=== PATIENT | female | born 1955 | race Caucasian/White ===

== ENCOUNTER 2023-12-24 14:28 | Outpatient (OUT) | payer MEDICARE, SELFPAY ==
--- NOTE | 2023-12-24 14:31 | ECG_ITS ---
[facility] Test Date: 2023-12-24 Pat Name: RADHA ELLIS Department: Room: - Gender: Female [employer]: : 1955 Requested By: SATISH GRAMAJO Order Number: [id number] Reading MD: AARON LINO Measurements Intervals [place] Rate: 76 P: -1 MT: 164 QRS: 15 QRSD: 144 T: 31 QT: 402 QTc: 453 Interpretive Statements SINUS RHYTHM WITH OCCASIONAL VENTRICULAR PREMATURE COMPLEXES RIGHT BUNDLE BRANCH BLOCK w/ secondary ST/T wave changes No previous ECG available for comparison Electronically Signed On 12-24-2023 18:48:39 EDT by AARON LINO
--- NOTE | 2023-12-24 15:05 | P.GSHP_ITS ---
History of Present Illness History of Present Illness Chief complaint: GROSS HEMATURIA, RIGHT URETERAL STONE Narrative: Patient presents for preadmission testing. The patient states she sought care because she had hematuria. The patient reports a history of kidney stones with a percutaneous nephrolithotomy done in approximately October 2020. The patient states she is still experiencing intermittent hematuria but denies any abdominal pain, flank pain, nausea, vomiting, or dysuria. Review of Systems ROS Narrative REVIEW OF SYSTEMS: Negative except as stated in HPI, ten or more systems reviewed. Constitutional: No fever, chills, weakness ENT: No sore throat or epistaxis Cardiovascular: No edema, chest pain, palpitations, or activity intolerance Respiratory: No shortness of breath, cough, or wheezing Musculoskeletal: No joint pain or swelling Gastrointestinal: No abdominal pain, constipation, diarrhea, or vomiting Neurological: No numbness, tingling, weakness, or headache Psychiatric: No mood changes [facility] Medical History (Updated 12/24/23 @ 15:07 by Klaudia Edwards NP) Hyperlipidemia ?E78.5 - Hyperlipidemia, unspecified (ICD-10) Mitral regurgitation ?I34.0 - Nonrheumatic mitral (valve) insufficiency (ICD-10) Postoperative nausea and vomiting ?R11.2 - Nausea with vomiting, unspecified (ICD-10) ?Z98.890 - Other specified postprocedural states (ICD-10) Arthritis ?M19.90 - Unspecified osteoarthritis, unspecified site (ICD-10) Hematuria ?R31.9 - Hematuria, unspecified (ICD-10) Kidney stones ?N20.0 - Calculus of kidney (ICD-10) H/O nephrolithotomy with removal of calculi ?Z98.890 - Other specified postprocedural states (ICD-10) ?Z87.442 - Personal history of urinary calculi (ICD-10) S/P extracorporeal shock wave therapy ?Z98.890 - Other specified postprocedural states (ICD-10) Cataract ?H26.9 - Unspecified cataract (ICD-10) Surgical History (Updated 12/24/23 @ 14:49 by Klaudia Edwards NP) History of colonoscopy ?Z98.890 - Other specified postprocedural states (ICD-10) History of tubal ligation ?Z98.51 - Tubal ligation status (ICD-10) History of repair of rotator cuff ?Z98.890 - Other specified postprocedural states (ICD-10) S/P cystoscopy ?Z98.890 - Other specified postprocedural states (ICD-10) H/O ureteroscopy ?Z98.890 - Other specified postprocedural states (ICD-10) History of kidney surgery ?Z98.890 - Other specified postprocedural states (ICD-10) S/P cataract extraction and insertion of intraocular lens ?Z98.49 - Cataract extraction status, unspecified eye (ICD-10) ?Z96.1 - Presence of intraocular lens (ICD-10) Family History (Updated 12/24/23 @ 14:49 by Klaudia Edwards NP) Other Family history of Alzheimer's disease Family history of Parkinson disease Family history of breast cancer Family history of pancreatic cancer Social History (Updated 12/24/23 @ 14:45 by Klaudia Edwards NP) Within the past year, how often did you have a drink containing alcohol: 2-4 times a month Smoking status: Never smoker Non-prescribed substance use: denies use 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 Highest level of school completed/degree received: high school graduate Meds Home Medications and Allergies Home Medications ?Medication ?Instructions ?Recorded ?Confirmed ?Type aspirin 81 mg tablet,delayed 81 mg PO DAILY 12/24/23 12/24/23 History release (Adult Aspirin Regimen) atorvastatin 20 mg tablet 20 mg PO DAILY 12/24/23 12/24/23 History calcium carbonate 600 mg-vitamin 1 tab PO DAILY 12/24/23 12/24/23 History D3 5 mcg (200 unit) tablet (Calcium 600 + D(3)) hydrochlorothiazide 25 mg tablet 25 mg PO DAILY 12/24/23 12/24/23 History omega 6-wcu-tvq-fish oil 1,000 mg 1 cap PO DAILY 12/24/23 12/24/23 History (120 mg-180 mg) capsule (Fish Oil) Allergies Allergy/AdvReac Type Severity Reaction Status Date / Time sulfamethoxazole Allergy Nausea Verified 12/24/23 14:41 [From Bactrim] trimethoprim [From Bactrim] Allergy Nausea Verified 12/24/23 14:41 Exam Narrative Exam Narrative: Constitutional: Awake, alert, comfortable, well-appearing, nontoxic, interactive, vital signs as charted Head: Normocephalic, atraumatic Neck: Supple, normal appearance, normal range of motion, no meningeal signs, no lymphadenopathy Respiratory: No respiratory distress, breath sounds clear Cardiovascular: Regular rate and rhythm, strong and regular heart tones Abdomen: Nontender, normal bowel sounds, soft, no CVA tenderness Musculoskeletal: Normal gait, no swelling or edema Skin: No rashes or induration, no lesions, only visible skin inspected Neuro: No neurological deficits, normal sensation Psychiatric: Oriented ?3, normal affect Assessment and Plan Assessment and Plan (1) Hematuria: (2) Kidney stones: Plan Cystoscopy, right retrograde, right ureteroscopy, holmium laser, possible right stent placement, possible ureteral biopsy scheduled with Dr. Miguel January 10, 2024.
[2023-12-24 15:13] LABS: Basophils Percent Auto 0.7 % (0.2-2.0); Eosinophils Absolute Auto 0.1 10^3/uL (0.0-0.7); Eosinophils Percent Auto 1.3 % (0.9-7.0); Hematocrit 41.3 % (36.0-48.0); Immature Granulocytes Abs Auto 0.01 10^3/uL (0.00-0.03); Immature Granulocytes Pct Auto 0.2 % (0.0-0.5); Lymphocytes Absolute Auto 1.8 10^3/uL (1.2-3.8); Lymphocytes Percent Auto 32.7 % (20.5-60.0); Mean Corpuscular HGB Conc 33.9 g/dL (29.9-35.2); Mean Corpuscular Hemoglobin 28.9 pg (26.7-34.0); Mean Corpuscular Volume 85.3 fL (81.0-99.0); Mean Platelet Volume 12.5 fL (9.5-13.5); Monocytes Absolute Auto 0.4 10^3/uL (0.3-0.8); Monocytes Percent Auto 7.1 % (1.7-12.0); Neutrophils Absolute Auto 3.2 10^3/uL (1.4-6.5); Platelet Count 170 10^3/uL (150-450); Red Blood Count 4.84 10^6/uL (4.20-5.40); Red Cell Distribution Width 12.8 % (11.0-15.0); White Blood Count 5.5 10^3/uL (4.0-11.0)
[2023-12-24 15:23] LABS: INR 0.98; Partial Thromboplastin Time 27.7 sec (22.3-36.2); Prothrombin Time 10.4 sec (9.0-11.6)
[2023-12-24 15:26] LABS: Anion Gap 11.6; BUN Creatinine Ratio 22.2; Calcium 9.6 mg/dL (8.5-10.1); Carbon Dioxide 30.5 mmol/L (21.0-32.0); Chloride 104 mmol/L (98-107); Estimated GFR (African America >60 (>=60); Estimated GFR (Non-African Ame >60 (>=60); Glucose 124 mg/dL (74-106); Potassium 3.1 mmol/L (3.5-5.1); Sodium 143 mmol/L (136-145)
== END 2023-12-24 14:29 | disposition home or self-care (01) ==
PROVIDERS: Visit Provider Urology
DX: Z01.810 Encounter for preprocedural cardiovascular examination (principal); Z01.812 Encounter for preprocedural laboratory examination; Z01.818 Encounter for other preprocedural examination; R31.0 Gross hematuria; N20.0 Calculus of kidney; E78.5 Hyperlipidemia, unspecified
CPT/HCPCS: 36415; 80048; 85025; 85610; 85730; 93005; G0463

== ENCOUNTER 2024-01-10 06:49 | Day surgery (SDC) | payer MEDICARE, SELFPAY ==
[2023-12-24 15:01] VITALS: BP 138/76; PULSE 85; TEMP 36.4; O2SAT 98; BMI 24.2
[2024-01-10] VITALS (23 sets, daily range): BP systolic 107–149; BP diastolic 68–81; PULSE 55–88; TEMP 36.2–36.3; O2SAT 91–98; BMI 23.3
--- OUTSIDE RECORDS SUMMARY | 2024-01-10 06:53 | XMS_ITS | CCD ---
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 Name Role Phone DONNAMILLER, RADHA Unavailable Unavailable DONNAMILLER, RADHA Unavailable Unavailable JOISANE SHAH Unavailable Unavailable Grace Zayas Primary Care Provider B[facility] Primary Care Provider Isidoro Goldberg Attending Provider [phone] [facility] Primary Care Provider Isidoro Goldberg Jr Attending Provider Bk [place] Primary Care Provider Charlesnamiller POWER SHOVEL ENGINEER - TOP ICER, [facility] Primary Care Pro vider Donnamiller POWER SHOVEL ENGINEER - TOP ICER, [facility] Primary Care Pro vider Radha SANTIAGO A Primary Care Physician Jimmy Lawton Primary Care Physician Shawn POWER SHOVEL ENGINEER - TOP ICER Jimmy Primary Care Provider Jimmy Lawton Primary Care Physician [phone] SHAWN, JIMMY Primary Care Unavailable SHAWN, JIMMY Referring Unavailable CELY MCKENNA Referring Unavailable SHAWN, JIMMY Primary Care Unavailable SHAWN, JIMMY Primary Care Unavailable KINA VALENTIN Referring Unavailable SHAWN, JIMMY Primary Care Unavailable JIMMIETESSIE VELAZQUEZ E Referring Unavailable SHAWN, JIMMY Primary Care Unavailable JIMMIE, TESSIE Referring Unavailable TESSIE PENNINGTON Attending Unavailable Kina Valentin Attending Unavailable Kina Valentin Admitting Unavailable Shawn, Jimmy LMichelle Admitting Unavailable Shawn, Jimmy L. Attending Unavailable TESSIE PENNINGTON Admitting Unavailable TESSIE PENNINGTON Attending Unavailable TESSIE PENNINGTON Admitting Unavailable TESSIE PENNINGTON Attending Unavailable Jose A GRAMAJO Attending Unavailable Jimmy Lawton Attending Unavailable Jimmy Lawton Attending Unavailable Jimmy Lawton Attending Unavailable Jimmy Lawton Attending Unavailable Kina Valentin Attending Unavailable Jose A GRAMAJO Attending Unavailable TESSIE PENNINGTON Attending Unavailable Unavailable Unavailable Unavailable Allergies Allergy Classification Reported Allergen(s) Allergy Type Date of Onset Reaction(s) Facility (2 sources) Acyclovir; Translations: [acyclovir] Drug Allergy Nausea (finding) [facility] Work Phone: (10 sources) Sulfamethoxazole / Trimethoprim; Translations: [sulfamethoxazole-tr imethoprim] Drug Allergy Nausea and vomiting (disorder) [facility] Medications Current Medications Medication Drug Class(es) Dates Sig (Normalized) Sig (Original) aspirin 81 mg delayed release oral tablet (19 sources) Platelet Aggregation Inhibitor, Nonsteroidal Anti-inflammatory Drug Start: 11-14-2021 take 1 tablet by mouth once daily aspirin 81 mg Oral EC Tab 81 mg = 1 tab(s), Oral, Daily, Prophylaxis Start Date: 11/14/21 Status: Ordered Start: 11-14-2021 take 1 tablet by carlos enrique th once daily aspirin 81 mg Oral EC Tab 81 mg = 1 tab(s), Oral, Daily, Prophylaxis Start Date: 11/14/21 Status: Ordered Start: 11-02-2020 Aspirin Active 81 MG PO Daily November 02, 2020 9:37am instructed to stop 7 days prior to surgery atorvastatin 20 mg oral tablet (20 sources) HMG-CoA Reductase Inhibitor Start: 10-30-2023 take 1 tablet by mouth once daily atorvastatin 20 mg Tab 20 mg = 1 tab(s), Oral, Daily, # 90 tab(s), Refills(s) 3, Pharmacy: [facility], 165, cm, 10/23/23 16:02:00 EDT, Height/Length Dosing, 70.3, kg, 10/23/23 16:02:00 EDT, Weight Dosing Start Date: 10/30/23 Status: Ordered Start: 10-25-2022 take 1 tablet by carlos enrique th once daily atorvastatin 20 mg Tab 20 mg = 1 tab(s), Oral, Daily, # 90 tab(s), Refills(s) 3, Pharmacy: [facility], 165, cm, 10/13/22 9:27:00 EDT, Height/Length Dosing, 69, kg, 10/13/22 9:27:00 EDT, Weight Dosing Start Date: 10/25/22 Status: Ordered Start: 02-01-2020 take 1 tablet by carlos enrique th once daily atorvastatin 20 mg Tab 20 mg = 1 tab(s), Oral, Daily, # 90 tab(s), Refills(s) 0, Pharmacy: [facility], 171.4, cm, 06/27/22 9:54:00 EST, Height/Length Dosing, 71.1, kg, 06/27/22 9:54:00 EST, Weight Dosing Start Date: 07/26/22 Status: Ordered Calcium (18 sources) Phosphate Binder, Calcium Start: 11-22-2009 take 1 tablet by mouth twice daily Calcium 600 D Tab 1 tab(s), Oral, BID, Refill(s) 0, Prophylaxis Start Date: 11/22/09 Status: Ordered Start: 11-22-2009 Calcium 600 D Tab Oral, BID, 0 Start Date: 11/22/09 Status: Ordered calcium carbonate 1250 mg / cholecalciferol 0.01 mg oral tablet (2 sources) Vitamin D Start: 11-02-2020 Calcium Carbon ate-Vitamin D3 (Calcium 500 + D) 500 mg(1,250mg) -400 unit Tablet Active 1 TAB PO Twice daily November 02, 2020 9:37am Start: 11-02-2020 Calcium Carbon ate-Vitamin D3 (Calcium 500 + D) 500 mg(1,250mg) -400 unit Tablet Active 1 TAB PO Twice daily November 02, 2020 9:37am cephalexin 500 mg oral capsule (2 sources) Cephalosporin Antibacterial Start: 11-24-2022 End: 12-01-2022 take 1 capsule by mouth every twelve hours cephalexin 500 mg Cap 500 mg = 1 cap(s), Oral, q12hr, X 7 day(s), # 14 cap(s), Refills(s) 0, Pharmacy: [facility], 165, cm, 11/24/22 11:49:00 EDT, Height/Length Dosing, 72.7, kg, 11/24/22 11:49:00 EDT, Weight Dosing Start Date: 11/24/22 Stop Date: 12/01/22 Status: Ordered Start: 11-24-2021 End: 11-27-2021 take 1 capsule by mouth every twelve hours Keflex 500 mg Cap 500 mg = 1 cap(s), Oral, q12hr, X 3 day(s), # 6 cap(s), Refills(s) 0, Pharmacy: [facility], 165, cm, 11/14/21 12:54:00 EDT, Height/Length Dosing, 71.7, kg, 11/14/21 12:54:00 EDT, Weight Dosing Start Date: 11/24/21 Stop Date: 11/27/21 Status: Ordered Fish Oils (18 sources) Start: 03-11-2019 take 1000 mg by mout h once daily Fish Oil 1,000 mg, Oral, Daily, Refill(s) 0, Prophylaxis Start Date: 03/11/19 Status: Ordered Start: 03-11-2019 Fish Oil Refil l(s) 0 Start Date: 03/11/19 Status: Ordered hydroCHLOROthiazide 25 mg oral tablet (18 sources) Thiazide Diuretic Start: 09-18-2023 take 1 tablet by mouth once daily hydrochlorothiazide 25 mg Tab 25 mg = 1 tab(s), Oral, Daily, # 90 tab(s), Refills(s) 5, Pharmacy: [facility], 165, cm, 09/18/23 9:01:00 EST, Height/Length Dosing, 70.2, kg, 09/18/23 9:01:00 EST, Weight Dosing Start Date: 09/18/23 Status: Ordered Start: 11-03-2022 take 1 tablet by carlos enrique th once daily hydrochlorothiazide 25 mg Tab 25 mg = 1 tab(s), Oral, Daily, # 90 tab(s), Refills(s) 3, Pharmacy: [facility], 165, cm, 10/13/22 9:27:00 EDT, Height/Length Dosing, 69, kg, 10/13/22 9:27:00 EDT, Weight Dosing Start Date: 11/03/22 Status: Ordered Start: 10-25-2021 take 1 tablet by [facility] once daily hydrochlorothiazide 25 mg oral tablet 25 mg = 1 tab(s), Oral, Daily, # 90 tab(s), Refills(s) 3, Pharmacy: [facility], 165, cm, 10/25/21 11:57:00 EDT, Height/Length Dosing, 75, kg, 10/25/21 11:56:00 EDT, Weight Dosing Start Date: 10/25/21 Status: Ordered hyoscyamine sulfate 0.125 mg oral tablet (3 sources) Start: 11-24-2021 take 1 tablet under the tongue four times daily as needed for muscle spasms Levsin 0.125 mg SL Tab 0.125 mg = 1 tab(s), SubLingual, QID, PRN spasm, # 20 tab(s), Refills(s) 0, Pharmacy: [facility], 165, cm, 11/14/21 12:54:00 EDT, Height/Length Dosing, 71.7, kg, 11/14/21 12:54:00 EDT, Weight Dosing Start Date: 11/24/21 Status: Ordered Start: 08-16-2021 take 1 tablet under the tongue twice daily Levsin 0.125 mg SL Tab 0.125 mg = 1 tab(s), SubLingual, BID, # 20 tab(s), Refills(s) 0, Pharmacy: [facility], 165, cm, 08/16/21 12:06:00 EST, Height/Length Dosing, 75, kg, 08/16/21 12:06:00 EST, Weight Dosing Start Date: 08/16/21 Status: Ordered ketorolac tromethamine 10 mg oral tablet (11 sources) Nonsteroidal Anti-inflammatory Drug, Cyclooxygenase Inhibitor Start: 08-16-2021 ketorolac 10 mg Tab 10 mg = 1 tab(s), Oral, q6hr, PRN Pain 8-10, # 20 tab(s), Refills(s) 0, Pharmacy: [facility], 165, cm, 11/14/21 12:54:00 EDT, Height/Length Dosing, 71.7, kg, 11/14/21 12:54:00 EDT, Weight Dosing Start Date: 11/24/21 Status: Ordered [place] 2-Dzp-Agt-Fish Oil (Fish Oil) 1,000 mg (120 mg-180 mg) Capsule (2 sources) Start: 11-02-2020 take 1 capsule by mouth twice daily [place] 2-Upy-Nkq-Fish Oil (Fish Oil) 1,000 mg (120 mg-180 mg) Capsule Active 1 CAP PO Twice daily November 02, 2020 9:37am sulfamethoxazole 800 mg / trimethoprim 160 mg oral tablet (2 sources) Dihydrofolate Reductase Inhibitor Antibacterial, Sulfonamide Antimicrobial Start: 10-13-2022 End: 10-20-2022 Bactrim D.S. 800 mg-160 mg Tab 1 tab(s), Oral, BID for 7 day(s), 14 tab(s), Refill(s) 0, [facility], 165, cm, 10/13/22 9:27:00 EDT, Height/Length Dosing, 69, kg, 10/13/22 9:27:00 EDT, Weight Dosing Start Date: 10/13/22 Stop Date: 10/20/22 Status: Ordered tamsulosin hydrochloride 0.4 mg oral capsule (4 sources) alpha-Adrenergic Chuy Start: 11-19-2023 End: 12-19-2023 take 1 capsule by mouth once daily tamsulosin 0.4 mg Cap 0.4 mg = 1 cap(s), Oral, Daily, X 30 day(s), # 30 cap(s), Refills(s) 0, Pharmacy: [facility], 165, cm, 10/23/23 16:02:00 EDT, Height/Length Dosing, 70.3, kg, 10/23/23 16:02:00 EDT, Weight Dosing Start Date: 11/19/23 Stop Date: 12/19/23 Status: Ordered Start: 08-16-2021 take 1 capsule by [facility] once daily tamsulosin 0.4 mg Cap 0.4 mg = 1 cap(s), Oral, Daily, # 20 cap(s), Refills(s) 0, Pharmacy: [facility], 165, cm, 08/16/21 12:06:00 EST, Height/Length Dosing, 75, kg, 08/16/21 12:06:00 EST, Weight Dosing Start Date: 08/16/21 Status: Ordered Completed/Discontinued Medications Medication Drug Class(es) Dates Sig (Normalized) Sig (Original) ciprofloxacin 500 mg oral tablet (2 sources) Quinolone Antimicrobial Start: 10-31-2023 take 1 tablet by mouth once daily Cipro 500 mg Tab 500 mg = 1 tab(s), Oral, Daily, Take 1 tablet the day before the procedure and 1 tablet after the procedure, # 2 tab(s), Refills(s) 0, Pharmacy: [facility], 165, cm, 10/23/23 16:02:00 EDT, Height/Length Dosing, 70.3, kg, 10/23/23 16:02:00 EDT, Weight Dosing Start Date: 10/31/23 Status: Ordered iopamidol (ISOVUE-370) 76 % injection 100 mL (1 source) Start: 10-13-2021 End: 10-13-2021 iopamidol (ISOVUE-370) 76 % injection 100 mL Problems Active Problems Problem Classification Problem Date Documented Da te Episodic/Chronic Abdominal pain (1 source) Flank pain; Translations: [Unspecified abdominal pain] Episodic Calculus of urinary tract (20 sources) Kidney stone; Translations: [Calculus of kidney] Onset: 10-25-2021 Episodic Disorders of lipid metabolism (20 sources) Mixed hyperlipidemia; Translations: [Mixed hyperlipidemia] Onset: 01-18-2022 10-27-2020 Chronic Genitourinary symptoms and ill-defined conditions (20 sources) Female stress incontinence; Translations: [Stress incontinence (female) (male)] Onset: 10-25-2021 Chronic Genitourinary symptoms and ill-defined conditions (20 sources) Asymptomatic microscopic hematuria; Translations: [Asymptomatic microscopic hematuria] Onset: 10-25-2021 Episodic Heart valve disorders (18 sources) Mitral valve regurgitation 10-27-2020 Chronic Menopausal disorders (1 source) Other primary ovarian failure; Translations: [Other primary ovarian failure] Onset: 09-06-2023 Chronic Nausea and vomiting (8 sources) Nausea 08-28-2023 Episodic Other aftercare (1 source) Long-term current use of drug therapy; Translations: [Other intermediate (current) drug therapy] Onset: 06-27-2022 Episodic Other bone disease and musculoskeletal deformities (1 source) Disorder of bone development; Translations: [Other disorders of bone development and growth, multiple sites] Chronic Other bone disease and musculoskeletal deformities (1 source) Disorder of bone; Translations: [Bone disorder] Episodic Other connective tissue disease (7 sources) Cramp in lower limb 06-29-2021 Episodic Other diseases of kidney and ureters (2 sources) 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 Other diseases of kidney and ureters (2 sources) Urinary tract obstruction; Translations: [Hydronephrosis with renal and ureteral calculous obstruction] Onset: 11-24-2021 Episodic Other gastrointestinal disorders (18 sources) Occult blood in stools 10-27-2020 Episodic Other nutritional; endocrine; and metabolic disorders (4 sources) Body mass index 25-29 - overweight 06-29-2021 Episodic Other nutritional; endocrine; and metabolic disorders (12 sources) Overweight; Translations: [Overweight] Onset: 10-12-2022 10-27-2020 Episodic Other nutritional; endocrine; and metabolic disorders (2 sources) Overweight in adulthood with body mass index of 25 or more but less than 30; Translations: [Body mass index (BMI) 25.0-25.9, adult] Onset: 11-24-2022 Episodic Other screening for suspected conditions (not mental disorders or infectious disease) (9 sources) Imaging of abdomen abnormal; Translations: [Platelet count below reference range] Onset: 06-27-2022 10-27-2020 Episodic Other skin disorders (18 sources) Actinic keratosis 05-06-2020 Episodic Residual codes; unclassified (18 sources) Family history of breast cancer 04-28-2020 Episodic Residual codes; unclassified (1 source) History of drug therapy; Translations: [Personal history of other drug therapy] Onset: 06-27-2022 Episodic Residual codes; unclassified (2 sources) Body mass index 20-24 - normal; Translations: [Body mass index (BMI) 24.0-24.9, adult] Onset: 06-27-2022 Episodic Spondylosis; intervertebral disc disorders; other back problems (12 sources) Backache; Translations: [Dorsalgia, unspecified] Onset: 10-12-2022 10-12-2022 Episodic Unclassified (1 source) Unknown / UNK(Unknown) Onset: 02-02-2017 Unclassified (13 sources) Patient encounter status; Translations: [Encounter for screening for osteoporosis] 06-27-2022 Unclassified (1 source) Finding of spinal region; Translations: [Abnormal spinal diagnostic imaging] Unclassified (18 sources) Asymptomatic microscopic hematuria 11-08-2020 Unclassified (10 sources) Colon cancer screening declined 06-29-2021 Unclassified (18 sources) Long-term current use of aspirin 10-27-2020 Unclassified (18 sources) Seborrheic keratosis 04-28-2020 Unclassified (13 sources) Body mass index 20-24 - normal 06-27-2022 Unclassified (14 sources) Drug therapy finding 06-27-2022 Urinary tract infections (11 sources) Hematuria co-occurrent and due to cystitis; Translations: [Cystitis, unspecified with hematuria] Onset: 10-13-2022 Episodic Past or Other Problems Problem Classification Problem Date Documented Da te Episodic/Chronic Unclassified (1 source) Z12.31^Enc Onset: 02-02-2017 Unclassified (14 sources) History of vaccination 06-27-2022 Results Test Name Value Interpretation Reference Range Facil ity ECG 12-Leadon 12-25-2023 ECG 12-Lead [id number] 2#1.00TIFF Normal [facility] ECG 12-Lead [id number] 4E#1.00TIFF Normal [facility] Lab Reportson 12-25-2023 Lab Reports [id number] 93#1.00TIFF Normal [facility] Lab Reports [id number] 50#1.00TIFF [facility] Consent for Procedure/Surger yon 12-05-2023 Consent for Procedure/Surgery [id number] B#1.00TIFF [facility] Consent for Procedure/Surger yon 11-27-2023 Consent for Procedure/Surgery [id number] 26#1.00TIFF [facility] Ambulatory Visit Summaryon 0 11-26-2023 Ambulatory Visit Summary TEMITOPE TREJO :1955 Visit Date:11/26/2023 Ambulatory Visit Instructions Your Diagnosis Ureteral stone with hydronephrosis Kidney stone Gross hematuria Your Care Team Attending Physician - AVILA HOOPER, Jose A Padron Primary Care Physician - Shawn MSN, POWER SHOVEL ENGINEER-TOP ICER, Jimmy Clarke This Is Your Medications List Contact prescribing physician if questions or concerns aspirin (aspirin 81 mg Oral EC Tab) atorvastatin (atorvastatin 20 mg Tab) calcium-vitamin D (Calcium 600 D Tab) ciprofloxacin (Cipro 500 mg Tab) hydrochlorothiazide (hydrochlorothiazid e 25 mg Tab) omega-3 polyunsaturated fatty acids (Fish Oil) tamsulosin (tamsulosin 0.4 mg Cap) Procedures Performed Cataract (07/31/2023), Cystoscopy (11/24/2021), PCNL - Percutaneous nephrolithotomy (11/10/2020), ECSWL x 2, L rotator cuff repair, tubal ligation. Discharge Vitals Temperature (Temporal Artery) 37 ?C Heart Rate (Peripheral) 67 Respiratory Rate 16 Blood Pressure 122/83 Height 165 cm Height 65 in Weight 70 kg Weight 154 lb BMI 25.71 What to do next Scheduled Follow-Up Appointments Sunday 3:30 PM EDT Where: [facility] 2023 8:00 AM EST Where: [facility] Patient Educationon 11-26-19 24 Patient Education Nephrology Laser Therapy for Kidney Stones, Care After This sheet gives you information about how to care for yourself after your procedure. Your health care provider may also give you more specific instructions. If you have problems or questions, contact your health care provider. What can I expect after the procedure? After the procedure, it is common to have: ? Pain. ? A burning sensation while urinating. ? Small amounts of blood in your urine. ? A need to urinate frequently. ? Pieces of kidney stone in your urine. ? Mild discomfort when urinating that may be felt in the back. You may experience this if you have a flexible tube (stent) in your ureter. Follow these instructions at home: Medicines ? Take qpqr-ztr-xwaxjjd and prescription medicines only as told by your health care provider. ? If you were prescribed an antibiotic medicine, take it as told by your health care provider. Do not stop taking the antibiotic even if you start to feel better. ? Ask your health care provider if the medicine prescribed to you: ? Requires you to avoid driving or using heavy machinery. ? Can cause constipation. You may need to take actions to prevent or treat constipation, such as: ? Take ahqz-etm-rjvhvmt or prescription medicines. ? Eat foods that are high in fiber, such as beans, whole grains, and fresh fruits and vegetables. ? Limit foods that are high in fat and processed sugars, such as fried or sweet foods. Activity ? Return to your normal activities as told by your health care provider. Ask your health care provider what activities are safe for you. ? Do not drive for 24 hours if you were given a sedative during your procedure. General instructions ? If your health care provider approves, you may take a warm bath to ease discomfort and burning. ? Drink enough fluid to keep your urine pale yellow. Your health care provider may recommend drinking two 8 oz (237 mL) glasses of water per hour for a few hours after your procedure. ? You may be asked to strain your urine to collect any stone fragments that you pass. These fragments may be tested. ? Keep all follow-up visits as told by your health care provider. This is important. If you have a stent, you will need to return to your health care provider to have the stent removed. Contact a health care provider if you: ? Have pain or a burning feeling that lasts more than 2 days. ? Feel nauseous. ? Vomit more and more often. ? Have difficulty urinating. ? Have pain that gets worse or does not get better with medicine. Get help right away if: ? You are unable to urinate, even if your bladder feels full. ? You have: ? Bright red blood or blood clots in your urine. ? More blood in your urine. ? Severe pain or discomfort. ? A fever or shaking chills. ? Abdominal pain. ? Difficulty breathing. ? Swelling in your legs. This information is not intended to replace advice given to you by your health care provider. Make sure you discuss any questions you have with your health care provider. Document Revised: 11/15/2022 Document Reviewed: 03/13/2022 [employer] Patient Education ? 2022 [place]. Laser Therapy for Kidney Stones Laser therapy for kidney stones is a procedure to break up small, hard mineral deposits that form in the kidney (kidney stones). The procedure is done using a device that produces a focused beam of light (laser). The laser breaks up kidney stones into pieces that are small enough to be passed out of the body through urination or removed from the body during the procedure. You may need laser therapy if you have kidney stones that are painful or block your urinary tract. This procedure is done by inserting a tube (ureteroscope) into your kidney through the urethral opening. The urethra is the part of the body that drains urine from the bladder. In women, the urethra opens above the vaginal opening. In men, the urethra opens at the tip of the penis. The ureteroscope is inserted through the urethra, and surgical instruments are moved through the bladder and the muscular tube that connects the kidney to the bladder (ureter) until they reach the kidney. Tell a health care provider about: ? Any allergies you have. ? All medicines you are taking, including vitamins, herbs, eye drops, creams, and coqx-ije-ozcnoul medicines. ? Any problems you or family members have had with anesthetic medicines. ? Any blood disorders you have. ? Any surgeries you have had. ? Any medical conditions you have. ? Whether you are or may be . What are the risks? Generally, this is a safe procedure. However, problems may occur, including: ? Infection. ? Bleeding. ? Allergic reactions to medicines. ? Damage to the urethra, bladder, or ureter. ? Urinary tract infection (UTI). ? Narrowing of the urethra (urethral stricture). ? Difficulty passing urine. ? Blockage of the kidney caused by a fragment of kidney st (more content not included)... Normal Espino[facility] Urology Office/Clinic Noteon 11-26-2023 Urology Office/Clinic Note Chief Complaint kidney stone HPI Staff Pt is here to discuss stone surgery. Dx: gross hematuria and kidney stone HCTZ 25 mg Tamsulosin 0.4mg Dysuria: no Incomplete bladder emptying: no Hematuria: sometimes with heavy lifting she has noticed some blood Frequency: no Urgency: no Nocturia: no Stream: good strong Leaking: no Post void dripping: no Wearing pads/ Depends: no Urge incontinence: no Stress incontinence: with a hard cough or sneeze Incontinence without Sensory Awareness: no Abdominal pain: no Flank pain: no Sexual complaints: no History of Present Illness Tests reviewed: reviewed UA, CTU I have reviewed the previous health record information and history for this patient from Kina Valentin NP. I have reviewed and verified the staff HPI to be accurate for this encounter. Review of Systems PHQ Score Initial Depression Screen Score: 0 SCORE ROS - Provider Constitutional: denies weight loss, denies hot flashes. Eyes: denies eye problems. Gastrointestinal: denies nausea, denies vomiting. Cardiovascular: denies chest pain or angina. Integumentary: no dryness Musculoskeletal: denies musculoskeletal symptoms. ENMT: denies otolaryngeal symptoms. Respiratory: no shortness of breath. Heme/Lymph: denies easy bleeding tendency, denies easy bruising tendency. Psychiatric: no confusion, no anxiety. Genitourinary: See HPI. Physical Exam Vitals & Measurements T: 37 ?C(Temporal Artery) HR: 67(Peripheral) RR: 16 BP: 122/83 HT: 65 in HT: 165 cm WT: 70 kg WT: 154 lb BMI: 25.71 General Appearance: alert , no acute distress, well nourished, well developed female. Genitourinary: bladder nonpalpable, no flank pain. Assessment/Plan Prior Dr. Goldberg pt 1. Ureteral stone with hydronephrosis (N13.2: Hydronephrosis with renal and ureteral calculous obstruction) CTU 11/15/23 Silvana Wilson - 6 mm obstructing stone at R UPJ with filling defect and mild R hydro. Denies current pain .Denies fever, shaking or chills. Reviewed imaging results. Has an obstructing stone which will require treatment. Advised pt this was likely cause of hematuria episode. Discussed possible stent placement. Also discussed filling defect found on CT which will require evaluation via cysto which can be done at time of stone procedure. -Will schedule a Cystoscopy with Right Retrogrades, Right Ureteroscopy, Right Laser Litho, Right Stone Basket, Right possible stent placement. The procedure risks, benefits, alternatives and complications have been discussed with the patient. These include but are not limited to bleeding, pain, infection, ureteral perforation, extravasation, stricture formation, sepsis, obstruction, inability to reach the stone, inability to fragment the stone, and inability to retrieve all stone fragments. The need for ancillary procedures such as stent placement and removal, retrograde urography, and percutaneous nephrostomy were also discussed. The patient also understood that a ureteral stent may be placed and removal of the stent is critical. Failure to follow up for stent removal can result in recurrent UTIs, encrustation of the stent, loss of kidney function and need for nephrectomy. All of their questions and concerns have been addressed. Full informed consent has been obtained. Will order General anesthesia. Ordered: E&M of Est. Patient High 40-54 Min 95125 Urology Procedure Order 2. Kidney stone (N20.0: Calculus of kidney) S/p R PCNL 2020 and stone extraction November 2021. KUB 07/28/22 - 6mm stone over the inferior pole right kidney which is unchanged from prior imaging. KUB 09/06/23 - stable 6 mm stone over the lower pole right kidney unchanged. No new stones. Taking HCTZ 25 mg. -See #1. Ordered: E&M of Est. Patient High 40-54 Min 80126 Urnls Dip Stick Auto w/o Microscopy POC 82372 3. Gross hematuria (R31.0: Gross hematuria) Micro UA - >30 RBC, UCX w/ mixed skin contaminants Pt called w/ gross hematuria mid September. Micro UA 10/07/24 - > 30 RBC, UCX w/ mixed skin contaminants. No other urinary sxs at that time. No recent stone episode. -See #1. Ordered: E&M of Est. Patient High 40-54 Min 18749 4. Kidney filling defect (R93.429: Abnormal radiologic findings on diagnostic imaging of unspecified kidney) R renal pelvis. will possibly do a biopsy at ureteroscopy Follow-up With When Contact Information AVILA HOOPER, Jose A Padron, URL [facility] [address], [place] [phone]- [phone] Additional Instructions: sched cysto/ R ureteroscopy/laser litho w/ poss stent Patient Education Laser Therapy for Kidney Stones, Care After Laser Therapy for Kidney Stones IVanessa, personally scribed for Dr. Gramajo on 11/26/2023 12:34:13. . Documentation recorded by the scribe, Vanessa Nolen, accurately reflects the services(s) I performed and decisions made by me. Authenticated by Dr. Gramajo on 11/26/2023 12 (more content not included)... [facility] Comment on above: Result Comment: Elec tronically Signed By: Jose A GRAMAJO MD\.br\Date and Time Signed: 11/26/23 12:40 EDT\.br\Electronically Co-Signed By: Vanessa Nolen\.br\Date and Time Co-Signed: 11/26/23 12:34 EDT RAD - CT Reporton 11-20-2023 RAD - CT Report [id number]#[id number] [facility] BUN + Creatinineon Creatinine [Mass/Vol] 0.7 mg/dL Normal 0.5-0.9 [facility] Comment on above: Performed By: #### B UNCRT #### [facility] [address] [place] [address] Senior Interaction Designer: Fede Perdue MD GFR/1.73 sq M.predicted among non-blacks MDRD (S/P/Bld) [Vol rate/Area] mL/min/{1.73_m2} Normal >60 [facility] Comment on above: Result Comment: These results are not intended for use in patients <18 years of age. eGFR results are calculated without a race factor using the 2020 CKD-EPI equation. Careful clinical correlation is recommended, particularly when comparing to results calculated using previous equations. The CKD-EPI equation is less accurate in patients with extremes of muscle mass, extra-renal metabolism of creatine, excessive creatine ingestion, or following therapy that affects renal tubular secretion. Performed By: #### B UNCRT #### [facility] [address] [place] [address] Senior Interaction Designer: Fede Perdue MD Urea nitrogen [Mass/Vol] 24 mg/dL High 8- [facility] Comment on above: Performed By: #### B UNCRT #### [facility] [address] [place] [address] Senior Interaction Designer: Fede Perdue MD CT UROGRAMon 11-15-2023 CT UROGRAM EXAM: CT UROGRAM HISTORY: Gross hematuria COMPARISON: CT abdomen and pelvis 10/13/2021. TECHNIQUE: CT examination of the with and without IV contrast. Coronal and sagittal reformations were performed. Prone bladder images. Split bolus postcontrast technique. Dose reduction techniques were achieved by using automated exposure control and/or adjustment of mA and/or kV according to patient size and/or use of iterative reconstruction technique. FINDINGS: POSITIVES related to history: 6 mm stone right ureteropelvic junction. Filling defect is visible on noncontrast and postcontrast images within the extrarenal pelvis, extending into the very proximal right ureter around the stone, measuring up to 2.7 cm in greatest dimension. No contrast passes the stone. Prominent fat replacement in the right renal pelvis with mild hydronephrosis, similar to 10/13/2021 when it was a stone at the right ureteropelvic junction. NEGATIVES related to history: No other stones. No other mass. COINCIDENTAL, unrelated to history: Multiple parapelvic cysts left kidney. Scattered hepatic cysts, benign and unchanged. Diverticulosis sigmoid colon. ROUTINE: Normal spleen, pancreas, adrenal glands and gallbladder. Normal uterus and adnexa. Normal lung bases. Age expected degenerative changes in the spine. IMPRESSION: Obstructing stone with filling defect at the right ureteropelvic junction with mild right hydronephrosis. Filling defect could represent blood clot or urothelial carcinoma (nonspecific). Interpreted by: Esteban Gomes Jr., MD Signed by: Esteban Gomes Jr., MD 11/15/23 Final result Normal [facility] C Urineon 10-26-2023 Bacteria identified Cx Nom (U) Microbiology PROCEDURE: Urine Culture [R1] SOURCE: U CleanCatch BODY SITE: COLLECTED DATE/TIME: 10/23/2023 16:24 EDT RECEIVED DATE/TIME: 10/24/2023 13:41 EDT START DATE/TIME: 10/24/2023 13:41 EDT FREE TEXT SOURCE: BUD Valentin APRNC, SHAUN Valentin APRN, Kina Castanon X FINAL REPORTS Final Report [] Verified Date/Time: 10/26/2023 11:09 EDT 3,000 cfu/ml Mixed skin contaminants Performing Locations R1: This test was performed at: [facility], [address] [place] [address], [id number]- , [place], [facility] Comment on above: Performed By: #### 2 [id number] ####[facility] [address] [place] [address] Urine Cytology ([facility])on 0 10-26-2023 Microscopic exam Cytology (U) [Interp] Diagnosis Info Invalid Interpretation Code [facility] Comment on above: Result Comment: A:Ur ine,Urine:Voided Interpretation - MicroScopic Description - Adequacy - Gross Description Site ID:A color Yellow fixative Alcohol Specimen designated Urine received in alcohol preservative and labeled with the patient?s name, consists of 80ml clear yellow fluid. Electronically signed by : on: 10/26/2023 13:03:49 Performed By: #### 1 [id number] ####[facility] [address] [place] [address] Ambulatory Visit Summaryon 0 10-23-2023 Ambulatory Visit Summary TEMITOPE TREJO :1955 Visit Date:10/23/2023 Ambulatory Visit Instructions Your Diagnosis Gross hematuria Kidney stone Tests Performed CT Urogram -- Results Pending -- Please visit your patient portal for your results or contact your primary care physician. Your Care Team Attending Physician - Magdaleno ANTHONY, SHAUN, Kina Subramanian Primary Care Physician - Shawn MSN, POWER SHOVEL ENGINEER-TOP ICER, Jimmy Clarke This Is Your Medications List Contact prescribing physician if questions or concerns aspirin (aspirin 81 mg Oral EC Tab) atorvastatin (atorvastatin 20 mg Tab) calcium-vitamin D (Calcium 600 D Tab) hydrochlorothiazide (hydrochlorothiazid e 25 mg Tab) omega-3 polyunsaturated fatty acids (Fish Oil) Procedures Performed Cataract (07/31/2023), Cystoscopy (11/24/2021), PCNL - Percutaneous nephrolithotomy (11/10/2020), ECSWL x 2, L rotator cuff repair, tubal ligation. Discharge Vitals Temperature (Temporal Artery) 36.9 ?C Heart Rate (Peripheral) 72 Respiratory Rate 16 Blood Pressure 126/76 Height 165 cm Height 65 in Weight 70.3 kg Weight 154.66 lb BMI 25.82 What to do next Scheduled Follow-Up Appointments 2023 8:00 AM EST Where: [facility] Patient Educationon 10-23-19 24 Patient Education Nephrology Dietary Guidelines to Help Prevent Kidney Stones Kidney stones are deposits of minerals and salts that form inside your kidneys. Your risk of developing kidney stones may be greater depending on your diet, your lifestyle, the medicines you take, and whether you have certain medical conditions. Most people can lower their risks of developing kidney stones by following these dietary guidelines. Your dietitian may give you more specific instructions depending on your overall health and the type of kidney stones you tend to develop. What are tips for following this plan? Reading food labels ? Choose foods with no salt added or low-salt labels. Limit your salt (sodium) intake to less than 1,500 mg a day. ? Choose foods with calcium for each meal and snack. Try to eat about 300 mg of calcium at each meal. Foods that contain 200?500 mg of calcium a serving include: ? 8 oz (237 mL) of milk, calcium-fortifiedno n-dairy milk, and calcium-fortifiedfr uit juice. Calcium-fortified means that calcium has been added to these drinks. ? 8 oz (237 mL) of kefir, yogurt, and soy yogurt. ? 4 oz (114 g) of tofu. ? 1 oz (28 g) of cheese. ? 1 cup (150 g) of dried figs. ? 1 cup (91 g) of cooked broccoli. ? One 3 oz (85 g) can of sardines or mackerel. Most people need 1,000?1,500 mg of calcium a day. Talk to your dietitian about how much calcium is recommended for you. Shopping ? Buy plenty of fresh fruits and vegetables. Most people do not need to avoid fruits and vegetables, even if these foods contain nutrients that may contribute to kidney stones. ? When shopping for convenience foods, choose: ? Whole pieces of fruit. ? Pre-made salads with dressing on the side. ? Low-fat fruit and yogurt smoothies. ? Avoid buying frozen meals or prepared deli foods. These can be high in sodium. ? Look for foods with live cultures, such as yogurt and kefir. ? Choose high-fiber grains, such as whole-wheat breads, oat bran, and wheat cereals. Cooking ? Do not add salt to food when cooking. Place a salt shaker on the table and allow each person to add their own salt to taste. ? Use vegetable protein, such as beans, textured vegetable protein (TVP), or tofu, instead of meat in pasta, casseroles, and soups. Meal planning ? Eat less salt, if told by your dietitian. To do this: ? Avoid eating processed or pre-made food. ? Avoid eating fast food. ? Eat less animal protein, including cheese, meat, poultry, or fish, if told by your dietitian. To do this: ? Limit the number of times you have meat, poultry, fish, or cheese each week. Eat a diet free of meat at least 2 days a week. ? Eat only one serving each day of meat, poultry, fish, or seafood. ? When you prepare animal proteins, cut pieces into small portion sizes. For most meat and fish, one serving is about the size of the palm of your hand. ? Eat at least five servings of fresh fruits and vegetables each day. To do this: ? Keep fruits and vegetables on hand for snacks. ? Eat one piece of fruit or a handful of berries with breakfast. ? Have a salad and fruit at lunch. ? Have two kinds of vegetables at dinner. ? You may be told to limit foods that are high in a substance called oxalate. These include: ? Spinach (cooked), rhubarb, beets, sweet potatoes, and [place] chard. ? Peanuts. ? Potato chips, taiwanese fries, and baked potatoes with skin on. ? Nuts and nut products. ? Chocolate. ? If you regularly take a diuretic medicine, make sure to eat at least 1 or 2 servings of fruits or vegetables that are high in potassium each day. These include: ? Avocado. ? Banana. ? [place], prune, carrot, or tomato juice. ? Baked potato. ? Cabbage. ? Beans and split peas. Lifestyle ? Drink enough fluid to keep your urine pale yellow. This is the most important thing you can do. Spread your fluid intake throughout the day. ? If you drink alcohol: ? Limit how much you have to: ? 0?1 drink a day for women who are not . ? 0?2 drinks a day for men. ? Know how much alcohol is in your drink. In the [place] one drink equals one 12 oz bottle of beer (355 mL), one 5 oz glass of wine (148 mL), or one 1? oz glass of hard liquor (44 mL). ? Lose weight if told by your health care provider. Work with your dietitian to find an eating plan and weight loss strategies that work best for you. General information ? Talk to your health care provider and dietitian about taking daily supplements. Depending on your health and the cause of your kidney stones, you may be told: ? Do not take high-dose supplements of vitamin C (1,000 mg a day or more). ? To take a calcium supplement. ? To take a daily probiotic supplement. ? To take other supplements such as magnesium, fish oil, or vitamin B6. ? Take gdbb-cfz-odocxzh and prescription medicines only as told by your health care provider. These include supplements. What foods sh (more content not included)... [facility] Urine Cytology ([facility])on 0 10-23-2023 Method of Extraction Voided [facility] Comment on above: Performed By: #### 1 [id number] ####[facility] [address] [place] [id number] Number of Jars 1 Invalid Interpretation Code [facility] Comment on above: Performed By: #### 1 [id number] ####[facility] [address] [place] [address] Specimen Urine [facility] Comment on above: Performed By: #### 1 [id number] ####[facility] [address] [place] [address] Type of Service Technical Only Normal [facility] Comment on above: Performed By: #### 1 [id number] ####[facility] [address] [place] [address] Urology Office/Clinic Noteon 10-23-2023 Urology Office/Clinic Note Chief Complaint Gross hematuria HPI Staff Pt last seen in our office 09/18/23 by JUANCARLOS DX: Kidney Stone & Microscopic Hematuria *HCTZ 25mg qd UACS 09/18/23 >30 RBC's & also showed contamination - pt opted to wait until next appt to retest UA. She then called our office 10/08/23 c/o blood in urine. UACS 10/08/23 >30 RBC's & also showed contamination Pt is here today to discuss possible hematuria work up. Pt does take baby Aspirin QD. Last Cysto by DLS 11/24/21 (w stone extraction) Last Abdominal Image 11/24/21 ([facility]) No FISH/Cytology on record Dysuria: denies Incomplete bladder emptying: denies Hematuria: denies Frequency: denies Urgency: denies Nocturia: denies Stream: strong and steady Leaking: denies Post void dripping: denies Wearing pads/ Depends: wears pantyliner Urge incontinence: denies Stress incontinence: yes Incontinence without Sensory Awareness: denies Abdominal pain: denies Flank pain: denies Sexual complaints: _ History of Present Illness I have reviewed and verified the staff HPI to be accurate for this encounter. Portions of this record may have been created with voice recognition artificial intelligence software, specifically [employer], [employer] and or [employer]. Substitutions may have occurred due to the inherent limitations of voice recognition and artificial intelligence software. Review of Systems PHQ Score Initial Depression Screen Score: 0 SCORE Physical Exam Vitals & Measurements T: 36.9 ?C(Temporal Artery) HR: 72(Peripheral) RR: 16 BP: 126/76 HT: 65 in HT: 165 cm WT: 70.3 kg WT: 154.66 lb BMI: 25.82 General: Well developed, well nourished, in no acute distress. Genitourinary: Flank Pain: none. Bladder: nonpalpable Assessment/Plan 1. Gross hematuria (R31.0: Gross hematuria) Micro UA - >30 RBC, UCX w/ mixed skin contaminants Pt called w/ gross hematuria mid September. Micro UA 10/08/23 - > 30 RBC, UCX w/ mixed skin contaminants. Denies other urinary sxs at that time. Denies recent stone episode. UA today w/ large blood, small leuks. Discussed hematuria workup, what this entails and what we are ruling out, including malignancy. Pt will need urine testing, upper tract imaging, cysto The risks and benefits for cystoscopy have been discussed. The risks include bleeding, infection, and irritation of the bladder and urinary channel, among others. The patient, after being informed of procedural details and after questions have been answered, wishes to proceed. Will order Local anesthesia. - Send urine today for UCX, cytol - Schedule CTU - Schedule cysto Ordered: CT Urogram Urine Culture 2. Kidney stone (N20.0: Calculus of kidney) s/p PCNL in 2020 and stone extraction November 2021. KUB done 07/28/22 showed 6mm stone over the inferior pole right kidney which is unchanged from prior imaging. Current KUB 09/06/23 stable 6 mm stone over the lower pole right kidney unchanged. No new stones. [1] Pt continues HCTZ 25 mg. Tolerating w/o SEs. Continue medication. Discussed generalized stone prevention - pt encouraged to increase fluid intake so that he/she producing 2.5L of urine daily. Add 1/4 cup of lemon juice to water throughout the day or can also drink sugar free lemonade or clear soda. Avoid dark elfego. Restrict sodium intake. Restrict animal protein. - Recall message in place for 18 m f/u - Pt to call for stone episode if needed Follow-up With When Contact Information AVILA HOOPER, Jose A Padron, URL [address] [place] [address]- Additional Instructions: pending cysto Patient Education Dietary Guidelines to Help Prevent Kidney Stones Kidney Stones, Qzkm-ev-Oyns Hematuria, Adult Problem List/Past Medical History Ongoing Actinic keratosis Aspirin long-term use Asymptomatic microscopic hematuria BMI 23.0-23.9, adult Cystitis with hematuria Encounter for well adult exam with abnormal findings Family history of breast cancer Flank pain Hematest positive stools Hematuria Kidney stone Mitral regurgitation Mixed hyperlipidemia Nausea On statin therapy Raised seborrheic keratosis Renal calculus, right Right-sided back pain Stress incontinence, female Historical COVID-19 vaccine series completed Procedure/Surgical History Cataract (07/31/2023), Cystoscopy (11/24/2021), PCNL - Percutaneous nephrolithotomy (11/10/2020), ECSWL x 2, L rotator cuff repair, tubal ligation. Medications aspirin 81 mg Oral EC Tab, 81 mg= 1 tab(s), Oral, Daily atorvastatin 20 mg Tab, 20 mg= 1 tab(s), Oral, Daily, 3 refills Calcium 600 D Tab, 1 tab(s), Oral, BID Fish Oil, 1000 mg, Oral, Daily hydrochlorothiazide 25 mg Tab, 25 mg= 1 tab(s), Oral, Daily, 5 refills Allergies Bactrim DS (Nausea and vomiting) Social History Alcohol - Low Risk, 06/27/2022 Previous treatment: None. Alcohol use interferes with work or home: No. Drinks more than intended: No. Others hurt by d (more content not included)... [facility] Comment on above: Result Comment: Elec tronically Signed By: SHAUN Valentin APRN, Kina Subramanian\.br\Date and Time Signed: 10/23/23 16:25 EDT C Urineon 10-10-2023 Bacteria identified Cx Nom (U) Microbiology PROCEDURE: Urine Culture [R1] SOURCE: U CleanCatch BODY SITE: COLLECTED DATE/TIME: 10/08/2023 10:52 EDT RECEIVED DATE/TIME: 10/08/2023 17:55 EDT START DATE/TIME: 10/08/2023 17:55 EDT FREE TEXT SOURCE: TESSIE PENNINGTON PA-C, PA-C, TESSIE White FINAL REPORTS Final Report [] Verified Date/Time: 10/10/2023 07:21 EDT 200 cfu/ml Mixed skin contaminants Performing Locations R1: This test was performed at: [employer] [facility], [address] [place] [address], [id number]- , [place], [facility] Comment on above: Performed By: #### 2 [id number] ####[place] [address] Ambulatory Visit Summaryon 0 10-08-2023 Ambulatory Visit Summary TEMITOPE TREJO :1955 Visit Date:10/08/2023 Ambulatory Visit Instructions Your Diagnosis Hematuria Your Care Team Attending Physician - TESSIE PENNINGTON PA-C Primary Care Physician - Shawn MSN, POWER SHOVEL ENGINEER-TOP ICER, Jimmy Clarke This Is Your Medications List aspirin (aspirin 81 mg Oral EC Tab) atorvastatin (atorvastatin 20 mg Tab) calcium-vitamin D (Calcium 600 D Tab) hydrochlorothiazide (hydrochlorothiazid e 25 mg Tab) omega-3 polyunsaturated fatty acids (Fish Oil) Procedures Performed Cataract (07/31/2023), Cystoscopy (11/24/2021), PCNL - Percutaneous nephrolithotomy (11/10/2020), ECSWL x 2, L rotator cuff repair, tubal ligation. What to do next Scheduled Follow-Up Appointments 2023 8:00 AM EST Where: [facility] [place] [facility] Lab Reportson 10-08-2023 Lab Reports [id number] B0#[id number] [facility] URINALYSISOrdered By: Debbie Doherty on 10-08-2023 Bacteria LM Ql (Urine sed) 1+ /HPF Invalid Interpretation Code Trace/HPF [facility] UA Auto SS Bilirubin Ql (U) Negative (10/08/23 10:52 AM) Normal Negative [facility] UA Auto SS Clarity (U) SL CLOUDY Invalid Interpretation Code [facility] UA Auto SS Color (U) Yellow (10/08/23 10:52 AM) Normal Yellow [facility] UA Auto SS Epithelial cells.squamous LM.HPF (Urine sed) [#/Area] 0-2 /HPF Normal 0-2/HPF [facility] UA Auto SS Glucose Test strip (U) [Mass/Vol] Negative (10/08/23 10:52 AM) Normal Negative [facility] UA Auto SS Hemoglobin Ql (U) 3+ *ABN* (10/08/23 10:52 AM) Invalid Interpretation Code Negative [facility] UA Auto SS Ketones (U) [Mass/Vol] Negative (10/08/23 10:52 AM) Normal Negative [facility] UA Auto SS [place].plasma/Lit hium.RBC (Bld) [Mass ratio] >30 /HPF Invalid Interpretation Code 0-3/HPF [facility] UA Auto SS Nitrite Ql (U) Negative (10/08/23 10:52 AM) Normal Negative [facility] UA Auto SS pH (U) 5.5 *NA* (10/08/23 10:52 AM) Invalid Interpretation Code 5.0 - 9.0 [facility] UA Auto SS Protein (U) [Mass/Vol] Trace *ABN* (10/08/23 10:52 AM) Invalid Interpretation Code Negative [facility] UA Auto SS Specific gravity (U) [Rel density] 1.020 *NA* (10/08/23 10:52 AM) Invalid Interpretation Code 1.005 - 1.030 [facility] UA Auto SS Urobilinogen Qn (U) 0.4281707 {Orin'U}/dL Normal 0.0 - 1.0 EU/dL [facility] UA Auto SS WBC Auto Ql (U) 2+ *ABN* (10/08/23 10:52 AM) Invalid Interpretation Code Negative [facility] UA Auto SS WBC LM.HPF (Urine sed) [#/Area] 16-25 /HPF Invalid Interpretation Code 0-5/HPF [facility] UA Auto SS URINALYSISOrdered By: Brittny Babb on 10-08-2023 UA Spec Desc Clean Catch (10/08/23 10:52 AM) Normal [facility] UA Auto SS Urinalysison 10-08-2023 Bacteria LM Ql (Urine sed) 1+ /HPF Abnormal Trace [facility] Comment on above: Performed By: #### 1 [id number] ####[facility] [address] [place] [address] Bilirubin Ql (U) Negative Normal Negative [facility] Comment on above: Performed By: #### 1 [id number] ####[facility] [address] [place] [address] Clarity (U) SL CLOUDY Invalid Interpretation Code [facility] Comment on above: Performed By: #### 1 [id number] ####[facility] [address] [place] [address] Color (U) YELLOW Normal Yellow [facility] Comment on above: Performed By: #### 1 [id number] ####[facility] [address] [place] [address] Epithelial cells.squamous LM.HPF (Urine sed) [#/Area] 0-2 Normal 0-2 [facility] Comment on above: Performed By: #### 1 [id number] ####[facility] [address] [place] [address] Glucose Test strip (U) [Mass/Vol] Negative Normal Negative [facility] Comment on above: Performed By: #### 1 [id number] ####[address] [address] Hemoglobin Ql (U) 3+ Abnormal Negative [facility] Comment on above: Performed By: #### 1 [id number] ####[address] [address] Ketones (U) [Mass/Vol] Negative Normal Negative [facility] Comment on above: Performed By: #### 1 [id number] ####[address] [address] [place].plasma/Lit hium.RBC (Bld) [Mass ratio] >30 Abnormal 0-3 [facility] Comment on above: Performed By: #### 1 [id number] ####[address] [address] Nitrite Ql (U) Negative Normal Negative [facility] Comment on above: Performed By: #### 1 [id number] ####[address] [address] pH (U) 5.5 [pH] Invalid Interpretation Code 5.0-9.0 [facility] Comment on above: Performed By: #### 1 [id number] ####[address] [address] Protein (U) [Mass/Vol] TRACE Abnormal Negative [facility] Comment on above: Performed By: #### 1 [id number] ####[address] [address] Specific gravity (U) [Rel density] 1.020 Invalid Interpretation Code 1.005-1.030 [facility] Comment on above: Performed By: #### 1 [id number] ####[place] [address] Urobilinogen Qn (U) 0.2 {Orin'U}/dL Normal 0.0-1.0 [facility] Comment on above: Performed By: #### 1 [id number] ####[place] [address] WBC Auto Ql (U) 2+ Abnormal Negative [facility] Comment on above: Performed By: #### 1 [id number] ####[place] [address] WBC LM.HPF (Urine sed) [#/Area] 16-25 Abnormal 0-5 [facility] Comment on above: Performed By: #### 1 [id number] ####[place] [address] Type of Urine collection method Clean Catch Normal [facility] Comment on above: Performed By: #### 1 [id number] ####[place] [id number] Dexa Scanson 10-03-2023 Dexa Scans [id number] Normal [facility] C Urineon 09-20-2023 Bacteria identified Cx Nom (U) Microbiology PROCEDURE: Urine Culture [R1] SOURCE: U CleanCatch BODY SITE: COLLECTED DATE/TIME: 09/18/2023 09:27 EST RECEIVED DATE/TIME: 09/18/2023 19:19 EST START DATE/TIME: 09/18/2023 19:19 EST FREE TEXT SOURCE: TESSIE PENNINGTON PA-C, PA-C, JENNIFER E FINAL REPORTS Final Report [] Verified Date/Time: 09/20/2023 07:04 EST 5,000 cfu/ml Mixed skin contaminants Performing Locations R1: This test was performed at: [facility], [address] [place] [address], [address] , [place], Normal [facility] Comment on above: Performed By: #### 2 [id number] ####[facility] [address] [place] [address] Screenson 09-20-2023 Screens [id number]#[id number] Normal [facility] Patient Educationon 09-18-19 24 Patient Education Nephrology Dietary Guidelines to Help Prevent Kidney Stones Kidney stones are deposits of minerals and salts that form inside your kidneys. Your risk of developing kidney stones may be greater depending on your diet, your lifestyle, the medicines you take, and whether you have certain medical conditions. Most people can lower their risks of developing kidney stones by following these dietary guidelines. Your dietitian may give you more specific instructions depending on your overall health and the type of kidney stones you tend to develop. What are tips for following this plan? Reading food labels ? Choose foods with no salt added or low-salt labels. Limit your salt (sodium) intake to less than 1,500 mg a day. ? Choose foods with calcium for each meal and snack. Try to eat about 300 mg of calcium at each meal. Foods that contain 200?500 mg of calcium a serving include: ? 8 oz (237 mL) of milk, calcium-fortifiedno n-dairy milk, and calcium-fortifiedfr uit juice. Calcium-fortified means that calcium has been added to these drinks. ? 8 oz (237 mL) of kefir, yogurt, and soy yogurt. ? 4 oz (114 g) of tofu. ? 1 oz (28 g) of cheese. ? 1 cup (150 g) of dried figs. ? 1 cup (91 g) of cooked broccoli. ? One 3 oz (85 g) can of sardines or mackerel. Most people need 1,000?1,500 mg of calcium a day. Talk to your dietitian about how much calcium is recommended for you. Shopping ? Buy plenty of fresh fruits and vegetables. Most people do not need to avoid fruits and vegetables, even if these foods contain nutrients that may contribute to kidney stones. ? When shopping for convenience foods, choose: ? Whole pieces of fruit. ? Pre-made salads with dressing on the side. ? Low-fat fruit and yogurt smoothies. ? Avoid buying frozen meals or prepared deli foods. These can be high in sodium. ? Look for foods with live cultures, such as yogurt and kefir. ? Choose high-fiber grains, such as whole-wheat breads, oat bran, and wheat cereals. Cooking ? Do not add salt to food when cooking. Place a salt shaker on the table and allow each person to add their own salt to taste. ? Use vegetable protein, such as beans, textured vegetable protein (TVP), or tofu, instead of meat in pasta, casseroles, and soups. Meal planning ? Eat less salt, if told by your dietitian. To do this: ? Avoid eating processed or pre-made food. ? Avoid eating fast food. ? Eat less animal protein, including cheese, meat, poultry, or fish, if told by your dietitian. To do this: ? Limit the number of times you have meat, poultry, fish, or cheese each week. Eat a diet free of meat at least 2 days a week. ? Eat only one serving each day of meat, poultry, fish, or seafood. ? When you prepare animal proteins, cut pieces into small portion sizes. For most meat and fish, one serving is about the size of the palm of your hand. ? Eat at least five servings of fresh fruits and vegetables each day. To do this: ? Keep fruits and vegetables on hand for snacks. ? Eat one piece of fruit or a handful of berries with breakfast. ? Have a salad and fruit at lunch. ? Have two kinds of vegetables at dinner. ? You may be told to limit foods that are high in a substance called oxalate. These include: ? Spinach (cooked), rhubarb, beets, sweet potatoes, and [place] chard. ? Peanuts. ? Potato chips, taiwanese fries, and baked potatoes with skin on. ? Nuts and nut products. ? Chocolate. ? If you regularly take a diuretic medicine, make sure to eat at least 1 or 2 servings of fruits or vegetables that are high in potassium each day. These include: ? Avocado. ? Banana. ? [place], prune, carrot, or tomato juice. ? Baked potato. ? Cabbage. ? Beans and split peas. Lifestyle ? Drink enough fluid to keep your urine pale yellow. This is the most important thing you can do. Spread your fluid intake throughout the day. ? If you drink alcohol: ? Limit how much you have to: ? 0?1 drink a day for women who are not . ? 0?2 drinks a day for men. ? Know how much alcohol is in your drink. In the [place] one drink equals one 12 oz bottle of beer (355 mL), one 5 oz glass of wine (148 mL), or one 1? oz glass of hard liquor (44 mL). ? Lose weight if told by your health care provider. Work with your dietitian to find an eating plan and weight loss strategies that work best for you. General information ? Talk to your health care provider and dietitian about taking daily supplements. Depending on your health and the cause of your kidney stones, you may be told: ? Do not take high-dose supplements of vitamin C (1,000 mg a day or more). ? To take a calcium supplement. ? To take a daily probiotic supplement. ? To take other supplements such as magnesium, fish oil, or vitamin B6. ? Take pzuu-tby-jbtzfjm and prescription medicines only as told by your health care provider. These include supplements. What foods sh (more content not included)... Normal [facility] URINALYSISOrdered By: Theodora Gardner on 09-18-2023 Bacteria LM Ql (Urine sed) Trace /HPF Normal Trace/HPF [facility] UA Auto SS Bilirubin Ql (U) Negative (09/18/23 9:27 AM) Normal Negative [facility] UA Auto SS Clarity (U) SL CLOUDY Invalid Interpretation Code [facility] UA Auto SS Color (U) Yellow (09/18/23 9:27 AM) Normal Yellow [facility] UA Auto SS Epithelial cells.squamous LM.HPF (Urine sed) [#/Area] 0-2 /HPF Normal 0-2/HPF [facility] UA Auto SS Glucose Test strip (U) [Mass/Vol] Negative (09/18/23 9:27 AM) Normal Negative [facility] UA Auto SS Hemoglobin Ql (U) 3+ *ABN* (09/18/23 9:27 AM) Invalid Interpretation Code Negative [facility] UA Auto SS Ketones (U) [Mass/Vol] Negative (09/18/23 9:27 AM) Normal Negative [facility] UA Auto SS [place].plasma/Lit hium.RBC (Bld) [Mass ratio] >30 /HPF Invalid Interpretation Code 0-3/HPF [facility] UA Auto SS Mucus Ql (Urine sed) 1+ (09/18/23 9:27 AM) Normal [facility] UA Auto SS Nitrite Ql (U) Negative (09/18/23 9:27 AM) Normal Negative [facility] UA Auto SS pH (U) 6.0 *NA* (09/18/23 9:27 AM) Invalid Interpretation Code 5.0 - 9.0 [facility] UA Auto SS Protein (U) [Mass/Vol] 1+ *ABN* (09/18/23 9:27 AM) Invalid Interpretation Code Negative [facility] UA Auto SS Specific gravity (U) [Rel density] 1.025 *NA* (09/18/23 9:27 AM) Invalid Interpretation Code 1.005 - 1.030 [facility] UA Auto SS UA Spec Desc Clean Catch (09/18/23 9:27 AM) Normal [facility] UA Auto SS Urobilinogen Qn (U) 0.2556171 {Orin'U}/dL Normal 0.0 - 1.0 EU/dL [facility] UA Auto SS WBC Auto Ql (U) 1+ *ABN* (09/18/23 9:27 AM) Invalid Interpretation Code Negative [facility] UA Auto SS WBC LM.HPF (Urine sed) [#/Area] /[HPF] Invalid Interpretation Code 0-5/HPF [facility] UA Auto SS Urinalysison 09-18-2023 Bacteria LM Ql (Urine sed) TRACE Normal Trace [facility] Comment on above: Performed By: #### 1 [id number] ####[facility] [address] [place] [address] Bilirubin Ql (U) Negative Normal Negative [facility] Comment on above: Performed By: #### 1 [id number] ####[facility] [address] [place] [address] Clarity (U) SL CLOUDY Invalid Interpretation Code [facility] Comment on above: Performed By: #### 1 [id number] ####[facility] [address] [place] [address] Color (U) YELLOW Normal Yellow [facility] Comment on above: Performed By: #### 1 [id number] ####[address] [address] Epithelial cells.squamous LM.HPF (Urine sed) [#/Area] 0-2 Normal 0-2 [facility] Comment on above: Performed By: #### 1 [id number] ####[address] [address] Glucose Test strip (U) [Mass/Vol] Negative Normal Negative [facility] Comment on above: Performed By: #### 1 [id number] ####[address] [address] Hemoglobin Ql (U) 3+ Abnormal Negative [facility] Comment on above: Performed By: #### 1 [id number] ####[address] [address] Ketones (U) [Mass/Vol] Negative Normal Negative [facility] Comment on above: Performed By: #### 1 [id number] ####[address] [address] [place].plasma/Lit hium.RBC (Bld) [Mass ratio] >30 Abnormal 0-3 [facility] Comment on above: Performed By: #### 1 [id number] ####[facility] [address] [place] [address] Mucus Ql (Urine sed) 1+ Normal [facility] Comment on above: Performed By: #### 1 [id number] ####[address] [address] Nitrite Ql (U) Negative Normal Negative [facility] Comment on above: Performed By: #### 1 [id number] ####[address] [address] pH (U) 6.0 [pH] Invalid Interpretation Code 5.0-9.0 [facility] Comment on above: Performed By: #### 1 [id number] ####[facility] [address] [place] [address] Protein (U) [Mass/Vol] 1+ Abnormal Negative [facility] Comment on above: Performed By: #### 1 [id number] ####[facility] [address] [place] [address] Specific gravity (U) [Rel density] 1.025 Invalid Interpretation Code 1.005-1.030 [facility] Comment on above: Performed By: #### 1 [id number] ####[facility] [address] [place] [address] Type of Urine collection method Clean Catch Normal [facility] Comment on above: Performed By: #### 1 [id number] ####[facility] [address] [place] [address] Urobilinogen Qn (U) 0.2 {Orin'U}/dL Normal 0.0-1.0 [facility] Comment on above: Performed By: #### 1 [id number] ####[facility] [address] [place] [address] WBC Auto Ql (U) 1+ Abnormal Negative [facility] Comment on above: Performed By: #### 1 [id number] ####[facility] [address] [place] [address] WBC LM.HPF (Urine sed) [#/Area] /[HPF] Abnormal 0-5 [facility] Comment on above: Performed By: #### 1 [id number] ####[facility] [address] [place] [address] Urology Office/Clinic Noteon 09-18-2023 Urology Office/Clinic Note Chief Complaint 1yr KUB HPI Staff Previous DLS pt 1yr DX: Kidney Stone & Asymptomatic Hematuria *HCTZ 25mg qd therapy NEG C&S at time of last encounter NEG C&S 10/13/22 *Tx'd w/Bactrim from PCP-later switched to Macrobid due to N&V SE *SX at that time: Rt flank pain NEG C&S 11/24/22 *TX'd w/Keflex from PCP *SX at that time back pain & gross hematuria KUB 09/06/23 Denies pain/burning and visible blood in urine since November. Denies flank and back pain. Denies all urinary concerns at this time. 3 History of Present Illness staff HPI reviewed and agree. Review of Systems PHQ Score Initial Depression Screen Score: 0 SCORE no fever, chills, malaise, myalgia. no rash/lesions. no chest pain, palpitations, or SOB. no abdominal pain, nausea, vomiting. no unilateral calf swelling, redness, pain Physical Exam Vitals & Measurements HR: 77(Peripheral) RR: 16 BP: 134/88 HT: 65 in HT: 165 cm WT: 70.2 kg WT: 154.44 lb BMI: 25.79 General: nontoxic, NAD Mouth: moist mucosa Lungs: normal respiratory effort Cardio: regular rate, good distal perfusion Abdomen: nondistended, no suprapubic distention or tenderness, no CVA tenderness Neurologic: Grossly normal Skin: No rashes or suspicious lesions Assessment/Plan Prior DLS pt BBS 7 1. Kidney stone (N20.0: Calculus of kidney) s/p PCNL in 2020 and stone extraction November 2021. KUB done 07/28/22 showed 6mm stone over the inferior pole right kidney which is unchanged from prior imaging. Current KUB 09/06/23 stable 6 mm stone over the lower pole right kidney unchanged. No new stones. Taking HCTZ 25mg qd. no bothersome side effects. tolerating well. Neg culture 10/13/22 Tx'd w /Bactrim from PCP which was later switched to Macrobid due to N&V SE Sx: Rt flank pain Neg culture 11/24/22 Tx'd w/ Keflex from PCP Sx: back pain & gross hematuria Discussed with pt that the sx she had last year could of been due to stone passage. Advised pt to call our office if she has another episode. Given stone stability, pt to follow up in 18 months with KUB. Pt to continue medication therapy (refills provided) and adequate water intake. 2. Asymptomatic microscopic hematuria (R31.21: Asymptomatic microscopic hematuria) Micro UA 07/2022 0-3 RBCs. Neg culture. UA today shows large blood and large leuks. Asx. Will send for micro UA and culture. Pt aware no news is good news. if cx+ we can hold off on tx since asx, but if develops sx then we can treat based off these results. if +significant hematuria with neg cx, will need to call to discuss hematuria eval as we did not go into great detail today. Follow-up With When Contact Information JIMMIE FALLON, TESSIE White, URL [address] [place] [address] Additional Instructions: 18 months with KUB Patient Education Dietary Guidelines to Help Prevent Kidney Stones Documentation recorded by the pete Richardson accurately reflects the services(s) I performed and decisions made by me. Authenticated by Tessie Pennington PA-C on 09/18/2023 10:05:00. IHortensia, personally scribed for Tessie Pennington PA-C on 09/18/2023 09:29:11. . Problem List/Past Medical History Ongoing Actinic keratosis Aspirin long-term use Asymptomatic microscopic hematuria BMI 23.0-23.9, adult Cystitis with hematuria Encounter for well adult exam with abnormal findings Family history of breast cancer Flank pain Hematest positive stools Hematuria Kidney stone Mitral regurgitation Mixed hyperlipidemia Nausea On statin therapy Raised seborrheic keratosis Renal calculus, right Right-sided back pain Stress incontinence, female Historical COVID-19 vaccine series completed Procedure/Surgical History Cataract (07/31/2023), Cystoscopy (11/24/2021), PCNL - Percutaneous nephrolithotomy (11/10/2020), ECSWL x 2, L rotator cuff repair, tubal ligation. Medications aspirin 81 mg Oral EC Tab, 81 mg= 1 tab(s), Oral, Daily atorvastatin 20 mg Tab, 20 mg= 1 tab(s), Oral, Daily, 3 refills Calcium 600 D Tab, 1 tab(s), Oral, BID Fish Oil, 1000 mg, Oral, Daily hydrochlorothiazide 25 mg Tab, 25 mg= 1 tab(s), Oral, Daily, 3 refills Allergies Bactrim DS (Nausea and vomiting) Social History Alcohol - Low Risk, 06/27/2022 Previous treatment: None. Alcohol use interferes with work or home: No. Drinks more than intended: No. Others hurt by drinking: No. Ready to change: No. Household alcohol concerns: No., 06/26/2023 Substance Abuse - Denies Substance Abuse, 11/14/2021 Tobacco - Denies Tobacco Use, 09/27/2021 Never (less than 100 in lifetime) Tobacco Use:. Never Smokeless Tobacco Use:. Household tobacco concerns: No. Yes, 09/18/2023 Family History Alzheimer disease: Mother. Cancer - unknown origin: Father. Parkinson disease: Brother. Primary malignant neoplasm of female breast: Mother. Immunizations Vaccine Date Status Comments influe (more content not included)... [facility] Comment on above: Result Comment: Elec tronically Signed By: TESSIE PENNINGTON PA-C\.br\Date and Time Signed: 09/18/23 10:05 EST\.br\Electronically Co-Signed By: Hortensia Richardson\.br\Date and Time Co-Signed: 09/18/23 09:29 EST Patient Correspondenceon Patient Correspondence [id number] 76#1.00TIFF [facility] DEXA BONE DENSITY 2 SITESon 09-07-2023 DEXA BONE DENSITY 2 SITES BONE DENSITOMETRY, 09/06/2023: CLINICAL HISTORY: 67-year-old postmenopausal female. TECHNIQUE: Using DEXA technique, bone mineral density analysis in the lumbar spine and both hips was performed COMPARISON: 05/26/2020. FINDINGS: In the L1-L4 region, the total bone mineral density measures 1.032 g/sq cm which corresponds to T score of -1.2. This is a 7.2% decrease from the prior study, which is considered significant. In the left hip, the total bone mineral density measures 0.941 g/sq cm which corresponds to a T score of -0.5. This is considered a significant decrease from the prior study. In the left femoral neck, the bone mineral density measures 1.001 g/sq cm which corresponds to a T score of -0.3, not considered a significant change from the prior study, allowing for measurement error. In the right hip, the total bone mineral density measures 1.005 g/sq cm which corresponds a T score of 0.0. This is not a significant change from the prior study, allowing for measurement error. In the right femoral neck, the bone mineral density measures 1.015 g/sq cm which corresponds to a T score of -0.2, not a significant change from the prior study, allowing for measurement error. A fracture risk assessment was performed. The patient's estimated 10 year risk of a major osteoporotic fracture is 7.4%. Her estimated 10 year risk of a hip fracture is 0.4%. IMPRESSION: 1. Osteopenia. 2. Significant decrease in bone density in the lumbar spine and overall in the left hip, compared to 05/26/2020. Interpreted by: Checo Montano MD Signed by: Checo Montano MD 09/07/23 Final result Normal [facility] Dexa Scanson 09-07-2023 Dexa Scans [id number] E2#1.00TIFF Normal [facility] RAD - MISCon 09-07-2023 RAD - MISC [id number]#1.00TIFF Normal [facility] XR ABDOMEN (KUB) (SINGLE AP VIEW)on 09-07-2023 XR ABDOMEN (KUB) (SINGLE AP VIEW) EXAM: XR ABDOMEN (KUB) (SINGLE AP VIEW) HISTORY: Kidney stone COMPARISON: Multiple frontal and abdominal pelvic KV films 07/28/2022. TECHNIQUE: 2 frontal KUB films obtained. FINDINGS: Redemonstration of 6 mm calcification projecting along the inferior margin right renal shadow. Uncertain if this is intrarenal or extrarenal, stable from previous. There are a few small stable calcified pelvic phleboliths. Tortuous and calcified splenic artery. No other opaque calculi. Lung bases are clear. Normal bowel gas pattern. Air and stool in nondistended large bowel. No distended small or large bowel loops. No organomegaly. IMPRESSION: 1. Stable 6 mm stone over the lower pole right kidney unchanged. 2. No new stones are acute findings. Interpreted by: Cristóbal Sepulveda DO Signed by: Cristóbal Sepulveda DO 09/07/23 Final result Normal [facility] Ambulatory Visit Summaryon 0 08-28-2023 Ambulatory Visit Summary TEMITOPE TREJO :1955 Visit Date:08/28/2023 Ambulatory Visit Instructions Your Diagnosis Mixed hyperlipidemia Hematuria Nausea Encounter for well adult exam with abnormal findings BMI 23.0-23.9, adult Lipid screening Diabetes mellitus screening Colon cancer screening Ovarian failure due to menopause Tests Performed BD Bone Density DEXA -- Results Pending -- Please visit your patient portal for your results or contact your primary care physician. Your Care Team Attending Physician - Shawn MSN, POWER SHOVEL ENGINEER-TOP ICER, Jimmy Clarke Primary Care Physician - Shawn MSN, POWER SHOVEL ENGINEER-TOP ICERJimmy This Is Your Medications List ondansetron (Zofran 4 mg Tab) Contact prescribing physician if questions or concerns aspirin (aspirin 81 mg Oral EC Tab) atorvastatin (atorvastatin 20 mg Tab) calcium-vitamin D (Calcium 600 D Tab) hydrochlorothiazide (hydrochlorothiazid e 25 mg Tab) omega-3 polyunsaturated fatty acids (Fish Oil) Procedures Performed Cataract (07/31/2023), Cystoscopy (11/24/2021), PCNL - Percutaneous nephrolithotomy (11/10/2020), ECSWL x 2, L rotator cuff repair, tubal ligation. Discharge Vitals Temperature (Temporal Artery) 36.6 ?C Heart Rate (Peripheral) 78 Respiratory Rate 16 Blood Pressure 120/70 Height 172 cm Height 68 in Weight 70.0 kg Weight 154 lb BMI 23.66 What to do next Scheduled Follow-Up Appointments Sunday 9:00 AM EST With: TESSIE PENNINGTON PA-C Where: [facility] Normal [address] [place], [place] [address]- \.br\ Medications\.br\ What How Much When Instructions\.br\ New ondansetron (Zofran 4 mg Tab) 1 Tablets By Mouth Every 8 hours as needed for Nausea/Vomiting Pickup at [facility]\.br\ Unchanged aspirin (aspirin 81 mg Oral EC Tab) 1 Tablets By Mouth Every day Contact prescribing physician if questions or concerns \.br\ Unchanged atorvastatin (atorvastatin 20 mg Tab) 1 Tablets By Mouth Every day Contact prescribing physician if questions or concerns \.br\ Unchanged calcium-vitamin D (Calcium 600 D Tab) 1 Tablets By Mouth 2 times a day Contact prescribing physician if questions or concerns \.br\ Unchanged hydrochlorothiazide (hydrochlorothiazide 25 mg Tab) 1 Tablets By Mouth Every day Contact prescribing physician if questions or concerns \.br\ Unchanged omega-3 polyunsaturated fatty acids (Fish Oil) 1,000 Milligram By Mouth Every day Contact prescribing physician if questions or concerns \.br\ Pharmacy Information\.br\ [facility]: [address], [place] [id number] [phone]\.br\ Allergies\.br\ Bactrim DS (Nausea and vomiting)\.br\ Problems\.br\ Ongoing - Any problem that you are currently receiving treatment for.\.br\ Actinic keratosis\.br\ Aspirin long-term use\.br\ Asymptomatic microscopic hematuria\.br\ BMI 23.0-23.9, adult\.br\ Cystitis with hematuria\.br\ Encounter for well adult exam with abnormal findings\.br\ Family history of breast cancer\.br\ Flank pain\.br\ Hematest positive stools\.br\ Hematuria\.br\ Mitral regurgitation\.br\ Mixed hyperlipidemia\.br\ Nausea\.br\ On statin therapy\.br\ Raised seborrheic keratosis\.br\ Renal calculus, right\.br\ Right-sided back pain\.br\ Stress incontinence, female\.br\ Historical - Any problem that you are no longer receiving treatment for.\.br\ COVID-19 vaccine series completed\.br\ Patient Survey\.br\ You may receive a survey via text or e-mail asking about your office visit. Please share your experience with us by completing your survey. We appreciate your feedback and thank you for choosing us for your care.\.br\ \.br\ [facility] Ambulatory Visit Summary TEMITOPE TREJO :1955 Visit Date:08/28/2023 Ambulatory Visit Instructions Your Diagnosis Mixed hyperlipidemia Hematuria Nausea Encounter for well adult exam with abnormal findings BMI 23.0-23.9, adult Lipid screening Diabetes mellitus screening Colon cancer screening Ovarian failure due to menopause Tests Performed BD Bone Density DEXA -- Results Pending -- Please visit your patient portal for your results or contact your primary care physician. Your Care Team Attending Physician - Shawn FERNNADEZ, Jimmy JOAQUIN Primary Care Physician - Shawn FERNANDEZ, Jimmy JOAQUIN This Is Your Medications List ondansetron (Zofran 4 mg Tab) Contact prescribing physician if questions or concerns aspirin (aspirin 81 mg Oral EC Tab) atorvastatin (atorvastatin 20 mg Tab) calcium-vitamin D (Calcium 600 D Tab) hydrochlorothiazide (hydrochlorothiazid e 25 mg Tab) omega-3 polyunsaturated fatty acids (Fish Oil) Procedures Performed Cataract (07/31/2023), Cystoscopy (11/24/2021), PCNL - Percutaneous nephrolithotomy (11/10/2020), ECSWL x 2, L rotator cuff repair, tubal ligation. Discharge Vitals Temperature (Temporal Artery) 36.6 ?C Heart Rate (Peripheral) 78 Respiratory Rate 16 Blood Pressure 120/70 Height 172 cm Height 68 in Weight 70.0 kg Weight 154 lb BMI 23.66 What to do next Scheduled Follow-Up Appointments Sunday 9:00 AM EST With: JIMMIE FALLON, TESSIE White Where: [facility] [id number] \.br\ Medications\.br\ What How Much When Instructions\.br\ New ondansetron (Zofran 4 mg Tab) 1 Tablets By Mouth Every 8 hours as needed for Nausea/Vomiting Pickup at [facility] [employer] [facility]\.br\ Unchanged aspirin (aspirin 81 mg Oral EC Tab) 1 Tablets By Mouth Every day Contact prescribing physician if questions or concerns \.br\ Unchanged atorvastatin (atorvastatin 20 mg Tab) 1 Tablets By Mouth Every day Contact prescribing physician if questions or concerns \.br\ Unchanged calcium-vitamin D (Calcium 600 D Tab) 1 Tablets By Mouth 2 times a day Contact prescribing physician if questions or concerns \.br\ Unchanged hydrochlorothiazide (hydrochlorothiazide 25 mg Tab) 1 Tablets By Mouth Every day Contact prescribing physician if questions or concerns \.br\ Unchanged omega-3 polyunsaturated fatty acids (Fish Oil) 1,000 Milligram By Mouth Every day Contact prescribing physician if questions or concerns \.br\ Pharmacy Information\.br\ [facility]: [address], [place] [id number] [phone]\.br\ Allergies\.br\ Bactrim DS (Nausea and vomiting)\.br\ Problems\.br\ Ongoing - Any problem that you are currently receiving treatment for.\.br\ Actinic keratosis\.br\ Aspirin long-term use\.br\ Asymptomatic microscopic hematuria\.br\ BMI 23.0-23.9, adult\.br\ Cystitis with hematuria\.br\ Encounter for well adult exam with abnormal findings\.br\ Family history of breast cancer\.br\ Flank pain\.br\ Hematest positive stools\.br\ Hematuria\.br\ Mitral regurgitation\.br\ Mixed hyperlipidemia\.br\ Nausea\.br\ On statin therapy\.br\ Raised seborrheic keratosis\.br\ Renal calculus, right\.br\ Right-sided back pain\.br\ Stress incontinence, female\.br\ Historical - Any problem that you are no longer receiving treatment for.\.br\ COVID-19 vaccine series completed\.br\ Patient Survey\.br\ You may receive a survey via text or e-mail asking about your office visit. Please share your experience with us by completing your survey. We appreciate your feedback and thank you for choosing us for your care.\.br\ \.br\ [facility] CBC w/ Auto Diffon 4 Basophil Absolute 0.0 E9/L Normal 0.0-0.2 [facility] Comment on above: Performed By: #### 1 [id number], 4321032, 0116388, 7017495 ####[facility] [address] [place] [address] Basophils/100 WBC (Bld) 0.4 % Normal 0.0-2.0 [facility] Comment on above: Performed By: #### 1 4244426, 2290921, 6103467, 8134231 ####[facility] [address] [place] [address] Eos Absolute 0.1 E9/L Normal 0.0-0.5 [facility] Comment on above: Performed By: #### 1 4918168, 9674145, 0111143, 4557180 ####[address] [address] Eosinophils/100 WBC (Bld) 1.0 % Normal 0.0-8.0 [facility] Comment on above: Performed By: #### 1 8675625, 6027719, 6508393, 4329379 ####[address] [address] Erythrocyte distribution width (RBC) [Ratio] 14.1 % Normal 10.9-14.2 [facility] Comment on above: Performed By: #### 1 8621603, 8963196, 7488648, 6195594 ####[address] [address] Hematocrit (Bld) [Volume fraction] 47.0 % High 34.0-46.0 [facility] Comment on above: Performed By: #### 1 6772198, 2324444, 0166975, 6524182 ####[address] [address] Hemoglobin (Bld) [Mass/Vol] 15.8 g/dL Normal 12.0-16.0 [facility] Comment on above: Performed By: #### 1 7100922, 6105917, 2142762, 3158910 ####[address] [address] Lymph Absolute 1.7 E9/L Normal 1.0-4.0 [facility] Comment on above: Performed By: #### 1 0892750, 1560335, 0511696, 4439608 ####[address] [address] Lymphocytes/100 WBC (Bld) 27.1 % Normal 14.0-50.0 [facility] Comment on above: Performed By: #### 1 5704011, 1685593, 3869281, 5769818 ####[address] [place] [address] MCH (RBC) [Entitic mass] 28.3 pg Normal 27.0-34.0 [facility] Comment on above: Performed By: #### 1 5478902, 9331515, 2187871, 8386212 ####[address] [address] MCHC (RBC) [Mass/Vol] 33.5 g/dL Normal 31.4-36.0 [facility] Comment on above: Performed By: #### 1 8486005, 2293353, 9271672, 9914138 ####[place] [address] MCV (RBC) [Entitic vol] 84.6 fL Normal 80.0-100.0 [facility] Comment on above: Performed By: #### 1 2685746, 9962425, 7470033, 0358180 ####[place] [address] [place] Absolute 0.4 E9/L Normal 0.2-1.0 [facility] Comment on above: Performed By: #### 1 3277446, 5869161, 5409464, 0340185 ####[address] [address] Monocytes/100 WBC (Bld) 6.7 % Normal 4.0-14.0 [facility] Comment on above: Performed By: #### 1 1579948, 5860872, 3696799, 9498499 ####[address] [address] Neutro Absolute 4.1 E9/L Normal 2.0-7.5 [facility] Comment on above: Performed By: #### 1 2821936, 3545651, 7829066, 5173682 ####[address] [address] Neutro Auto 64.8 % Normal 36.0-75.0 [facility] Comment on above: Performed By: #### 1 6899148, 6290535, 1733025, 8937809 ####[facility] [address] [place] [address] Platelet 186.0 E9/L Normal 150.0-500.0 [facility] Comment on above: Performed By: #### 1 8268512, 5262546, 9570134, 7006280 ####[facility] [address] [place] [address] Platelet mean volume (Bld) [Entitic vol] 11.4 fL High 6.4-10.8 [facility] Comment on above: Performed By: #### 1 8583757, 9776108, 2168092, 1622154 ####[address] [place] [address] RBC 5.6 E12/L Normal 4.3-5.9 [facility] Comment on above: Performed By: #### 1 7591033, 8789055, 3456238, 4869292 ####[address] [address] WBC 6.4 E9/L Normal 4.0-11.0 [facility] Comment on above: Performed By: #### 1 5573171, 8742215, 6005072, 6886325 ####[address] [address] CMPon 08-28-2023 Albumin [Mass/Vol] 4.5 g/dL Normal 3.3-5.0 [facility] Comment on above: Performed By: #### 1 1767388, 9245138, 9221145, 1344870 ####[address] [place] [address] Albumin/Globulin [Mass ratio] 1.5 {ratio} Normal 1.1-2.2 [facility] Comment on above: Performed By: #### 1 5201428, 7622688, 7468809, 6148406 ####[address] [address] Alk Phos 79 Int._Unit/L Normal 21-98 [facility] Comment on above: Performed By: #### 1 5639767, 3302763, 8723091, 3310498 ####[facility] [address] [place] [address] ALT 37 Int._Unit/L Normal 6-46 [facility] Comment on above: Performed By: #### 1 3825636, 3271927, 9996835, 3986347 ####[facility] [address] [place] [address] Anion gap [Moles/Vol] 11 mmol/L Normal 6-16 [facility] Comment on above: Performed By: #### 1 2718106, 5852808, 8679269, 3897128 ####[address] [place] [address] AST 27 Int._Unit/L Normal 5-43 [facility] Comment on above: Performed By: #### 1 9597927, 0071167, 1781659, 2384056 ####[address] [address] Bili Total 1.0 mg/dL Normal 0.0-1.1 [facility] Comment on above: Performed By: #### 1 0326012, 0454441, 8060628, 2698790 ####[facility] [address] [place] [address] BUN/Creat Ratio 27 No Units High 10-20 [facility] Comment on above: Performed By: #### 1 3165978, 2583169, 3312351, 9033519 ####[facility] [address] [place] [address] Calcium [Mass/Vol] 10.8 mg/dL Normal 8.9-11.1 [facility] Comment on above: Performed By: #### 1 8893412, 0420007, 7446413, 3938778 ####[facility] [address] [place] [address] Chloride [Moles/Vol] 102 mmol/L Normal 101-111 [facility] Comment on above: Performed By: #### 1 6572162, 3326637, 4227317, 8856823 ####[facility] [address] [place] [address] CO2 [Moles/Vol] 31 mmol/L Normal 21-31 [facility] Comment on above: Performed By: #### 1 6162247, 3153116, 1188322, 2143012 ####[facility] [address] [place] [address] Creatinine [Mass/Vol] 0.9 mg/dL Normal 0.5-1.3 [facility] Comment on above: Performed By: #### 1 1830748, 6488549, 5777710, 1949630 ####[facility] [address] [place] [address] Globulin (S) [Mass/Vol] 3.1 g/dL Normal 1.4-4.0 [facility] Comment on above: Performed By: #### 1 9869475, 5428446, 6136482, 7874298 ####[facility] [address] [place] [address] Glucose [Mass/Vol] 95 mg/dL Normal 55-199 [facility] Comment on above: Performed By: #### 1 9141744, 1134352, 9852204, 0921466 ####[facility] [address] [place] [address] Potassium [Moles/Vol] 3.5 mmol/L Normal 3.5-5.3 [facility] Comment on above: Performed By: #### 1 0712249, 5222640, 2604855, 4716676 ####[facility] [address] [place] [address] Protein [Mass/Vol] 7.6 g/dL Normal 6.0-7.8 [facility] Comment on above: Performed By: #### 1 5526147, 8442426, 1775537, 9674061 ####[facility] [address] [place] [address] Sodium [Moles/Vol] 140 mmol/L Normal 135-145 [facility] Comment on above: Performed By: #### 1 2625671, 2143403, 2247040, 4613444 ####[facility] [address] [place] [address] Urea nitrogen [Mass/Vol] 24 mg/dL High 5-21 [facility] Comment on above: Performed By: #### 1 0313252, 0461722, 9502367, 9659436 ####[facility] [address] [place] [address] [facility] Medicine Office/Clini c Noteon 08-28-2023 Family Medicine Office/Clinic Note Chief Complaint Here for yearly check up, had cataract surgery and had eye gtts and is feeling so nauseated. History of Present Illness a 67-year-old female who presents here today for a yearly check-up as well as annual labs. The patient had cataract surgery on her one eye recently and was given eye drops as part of her treatment. After finishing the course of eye drops, she started feeling nauseous, her had the same nausea feeling with his eyedrops after his cataract surgery. On 08/27/2023, while she was cleaning, she fell extremely sick. Despite the nausea, she has been able to consume and retain food and liquids. As of today, 08/28/2023, she is still experiencing nausea, but she has not reported any fever accompanying it. She has a past medical history of urinary tract infections. Initially, she was given antibiotics that caused her to feel unwell. However, after contacting her healthcare provider, she was prescribed a different antibiotic, which she has been tolerating well. She denies any recent issues with urination or hematuria. She has an appointment with her urologist at the end of 08/2023 for her kidney stones. She monitors her blood pressure at home, though it is typically within normal limits. This morning, 08/28/2023, she took a COVID-19 test, which was negative. She was thinking maybe the nausea was COVID. She is taking all of her medications as prescribed. She denies any chest pain, palpitations, or lower extremity edema. She denies any changes in her bowels, hematochezia, or cramping. Review of Systems PHQ Score Initial Depression Screen Score: 0 SCORE Negative as stated in the HPI. Physical Exam Vitals & Measurements T: 36.6 ?C(Temporal Artery) HR: 78(Peripheral) RR: 16 BP: 120/70 SpO2: 98% HT: 68 in HT: 172 cm WT: 70.0 kg WT: 154 lb BMI: 23.66 General: Well developed, well nourished, in no acute distress Head: Normocephalic/atrau matic Eyes: Pupils equal, round, and reactive to light. Conjunctivae and sclerae normal, and extraocular movements intact Ears: No deformity or lesion of external ear. Canals and TM appear normal bilaterally. TM?s intact, not inflamed, with normal light reflex. Hearing grossly normal to conversational speech Nose: No deformity, discharge, inflammation, or lesions Mouth: Mucous membranes moist. Normal oropharynx, and posterior pharynx without lesions or exudates. Tongue normal Neck: Neck supple. No masses or palpable cervical nodes. Trachea midline. Thyroid without nodules, masses, tenderness, or enlargement Lungs: Normal respiratory effort and clear to auscultation Cardio: Regular rate and rhythm, normal S1 and S2, no murmur, no rub, no peripheral edema, no bruits, peripheral pulses +2 Abdomen: Soft, non-distended, non-tender bowel sounds active Musculoskeletal: No deformity or scoliosis noted. Normal range of motion. Joints normal. No erythema, edema, effusion, or ecchymosis Neurologic: Grossly normal Skin: No rashes, ulcerations, or suspicious lesions Mental Status: Alert and oriented x3. Normal mood and affect Assessment/Plan 1. Encounter for well adult exam with abnormal findings (Z00.01: Encounter for general adult medical examination with abnormal findings) Well exam has been completed. Annual lab work will be drawn today. Has agreed to a DEXA scan as well as Cologuard. Age appropriate health maintenance and safety has been reviewed. 2. Mixed hyperlipidemia (E78.2: Mixed hyperlipidemia) She is on atorvastatin and she does take omega-3 as well. She is due for a lipid panel. We will go ahead and get that drawn and we will make adjustments accordingly. Reminded patient to minimize foods high in fat, avoid fast foods, and exercise 2.5 hours each week. Ordered: CBC w/ Auto Diff Comprehensive Metabolic Panel Lab Specimen Collect [id number] Lipid Panel 3. Hematuria (R31.9: Hematuria, unspecified) She has a known history of kidney stones, which she follows up yearly with a urologist. She has an appointment coming up. She has seen me twice last year for cystitis and with hematuria. No symptoms since the last encounter. Encouraged her to continue good hydration and continue to follow up with urology. Ordered: CBC w/ Auto Diff Comprehensive Metabolic Panel Lab Specimen Collect [id number] Lipid Panel 4. Nausea (R11.0: Nausea) She recently had cataract surgery. The eyedrops have been causing her some nausea without any vomiting and she has since finished up her eyedrops but still continues to have nausea. We will give her a little bit of Zofran. Hopefully in the next day or two, she will start feeling better. We will notify the office if anything should change. Ordered: Lab Specimen Collect [id number] 5. BMI 23.0-23.9, adult (Z68.23: Body mass index [BMI] 23.0-23.9, adult) Maintain a healthy weight through proper nutrition and exercise. Ordered: Lab Specimen Collect [id number] 6. Lipid screening (Z13.220: Encounter for screening for lipoid disorders) Ordere (more content not included)... Normal [facility] Comment on above: Result Comment: Elec tronically Signed By: Shawn FERNANDEZ, POWER SHOVEL ENGINEER- TOP ICER, Jimmy Clarke\.br\Date and Time Signed: 08/28/23 17:48 EST\.br\Electronically Co-Signed By: Rosalinda Perkins\.br\Date and Time Co-Signed: 08/28/23 13:11 EST [employer] 08-28-2023 Forms [id number]#[id number] Normal [facility] Lipid Panelon 08-28-2023 Cholesterol [Mass/Vol] 183 mg/dL Normal 120-200 [facility] Comment on above: Performed By: #### 1 7086791, 0818663, 8288093, 1707493 ####[facility] [address] [place] [address] Cholesterol in HDL [Mass/Vol] 51 mg/dL Invalid Interpretation Code [facility] Comment on above: Result Comment: '>= 60 LOW RISK' '<= 40 HIGH RISK' Performed By: #### 1 9206818, 8093508, 6156177, 3959756 ####[facility] [address] [place] [address] Cholesterol in LDL [Mass/Vol] 114 mg/dL Normal <=129 [facility] Comment on above: Performed By: #### 1 1834212, 9894932, 8999799, 3444376 ####[facility] [address] [place] [address] Cholesterol in VLDL [Mass/Vol] 28 mg/dL Normal 7-40 [facility] Comment on above: Performed By: #### 1 2292719, 5076499, 7096858, 0194670 ####[facility] [address] [place] [address] Triglyceride [Mass/Vol] 140 mg/dL Normal <=149 [facility] Comment on above: Performed By: #### 1 2847147, 8109673, 5936458, 4023749 ####[facility] [address] [place] [address] Patient Educationon 08-28-19 24 Patient Education Nutrition High Cholesterol High cholesterol is a condition in which the blood has high levels of a white, waxy substance similar to fat (cholesterol). The liver makes all the cholesterol that the body needs. The human body needs small amounts of cholesterol to help build cells. A person gets extra or excess cholesterol from the food that he or she eats. The blood carries cholesterol from the liver to the rest of the body. If you have high cholesterol, deposits (plaques) may build up on the villarreal of your arteries. Arteries are the blood vessels that carry blood away from your heart. These plaques make the arteries narrow and stiff. Cholesterol plaques increase your risk for heart attack and stroke. Work with your health care provider to keep your cholesterol levels in a healthy range. What increases the risk? The following factors may make you more likely to develop this condition: ? Eating foods that are high in animal fat (saturated fat) or cholesterol. ? Being overweight. ? Not getting enough exercise. ? A family history of high cholesterol (familial hypercholesterolemi a). ? Use of tobacco products. ? Having diabetes. What are the signs or symptoms? In most cases, high cholesterol does not usually cause any symptoms. In severe cases, very high cholesterol levels can cause: ? Fatty bumps under the skin (xanthomas). ? A white or reese ring around the black center (pupil) of the eye. How is this diagnosed? This condition may be diagnosed based on the results of a blood test. ? If you are older than 20 years of age, your health care provider may check your cholesterol levels every 4?6 years. ? You may be checked more often if you have high cholesterol or other risk factors for heart disease. The blood test for cholesterol measures: ? Bad cholesterol, or LDL cholesterol. This is the main type of cholesterol that causes heart disease. The desired level is less than 100 mg/dL (2.59 mmol/L). ? Good cholesterol, or HDL cholesterol. HDL helps protect against heart disease by cleaning the arteries and carrying the LDL to the liver for processing. The desired level for HDL is 60 mg/dL (1.55 mmol/L) or higher. ? Triglycerides. These are fats that your body can store or burn for energy. The desired level is less than 150 mg/dL (1.69 mmol/L). ? Total cholesterol. This measures the total amount of cholesterol in your blood and includes LDL, HDL, and triglycerides. The desired level is less than 200 mg/dL (5.17 mmol/L). How is this treated? Treatment for high cholesterol starts with lifestyle changes, such as diet and exercise. ? Diet changes. You may be asked to eat foods that have more fiber and less saturated fats or added sugar. ? Lifestyle changes. These may include regular exercise, maintaining a healthy weight, and quitting use of tobacco products. ? Medicines. These are given when diet and lifestyle changes have not worked. You may be prescribed a statin medicine to help lower your cholesterol levels. Follow these instructions at home: Eating and drinking ? Eat a healthy, balanced diet. This diet includes: ? Daily servings of a variety of fresh, frozen, or canned fruits and vegetables. ? Daily servings of whole grain foods that are rich in fiber. ? Foods that are low in saturated fats and trans fats. These include poultry and fish without skin, lean cuts of meat, and low-fat dairy products. ? A variety of fish, especially oily fish that contain omega-3 fatty acids. Aim to eat fish at least 2 times a week. ? Avoid foods and drinks that have added sugar. ? Use healthy cooking methods, such as roasting, grilling, broiling, baking, poaching, steaming, and stir-frying. Do not hutton your food except for stir-frying. ? If you drink alcohol: ? Limit how much you have to: ? 0?1 drink a day for women who are not . ? 0?2 drinks a day for men. ? Know how much alcohol is in a drink. In the [place] one drink equals one 12 oz bottle of beer (355 mL), one 5 oz glass of wine (148 mL), or one 1? oz glass of hard liquor (44 mL). Lifestyle ? Get regular exercise. Aim to exercise for a total of 150 minutes a week. Increase your activity level by doing activities such as gardening, walking, and taking the stairs. ? Do not use any products that contain nicotine or tobacco. These products include cigarettes, chewing tobacco, and vaping devices, such as e-cigarettes. If you need help quitting, ask your health care provider. General instructions ? Take gmsj-hmm-hjkhlsw and prescription medicines only as told by your health care provider. ? Keep all follow-up visits. This is important. Where to find more information ? [place] [employer]: www.heart.org ? National Heart, Lung, and [employer] [place]: www.nhlbi.nih.gov Contact a health care provider if: ? You have trouble achieving or maintaining a healthy (more content not included)... Normal [facility] eGFRon 08-28-2023 eGFR 69 mL/min/1.73 m2 Normal >=59 [facility] Comment on above: Order Comment: Order added by Discern Expert. Performed By: #### 1 [id number], 1851791, 9703227, 1315923 ####[facility] [address] [place] [address] Outside Mammographyon 2023 Outside Mammography [id number] E2#1.00TIFF Normal [facility] BARRETT DAVID DIGITAL SCREEN BILLili Goodrich 07-17-2023 BARRETT DAVID DIGITAL SCREEN BILATERAL HISTORY: Screening. Family history breast carcinoma. TECHNIQUE: Bilateral digital screening mammogram with CAD. Digital breast tomosynthesis imaging. FINDINGS: Two views of each breast show scattered areas of fibroglandular density. BREAST DENSITY CODE: S Scattered No change from prior studies, most recent of 07/07/2022. Suspicious calcifications: None. Suspicious mass: None. (If skin markers were applied, circles represent skin lesions and linear markers represent scars.) IMPRESSION: OVERALL ASSESSMENT: BIRADS: 1 Negative, no evidence of malignancy. A letter of notification will be mailed to the patient. Interpreted by: Esteban Gomes Jr., MD Signed by: Esteban Gomes Jr., MD 07/17/23 Final result Normal [facility] Family Medicine Office/Clini c Noteon 07-08-2023 Family Medicine Office/Clinic Note Chief Complaint Medicare Wellness Visit Review of Systems PHQ Score Initial Depression Screen Score: 0 SCORE Physical Exam Vitals & Measurements HR: 65(Peripheral) BP: 124/72 SpO2: 100% HT: 172.72 cm HT: 68 in WT: 69.7 kg WT: 153.34 lb BMI: 23.36 Assessment/Plan Attestation: I was in the office and available for consultation and to provide direct supervision at the time of this visit. I have provided supervision of the care team and have reviewed this chart and office note and agree with the plan of care. 1. Annual visit for general adult medical examination without abnormal findings (Z00.00: Encounter for general adult medical examination without abnormal findings) The patient was given a customized and personalized print out of all the current AHRQ USPSTF?s recommendations for preventative services and all current CDC recommended immunizations, relevant risk recommendations and the following patient brochures were given. Reviewed Medicare Prevention Services checklist. CDC-Falls Prevention and home safety screening reviewed. Patient denies any falls in last 12 months, voices no worry about falling. Exhibits no problems with sitting, standing or ambulation. Patient aware with keeping walk way area free of clutter to prevent tripping and/or falling. [place] Advance Directives reviewed. Documents remain at home, encouraged to bring in for scanning into chart. Patient denies any problems with ADL?s and Instrumental ADL?s. Cognitive screening completed with memory and clock face drawing. No deficits noted. Immunization record reviewed, discussed Shingrix vaccine refusal. COVID vaccines have been administered, with 4 Boosters received. Allergies and medications reviewed and up to date. No concerns with taking medication as prescribed. Reviewed OTC medications, medication list up to date. Blood tests were reviewed: Discussed what tests need to be updated. Labs were up to date, will have completed prior to next PCP visit. Labs to be completed with [facility]. No concerns with bowel/ bladder. Cologuard last completed 05/10/22 repeat in 3 years, referral placed by PCP. Reviewed pain symptoms : denies pain, no pain medications taken. Reviewed all outside providers that patient follows. Last visit summary notes available in chart and/or have been requested. Patient declines any signs or symptoms of depression at this time. 8 minutes spent with screening and documentation. PHQ2 screening score 0. Patient drinks alcohol monthly or less, 1-2 drinks, denies concerns. 8 minutes spent with screening and documentation. Audit score 1. Follow up scheduled with PCP, 07/24/23 AWV has been scheduled, 06/26/24 @8am Medicare provides yearly screening for alcohol and depression concerns. This is completed during our Medicare wellness visit for those who do not have a current diagnosis of depression or concerns with alcohol use. I spent a total of 17 minutes on this date of service which included preparing to see the patient, face to face patient care, completing clinical documentation, obtaining and/or reviewing separately obtained history, counseling and educating the patient with handouts. Explanations were provided with reviewing questionnaires. AUDIT risk assessment screening completed, risk score (1) with patient denying concerns with use. Completed PHQ-2 risk assessment for depression with risk score (0), negative findings. Patient has been reminded to notify the provider if there would be a change or concerns with symptoms with fear, unable to sleep, worrying too much or feeling down and/or sad with lost of interest with daily activities. Will continue to monitor with screening yearly during Medicare wellness visits. 2. Mixed hyperlipidemia (E78.2: Mixed hyperlipidemia) Patient encouraged to eat a diet that is low in saturated fats. Stressed importance of maintaining a healthy BMI. as being overweight does produce more lipids. Monitor alcohol intake and avoid smoking. Risks may also increase with a family history of hyperlipidemia. Patient voices understanding with healthy dietary choices to reduce risk factors associated with CVA. Taking statin medication daily. Will continue to follow up with labs as directed. 3. On statin therapy (Z79.899: Other emt intermediate (current) drug therapy) Patient currently taking statin medications daily with blood work ordered with medication management to reduce risks. 4. Influenza vaccination given (Z23: Encounter for immunization) Influenza vaccine administered to left deltoid at today?s visit. Patient tolerated well. No concerns. Signed consent form on file in patient?s chart. 5. Screening mammogram for breast cancer (Z12.31: Encounter for screening mammogram for malignant neoplasm of breast) Patient to have yearly mammogram screening. Patient encouraged to continue with home self breast exams, easy to read demonstration on how to perform reviewed and provided to patient. Mammogram has been ordered. Advised no deodorant, sprays or l (more content not included)... [facility] Comment on above: Result Comment: Elec tronically Signed By: Cely Mckenna PA-C\.br\Date and Time Signed: 07/08/23 23:26 EST\.br\Electronically Co-Signed By: Chey Díaz\.br\Date and Time Co-Signed: 06/26/23 10:25 EST Ambulatory Visit Summaryon 1 08-27-2022 Ambulatory Visit Summary TEMITOPE TREJO :1955 Visit Date:06/26/2023 Ambulatory Visit Instructions Your Diagnosis Annual visit for general adult medical examination without abnormal findings Mixed hyperlipidemia On statin therapy Influenza vaccination given Screening mammogram for breast cancer BMI 23.0-23.9, adult Tests Performed MA Mamm Screen w/CAD if perf and 3D Joni -- Results Pending -- Please visit your patient portal for your results or contact your primary care physician. Your Care Team Attending Physician - Shawn MSN, POWER SHOVEL ENGINEER-TOP ICERJimmy. Primary Care Physician - Shawn MSN, POWER SHOVEL ENGINEER-TOP ICERJimmy. This Is Your Medications List aspirin (aspirin 81 mg Oral EC Tab) atorvastatin (atorvastatin 20 mg Tab) calcium-vitamin D (Calcium 600 D Tab) hydrochlorothiazide (hydrochlorothiazid e 25 mg Tab) omega-3 polyunsaturated fatty acids (Fish Oil) Procedures Performed Cystoscopy (11/24/2021), PCNL - Percutaneous nephrolithotomy (11/10/2020), ECSWL x 2, L rotator cuff repair, tubal ligation. Discharge Vitals Heart Rate (Peripheral) 65 Blood Pressure 124/72 Height 172.72 cm Height 68 in Weight 69.7 kg Weight 153.34 lb BMI 23.36 What to do next Scheduled Follow-Up Appointments Sunday 9:00 AM EST With: Shawn FERNANDEZ, Jimmy JOAQUIN Where: [facility] Invalid Interpretation Code [address] [place] [address]- \.br\ 2023 8:00 AM EST \.br\ With:\.br\ Where: [facility] Ambulatory Visit Summary TEMITOPE TREJO :1955 Visit Date:06/26/2023 Ambulatory Visit Instructions Your Diagnosis Annual visit for general adult medical examination without abnormal findings Colon cancer screening declined Mixed hyperlipidemia On statin therapy Influenza vaccination given Screening mammogram for breast cancer BMI 23.0-23.9, adult Tests Performed MA Mamm Screen w/CAD if perf and 3D Joni -- Results Pending -- Please visit your patient portal for your results or contact your primary care physician. Your Care Team Attending Physician - Shawn FERNANDEZ, Jimmy JOAQUIN. Primary Care Physician - JEMAL Smiley Tammy L. This Is Your Medications List aspirin (aspirin 81 mg Oral EC Tab) atorvastatin (atorvastatin 20 mg Tab) calcium-vitamin D (Calcium 600 D Tab) hydrochlorothiazide (hydrochlorothiazid e 25 mg Tab) omega-3 polyunsaturated fatty acids (Fish Oil) Procedures Performed Cystoscopy (11/24/2021), PCNL - Percutaneous nephrolithotomy (11/10/2020), ECSWL x 2, L rotator cuff repair, tubal ligation. Discharge Vitals Heart Rate (Peripheral) 65 Blood Pressure 124/72 Height 172.72 cm Height 68 in Weight 69.7 kg Weight 153.34 lb BMI 23.36 What to do next Scheduled Follow-Up Appointments Sunday 9:00 AM EST With: JEMAL Smiley [facility]my L. [facility] Invalid Interpretation Code [address] [place] [address] [place] [address]- \.br\ 2023 8:00 AM EST \.br\ With:\.br\ Where: [facility] Consent for Flu Vaccineon Consent for Flu Vaccine [id number] DF#[id number] [facility] Patient Educationon 06-26-20 Patient Education Nutrition BMI for Adults What is BMI? Body mass index (BMI) is a number that is calculated from a person's weight and height. BMI can help estimate how much of a person's weight is composed of fat. BMI does not measure body fat directly. Rather, it is an alternative to procedures that directly measure body fat, which can be difficult and expensive. BMI can help identify people who may be at higher risk for certain medical problems. What are BMI measurements used for? BMI is used as a screening tool to identify possible weight problems. It helps determine whether a person is obese, overweight, a healthy weight, or underweight. BMI is useful for: ? Identifying a weight problem that may be related to a medical condition or may increase the risk for medical problems. ? Promoting changes, such as changes in diet and exercise, to help reach a healthy weight. BMI screening can be repeated to see if these changes are working. How is BMI calculated? BMI involves measuring your weight in relation to your height. Both height and weight are measured, and the BMI is calculated from those numbers. This can be done either in [place] or metric measurements. Note that charts and online BMI calculators are available to help you find your BMI quickly and easily without having to do these calculations yourself. To calculate your BMI in [place] measurements: 1. Measure your weight in pounds (lb). 2. Multiply the number of pounds by 703. ? For example, for a person who weighs 180 lb, multiply that number by 703, which equals 126,540. 3. Measure your height in inches. Then multiply that number by itself to get a measurement called inches squared. ? For example, for a person who is 70 inches tall, the inches squared measurement is 70 inches x 70 inches, which equals 4,900 inches squared. 4. Divide the total from step 2 (number of lb x 703) by the total from step 3 (inches squared): 126,540 ? 4,900 = 25.8. This is your BMI. To calculate your BMI in metric measurements: 1. Measure your weight in kilograms (kg). 2. Measure your height in meters (m). Then multiply that number by itself to get a measurement called meters squared. ? For example, for a person who is 1.75 m tall, the meters squared measurement is 1.75 m x 1.75 m, which is equal to 3.1 meters squared. 3. Divide the number of kilograms (your weight) by the meters squared number. In this example: 70 ? 3.1 = 22.6. This is your BMI. What do the results mean? BMI charts are used to identify whether you are underweight, normal weight, overweight, or obese. The following guidelines will be used: ? Underweight: BMI less than 18.5. ? Normal weight: BMI between 18.5 and 24.9. ? Overweight: BMI between 25 and 29.9. ? Obese: BMI of 30 or above. Keep these notes in mind: ? Weight includes both fat and muscle, so someone with a muscular build, such as an athlete, may have a BMI that is higher than 24.9. In cases like these, BMI is not an accurate measure of body fat. ? To determine if excess body fat is the cause of a BMI of 25 or higher, further assessments may need to be done by a health care provider. ? BMI is usually interpreted in the same way for men and women. Where to find more information For more information about BMI, including tools to quickly calculate your BMI, go to these websites: ? Centers for Disease Control and Prevention: www.cdc.gov ? [place] Heart [employer]: www.heart.org ? National Heart, Lung, and Blood [place]: www.nhlbi.nih.gov Summary ? Body mass index (BMI) is a number that is calculated from a person's weight and height. ? BMI may help estimate how much of a person's weight is composed of fat. BMI can help identify those who may be at higher risk for certain medical problems. ? BMI can be measured using Nepalese measurements or metric measurements. ? BMI charts are used to identify whether you are underweight, normal weight, overweight, or obese. This information is not intended to replace advice given to you by your health care provider. Make sure you discuss any questions you have with your health care provider. Document Revised: 03/31/2020 Document Reviewed: 02/06/2020 [employer] Patient Education ? 2022 [employer] Dyslipidemia Dyslipidemia is an imbalance of waxy, fat-like substances (lipids) in the blood. The body needs lipids in small amounts. Dyslipidemia often involves a high level of cholesterol or triglycerides, which are types of lipids. Common forms of dyslipidemia include: ? High levels of LDL cholesterol. LDL is the type of cholesterol that causes fatty deposits (plaques) to build up in the blood vessels that carry blood away from the heart (arteries). ? Low levels of HDL cholesterol. HDL cholesterol is the type of cholesterol that protects against heart disease. High levels of HDL remove the LDL buildup from arteries. ? High levels of triglycerides. Triglycerides are a fatty subs (more content not included)... [facility] Screenson 06-26-2023 Screens [id number] 46#[id number] [facility] Lab Reportson 03-12-2023 Lab Reports [id number] BE#[id number]:127 [facility] URINALYSISOrdered By: Darian call on 08-01-2022 Bacteria LM Ql (Urine sed) 1+ /HPF Invalid Interpretation Code Trace/HPF [facility] UA Auto SS Bilirubin Ql (U) Negative (08/01/22 2:50 PM) Normal Negative FT UA Auto SS Clarity (U) Clear (08/01/22 2:50 PM) Normal Clear FT UA Auto SS Color (U) Yellow (08/01/22 2:50 PM) Normal Yellow [facility] UA Auto SS Crystals LM Ql (Urine sed) Present (08/01/22 2:50 PM) Normal FT UA Auto SS Epithelial cells.squamous LM.HPF (Urine sed) [#/Area] 3-4 /HPF Normal 0-2/HPF FT UA Auto SS Glucose Test strip (U) [Mass/Vol] Negative (08/01/22 2:50 PM) Normal Negative [facility] UA Auto SS Hemoglobin Ql (U) Trace *ABN* (08/01/22 2:50 PM) Invalid Interpretation Code Negative [facility] UA Auto SS Ketones (U) [Mass/Vol] Trace *NA* (08/01/22 2:50 PM) Invalid Interpretation Code Negative [facility] UA Auto SS [place].plasma/Lit hium.RBC (Bld) [Mass ratio] 0-3 /HPF Normal 0-3/HPF [facility] UA Auto SS Mucus Ql (Urine sed) Trace (08/01/22 2:50 PM) Normal [facility] UA Auto SS Nitrite Ql (U) Negative (08/01/22 2:50 PM) Normal Negative [facility] UA Auto SS pH (U) 5.0 *NA* (08/01/22 2:50 PM) Invalid Interpretation Code 5.0 - 9.0 [facility] UA Auto SS Protein (U) [Mass/Vol] Negative (08/01/22 2:50 PM) Normal Negative [facility] UA Auto SS Specific gravity (U) [Rel density] >=1.030 *NA* (08/01/22 2:50 PM) Invalid Interpretation Code 1.005 - 1.030 [facility] UA Auto SS UA Spec Desc Clean Catch (08/01/22 2:50 PM) Normal [facility] UA Auto SS Urobilinogen Qn (U) [id number] {Orin'U}/dL Normal 0.0 - 1.0 EU/dL [facility] UA Auto SS WBC Auto Ql (U) Trace *ABN* (08/01/22 2:50 PM) Invalid Interpretation Code Negative [facility] UA Auto SS WBC LM.HPF (Urine sed) [#/Area] 16-25 /HPF Invalid Interpretation Code 0-5/HPF [facility] UA Auto SS XR ABDOMEN (KUB) (SINGLE AP VIEW)on 07-28-2022 FINDINGS/IMPRESSION : 1. 6 mm stone over the inferior pole right kidney unchanged. 2. No new stones. [facility] EXAM: XR ABDOMEN (KUB) (SINGLE AP VIEW) HISTORY: Kidney stone COMPARISON: KUB 12/16/2021 [facility] Esteban Gomes Jr., MD - 07/28/2022 EXAM: XR ABDOMEN (KUB) (SINGLE AP VIEW) HISTORY: Kidney stone COMPARISON: KUB 12/16/2021 IMPRESSION: FINDINGS/IMPRESSION : 1. 6 mm stone over the inferior pole right kidney unchanged. 2. No new stones. [employer] Phone: Radiology Study observation (narrative) [employer] Phone: XR ABDOMEN (KUB) (SINGLE AP VIEW)Ordered By: Esteban Gomes on 07-28-2022 [employer] Phone: CHEMISTRYOrdered By: SYSTEM SYSTEM on 06-27-2022 Cholesterol [Mass/Vol] 207 mg/dL High 120 - 200 mg/dL [facility] Remisol Cholesterol in HDL [Mass/Vol] 50 mg/dL Invalid Interpretation Code [facility] Remisol Cholesterol in LDL [Mass/Vol] 126 mg/dL Normal <=129mg/dL [facility] Remisol Cholesterol in VLDL [Mass/Vol] 28 mg/dL Normal 7 - 40 mg/dL [facility] Remisol Triglyceride [Mass/Vol] 138 mg/dL Normal <=149mg/dL [facility] Remisol XR ABDOMEN (KUB) (SINGLE AP VIEW)on 12-16-2021 6 mm stone in the region of right renal pelvis/UPJ, unchanged. [facility] EXAM: XR ABDOMEN (KUB) (SINGLE AP VIEW) HISTORY: N20.0. 66-year-old female. Follow up kidney stones. COMPARISON: CT abdomen and pelvis 10/13/2021, KUB 09/23/2021. TECHNIQUE: KUB, 2 views. FINDINGS: Prior distal right ureteral stones are no longer seen. A 6 mm stone in the region of the right renal pelvis/right UPJ, unchanged. [facility] Esteban Gomes Jr., MD - 12/16/2021 EXAM: XR ABDOMEN (KUB) (SINGLE AP VIEW) HISTORY: N20.0. 66-year-old female. Follow up kidney stones. COMPARISON: CT abdomen and pelvis 10/13/2021, KUB 09/23/2021. TECHNIQUE: KUB, 2 views. FINDINGS: Prior distal right ureteral stones are no longer seen. A 6 mm stone in the region of the right renal pelvis/right UPJ, unchanged. IMPRESSION: 6 mm stone in the region of right renal pelvis/UPJ, unchanged. [employer] Phone: Radiology Study observation (narrative) [employer] Phone: XR ABDOMEN (KUB) (SINGLE AP VIEW)Ordered By: Esteban Gomes on 12-16-2021 [employer] Phone: CT ABDOMEN PELVIS W WO CONTR AST Additional Contrast? Noneon 10-13-2021 2 nonobstructing obstructing distal right ureteral calculi. 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 [facility] EXAMINATION: CT ABDOMEN PELVIS W WO CONTRAST HISTORY: Microscopic hematuria with known kidney stones. Stress incontinence. 65-year-old female COMPARISON: CT abdomen pelvis 06/23/2020, KUB 09/23/2021. TECHNIQUE: CT abdomen pelvis with and without contrast. Pre and post IV contrast images. Split bolus postcontrast technique. Dose reduction techniques were achieved by using automated exposure control and/or adjustment of mA and/or kV according to patient size and/or use of iterative reconstruction technique. FINDINGS: PERTINENT POSITIVES: 2 adjacent distal right ureteral calculi without obstruction of the right ureter lie just proximal to the ureterovesical junction, unchanged from 09/23/2021. There may also be several strictures in the proximal to mid right ureter at the L3-L4 level on the right. The right ureter is mildly dilated compared to the left. PERTINENT NEGATIVES: No delay in function of the kidneys. COINCIDENTAL FINDINGS: 6 mm nonobstructing calcification right kidney. Multiple parapelvic cysts left kidney. Multiple benign hepatic cysts and small hiatal hernia. Age expected degenerative changes spine. Mild diverticulosis in the colon without acute diverticulitis. ROUTINE EXAMINATION: Normal lung bases, spleen, pancreas, adrenal glands and retroperitoneum. Plaque aorta without aneurysm. Bladder contour normal. Normal-sized uterus. [facility] Esteban Gomes Jr., MD - 10/13/2021 EXAMINATION: CT ABDOMEN PELVIS W WO CONTRAST HISTORY: Microscopic hematuria with known kidney stones. Stress incontinence. 65-year-old female COMPARISON: CT abdomen pelvis 06/23/2020, KUB 09/23/2021. TECHNIQUE: CT abdomen pelvis with and without contrast. Pre and post IV contrast images. Split bolus postcontrast technique. Dose reduction techniques were achieved by using automated exposure control and/or adjustment of mA and/or kV according to patient size and/or use of iterative reconstruction technique. FINDINGS: PERTINENT POSITIVES: 2 adjacent distal right ureteral calculi without obstruction of the right ureter lie just proximal to the ureterovesical junction, unchanged from 09/23/2021. There may also be several strictures in the proximal to mid right ureter at the L3-L4 level on the right. The right ureter is mildly dilated compared to the left. PERTINENT NEGATIVES: No delay in function of the kidneys. COINCIDENTAL FINDINGS: 6 mm nonobstructing calcification right kidney. Multiple parapelvic cysts left kidney. Multiple benign hepatic cysts and small hiatal hernia. Age expected degenerative changes spine. Mild diverticulosis in the colon without acute diverticulitis. ROUTINE EXAMINATION: Normal lung bases, spleen, pancreas, adrenal glands and retroperitoneum. Plaque aorta without aneurysm. Bladder contour normal. Normal-sized uterus. IMPRESSION: 2 nonobstructing obstructing distal right ureteral calculi. 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 [employer] Phone: Radiology Study observation (narrative) [employer] Phone: CT ABDOMEN PELVIS W WO CONTR AST Additional Contrast? NoneOrdered By: Esteban Gomes on 10-13-2021 [employer] Phone: XR ABDOMEN (KUB) (SINGLE AP VIEW)on 09-23-2021 The two right-sided suspected distal ureteral stones are unchanged and a stone previously in the right kidney may be at the right ureteropelvic junction. [facility] EXAM: XR ABDOMEN (KUB) (SINGLE AP VIEW) HISTORY: R31.21. 65-year-old female, follow-up stones. COMPARISON: KUB 08/11/2021. TECHNIQUE: KUB, two images. FINDINGS: 6 mm stone that was previously in the superior pole right kidney could now be at the right ureteropelvic junction. The previously suspected two 5 mm stones in the distal right ureter are unchanged. [facility] Esteban Aranda Jr., MD - 09/23/2021 EXAM: XR ABDOMEN (KUB) (SINGLE AP VIEW) HISTORY: R31.21. 65-year-old female, follow-up stones. COMPARISON: KUB 08/11/2021. TECHNIQUE: KUB, two images. FINDINGS: 6 mm stone that was previously in the superior pole right kidney could now be at the right ureteropelvic junction. The previously suspected two 5 mm stones in the distal right ureter are unchanged. IMPRESSION: The two right-sided suspected distal ureteral stones are unchanged and a stone previously in the right kidney may be at the right ureteropelvic junction. [employer] Phone: Radiology Study observation (narrative) [employer] Phone: XR ABDOMEN (KUB) (SINGLE AP VIEW)Ordered By: Esteban Gomes on 09-23-2021 [employer] Phone: XR ABDOMEN (KUB) (SINGLE AP VIEW)on 08-11-2021 There are likely two 5 mm stones in the distal right ureter now. [facility] EXAM: XR ABDOMEN (KUB) (SINGLE AP VIEW) HISTORY: R31.21 65-year-old female asymptomatic microscopic hematuria, flank pain. COMPARISON: KUB 04/22/2021. TECHNIQUE: KUB, 2 images. FINDINGS: One of 2 previous right renal calculi is now likely within the distal right ureter adjacent to a prior 5 mm stone in the same region that was seen on 04/22/2021. Remaining 5 mm stone superior pole right kidney. No definite left-sided stones. [facility] Esteban Aranda Jr., MD - 08/11/2021 EXAM: XR ABDOMEN (KUB) (SINGLE AP VIEW) HISTORY: R31.21 65-year-old female asymptomatic microscopic hematuria, flank pain. COMPARISON: KUB 04/22/2021. TECHNIQUE: KUB, 2 images. FINDINGS: One of 2 previous right renal calculi is now likely within the distal right ureter adjacent to a prior 5 mm stone in the same region that was seen on 04/22/2021. Remaining 5 mm stone superior pole right kidney. No definite left-sided stones. IMPRESSION: There are likely two 5 mm stones in the distal right ureter now. [employer] Phone: Radiology Study observation (narrative) [employer] Phone: XR ABDOMEN (KUB) (SINGLE AP VIEW)Ordered By: Esteban Gomes on 08-11-2021 [employer] Phone: XR ABDOMEN (KUB) (SINGLE AP VIEW)Ordered By: Isidoro Goldberg on 04-22-2021 Two 5 mm right renal calculi. Persistent likely 5 mm stone distal right ureter. [employer] Phone: EXAM: XR ABDOMEN (KUB) (SINGLE AP VIEW) HISTORY: N20.0 65-year-old female. Follow up right-sided kidney stone. Patient states left-sided pain. COMPARISON: KUB 11/26/2020. TECHNIQUE: KUB, 2 images. FINDINGS: Two 5 mm calcifications over the right kidney are again seen. One of these is now over the inferior pole, compared to previous. No left-sided stones. 5 mm stone likely distal right ureter unchanged in size or position at the level of the ischial spine. [employer] Phone: Junior, pn Incoming Radiant Results From [employer] - 04/22/2021 4:08 PM EDT EXAM: XR ABDOMEN (KUB) (SINGLE AP VIEW) HISTORY: N20.0 65-year-old female. Follow up right-sided kidney stone. Patient states left-sided pain. COMPARISON: KUB 11/26/2020. TECHNIQUE: KUB, 2 images. FINDINGS: Two 5 mm calcifications over the right kidney are again seen. One of these is now over the inferior pole, compared to previous. No left-sided stones. 5 mm stone likely distal right ureter unchanged in size or position at the level of the ischial spine. IMPRESSION: Two 5 mm right renal calculi. Persistent likely 5 mm stone distal right ureter. [employer] Phone: [employer] Phone: XR ABDOMEN (KUB) (SINGLE AP VIEW)Ordered By: Isidoro Goldberg on 11-26-2020 2 possible residual stone fragments, 5 mm each over the superior one third right kidney and a possible 5 mm stone fragment at the level the right ischial spine. [employer] Phone: EXAM: XR ABDOMEN (KUB) (SINGLE AP VIEW) HISTORY: N20.0 65-year-old female, kidney stone. COMPARISON: KUB 09/01/2020, CT abdomen and pelvis 06/23/2020. TECHNIQUE: KUB 2 films. FINDINGS: Possible 5 mm stone fragment at the right ischial spine new from the prior KUB. Several likely calcifications measuring 5 mm diameter project over the superior one third right kidney and may represent fragments of the prior large stone, which is no longer present. No left-sided stones. Bowel gas normal. [employer] Phone: Junior, M[facility] Incoming Radiant Results From [employer] - 11/26/2020 6:42 PM EDT EXAM: XR ABDOMEN (KUB) (SINGLE AP VIEW) HISTORY: N20.0 65-year-old female, kidney stone. COMPARISON: KUB 09/01/2020, CT abdomen and pelvis 06/23/2020. TECHNIQUE: KUB 2 films. FINDINGS: Possible 5 mm stone fragment at the right ischial spine new from the prior KUB. Several likely calcifications measuring 5 mm diameter project over the superior one third right kidney and may represent fragments of the prior large stone, which is no longer present. No left-sided stones. Bowel gas normal. IMPRESSION: 2 possible residual stone fragments, 5 mm each over the superior one third right kidney and a possible 5 mm stone fragment at the level the right ischial spine. [employer] Phone: Basic Metabolic Panelon 10-22 Calcium [Mass/Vol] 8.5 mg/dL Normal 8.2-10.2 [facility] Comment on above: Performed By: #### P TT, PT, CBC, BMP #### [address] Chloride [Moles/Vol] 107 mmol/L Normal 95-114 [facility] Comment on above: Performed By: #### P TT, PT, CBC, BMP #### [address] CO2 [Moles/Vol] 22.7 mmol/L Normal 22.0-30.0 [facility] Comment on above: Performed By: #### P TT, PT, CBC, BMP #### [address] Creatinine [Mass/Vol] 1.01 mg/dL Normal 0.44-1.03 [facility] Comment on above: Performed By: #### P TT, PT, CBC, BMP #### [address] Creatinine Clr Calc Pharmacy 58.35 [facility] Comment on above: Result Comment: PERF ORMED BY: [place] [address] PATHOLOGIST IMPREGNATOR AND DRIER HELPER MAKENNA HIGH M.D. Performed By: #### P TT, PT, CBC, BMP #### [address] Estimated GFR ( Ketty > 60 [facility] Comment on above: Result Comment: GFR estimated reference range: According to KDOQI guidelines, <60 ml/min/1.73m2 is sufficient to diagnose a patient with chronic kidney disease. Performed By: #### P TT, PT, CBC, BMP #### [address] Estimated GFR (Non- Am 55 [facility] Comment on above: Performed By: #### P TT, PT, CBC, BMP #### [address] Glucose [Mass/Vol] 113 mg/dL High 70-100 [facility] Comment on above: Result Comment: [place] om Glucose Reference Range is dependent on time and content of last meal. Glucose of more than 200 mg/dL in a nonstressed, ambulatory subject supports the diagnosis of Diabetes Mellitus. ADA recommended reference range Performed By: #### P TT, PT, CBC, BMP #### [facility] [address] Potassium [Moles/Vol] 4.0 mmol/L Normal 3.5-5.1 [facility] Comment on above: Performed By: #### P TT, PT, CBC, BMP #### [address] Sodium [Moles/Vol] 139 mmol/L Normal 136-146 [facility] Comment on above: Performed By: #### P TT, PT, CBC, BMP #### [address] Urea nitrogen [Mass/Vol] 14 mg/dL Normal 9-23 [facility] Comment on above: Performed By: #### P TT, PT, CBC, BMP #### [address] Hemoglobin and Hematocriton 11-11-2020 Hematocrit (Bld) [Volume fraction] 35.4 % Normal 34.0-46.4 [facility] Comment on above: Result Comment: PERF ORMED BY: [place] [address] PATHOLOGIST IMPREGNATOR AND DRIER HELPER MAKENNA HIGH M.D. Performed By: #### P TT, PT, CBC, BMP #### [address] Hemoglobin (Bld) [Mass/Vol] 12.2 g/dL Normal 11.8-15.4 [facility] Comment on above: Performed By: #### P TT, PT, CBC, BMP #### [facility] [address] [place] [address] [place] XR KUBon 11-11-2020 XR KUB [facility] [address] XRay Report Signed Patient: Temitope Trejo MR#: [id number] : 1955 Acct:[id number] Age/Sex: 64 / F ADM Date: 11/10/20 Loc: 4N Room: [id number] Type: REG [facility] [place] Attending Dr: Isidoro Goldberg Jr, MD Ordering Provider: Isidoro Goldberg Jr, MD, FACS Date of Service: 11/11/20 XR/XR KUB: Renal calculus, right nephrostomy tube Copies to: Isidoro Goldberg Jr, MD, FACS XR KUB 11/10/2020 1:00 PM SIGNS AND SYMPTOMS: Renal calculus, right nephrostomy tube PROTOCOL: Frontal radiograph of the chest COMPARISON: 11/02/2020 FINDINGS: There are stone fragments within the right renal collecting system. There has been interval resolution of the large right renal pelvis stone. There is a percutaneous nephrostomy which is new on the right. Contrast is noted within the bladder lumen. Vascular calcifications are redemonstrated in the pelvis. XR/XR KUB IMPRESSION: There are stone fragments within the right renal collecting system. There has been interval resolution of the large right renal pelvis stone. There is a percutaneous nephrostomy which is new on the right. Impression dictated by: Jarad Roberts M.D.11/11/2020 8:14 AM Dictation Location: [place] [address] Transcribed By: [facility] 11/11/20 0814 Dictated By: Jarad Roberts II, MD 11/11/20 0813 Signed By: 11/11/20 0814 [facility] Blood Cultureon 11-10-2020 Bacteria identified Cx Nom (Bld) NO GROWTH 5 DAYS PERFORMED BY: [place] [address] PATHOLOGIST IMPREGNATOR AND DRIER HELPER MAKENNA HIGH M.D. [facility] Comment on above: Performed By: #### P TT, PT, CBC, BMP #### [facility] [address] [place] [address] Bacteria identified Cx Nom (Bld) Blood Culture Results No Growth 5 Days PERFORMED BY: [place] [address] PATHOLOGIST IMPREGNATOR AND DRIER HELPER MAKENNA HIGH M.D. [facility] Comment on above: Performed By: #### P TT, PT, CBC, BMP #### [address] Calculi, Urinaryon 1 Ca Oxalate Dihydrate 20 % Normal . [facility] Comment on above: Performed By: #### P TT, PT, CBC, BMP #### [address] Ca Oxalate Monohydrate 75 % Normal . [facility] Comment on above: Performed By: #### P TT, PT, CBC, BMP #### [address] Color (U) Brown Normal . [facility] Comment on above: Performed By: #### P TT, PT, CBC, BMP #### [address] Comment: Normal . [facility] Comment on above: Result Comment: Toñito andrade questions regarding Calculi Analysis contact [facility] at: [phone]. Performed By: #### P TT, PT, CBC, BMP #### [address] Composition Normal . [facility] Comment on above: Result Comment: Perc entage (Represents the % composition) Performed By: #### P TT, PT, CBC, BMP #### [address] Disclaimer: Normal . [facility] Comment on above: Result Comment: This test was developed and its performance characteristics determined by [employer]. It has not been cleared or approved by the Food and Drug Administration. Performed at: [facility] Stone Analysis [address] [place] [address] Dr [address], [place], [place] [id number] Senior Interaction Designer: Chente Morse MD, Phone: [phone] Performed By: #### P TT, PT, CBC, BMP #### [address] Hydroxyapatite 5 % Normal . [facility] Comment on above: Performed By: #### P TT, PT, CBC, BMP #### [address] Note Normal . [facility] Comment on above: Result Comment: Calc zhane report will follow via computer, mail or biblical languages professor delivery. PERFORMED BY: [place] [address] PATHOLOGIST IMPREGNATOR AND DRIER HELPER MAKENNA HIGH M.D. Performed By: #### P TT, PT, CBC, BMP #### [facility] [address] Photo Normal . [facility] Comment on above: Result Comment: Phot larisa will follow under a separate cover Performed By: #### P TT, PT, CBC, BMP #### [facility] [address] Size 5x2 Normal . [facility] Comment on above: Result Comment: Mult iple pieces received. Dimensions of the largest piece reported. Performed By: #### P TT, PT, CBC, BMP #### [address] Source Normal . [facility] Comment on above: Result Comment: Righ t Kidney Performed By: #### P TT, PT, CBC, BMP #### [facility] [address] [place] [address] [place] Weight 7173 Normal . [facility] Comment on above: Performed By: #### P TT, PT, CBC, BMP #### [facility] [address] [place] [address] ECG 12 lead ECGon 11-10-2020 ECG 12 lead ECG [facility] [place] [address] [place] [address] Electrocardiograph Report Signed Patient: Temitope Trejo MR#: [id number] : 1955 Acct:[id number] Age/Sex: 64 / F ADM Date: 11/10/20 Loc: Room: 8L3613-3 Type: ADM [facility] Attending Dr: Isidoro Goldberg Jr, MD Ordering Provider: Samir Carranza MD Date of Service: 11/10/20 ECG/ECG 12 lead ECG: bradycardia Copies to: Test Reason : Blood Pressure : / mmHG Vent. Rate : 053 BPM Atrial Rate : 053 BPM P-R Int : 148 ms QRS Dur : 118 ms QT Int : 510 ms P-R-T Axes : 065 032 056 degrees QTc Int : 478 ms Sinus bradycardia with premature supraventricular complexes and with occasional premature ventricular complexes Incomplete right bundle branch block T wave abnormality, consider anterior ischemia Prolonged QT Abnormal ECG When compared with ECG of 02-NOV-2020 09:40, premature ventricular complexes are now present premature supraventricular complexes are now present Criteria for Inferior infarct are no longer present Confirmed by JAI GUZMÁN DO ([id number]) on 11/10/2020 5:07:59 PM Referred By: Electronically Signed By:JAI GUZMÁN DO Transcribed By: MUS Dictated By: Jai Guzmán DO 11/10/20 1410 Signed By: 11/10/20 1708 Normal [facility] Free T4 (Free Thyroxine)on 0 11-10-2020 Free T4 [Mass/Vol] 1.16 ng/dL High 0.61-1.12 [facility] Comment on above: Performed By: #### T SH3, T4F #### [address] Hemoglobin and Hematocriton 11-10-2020 Hematocrit (Bld) [Volume fraction] 37.3 % Normal 34.0-46.4 [facility] Comment on above: Result Comment: PERF ORMED BY: [place] [address] PATHOLOGIST IMPREGNATOR AND DRIER HELPER MAKENNA HIGH M.D. Performed By: #### H H #### [address] Hemoglobin (Bld) [Mass/Vol] 13.0 g/dL Normal 11.8-15.4 [facility] Comment on above: Performed By: #### H H #### [address] IR nephrostomy tube insertio non 11-10-2020 IR nephrostomy tube insertion [facility] [place] [address] [place] [address] Interventional Radiology Rpt Signed Patient: Temitope Trejo MR#: [id number] : 1955 Acct:[id number] Age/Sex: 64 / F ADM Date: 11/10/20 Loc: 4N Room: 3W5539-9 Type: [facility] Attending Dr: Juno Belcher MD Ordering Provider: Juno Belcher Jr, MD Date of Service: 11/10/20 IR/IR nephrostomy tube insertion: PCNL Copies to: Juno Belcher Jr, MD Ultrasound and fluoroscopic-guided right percutaneous nephroureteral guidewire insertion for nephrolithotomy 11/10/2020. CLINICAL DATA: Right nephrolithiasis. TECHNIQUE: Consent for the procedure was obtained by the Urology service. General anesthesia and patient monitoring were provided by the Department of Anesthesiology. With the patient in the prone position and following surface preparation, a 21-gauge needle was inserted percutaneously into a dilated calyx in the lower pole of the right kidney using a posterior approach with ultrasound guidance. Dilute contrast was administered to confirm satisfactory needle position. A microwire was then inserted through the needle and the needle was removed. A 6 Sammarinese sheath with a 4 Sammarinese inner dilator and stiffener were then advanced over the wire and into the right renal collecting system using fluoroscopic guidance. The wire, stiffener, and dilator were removed. A stiff guidewire was then inserted through the sheath which was subsequently removed. A guiding catheter was then used to advance the guidewire down the right ureter and into the urinary bladder using fluoroscopic guidance. The catheter was removed. Following 8 Sammarinese, 10 Sammarinese, and 12 Sammarinese dilatation, a 10 Sammarinese dual-lumen catheter was then inserted over the guidewire and into the urinary bladder using fluoroscopic guidance. A superstiff guidewire was then inserted through the available lumen of the catheter and advanced into the urinary bladder using fluoroscopic guidance. The catheter was removed. No immediate complication was evident. Using this access, percutaneous nephrolithotomy was then performed by the Urology service. Combined procedure fluoroscopy time was 16.4 minutes. 6 fluoroscopic spot images were obtained. IR/IR nephrostomy tube insertion IMPRESSION: Ultrasound and fluoroscopic-guided right percutaneous nephroureteral guidewire insertion for nephrolithotomy. Impression dictated by: Juno Belcher Jr., M.D.11/10/2020 3:05 PM Dictation Location: RADIO-PC-05 Transcribed By: ALONSO 11/10/20 1505 Dictated By: Juno Belcher Jr, MD 11/10/20 1459 Signed By: 11/10/20 150 [facility] Ramakrishna 11-10-2020 L Specimen: Received: 11/10/20 Status: ANSON Higuera Num: [id number] Spec Type: Surgical Subm Dr: Isidoro Goldberg Jr, MD, FACS Tissues: A Urinary Calculus (RT KIDNEY STONE) Procedures: Level 1 Gross Patient Age/Sex Location Account Attending Physician Temitope Trejo 64/F 4N [id number] Isidoro Goldberg Jr, MD, FACS SPEC NUM: RECD: 11/10/20 STATUS: ANSON EDNA NUM: [id number] VICENTE: 11/10/20- DR: Isidoro Goldberg Jr, MD, FACS ENTERED: 11/10/[address] [facility] [address]: SPEC TYPE: Surgical DEPT: S ORDERED: Level 1 Gross ORDERED: Level 1 Gross Pathological Diagnosis Right kidney stone, extraction: - Consistent with calculi (see Gross Description) Clinical Information Right kidney stone Gross Description Received fresh labeled with the patient's name and right kidney stone is a 4 x 3.5 x 1.5 cm aggregate of brown stone fragments. No sections are submitted for microscopic evaluation. Gross exam only. The specimen is sent for stone analysis. (HAYES/SOILA) Microscopic Description Gross examination only. [id number] Specimen: Received: 11/10/20 Status: ANSON Seovita Num: [id number] Spec Type: Surgical Subm Dr: Isidoro Goldberg Jr, MD, FACS Tissues: A Urinary Calculus (RT KIDNEY STONE) Procedures: Level 1 Gross Patient: Temitope Trejo [id number] (Continued) Signed (signatur e on file) Makenna High MD 11/10/20 1734 Normal [facility] Thyroid Stimulating Hormoneo n 11-10-2020 TSH Qn 0.50 m[IU]/L Normal 0.45-5.33 [facility] Comment on above: Result Comment: PERF ORMED BY: [place] [address] PATHOLOGIST IMPREGNATOR AND DRIER HELPER MAKENNA HIGH M.D. Performed By: #### P TT, PT, CBC, BMP #### [address] COVID-19 FRon 11-08-2020 SARS-CoV-2 (COVID-19) RNA BRENDON+probe Ql (Unsp spec) Negative Normal Negative [facility] Comment on above: Order Comment: Healt hcare Worker?: N Result Comment: Refe rence: Negative Testing for SARS-CoV-2 by RT-PCR This test was developed and its performance characteristics determined by [employer] and validated at the [facility]. This test has not been FDA cleared or approved. This test has been authorized by FDA under an Emergency Use Authorization (EUA). This test has been validated in accordance with the FDA's Guidance Document (Policy for Diagnostics Testing in Laboratories Certified to Perform High Complexity Testing under CLIA prior to Emergency Use Authorization for Coronavirus Disease-2019 during the Public Health Emergency) issued on October 23, 2019. This test is only authorized for the duration of time the declaration that circumstances exist justifying the authorization of the emergency use of in vitro diagnostic tests for detection of SARS-CoV-2 virus and/or diagnosis of COVID-19 infection under section 564(b)(1) of the Act, 21 U.S.C. 360bbb-3(b)(1), unless the authorization is terminated or revoked sooner. PERFORMED BY: [place] [address] PATHOLOGIST IMPREGNATOR AND DRIER HELPER MAKENNA HIGH M.D. Performed By: #### C OVID-19 [facility] #### [address] COVID-19 Positive/Negativeon 11-08-2020 SARS-CoV-2 (COVID-19) N gene BRENDON+probe Ql (Resp) Negative Negative [facility] Comment on above: Reference: NegativeT esting for SARS-CoV-2 by RT-PCRThis test was developed and its performance characteristics determined by [employer] and validated at the [facility]. This test has not been FDA cleared or approved. This test has been authorized by FDA under an Emergency Use Authorization (EUA). This test has been validated in accordance with the FDA's Guidance Document (Policy for Diagnostics Testing in Laboratories Certified to Perform High Complexity Testing under CLIA prior to Emergency Use Authorization for Coronavirus Disease-2019 during the Public Health Emergency) issued on October 23, 2019. This test is only authorized for the duration of time the declaration that circumstances exist justifying the authorization of the emergency use of in vitro diagnostic tests for detection of SARS-CoV-2 virus and/or diagnosis of COVID-19 infection under section 564(b)(1) of the Act, 21 U.S.C. 360bbb-3(b)(1), unless the authorization is terminated or revoked sooner. Laboratory - Microbiology an d Antimicrobial susceptibilityon 11-08-2020 SARS-CoV-2 (COVID-19) RNA BRENDON+probe Ql (Unsp spec) N/A [facility] Activated partial thrombopla stin time (aPTT) in platelet poor plasma by coagulation aon 11-02-2020 aPTT Coag (PPP) [Time] 36.3 s 25.1-36.5 [facility] Basic Metabolic Panelon 10-21 Calcium [Mass/Vol] 9.3 mg/dL Normal 8.2-10.2 [facility] Comment on above: Result Comment: PERF ORMED BY: [place] [address] PATHOLOGIST IMPREGNATOR AND DRIER HELPER MAKENNA HIGH M.D. Performed By: #### P TT, PT, CBC, BMP #### [address] Chloride [Moles/Vol] 104 mmol/L Normal 95-114 [facility] Comment on above: Performed By: #### P TT, PT, CBC, BMP #### [address] CO2 [Moles/Vol] 26.7 mmol/L Normal 22.0-30.0 [facility] Comment on above: Performed By: #### P TT, PT, CBC, BMP #### [address] Creatinine [Mass/Vol] 0.86 mg/dL Normal 0.44-1.03 [facility] Comment on above: Performed By: #### P TT, PT, CBC, BMP #### [address] Estimated GFR ( Ketty > 60 Normal [facility] Comment on above: Result Comment: GFR estimated reference range: According to KDOQI guidelines, <60 ml/min/1.73m2 is sufficient to diagnose a patient with chronic kidney disease. Performed By: #### P TT, PT, CBC, BMP #### [address] Estimated GFR (Non- Am > 60 Normal [facility] Comment on above: Performed By: #### P TT, PT, CBC, BMP #### [place] [address] [place] Glucose [Mass/Vol] 76 mg/dL Normal 70-100 [facility] Comment on above: Result Comment: [place] Glucose Reference Range is dependent on time and content of last meal. Glucose of more than 200 mg/dL in a nonstressed, ambulatory subject supports the diagnosis of Diabetes Mellitus. ADA recommended reference range Performed By: #### P TT, PT, CBC, BMP #### [facility] [address] Potassium [Moles/Vol] 4.2 mmol/L Normal 3.5-5.1 [facility] Comment on above: Performed By: #### P TT, PT, CBC, BMP #### [facility] [address] Sodium [Moles/Vol] 140 mmol/L Normal 136-146 [facility] Comment on above: Performed By: #### P TT, PT, CBC, BMP #### [facility] [address] Urea nitrogen [Mass/Vol] 18 mg/dL Normal 9-23 [facility] Comment on above: Performed By: #### P TT, PT, CBC, BMP #### [facility] [address] Basophils Auto (Bld) [#/Vol] on 11-02-2020 Basophils (Bld) [#/Vol] 0.0 10*3/uL 0.0-0.2 [facility] Basophils/100 WBC Auto (Bld) on 11-02-2020 Basophils/100 WBC (Bld) 0.5 % [facility] Blood hemoglobin measurement (mass/volume)on 11-02-2020 Hemoglobin (Bld) [Mass/Vol] 15.0 g/dL 11.8-15.4 [facility] Blood leukocytes automated c ount (number/volume)on 11-02-2020 WBC (Bld) [#/Vol] 3.8 10*3/uL 4.5-11.0 [facility] Complete Blood Count Auto Di ffon 11-02-2020 Basophils (Bld) [#/Vol] 0.0 10*3/uL Normal 0.0-0.2 [facility] Comment on above: Result Comment: PERF ORMED BY: [place] [address] PATHOLOGIST IMPREGNATOR AND DRIER HELPER MAKENNA HIGH M.D. Performed By: #### P TT, PT, CBC, BMP #### [address] Basophils/100 WBC (Bld) 0.5 % Normal . [facility] Comment on above: Performed By: #### P TT, PT, CBC, BMP #### [address] Eosinophils (Bld) [#/Vol] 0.1 10*3/uL Normal 0.0-0.45 [facility] Comment on above: Performed By: #### P TT, PT, CBC, BMP #### [address] Eosinophils/100 WBC (Bld) 2.0 % Normal . [facility] Comment on above: Performed By: #### P TT, PT, CBC, BMP #### [address] Erythrocyte distribution width (RBC) [Ratio] 13.5 % Normal 11.9-15.3 [facility] Comment on above: Performed By: #### P TT, PT, CBC, BMP #### [address] Hematocrit (Bld) [Volume fraction] 44.2 % Normal 34.0-46.4 [facility] Comment on above: Performed By: #### P TT, PT, CBC, BMP #### [place] [address] [place] Hemoglobin (Bld) [Mass/Vol] 15.0 g/dL Normal 11.8-15.4 [facility] Comment on above: Performed By: #### P TT, PT, CBC, BMP #### [place] [address] [place] Lymphocytes (Bld) [#/Vol] 1.5 10*3/uL Normal 1.00-4.8 [facility] Comment on above: Performed By: #### P TT, PT, CBC, BMP #### [address] Lymphocytes/100 WBC (Bld) 38.1 % Normal . [facility] Comment on above: Performed By: #### P TT, PT, CBC, BMP #### [address] MCH (RBC) [Entitic mass] 28.9 pg Normal 24.7-34.3 [facility] Comment on above: Performed By: #### P TT, PT, CBC, BMP #### [address] MCV (RBC) [Entitic vol] 85.4 fL Normal 80-100 [facility] Comment on above: Performed By: #### P TT, PT, CBC, BMP #### [address] Mean Corpuscular HGB Conc 33.9 g/dL Normal 32.0-35.0 [facility] Comment on above: Performed By: #### P TT, PT, CBC, BMP #### [address] Monocytes (Bld) [#/Vol] 0.3 10*3/uL Normal 0.0-0.8 [facility] Comment on above: Performed By: #### P TT, PT, CBC, BMP #### [address] Monocytes/100 WBC (Bld) 8.6 % Normal . [facility] Comment on above: Performed By: #### P TT, PT, CBC, BMP #### [address] Neutrophils (Bld) [#/Vol] 2.0 10*3/uL Normal 1.8-7.7 [facility] Comment on above: Performed By: #### P TT, PT, CBC, BMP #### [address] [address] [place] Neutrophils/100 WBC (Bld) 50.8 % Normal . [facility] Comment on above: Performed By: #### P TT, PT, CBC, BMP #### [address] Nucleated RBC/100 WBC (Bld) [Ratio] 0.3 % Normal 0-0.5 [facility] Comment on above: Performed By: #### P TT, PT, CBC, BMP #### [address] Platelet mean volume (Bld) [Entitic vol] 10.6 fL Normal 6.3-10.7 [facility] Comment on above: Performed By: #### P TT, PT, CBC, BMP #### [address] Platelets (Bld) [#/Vol] 150 10*3/uL Normal 150-450 [facility] Comment on above: Performed By: #### P TT, PT, CBC, BMP #### [address] RBC (Bld) [#/Vol] 5.17 10*6/uL High 3.60-5.00 [facility] Comment on above: Performed By: #### P TT, PT, CBC, BMP #### [address] WBC (Bld) [#/Vol] 3.8 10*3/uL Low 4.5-11.0 [facility] Comment on above: Performed By: #### P TT, PT, CBC, BMP #### [place] [address] [place] Creatinine and Glomerular fi ltration rate.predicted panel (S/P/Bld)on 11-02-2020 Creatinine [Mass/Vol] 0.86 mg/dL 0.44-1.03 [facility] ECG 12 lead ECGon 11-02-2020 ECG 12 lead ECG [facility] [place] [address] [place] [address] Electrocardiograph Report Signed Patient: Temitope Trejo MR#: [id number] : 1955 Acct:[id number] Age/Sex: 64 / F ADM Date: 11/02/20 Loc: PS Room: Type: [facility] Attending Dr: Isidoro Goldberg Jr, MD Ordering Provider: Isidoro Goldberg Jr, MD, FACS Date of Service: 11/02/20 ECG/ECG 12 lead ECG: pst Copies to: Test Reason : Blood Pressure : / mmHG Vent. Rate : 066 BPM Atrial Rate : 066 BPM P-R Int : 136 ms QRS Dur : 120 ms QT Int : 410 ms P-R-T Axes : 040 -36 060 degrees QTc Int : 429 ms Normal sinus rhythm Left axis deviation Right bundle branch block Inferior infarct , age undetermined Abnormal ECG No previous ECGs available Confirmed by CHET RICE DO ([id number]) on 11/02/2020 12:48:37 PM Referred By: YUSUF Electronically Signed By:CHET RICE DO Transcribed By: HAZEL Dictated By: Chet Rice DO 11/02/20 0940 Signed By: 11/02/20 1248 Normal [facility] Eosinophils Auto (Bld) [#/Vo l]on 11-02-2020 Eosinophils (Bld) [#/Vol] 0.1 10*3/uL 0.0-0.45 [facility] Eosinophils/100 WBC Auto (Bl d)on 11-02-2020 Eosinophils/100 WBC (Bld) 2.0 % [facility] Erythrocyte distribution wid th Auto (RBC) [Ratio]on 11-02-2020 Erythrocyte distribution width (RBC) [Ratio] 13.5 % 11.9-15.3 [facility] GFR/1.73 sq M.predicted laxmi g non-blacks MDRD (S/P/Bld) [Vol rate/Area]on 11-02-2020 GFR/1.73 sq M predicted among non-blacks MDRD (S/P/Bld) [Vol rate/Area] > 60 mL/Min [facility] Hematocrit Auto (Bld) [Volum e fraction]on 11-02-2020 Hematocrit (Bld) [Volume fraction] 44.2 % 34.0-46.4 [facility] Hematologyon 11-02-2020 PT Coag (PPP) [Time] 11.2 s 9.0-12.9 [facility] Lymphocytes Auto (Bld) [#/Vo l]on 11-02-2020 Lymphocytes (Bld) [#/Vol] 1.5 10*3/uL 1.00-4.8 [facility] Lymphocytes/100 WBC Auto (Bl d)on 11-02-2020 Lymphocytes/100 WBC (Bld) 38.1 % [facility] MCH Auto (RBC) [Entitic mass ]on 11-02-2020 MCH (RBC) [Entitic mass] 28.9 pg 24.7-34.3 [facility] MCHC Auto (RBC) [Mass/Vol]on 11-02-2020 MCHC (RBC) [Mass/Vol] 33.9 g/dL 32.0-35.0 [facility] MCV Auto (RBC) [Entitic vol] on 11-02-2020 MCV (RBC) [Entitic vol] 85.4 fL 80-100 [facility] Monocytes Auto (Bld) [#/Vol] on 11-02-2020 Monocytes (Bld) [#/Vol] 0.3 10*3/uL 0.0-0.8 [facility] Monocytes/100 WBC Auto (Bld) on 11-02-2020 Monocytes/100 WBC (Bld) 8.6 % [facility] Neutrophils Auto (Bld) [#/Vo l]on 11-02-2020 Neutrophils (Bld) [#/Vol] 2.0 10*3/uL 1.8-7.7 [facility] Neutrophils/100 WBC Auto (Bl d)on 11-02-2020 Neutrophils/100 WBC (Bld) 50.8 % [facility] No Panel Informationon 11-02 Estimated GFR () > 60 mL/Min [facility] Comment on above: GFR estimated refere nce range: According to KDOQI guidelines, <60 ml/min/1.73m2 is sufficient to diagnose a patient with chronic kidney disease. Otheron 11-02-2020 GFR/1.73 sq M.predicted MDRD (S/P/Bld) [Vol rate/Area] > 60 mL/Min [facility] Comment on above: GFR estimated refere nce range: According to KDOQI guidelines, <60 ml/min/1.73m2 is sufficient to diagnose a patient with chronic kidney disease. Nucleated RBC/100 WBC (Bld) [Ratio] 0.3 % 0-0.5 [facility] Creatinine Clearance (Chem N/A [facility] Partial Thromboplastin Timeo n 11-02-2020 aPTT Coag (Bld) [Time] 36.3 s Normal 25.1-36.5 [facility] Comment on above: Result Comment: PERF ORMED BY: [place] [address] PATHOLOGIST IMPREGNATOR AND [employer]RIER HELPER MAKENNA HIGH M.D. Performed By: #### P TT, PT, CBC, BMP #### [address] Platelet mean volume Auto (B ld) [Entitic vol]on 11-02-2020 Platelet mean volume (Bld) [Entitic vol] 10.6 fL 6.3-10.7 [facility] Platelet poor plasma interna tional normalized ratio (INR) by coagulation assay (relaton 11-02-2020 INR Coag (PPP) [Relative time] 1.0 {INR} [facility] Comment on above: INR Therapeutic Rang e A) Pre- and Peroperative OAT started two weeks before surgery. NOT HIP SURGERY: 1.5 - 2.5 HIP SURGERY: 2 - 3B) Primary and secondary prevention of venous THROMBOSIS: 2 - 3C) Active venous thrombosis, pulmonary embolismand prevention of recurrent venous thrombosis: 2 - 3D) Prevention of arterial thromboembolismincluding patients with mechanical heart valves: 3 - 4.5 Platelets Auto (Bld) [#/Vol] on 11-02-2020 Platelets (Bld) [#/Vol] 150 10*3/uL 150-450 [facility] Prothrombin Time INRon 11-02 INR Coag (PPP) [Relative time] 1.0 {INR} Normal [facility] Comment on above: Result Comment: INR Therapeutic Range A) Pre- and Peroperative OAT started two weeks before surgery. NOT HIP SURGERY: 1.5 - 2.5 HIP SURGERY: 2 - 3 B) Primary and secondary prevention of venous THROMBOSIS: 2 - 3 C) Active venous thrombosis, pulmonary embolism and prevention of recurrent venous thrombosis: 2 - 3 D) Prevention of arterial thromboembolism including patients with mechanical heart valves: 3 - 4.5 Performed By: #### P TT, PT, CBC, BMP #### [facility] [address] PT Coag (PPP) [Time] 11.2 s Normal 9.0-12.9 [facility] Comment on above: Performed By: #### P TT, PT, CBC, BMP #### [facility] [address] RBC Auto (Bld) [#/Vol]on RBC (Bld) [#/Vol] 5.17 10*6/uL 3.60-5.00 [facility] Serum or plasma calcium lisandro urement (mass/volume)on 11-02-2020 Calcium [Mass/Vol] 9.3 mg/dL 8.2-10.2 [facility] Serum or plasma chloride dany surement (moles/volume)on 11-02-2020 Chloride [Moles/Vol] 104 mmol/L 95-114 [facility] Serum or plasma glucose lisandro urement (mass/volume)on 11-02-2020 Glucose [Mass/Vol] 76 mg/dL 70-100 [facility] Comment on above: ADA recommended refe rence rangeRandom Glucose Reference Range is dependent on time and content of last meal. Glucose of more than 200 mg/dL in a nonstressed, ambulatory subject supports the diagnosis of Diabetes Mellitus. Serum or plasma potassium me asurement (moles/volume)on 11-02-2020 Potassium [Moles/Vol] 4.2 mmol/L 3.5-5.1 [facility] Serum or plasma sodium measu rement (moles/volume)on 11-02-2020 Sodium [Moles/Vol] 140 mmol/L 136-146 [facility] Serum or plasma total carbon dioxide measurement (moles/volume)on 11-02-2020 CO2 [Moles/Vol] 26.7 mmol/L 22.0-30.0 [facility] Serum or plasma urea nitroge n measurement (mass/volume)on 11-02-2020 Urea nitrogen [Mass/Vol] 18 mg/dL 04-14 [facility] XR KUBon 11-02-2020 XR KUB [facility] [place] [address] XRay Report Signed Patient: Temitope Trejo MR#: [id number] : 1955 Acct:[id number] Age/Sex: 64 / F ADM Date: 11/02/20 Loc: PS Room: Type: [facility] Attending Dr: Isidoro Goldberg Jr, MD Ordering Provider: Isidoro Goldberg Jr, MD, FACS Date of Service: 11/02/20 XR/XR KUB: kidney stone Copies to: Isidoro Goldberg Jr, MD, FACS Single view of abdomen COMPARISON: CT abdomen pelvis 06/23/20 HISTORY: Presurgical testing for kidney stone on the RIGHT. RIGHT flank pain. Nondistended air-filled small bowel loops identified. 3.4 x 2.5 cm RIGHT renal pelvis calcification is present. This is unchanged from CT examination 06/23/20 pelvic vascular calcifications identified. No soft tissue mass seen. Bony structures are intact. XR/XR KUB IMPRESSION: No significant findings. Impression dictated by: Chet Morales M.D.11/02/2020 11:54 AM Dictation Location: [place] [address] Transcribed By: [facility] 11/02/20 1154 Dictated By: Chet Morales DO 11/02/20 1152 Signed By: 11/02/20 1154 Normal [facility] XR ABDOMEN (KUB) (SINGLE AP VIEW)on 09-01-2020 1. Grossly stable right nephrolithiasis consisting of a large 3.5 cm stone within the renal pelvis. [employer] Phone: EXAMINATION: XR ABDOMEN (KUB) (SINGLE AP VIEW) HISTORY: N20.0 ; follow-up stone COMPARISON: XR abdomen 05/31/2020, CT abdomen and pelvis 06/23/2020 FINDINGS: KIDNEY/URETER - RIGHT: Stable appearance of the 3.5 cm stone projecting over the right renal pelvis. KIDNEY/URETER - LEFT: No visible renal or ureteral calcifications. PELVIS: Stable calcifications within the lower pelvis favoring phleboliths. BOWEL: No abnormal dilation or deviation. BONES: No acute abnormality. OTHER: Negative. No abnormal gaseous collections. [employer] Phone: Junior, Mhpn Incoming Radiant Results From [employer] - 09/01/2020 1:37 PM EST EXAMINATION: XR ABDOMEN (KUB) (SINGLE AP VIEW) HISTORY: N20.0 ; follow-up stone COMPARISON: XR abdomen 05/31/2020, CT abdomen and pelvis 06/23/2020 FINDINGS: KIDNEY/URETER - RIGHT: Stable appearance of the 3.5 cm stone projecting over the right renal pelvis. KIDNEY/URETER - LEFT: No visible renal or ureteral calcifications. PELVIS: Stable calcifications within the lower pelvis favoring phleboliths. BOWEL: No abnormal dilation or deviation. BONES: No acute abnormality. OTHER: Negative. No abnormal gaseous collections. IMPRESSION: 1. Grossly stable right nephrolithiasis consisting of a large 3.5 cm stone within the renal pelvis. [employer] Phone: CT ABDOMEN PELVIS WO CONTRAS T Additional Contrast? Noneon 06-24-2020 1. The large calcification represents a large laminated stone in the inferior portion of the right renal pelvis measuring 3.1 cm in greatest diameter with mild right hydronephrosis, but likely only a partial obstruction. The Hounsfield attenuation of this large stone is 1366 Hounsfield units. 2. Multiple parapelvic cysts left kidney. 3. Diverticulosis sigmoid colon, without diverticulitis. Benign hepatic cysts which require no follow-up. 4. Very small hiatal hernia. [employer]- [place] EXAMINATION: CT ABDOMEN AND PELVIS WO CONTRAST HISTORY: Abnormal findings on diagnostic imaging abdomen, DXA scan 05/26/2020, KUB 05/31/2020. COMPARISON: KUB 05/31/2020, DXA scan 05/26/2020. TECHNIQUE: CT examination of the abdomen and pelvis without IV contrast. Coronal and sagittal reformations were performed. Dose reduction techniques were achieved by using automated exposure control and/or adjustment of mA and/or kV according to patient size and/or use of iterative reconstruction technique. FINDINGS: The calcified structure on the DXA scan and KUB is shown to be a large stone in the right renal pelvis measuring 3.1 cm transverse by 2.0 cm longitudinal. There is a prominent amount of fat in the right renal hilum along with prominence of the superior pole calyces somewhat more so than the inferior pole calyces with mild right hydronephrosis. The left kidney shows scattered parapelvic cysts. No bladder calculi. Normal-sized uterus. Degenerative changes thoracic and lumbar spine not unusual for age. No adnexal mass. Normal appendix. Moderate plaque aorta without aneurysm. Normal adrenal glands, spleen, pancreas, and gallbladder. There are numerous hepatic cysts incidentally noted of water density without septation or calcification. The largest of these is at the junction of the right and left lobes just inferior to the diaphragm measuring 3.3 cm in diameter. Small hiatal hernia 2.7 cm. The lung bases are clear. Multiple diverticula sigmoid colon without acute diverticulitis. Normal mesentery and bowel otherwise. Abdominal wall intact. Soft tissues normal. [facility]- [place], [place] Junior, Mhpn Incoming Radiant Results From [employer] - 06/24/2020 9:00 AM EST EXAMINATION: CT ABDOMEN AND PELVIS WO CONTRAST HISTORY: Abnormal findings on diagnostic imaging abdomen, DXA scan 05/26/2020, KUB 05/31/2020. COMPARISON: KUB 05/31/2020, DXA scan 05/26/2020. TECHNIQUE: CT examination of the abdomen and pelvis without IV contrast. Coronal and sagittal reformations were performed. Dose reduction techniques were achieved by using automated exposure control and/or adjustment of mA and/or kV according to patient size and/or use of iterative reconstruction technique. FINDINGS: The calcified structure on the DXA scan and KUB is shown to be a large stone in the right renal pelvis measuring 3.1 cm transverse by 2.0 cm longitudinal. There is a prominent amount of fat in the right renal hilum along with prominence of the superior pole calyces somewhat more so than the inferior pole calyces with mild right hydronephrosis. The left kidney shows scattered parapelvic cysts. No bladder calculi. Normal-sized uterus. Degenerative changes thoracic and lumbar spine not unusual for age. No adnexal mass. Normal appendix. Moderate plaque aorta without aneurysm. Normal adrenal glands, spleen, pancreas, and gallbladder. There are numerous hepatic cysts incidentally noted of water density without septation or calcification. The largest of these is at the junction of the right and left lobes just inferior to the diaphragm measuring 3.3 cm in diameter. Small hiatal hernia 2.7 cm. The lung bases are clear. Multiple diverticula sigmoid colon without acute diverticulitis. Normal mesentery and bowel otherwise. Abdominal wall intact. Soft tissues normal. IMPRESSION: 1. The large calcification represents a large laminated stone in the inferior portion of the right renal pelvis measuring 3.1 cm in greatest diameter with mild right hydronephrosis, but likely only a partial obstruction. The Hounsfield attenuation of this large stone is 1366 Hounsfield units. 2. Multiple parapelvic cysts left kidney. 3. Diverticulosis sigmoid colon, without diverticulitis. Benign hepatic cysts which require no follow-up. 4. Very small hiatal hernia. [place], [place] XR ABDOMEN (KUB) (SINGLE AP VIEW)on 05-31-2020 Large calcification over the right upper quadrant abdomen has a rectangular shape, not typical for either a renal stone or gallstone, but it is in the location that would suggest one or the other. It would take a CT scan to further localize its position, if clinically desired. [place], [place] EXAM: XR ABDOMEN (KUB) (SINGLE AP VIEW) HISTORY: R93.7 64-year-old female had abnormal DXA scan with density projecting over the right upper quadrant abdomen. COMPARISON: DXA scan 07/10/2014, 05/26/2020 TECHNIQUE: KUB, 2 images. FINDINGS: A densely calcified structure projects over the right upper quadrant abdomen 3.2 cm x 2.4 cm. This could be in the location of gallbladder or kidney. It is larger than it was in 2013. The bowel gas pattern is nonobstructive. [place], [place] Junior, Mhpn Incoming Radiant Results From [employer] - 05/31/2020 5:53 PM EST EXAM: XR ABDOMEN (KUB) (SINGLE AP VIEW) HISTORY: R93.7 64-year-old female had abnormal DXA scan with density projecting over the right upper quadrant abdomen. COMPARISON: DXA scan 07/10/2014, 05/26/2020 TECHNIQUE: KUB, 2 images. FINDINGS: A densely calcified structure projects over the right upper quadrant abdomen 3.2 cm x 2.4 cm. This could be in the location of gallbladder or kidney. It is larger than it was in 2014. The bowel gas pattern is nonobstructive. IMPRESSION: Large calcification over the right upper quadrant abdomen has a rectangular shape, not typical for either a renal stone or gallstone, but it is in the location that would suggest one or the other. It would take a CT scan to further localize its position, if clinically desired. [place], [place] [employer] DIGITAL SCREEN BILA IBISALon 05-27-2020 BI-RADS 1 - Negative, no evidence of malignancy. Normal interval followup in 12 months. OVERALL ASSESSMENT- NEGATIVE A letter of notification will be sent to the patient regarding the results. [place], [place] HISTORY: Screening. Family history breast carcinoma. TECHNIQUE: Bilateral digital screening mammogram with CAD, 2-D and 3-D tomography. FINDINGS: Two views of each breast show heterogeneously dense fibroglandular tissue, which may obscure small masses, bilaterally symmetric. No change from 04/16/2019, 03/18/2018. Suspicious calcifications: None. Suspicious mass: None. Benign calcifications: None. (If skin markers were applied, circles represent skin lesions and linear markers represent scars.) [place], [place] Junior, Mhpn Incoming Radiant Results From [employer] - 05/27/2020 10:31 AM EST HISTORY: Screening. Family history breast carcinoma. TECHNIQUE: Bilateral digital screening mammogram with CAD, 2-D and 3-D tomography. FINDINGS: Two views of each breast show heterogeneously dense fibroglandular tissue, which may obscure small masses, bilaterally symmetric. No change from 04/16/2019, 03/18/2018. Suspicious calcifications: None. Suspicious mass: None. Benign calcifications: None. (If skin markers were applied, circles represent skin lesions and linear markers represent scars.) IMPRESSION: BI-RADS 1 - Negative, no evidence of malignancy. Normal interval followup in 12 months. OVERALL ASSESSMENT- NEGATIVE A letter of notification will be sent to the patient regarding the results. [place], [place] DEXA BONE DENSITY 2 SITESon 05-26-2020 There has been up to a 5% decrease in bone mineral density in the lumbar spine since 2013 but still within normal limits. The 10-year probability of major osteoporotic fracture is 6.9% and hip fracture risk is 0.3%. A density about the size of a vertebral body projects over the right upper quadrant abdomen in the region of the gallbladder or right kidney, increased in retrospect in size from 2013 [facility] [place] DXA scans. Consider KUB for further evaluation, if there are no outside films available for comparison. [employer] [place], [place] EXAM: DEXA BONE DENSITY 2 SITES HISTORY: M89.29 64-year-old female, screen for osteoporosis. COMPARISON: [place] [employer] Andres, DXA scans 01/18/2012, [facility] DXA scan 07/10/2014. TECHNIQUE: DXA scan lumbar spine and bilateral hips, [employer] RDF scanner [id number]. This was the same scanner utilized in 2013. FINDINGS: There is a prominent round density which has increased in size over the region of the right kidney/right upper quadrant since 2013 [email or web address] [facility], DXA scans in retrospect of unknown origin. Consider a KUB for further evaluation. This would be an expected region for gallstones or kidney stones. There are no prior films of this area for comparison. The bone mineral density L1 through L4 measures 1.112 g/sq cm with a T-score -0.6 which is normal. This does show a 5% decrease from 2014 but remains within normal limits. The bone mineral density of the hips is normal at 0.989 g/sq cm with a T-score of -0.1 and this shows an insignificant 1.1% decrease. [facility] [place], [place] Junior, pn Incoming Radiant Results From [employer] - 05/26/2020 6:23 PM EST EXAM: DEXA BONE DENSITY 2 SITES HISTORY: M89.29 64-year-old female, screen for osteoporosis. COMPARISON: [employer] [facility], DXA scans 01/18/2012, [facility] DXA scan 07/10/2014. TECHNIQUE: DXA scan lumbar spine and bilateral hips, [employer] RDF scanner [id number]. This was the same scanner utilized in 2013. FINDINGS: There is a prominent round density which has increased in size over the region of the right kidney/right upper quadrant since 2013 [facility] [employer] [place], DXA scans in retrospect of unknown origin. Consider a KUB for further evaluation. This would be an expected region for gallstones or kidney stones. There are no prior films of this area for comparison. The bone mineral density L1 through L4 measures 1.112 g/sq cm with a T-score -0.6 which is normal. This does show a 5% decrease from 2014 but remains within normal limits. The bone mineral density of the hips is normal at 0.989 g/sq cm with a T-score of -0.1 and this shows an insignificant 1.1% decrease. IMPRESSION: There has been up to a 5% decrease in bone mineral density in the lumbar spine since 2013 but still within normal limits. The 10-year probability of major osteoporotic fracture is 6.9% and hip fracture risk is 0.3%. A density about the size of a vertebral body projects over the right upper quadrant abdomen in the region of the gallbladder or right kidney, increased in retrospect in size from 2014 [facility] [place] DXA scans. Consider KUB for further evaluation, if there are no outside films available for comparison. [place], [place] DX Screening Mammogramon DX Screening Mammogram Patient Name: Mohinder TREJO : [id number]: [id number] Date: [id number] nt #: [id number] Class: OPhysician: CALL, DOCTOR ONFamily Physician: CALL, DOCTOR ONStudy Desc.: SCREENING MAMMOGRAMBILATERAL DIGITAL SCREENING MAMMOGRAM, CAD:REASON FOR EXAM: SCREENING.COMPARISO N: 10/06/2015 and 07/10/2014.TECHNIQU E: Bilateral craniocaudal and mediolateral oblique projections were obtained with additional CAD evaluation.FINDINGS : BREAST COMPOSITION: Scattered fibroglandular tissue density pattern noted.No new mass, malignant-type calcifications, architectural distortion, or other interval change is seen, to suggest malignancy. Scattered bilateral benign-appearing and vascular calcifications are present. Left skin lesion with ring marker is noted. Focal areas of mild glandular asymmetry are present. Benign-appearing bilateral axillary elton densities are present.IMPRESSION: Stable pattern with benign findings.BI-RADS 2 - Benign, no evidence of malignancy. Normal interval followup is recommended in 12 months.OVERALL ASSESSMENT- BENIGNA letter of notification will be sent to the patient regarding the results.RECOMMENDAT IONS: Continued clinical correlation and yearly screening follow-up. Dictated: Juno Martinez 02/02/2017 10:41Transcribed: Freddie Haque 02/02/2017 11:25Electronically Signed: Juno Martinez 02/02/2017 12:31[facility] [place] [address] [email or web address], [place] [address] [email or web address] Vital Signs Date Time Vital Sign Value Performing Clinician Mino marvin 11-26-2023 11:33-0400 Blood Pressure Location Jose A GRAMAJO [facility] 11-26-2023 11:33-0400 Body temperature 98.6 [degF] Jose A GRAMAJO [facility] 11-26-2023 11:33-0400 Diastolic blood pressure 83 mm[Hg] Jose A GRAMAJO [facility] 11-26-2023 11:33-0400 Heart rate 67 /min Jose Aross GRAMAJO [facility] 11-26-2023 11:33-0400 Respiratory rate 16 /min Jose A GRAMAJO [facility] 11-26-2023 11:33-0400 Systolic blood pressure 122 mm[Hg] Jose A GRAMAJO [facility] 10-23-2023 15:58-0400 Blood Pressure Location Kina Orzech [facility] 10-23-2023 15:58-0400 Body temperature 98.42 [degF] Kina Orzech [facility] 10-23-2023 15:58-0400 Diastolic blood pressure 76 mm[Hg] Kina Orzech [facility] 10-23-2023 15:58-0400 Heart rate 72 /min Kina Orzech [facility] 10-23-2023 15:58-0400 Respiratory rate 16 /min Kina Orzech [facility] 10-23-2023 15:58-0400 Systolic blood pressure 126 mm[Hg] Kina Orzech [facility] 09-18-2023 08:59-0500 Blood Pressure Location TESSIE JIMMIE [facility] 09-18-2023 08:59-0500 Diastolic blood pressure 88 mm[Hg] TESSIE JIMMIE [facility] 09-18-2023 08:59-0500 Heart rate 77 /min TESSIE JIMMIE [facility] 09-18-2023 08:59-0500 Respiratory rate 16 /min TESSIE JIMMIE [facility] 09-18-2023 08:59-0500 Systolic blood pressure 134 mm[Hg] TESSIE JIMMIE [facility] 11-24-2022 11:46-0400 Blood Pressure Location Jimmy Shawn [facility] 11-24-2022 11:46-0400 Diastolic blood pressure 80 mm[Hg] Jimmy Shawn [facility] 11-24-2022 11:46-0400 Heart rate 76 /min Jimmy Shawn [facility] 11-24-2022 11:46-0400 Respiratory rate 18 /min Jimmy Shawn [facility] 11-24-2022 11:46-0400 SaO2% (BldA) [Mass fraction] 97 % Jimmy Shawn [facility] 11-24-2022 11:46-0400 Systolic blood pressure 138 mm[Hg] Jimmy Shawn [facility] 10-13-2022 09:33-0400 Blood Pressure Location Jimmy Shawn [facility] 10-13-2022 09:33-0400 Body temperature 97.34 [degF] Jimmy Shawn [facility] 10-13-2022 09:33-0400 Diastolic blood pressure 82 mm[Hg] Jimmy Shawn [facility] 10-13-2022 09:33-0400 Heart rate 74 /min Jimmy Shawn [facility] 10-13-2022 09:33-0400 Respiratory rate 18 /min Jimmy Shawn [facility] 10-13-2022 09:33-0400 SaO2% (BldA) [Mass fraction] 97 % Jimmy Shawn [facility] 10-13-2022 09:33-0400 Systolic blood pressure 128 mm[Hg] Jimmy Shawn [facility] 06-27-2022 09:40-0500 Body temperature 98.42 [degF] Radha DONNAMILLER [facility] 06-27-2022 09:40-0500 Diastolic blood pressure 63 mm[Hg] Radha DONNAMILLER [facility] 06-27-2022 09:40-0500 Heart rate 75 /min Radha DONNAMILLER [facility] 06-27-2022 09:40-0500 SaO2% (BldA) [Mass fraction] 97 % Radha DONNAMILLER [facility] 06-27-2022 09:40-0500 Systolic blood pressure 128 mm[Hg] Radha DONNAMILLER [facility] 01-18-2022 10:02-0400 Blood Pressure Location Tdtiara MEEHAN [facility] 01-18-2022 10:02-0400 Body temperature 97.7 [degF] Td MEEHAN [facility] 01-18-2022 10:02-0400 Diastolic blood pressure 78 mm[Hg] Td MEEHAN [facility] [place] 01-18-2022 10:02-0400 Heart rate 69 /min Td MEEHAN [facility] 01-18-2022 10:02-0400 SaO2% (BldA) [Mass fraction] 98 % Td MEEAHN [facility] 01-18-2022 10:02-0400 Systolic blood pressure 140 mm[Hg] Td MEEHAN [facility] [place] 12-20-2021 09:37-0400 Blood Pressure Location Isidoro Goldberg Jr. [facility] 12-20-2021 09:37-0400 Diastolic blood pressure 82 mm[Hg] Isidoro Goldberg Jr. [facility] 12-20-2021 09:37-0400 Heart rate 68 /min Isidoro Goldberg Jr. [facility] 12-20-2021 09:37-0400 Systolic blood pressure 142 mm[Hg] Isidoro Goldberg Jr. [facility] 11-24-2021 12:59-0400 Blood Pressure Location [facility] 11-24-2021 12:59-0400 BP/Pulse Patient Position [facility] 11-24-2021 12:59-0400 Diastolic blood pressure 67 mm[Hg] [facility] 11-24-2021 12:59-0400 Heart rate 73 /min [facility] 11-24-2021 12:59-0400 Mean blood pressure 81 mm[Hg] [facility] 11-24-2021 12:59-0400 Respiratory rate 18 /min [facility] 11-24-2021 12:59-0400 SaO2% (BldA) [Mass fraction] 97 % [facility] 11-24-2021 12:59-0400 Systolic blood pressure 108 mm[Hg] [facility] 11-24-2021 12:01-0400 Blood Pressure Location [facility] 11-24-2021 12:01-0400 BP/Pulse Patient Position [facility] 11-24-2021 12:01-0400 Diastolic blood pressure 75 mm[Hg] [facility] 11-24-2021 12:01-0400 Heart rate 74 /min [facility] 11-24-2021 12:01-0400 Mean blood pressure 91 mm[Hg] [facility] 11-24-2021 12:01-0400 Respiratory rate 16 /min [facility] 11-24-2021 12:01-0400 SaO2% (BldA) [Mass fraction] 98 % [facility] 11-24-2021 12:01-0400 Systolic blood pressure 124 mm[Hg] [facility] 11-24-2021 11:55-0400 Blood Pressure Location [facility] 11-24-2021 11:55-0400 Body temperature 96.98 [degF] [facility] 11-24-2021 11:55-0400 Diastolic blood pressure 68 mm[Hg] [facility] 11-24-2021 11:55-0400 Heart rate 71 /min [facility] 11-24-2021 11:55-0400 Respiratory rate 16 /min [facility] 11-24-2021 11:55-0400 SaO2% (BldA) [Mass fraction] 98 % [facility] 11-24-2021 11:55-0400 Systolic blood pressure 115 mm[Hg] [facility] 11-24-2021 11:45-0400 Respiratory rate 15 /min [facility] 11-24-2021 11:40-0400 Respiratory rate 14 /min [facility] 11-24-2021 11:30-0400 Body temperature 97.16 [degF] [facility] 11-24-2021 11:25-0400 Respiratory rate 16 /min [facility] 11-24-2021 10:23-0400 Mean blood pressure 110 mm[Hg] [facility] 11-24-2021 10:22-0400 Body temperature 97.52 [degF] [facility] 11-24-2021 10:22-0400 Heart rate 72 /min [facility] 10-25-2021 11:43-0400 Blood Pressure Location Isidoro Goldberg Jr[facility] 10-25-2021 11:43-0400 Diastolic blood pressure 93 mm[Hg] Isidoro Goldberg Jr. [facility] 10-25-2021 11:43-0400 Heart rate 71 /min Isidoro Goldberg Jr[facility] 10-25-2021 11:43-0400 Respiratory rate 16 /min Isidoro Goldberg Jr[facility] 10-25-2021 11:43-0400 Systolic blood pressure 131 mm[Hg] Isidoro Goldberg Jr[facility] Encounters Encounter Date Encounter Type Care Provider Facility Start: 06-26-2024 ambulatory Jimmy Martinze y:JACKSON Wilson Start: 01-10-2024 ambulatory Jose A GRAMAJO [facility] ty:CD:[id number] Start: 11-26-2023 End: 11-26-2023 ambulatory Jose A GRAMAJO Facility:[facility] Start: 11-26-2023 End: 11-26-2023 Patient encounter procedure Jose A GRAMAJO [facility] Start: 11-15-2023 ambulatory JIMMY Pina [facility] Start: 10-31-2023 End: 11-28-2023 Pre-admission assessment Jose A GRAMAJO [facility] Start: 10-23-2023 End: 10-23-2023 ambulatory Kina X Orzech Facility:[facility] Start: 10-23-2023 End: 10-23-2023 Lab Drop off Kina X Orzech [facility] Start: 10-23-2023 End: 10-23-2023 ambulatory Kina X Orzech Facility:[facility] Start: 10-23-2023 End: 10-23-2023 Patient encounter procedure Kina X Orzech [facility] Start: 10-08-2023 End: 10-08-2023 Lab Drop off TESSIE E JIMMIE [facility] Start: 10-08-2023 End: 10-08-2023 ambulatory TESSIE E JIMMIE Facility:[facility] Start: 10-08-2023 End: 10-08-2023 Patient encounter procedure TESSIE E JIMMIE [facility] Start: 09-18-2023 End: 09-18-2023 Lab Drop off TESSIE E JIMMIE [facility] Start: 09-18-2023 End: 09-18-2023 ambulatory TESSIE E JIMMIE Facility:[facility] Start: 09-18-2023 End: 09-18-2023 Patient encounter procedure TESSIE E JIMMIE [facility] Start: 09-06-2023 End: 09-09-2023 ambulatory JIMMY Wilson [facility] Start: 08-28-2023 End: 08-28-2023 ambulatory Jimmy Lawton Facility:[facility] Start: 07-12-2023 End: 07-15-2023 ambulatory CELY Pina [facility] Start: 06-26-2023 End: 06-26-2023 ambulatory Jimmy Lawton Facility: [facility] Start: 01-16-2023 ambulatory Jimmy Lawton Facilit y: [place] Start: 11-24-2022 End: 11-24-2022 Patient encounter procedure Jimmy Lawton [facility] Start: 10-13-2022 End: 10-13-2022 Lab Drop off Jimmy Lawton [facility] Start: 10-13-2022 End: 10-13-2022 Patient encounter procedure Jimmy Lawton [facility] Start: 08-01-2022 End: 08-01-2022 Lab Drop off TESSIE PENNINGTON [facility] Start: 07-28-2022 End: 07-30-2022 Subsequent hospital visit by physician [facility] Additional Xray At [facility] Radiology Comment on above: Kidney stone Start: 07-07-2022 End: 07-09-2022 Subsequent hospital visit by physician [facility] Mammography Room [facility] Mammography Comment on above: Encounter for screen ing mammogram for malignant neoplasm of breast Start: 06-27-2022 End: 06-27-2022 Lab Drop off Td MEEHAN [facility] Start: 06-27-2022 End: 06-27-2022 Patient encounter procedure Radha SANTIAGO [facility] Start: 06-27-2022 End: 06-27-2022 Well adult monitoring check done Radha SANTIAGO [facility] Start: 01-18-2022 End: 01-18-2022 Patient encounter procedure Td MEEHAN [facility] Start: 12-20-2021 End: 12-20-2021 Patient encounter procedure Isidoro Goldberg Jr. [facility] Start: 12-16-2021 End: 12-18-2021 Subsequent hospital visit by physician [facility] Additional Xray At [facility] Radiology Comment on above: Kidney stones Start: 11-24-2021 End: 11-24-2021 Admission to same day surgery center [facility] Start: 11-19-2021 Message Jurgen dunlap MD Work Phone: [facility] 250 DO Work Phone: Start: 10-25-2021 End: 10-25-2021 Patient encounter procedure Isidoro Goldberg Jr. [facility] Start: 10-13-2021 End: 10-15-2021 Subsequent hospital visit by physician Patricia Cat Scan Room [facility] CT Scan Comment on above: Kidney stone; Asymptomatic microscopic hematuria; Stress incontinence, female Start: 09-23-2021 End: 09-25-2021 Subsequent hospital visit by physician Patricia Additional Xray At [facility] Radiology Comment on above: Asymptomatic microsc opic hematuria; Female stress incontinence; Kidney stone Start: 08-11-2021 End: 08-13-2021 Subsequent hospital visit by physician [facility] Additional Xray At [facility] Radiology Comment on above: Asymptomatic microsc opic hematuria; Flank pain Start: 04-22-2021 End: 04-24-2021 Subsequent hospital visit by physician [facility] Additional Xray At [facility] Radiology Comment on above: Calculus of kidney Start: 11-26-2020 End: 11-28-2020 Subsequent hospital visit by physician [facility] Additional Xray At [facility] Radiology Comment on above: Kidney stone Start: 11-08-2020 End: 11-08-2020 Patient encounter procedure Isidoro Goldberg Jr Work Phone: -Pre-Surgical Testing Start: 11-02-2020 End: 11-02-2020 Patient encounter procedure Isidoro Goldberg -Pre-Surgical Testing Start: 09-01-2020 End: 09-03-2020 Subsequent hospital visit by physician [facility] Dig Rad 1 [facility] Radiology Comment on above: Kidney stone Start: 06-23-2020 End: 06-25-2020 Subsequent hospital visit by physician Patricia Cat Scan Room [facility] [place] CT Scan Comment on above: Abnormal findings on diagnostic imaging of abdomen Start: 05-31-2020 End: 06-02-2020 Subsequent hospital visit by physician [facility] Dig Rad 1 [facility] Radiology Comment on above: Abnormal spinal diag nostic imaging Start: 05-26-2020 End: 05-28-2020 Subsequent hospital visit by physician [facility] Dexa Room [facility] Dexa Scan Comment on above: 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 Start: 10-13-2021 Ct abdomen & pelvis w/o contrst 1/> body re Isidoro Goldberg Start: 09-23-2021 Radiologic exam abdo men 1 view Isidoro Goldberg Start: 08-11-2021 Radiologic exam abdo men 1 view Isidoro Goldberg Start: 04-22-2021 Radiologic exam abdo men 1 view Isidoro Goldberg Start: 11-26-2020 Radiologic exam abdo men 1 view Isidoro Goldberg Start: 11-10-2020 Removal of calculus of renal pelvis through percutaneous nephrostomy Isidoro Goldberg Jr. Start: 11-02-2020 Diagnostic radiograp hy of abdomen Isidoro Yusuf Start: 09-01-2020 Radiologic exam abdo men 1 view Isidoro Goldberg Work Phone: Start: 06-23-2020 Ct abdomen & pelvis w/o contrast material Radha Santiago Work Phone: Start: 05-31-2020 Radiologic exam abdo men 1 view Radha Santiago Work Phone: Start: 05-26-2020 Screening mammograph y bi 2-view breast inc cad Radha Santiago Work Phone: Start: 05-26-2020 Dxa bone density juli dy 1/> sites axial skel Radha Santiago Work Phone: [facility] x 2 Isidoro Martinez L rotator cuff repair Isidoro Goldberg Jr. Other bilateral liga tion and division of fallopian tubes sIidoro Goldberg Jr. Plan of Treatment Date Care Activity Detail Author Start: 07-07-2024 Screening for malign ant neoplasm of breast Breast cancer screen [facility] [employer] Start: 07-06-2023 Screening for malign ant neoplasm of breast Breast cancer screen [employer] Start: 05-26-2022 Screening for malign ant neoplasm of breast Breast cancer screen [facility] [place] [place], [place] Start: 03-23-2022 Influenza vaccination Flu vacc ine (Season Ended) [facility] [employer] Start: 03-23-2021 Influenza vaccination [facility] [employer] Start: 05-02-2020 Annual Wellness Visi t (AWV) Annual Wellness Visit (AWV) [facility] Start: 03-23-2020 Influenza vaccination Flu vaccine (# 1) [place], [place] Start: 11-19-2019 Pneumococcal 65+ yea rs Vaccine (1 - PCV) Pneumococcal 65+ years Vaccine (1 - PCV) [facility] Start: 11-19-2019 Pneumococcal 65+ yea rs Vaccine (1 of 1 - PPSV23) Pneumococcal 65+ years Vaccine (1 of 1 - PPSV23) [facility] Start: 2004 Screening for malign ant neoplasm of colon Colon cancer screen colonoscopy [place], [place] Start: 2004 Shingles Vaccine (1 of 2) Shingles Vaccine (1 of 2) [facility] Start: 11-19-1999 Screening for malign ant neoplasm of colon [facility] Start: 11-19-1975 Screening for malign ant neoplasm of cervix Cervical cancer screen [place], [place] Start: 1973 DTaP/Tdap/Td vaccine (1 - Tdap) DTaP/Tdap/Td vaccine (1 - Tdap) [facility] Start: 1972 Hepatitis C screening Hepatitis C sc reen [facility] Start: 1970 COVID-19 Vaccine (1 of 2) COVID-19 Vaccine (1 of 2) [facility] [employer] Phone: Start: 1970 COVID-19 Vaccine (1) COVID-19 Vaccin e (1) [facility] [employer] Phone: Start: 1969 HIV screening HIV screen [place], [place] Start: 1966 Depression Screen Depression Screen [facility] Start: 1964 Lipid panel [facility] Start: 1954 Annual Wellness Visi t (AWV) Annual Wellness Visit (AWV) [facility] Start: 1954 Hepatitis C screening [facility] End: 07-07-2022 BARRETT DAVID DIGITAL SCREEN BILATERAL [facility] Work Phone: Comment on above: 1 Occurrences starti ng 07/07/2022 until 07/07/2022 Immunizations Immunization Date Immunization Notes Care Provider Hetal martinez 06-26-2023 influenza, high dose seasonal, preservative-[facility] 05-23-2022 influenza virus vaccine, unspecified formulation TESSIE PENNINGTON [facility] 05-23-2022 SARS-CoV-2 (COVID-19 ) [id number] TESSIE PENNINGOTN [facility] 11-11-2021 SARS-CoV-2 mRNA (uwmowokhobf-wfgp-stnm ose) vaccine TESSIE PENNINGTON [facility] 04-22-2021 SARS-CoV-2 (COVID-19 ) Ad26 vaccine, recombinant Isidoro Goldberg Jr. [facility] 10-15-2020 SARS-CoV-2 (COVID-19 ) mRNA BNT-162b2 vax Isidoro Goldberg Jr. [facility] 10-05-2020 SARS-CoV-2 (COVID-19 ) mRNA BNT-162b2 vax TESSIE PENNINGTON [facility] 09-24-2020 SARS-CoV-2 (COVID-19 ) mRNA BNT-162b2 vax Isidoro Goldberg Jr. [facility] NEGATED: Highlighted row has not occurred!06-27-2022 pneumococcal polysaccharide vaccine, 23 valent [facility] NE[facility]ATED: Highlighted row has not occurred!06-27-2022 pneumococcal conjugate vaccine, 13 valent Radha RABAGOCAPO [facility] [place] NEGATED: Highlighted row has not occurred!08-31-2020 influenza virus vaccine, unspecified formulation Isidoro Yusuf Handy [facility] Payers Date Payer Category Payer Medicare [id number] 1954 Unknown [id number] 2.16.8 [id number] 1954 Unknown [id number] 2.16.8 [id number] 1954 Unknown [id number] 2.16.8 [id number] 1954 Unknown [id number] 2.16.8 [id number] 1954 Unknown [id number] 2.16.8 [id number] 1954 Unknown [id number] 2.16.8 [id number] 1954 Unknown [id number] 2.16.8 [id number] 1954 Unknown [id number] 2.16.8 [id number] 1954 Unknown [id number] 2.16.8 [id number] 1954 Unknown [id number] 2.16.8 [id number] 1954 Unknown [id number] 2.16.8 [id number] 1954 Unknown [id number] 2.16.8 [id number] 1954 Unknown [id number] 2.16.8 [id number] 1954 Unknown [id number] 2.16.8 [id number] 1954 Unknown [id number] 2.16.8 [id number] 1954 Unknown [id number] 2.16.8 [id number] 1954 Unknown [id number] 2.16.8 [id number] Self-pay Social History Date Type Detail Facility Start: 02-02-2020 End: 11-26-2023 Tobacco smoking status NHIS Never smoker [place], [place] Comment on above: Denies use. Start: 02-02-2020 Tobacco use and exposure Former user [place], [place] Start: 1955 Sex Assigned At Not on file [place], [place] Start: 1955 Sex Assigned At Female F [facility] Tobacco smoking status Never [facility] Comment on above: Denies use. Sex Assigned At Female [facility] Goals Date Patient Goal Desired Activity /State Functional Status Date Assessment Result Facility 11-26-2023 Functional Status N/A [facility] 10-23-2023 Functional Status N/A [facility] 09-18-2023 Functional Status N/A [facility] 11-24-2022 Functional Status N/A [facility] 10-13-2022 Functional Status N/A [facility] 06-27-2022 Functional Status N/A [facility] [place] 01-18-2022 Functional Status N/A [facility] [place] Clinical Notes 10-17-2021 to 11-26-2023 LaboratoryLaboratory Note Date & Type Note Facility 11-26-2023 Hospital Discharg e instructions Patient Education 11/26/2023 12:32:57 Laser Therapy for Kidney Stones, Care After Laser Therapy for Kidney Stones, Care After This sheet gives you information about how to care for yourself after your procedure. Your health care provider may also give you more specific instructions. If you have problems or questions, contact your health care provider. What can I expect after the procedure? After the procedure, it is common to have: Pain. A burning sensation while urinating. Small amounts of blood in your urine. A need to urinate frequently. Pieces of kidney stone in your urine. Mild discomfort when urinating that may be felt in the back. You may experience this if you have a flexible tube (stent) in your ureter. Follow these instructions at home: Medicines Take tidd-iuw-izsjbll and prescription medicines only as told by your health care provider. If you were prescribed an antibiotic medicine, take it as told by your health care provider. Do not stop taking the antibiotic even if you start to feel better. Ask your health care provider if the medicine prescribed to you: ?Requires you to avoid driving or using heavy machinery. ?Can cause constipation. You may need to take actions to prevent or treat constipation, such as: ?Take avvd-mwz-pzddutj or prescription medicines. ?Eat foods that are high in fiber, such as beans, whole grains, and fresh fruits and vegetables. ?Limit foods that are high in fat and processed sugars, such as fried or sweet foods. Activity Return to your normal activities as told by your health care provider. Ask your health care provider what activities are safe for you. Do not drive for 24 hours if you were given a sedative during your procedure. General instructions If your health care provider approves, you may take a warm bath to ease discomfort and burning. Drink enough fluid to keep your urine pale yellow. Your health care provider may recommend drinking two 8 oz (237 mL) glasses of water per hour for a few hours after your procedure. You may be asked to strain your urine to collect any stone fragments that you pass. These fragments may be tested. Keep all follow-up visits as told by your health care provider. This is important. If you have a stent, you will need to return to your health care provider to have the stent removed. Contact a health care provider if you: Have pain or a burning feeling that lasts more than 2 days. Feel nauseous. Vomit more and more often. Have difficulty urinating. Have pain that gets worse or does not get better with medicine. Get help right away if: You are unable to urinate, even if your bladder feels full. You have: ?Bright red blood or blood clots in your urine. ?More blood in your urine. ?Severe pain or discomfort. ?A fever or shaking chills. ?Abdominal pain. ?Difficulty breathing. ?Swelling in your legs. This information is not intended to replace advice given to you by your health care provider. Make sure you discuss any questions you have with your health care provider. Document Revised: 11/15/2022 Document Reviewed: 03/13/2022 [employer] Patient Education 2022 [place]. 11/26/2023 12:32:55 Laser Therapy for Kidney Stones Laser Therapy for Kidney Stones Laser therapy for kidney stones is a procedure to break up small, hard mineral deposits that form in the kidney (kidney stones). The procedure is done using a device that produces a focused beam of light (laser). The laser breaks up kidney stones into pieces that are small enough to be passed out of the body through urination or removed from the body during the procedure. You may need laser therapy if you have kidney stones that are painful or block your urinary tract. This procedure is done by inserting a tube (ureteroscope) into your kidney through the urethral opening. The urethra is the part of the body that drains urine from the bladder. In women, the urethra opens above the vaginal opening. In men, the urethra opens at the tip of the penis. The ureteroscope is inserted through the urethra, and surgical instruments are moved through the bladder and the muscular tube that connects the kidney to the bladder (ureter) until they reach the kidney. Tell a health care provider about: Any allergies you have. All medicines you are taking, including vitamins, herbs, eye drops, creams, and omsr-stv-cwknjuz medicines. Any problems you or family members have had with anesthetic medicines. Any blood disorders you have. Any surgeries you have had. Any medical conditions you have. Whether you are or may be . What are the risks? Generally, this is a safe procedure. However, problems may occur, including: Infection. Bleeding. Allergic reactions to medicines. Damage to the urethra, bladder, or ureter. Urinary tract infection (UTI). Narrowing of the urethra (urethral stricture). Difficulty passing urine. Blockage of the kidney caused by a fragment of kidney stone. What happens before the procedure? Medicines Ask your health care provider about: ?Changing or stopping your regular medicines. This is especially important if you are taking diabetes medicines or blood thinners. ?Taking medicines such as aspirin and ibuprofen. These medicines can thin your blood. Do not take these medicines unless your health care provider tells you to take them. ?Taking vufg-dzw-lmdaohx medicines, vitamins, herbs, and supplements. Eating and drinking Follow instructions from your health care provider about eating and drinking, which may include: 8 hours before the procedure stop eating heavy meals or foods, such as meat, fried foods, or fatty foods. 6 hours before the procedure stop eating light meals or foods, such as toast or cereal. 6 hours before the procedure stop drinking milk or drinks that contain milk. 2 hours before the procedure stop drinking clear liquids. Staying hydrated Follow instructions from your health care provider about hydration, which may include: Up to 2 hours before the procedure you may continue to drink clear liquids, such as water, clear fruit juice, black coffee, and plain tea. General instructions You may have a physical exam before the procedure. You may also have tests, such as imaging tests and blood or urine tests. If your ureter is too narrow, your health care provider may place a soft, flexible tube (stent) inside of it. The stent may be placed days or weeks before your laser therapy procedure. Plan to have someone take you home from the hospital or clinic. If you will be going home right after the procedure, plan to have someone stay with you for 24 hours. Do not use any products that contain nicotine or tobacco for at least 4 weeks before the procedure. These products include cigarettes, e-cigarettes, and chewing tobacco. If you need help quitting, ask your health care provider. Ask your health care provider: ?How your surgical site will be marked or identified. ?What steps will be taken to help prevent infection. These may include: ?Removing hair at the surgery site. ?Washing skin with a germ-killing soap. ?Taking antibiotic medicine. What happens during the procedure? An IV will be inserted into one of your veins. You will be given one or more of the following: ?A medicine to help you relax (sedative). ?A medicine to numb the area (local anesthetic). ?A medicine to make you fall asleep (general anesthetic). A ureteroscope will be inserted into your urethra. The ureteroscope will send images to a video screen in the operating room to guide your surgeon to the area of your kidney that will be treated. A small, flexible tube will be threaded through the ureteroscope and into your bladder and ureter, up to your kidney. The laser device will be inserted into your kidney through the tube. Your surgeon will pulse the laser on and off to break up kidney stones. A surgical instrument that has a tiny wire basket may be inserted through the tube into your kidney to remove the pieces of broken kidney stone. The procedure may vary among health care providers and hospitals. What happens after the procedure? Your blood pressure, heart rate, breathing rate, and blood oxygen level will be monitored until you leave the hospital or clinic. You will be given pain medicine as needed. You may continue to receive antibiotics. You may have a stent temporarily placed in your ureter. Do not drive for 24 hours if you were given a sedative during your procedure. You may be given a strainer to collect any stone fragments that you pass in your urine. Your health care provider may have these tested. This information is not intended to replace advice given to you by your health care provider. Make sure you discuss any questions you have with your health care provider. Document Revised: 11/15/2022 Document Reviewed: 03/13/2022 [employer] Patient Education 2022 [place]. Follow Up Care 11/26/2023 08:21:13 With:AVILA HOOPER, Jose A Padron, URL Address: [facility] [address] , [place] [id number]- [phone] When: Unknown [facility] 10-23-2023 Hospital Discharg e instructions Patient Education 10/23/2023 16:25:08 Dietary Guidelines to Help Prevent Kidney Stones Dietary Guidelines to Help Prevent Kidney Stones Kidney stones are deposits of minerals and salts that form inside your kidneys. Your risk of developing kidney stones may be greater depending on your diet, your lifestyle, the medicines you take, and whether you have certain medical conditions. Most people can lower their risks of developing kidney stones by following these dietary guidelines. Your dietitian may give you more specific instructions depending on your overall health and the type of kidney stones you tend to develop. What are tips for following this plan? Reading food labels Choose foods with no salt added or low-salt labels. Limit your salt (sodium) intake to less than 1,500 mg a day. Choose foods with calcium for each meal and snack. Try to eat about 300 mg of calcium at each meal. Foods that contain 200 500 mg of calcium a serving include: ?8 oz (237 mL) of milk, axyrmbx-kgvjdebtvgts-spjsy milk, and calcium-fortifiedfruit juice. Calcium-fortified means that calcium has been added to these drinks. ?8 oz (237 mL) of kefir, yogurt, and soy yogurt. ?4 oz (114 g) of tofu. ?1 oz (28 g) of cheese. ?1 cup (150 g) of dried figs. ?1 cup (91 g) of cooked broccoli. ?One 3 oz (85 g) can of sardines or mackerel. Most people need 1,000 1,500 mg of calcium a day. Talk to your dietitian about how much calcium is recommended for you. Shopping Buy plenty of fresh fruits and vegetables. Most people do not need to avoid fruits and vegetables, even if these foods contain nutrients that may contribute to kidney stones. When shopping for convenience foods, choose: ?Whole pieces of fruit. ?Pre-made salads with dressing on the side. ?Low-fat fruit and yogurt smoothies. Avoid buying frozen meals or prepared deli foods. These can be high in sodium. Look for foods with live cultures, such as yogurt and kefir. Choose high-fiber grains, such as whole-wheat breads, oat bran, and wheat cereals. Cooking Do not add salt to food when cooking. Place a salt shaker on the table and allow each person to add their own salt to taste. Use vegetable protein, such as beans, textured vegetable protein (TVP), or tofu, instead of meat in pasta, casseroles, and soups. Meal planning Eat less salt, if told by your dietitian. To do this: ?Avoid eating processed or pre-made food. ?Avoid eating fast food. Eat less animal protein, including cheese, meat, poultry, or fish, if told by your dietitian. To do this: ?Limit the number of times you have meat, poultry, fish, or cheese each week. Eat a diet free of meat at least 2 days a week. ?Eat only one serving each day of meat, poultry, fish, or seafood. ?When you prepare animal proteins, cut pieces into small portion sizes. For most meat and fish, one serving is about the size of the palm of your hand. Eat at least five servings of fresh fruits and vegetables each day. To do this: ?Keep fruits and vegetables on hand for snacks. ?Eat one piece of fruit or a handful of berries with breakfast. ?Have a salad and fruit at lunch. ?Have two kinds of vegetables at dinner. You may be told to limit foods that are high in a substance called oxalate. These include: ?Spinach (cooked), rhubarb, beets, sweet potatoes, and [place] chard. ?Peanuts. ?Potato chips, taiwanese fries, and baked potatoes with skin on. ?Nuts and nut products. ?Chocolate. If you regularly take a diuretic medicine, make sure to eat at least 1 or 2 servings of fruits or vegetables that are high in potassium each day. These include: ?Avocado. ?Banana. ?[place], prune, carrot, or tomato juice. ?Baked potato. ?Cabbage. ?Beans and split peas. Lifestyle Drink enough fluid to keep your urine pale yellow. This is the most important thing you can do. Spread your fluid intake throughout the day. If you drink alcohol: ?Limit how much you have to: ?0 1 drink a day for women who are not . ?0 2 drinks a day for men. ?Know how much alcohol is in your drink. In the [place] one drink equals one 12 oz bottle of beer (355 mL), one 5 oz glass of wine (148 mL), or one 1 oz glass of hard liquor (44 mL). Lose weight if told by your health care provider. Work with your dietitian to find an eating plan and weight loss strategies that work best for you. General information Talk to your health care provider and dietitian about taking daily supplements. Depending on your health and the cause of your kidney stones, you may be told: ?Do not take high-dose supplements of vitamin C (1,000 mg a day or more). ?To take a calcium supplement. ?To take a daily probiotic supplement. ?To take other supplements such as magnesium, fish oil, or vitamin B6. Take zbso-amv-wdaimnk and prescription medicines only as told by your health care provider. These include supplements. What foods should I limit? Limit your intake of the following foods, or eat them as told by your dietitian. Vegetables Spinach. Rhubarb. Beets. Canned vegetables. Pickles. Olives. Baked potatoes with skin. Grains Wheat bran. Baked goods. Salted crackers. Cereals high in sugar. Meats and other proteins Nuts. Nut butters. Large portions of meat, poultry, or fish. Salted, precooked, or cured meats, such as sausages, meat loaves, and hot dogs. Dairy Cheeses. Beverages Regular soft drinks. Regular vegetable juice. Seasonings and condiments Seasoning blends with salt. Salad dressings. Soy sauce. Ketchup. Barbecue sauce. Other foods Canned soups. Canned pasta sauce. Casseroles. Pizza. Lasagna. Frozen meals. Potato chips. [place]ammarinese fries. The items listed above may not be a complete list of foods and beverages you should limit. Contact a dietitian for more information. What foods should I avoid? Talk to your dietitian about specific foods you should avoid based on the type of kidney stones you have and your overall health. Fruits Grapefruit. The item listed above may not be a complete list of foods and beverages you should avoid. Contact a dietitian for more information. Summary Kidney stones are deposits of minerals and salts that form inside your kidneys. You can lower your risk of kidney stones by making changes to your diet. The most important thing you can do is drink enough fluid. Drink enough fluid to keep your urine pale yellow. Talk to your dietitian about how much calcium you should have each day, and eat less salt and animal protein as told by your dietitian. This information is not intended to replace advice given to you by your health care provider. Make sure you discuss any questions you have with your health care provider. Document Revised: 10/19/2022 Document Reviewed: 10/19/2022 [employer] Patient Education 2022 [place]. 10/23/2023 16:25:07 Kidney Stones, Qedj-nv-Gyez Kidney Stones Kidney stones are rock-like masses that form inside of the kidneys. Kidneys are organs that make pee (urine). A kidney stone may move into other parts of the urinary tract, including: The tubes that connect the kidneys to the bladder (ureters). The bladder. The tube that carries urine out of the body (urethra). Kidney stones can cause very bad pain and can block the flow of pee. The stone usually leaves your body (passes) through your pee. You may need to have a doctor take out the stone. What are the causes? Kidney stones may be caused by: A condition in which certain glands make too much parathyroid hormone (primary hyperparathyroidism). A buildup of a type of crystals in the bladder made of a chemical called uric acid. The body makes uric acid when you eat certain foods. Narrowing (stricture) of one or both of the ureters. A kidney blockage that you were born with. Past surgery on the kidney or the ureters, such as gastric bypass surgery. What increases the risk? You are more likely to develop this condition if: You have had a kidney stone in the past. You have a family history of kidney stones. You do not drink enough water. You eat a diet that is high in protein, salt (sodium), or sugar. You are overweight or very overweight (obese). What are the signs or symptoms? Symptoms of a kidney stone may include: Pain in the side of the belly, right below the ribs (flank pain). Pain usually spreads (radiates) to the groin. Needing to pee often or right away (urgently). Pain when going pee (urinating). Blood in your pee (hematuria). Feeling like you may vomit (nauseous). Vomiting. Fever and chills. How is this treated? Treatment depends on the size, location, and makeup of the kidney stones. The stones will often pass out of the body through peeing. You may need to: Drink more fluid to help pass the stone. In some cases, you may be given fluids through an IV tube put into one of your veins at the hospital. Take medicine for pain. Make changes in your diet to help keep kidney stones from coming back. Sometimes, medical procedures are needed to remove a kidney stone. This may involve: A procedure to break up kidney stones using a beam of light (laser) or shock waves. Surgery to remove the kidney stones. Follow these instructions at home: Medicines Take rbam-vnv-exnasdv and prescription medicines only as told by your doctor. Ask your doctor if the medicine prescribed to you requires you to avoid driving or using heavy machinery. Eating and drinking Drink enough fluid to keep your pee pale yellow. You may be told to drink at least 8 10 glasses of water each day. This will help you pass the stone. If told by your doctor, change your diet. This may include: ?Limiting how much salt you eat. ?Eating more fruits and vegetables. ?Limiting how much meat, poultry, fish, and eggs you eat. Follow instructions from your doctor about eating or drinking restrictions. General instructions Collect pee samples as told by your doctor. You may need to collect a pee sample: ?24 hours after a stone comes out. ?8 12 weeks after a stone comes out, and every 6 12 months after that. Strain your pee every time you pee (urinate), for as long as told. Use the strainer that your doctor recommends. Do not throw out the stone. Keep it so that it can be tested by your doctor. Keep all follow-up visits as told by your doctor. This is important. You may need follow-up tests. How is this prevented? To prevent another kidney stone: Drink enough fluid to keep your pee pale yellow. This is the best way to prevent kidney stones. Eat healthy foods. Avoid certain foods as told by your doctor. You may be told to eat less protein. Stay at a healthy weight. Where to find more information National Kidney Foundation (NKF): www.kidney.org [facility] ([facility]): www.urologyhealth.org Contact a doctor if: You have pain that gets worse or does not get better with medicine. Get help right away if: You have a fever or chills. You get very bad pain. You get new pain in your belly (abdomen). You pass out (faint). You cannot pee. Summary Kidney stones are rock-like masses that form inside of the kidneys. Kidney stones can cause very bad pain and can block the flow of pee. The stones will often pass out of the body through peeing. Drink enough fluid to keep your pee pale yellow. This information is not intended to replace advice given to you by your health care provider. Make sure you discuss any questions you have with your health care provider. Document Revised: 03/13/2022 Document Reviewed: 03/13/2022 [employer] Patient Education 2022 [place]. 10/23/2023 16:25:06 Hematuria, Adult Hematuria, Adult Hematuria is blood in the urine. Blood may be visible in the urine, or it may be identified with a test. This condition can be caused by infections of the bladder, urethra, kidney, or prostate. Other possible causes include: Kidney stones. Cancer of the urinary tract. Too much calcium in the urine. Conditions that are passed from parent to child (inherited conditions). Exercise that requires a lot of energy. Infections can usually be treated with medicine, and a kidney stone usually will pass through your urine. If neither of these is the cause of your hematuria, more tests may be needed to identify the cause of your symptoms. It is very important to tell your health care provider about any blood in your urine, even if it is painless or the blood stops without treatment. Blood in the urine, when it happens and then stops and then happens again, can be a symptom of a very serious condition, including cancer. There is no pain in the initial stages of many urinary cancers. Follow these instructions at home: Medicines Take cubq-xqz-fenduvw and prescription medicines only as told by your health care provider. If you were prescribed an antibiotic medicine, take it as told by your health care provider. Do not stop taking the antibiotic even if you start to feel better. Eating and drinking Drink enough fluid to keep your urine pale yellow. It is recommended that you drink 3 4 quarts (2.8 3.8 L) a day. If you have been diagnosed with an infection, drinking cranberry juice in addition to large amounts of water is recommended. Avoid caffeine, tea, and carbonated beverages. These tend to irritate the bladder. Avoid alcohol because it may irritate the prostate (in males). General instructions If you have been diagnosed with a kidney stone, follow your health care provider's instructions about straining your urine to catch the stone. Empty your bladder often. Avoid holding urine for long periods of time. If you are female: ?After a bowel movement, wipe from front to back and use each piece of toilet paper only once. ?Empty your bladder before and after sex. Pay attention to any changes in your symptoms. Tell your health care provider about any changes or any new symptoms. It is up to you to get the results of any tests. Ask your health care provider, or the department that is doing the test, when your results will be ready. Keep all follow-up visits. This is important. Contact a health care provider if: You develop back pain. You have a fever or chills. You have nausea or vomiting. Your symptoms do not improve after 3 days. Your symptoms get worse. Get help right away if: You develop severe vomiting and are unable to take medicine without vomiting. You develop severe pain in your back or abdomen even though you are taking medicine. You pass a large amount of blood in your urine. You pass blood clots in your urine. You feel very weak or like you might faint. You faint. Summary Hematuria is blood in the urine. It has many possible causes. It is very important that you tell your health care provider about any blood in your urine, even if it is painless or the blood stops without treatment. Take fadg-cue-ckqejiy and prescription medicines only as told by your health care provider. Drink enough fluid to keep your urine pale yellow. This information is not intended to replace advice given to you by your health care provider. Make sure you discuss any questions you have with your health care provider. Document Revised: 03/09/2021 Document Reviewed: 03/09/2021 [employer] Patient Education 2022 [place]. Follow Up Care 10/11/2023 10:11:04 With:AVILA HOOPER, Jose A Padron, URL Address: [address] [place], [place] [id number]- When: Unknown Comments:pending cysto [facility] 09-18-2023 Hospital Discharg e instructions Patient Education 09/18/2023 09:26:57 Dietary Guidelines to Help Prevent Kidney Stones Dietary Guidelines to Help Prevent Kidney Stones Kidney stones are deposits of minerals and salts that form inside your kidneys. Your risk of developing kidney stones may be greater depending on your diet, your lifestyle, the medicines you take, and whether you have certain medical conditions. Most people can lower their risks of developing kidney stones by following these dietary guidelines. Your dietitian may give you more specific instructions depending on your overall health and the type of kidney stones you tend to develop. What are tips for following this plan? Reading food labels Choose foods with no salt added or low-salt labels. Limit your salt (sodium) intake to less than 1,500 mg a day. Choose foods with calcium for each meal and snack. Try to eat about 300 mg of calcium at each meal. Foods that contain 200 500 mg of calcium a serving include: ?8 oz (237 mL) of milk, ivciitb-cuorgtrpjenu-rzztw milk, and calcium-fortifiedfruit juice. Calcium-fortified means that calcium has been added to these drinks. ?8 oz (237 mL) of kefir, yogurt, and soy yogurt. ?4 oz (114 g) of tofu. ?1 oz (28 g) of cheese. ?1 cup (150 g) of dried figs. ?1 cup (91 g) of cooked broccoli. ?One 3 oz (85 g) can of sardines or mackerel. Most people need 1,000 1,500 mg of calcium a day. Talk to your dietitian about how much calcium is recommended for you. Shopping Buy plenty of fresh fruits and vegetables. Most people do not need to avoid fruits and vegetables, even if these foods contain nutrients that may contribute to kidney stones. When shopping for convenience foods, choose: ?Whole pieces of fruit. ?Pre-made salads with dressing on the side. ?Low-fat fruit and yogurt smoothies. Avoid buying frozen meals or prepared deli foods. These can be high in sodium. Look for foods with live cultures, such as yogurt and kefir. Choose high-fiber grains, such as whole-wheat breads, oat bran, and wheat cereals. Cooking Do not add salt to food when cooking. Place a salt shaker on the table and allow each person to add their own salt to taste. Use vegetable protein, such as beans, textured vegetable protein (TVP), or tofu, instead of meat in pasta, casseroles, and soups. Meal planning Eat less salt, if told by your dietitian. To do this: ?Avoid eating processed or pre-made food. ?Avoid eating fast food. Eat less animal protein, including cheese, meat, poultry, or fish, if told by your dietitian. To do this: ?Limit the number of times you have meat, poultry, fish, or cheese each week. Eat a diet free of meat at least 2 days a week. ?Eat only one serving each day of meat, poultry, fish, or seafood. ?When you prepare animal proteins, cut pieces into small portion sizes. For most meat and fish, one serving is about the size of the palm of your hand. Eat at least five servings of fresh fruits and vegetables each day. To do this: ?Keep fruits and vegetables on hand for snacks. ?Eat one piece of fruit or a handful of berries with breakfast. ?Have a salad and fruit at lunch. ?Have two kinds of vegetables at dinner. You may be told to limit foods that are high in a substance called oxalate. These include: ?Spinach (cooked), rhubarb, beets, sweet potatoes, and [place] chard. ?Peanuts. ?Potato chips, taiwanese fries, and baked potatoes with skin on. ?Nuts and nut products. ?Chocolate. If you regularly take a diuretic medicine, make sure to eat at least 1 or 2 servings of fruits or vegetables that are high in potassium each day. These include: ?Avocado. ?Banana. ?[place], prune, carrot, or tomato juice. ?Baked potato. ?Cabbage. ?Beans and split peas. Lifestyle Drink enough fluid to keep your urine pale yellow. This is the most important thing you can do. Spread your fluid intake throughout the day. If you drink alcohol: ?Limit how much you have to: ?0 1 drink a day for women who are not . ?0 2 drinks a day for men. ?Know how much alcohol is in your drink. In the [place] one drink equals one 12 oz bottle of beer (355 mL), one 5 oz glass of wine (148 mL), or one 1 oz glass of hard liquor (44 mL). Lose weight if told by your health care provider. Work with your dietitian to find an eating plan and weight loss strategies that work best for you. General information Talk to your health care provider and dietitian about taking daily supplements. Depending on your health and the cause of your kidney stones, you may be told: ?Do not take high-dose supplements of vitamin C (1,000 mg a day or more). ?To take a calcium supplement. ?To take a daily probiotic supplement. ?To take other supplements such as magnesium, fish oil, or vitamin B6. Take ameg-pim-rkewssp and prescription medicines only as told by your health care provider. These include supplements. What foods should I limit? Limit your intake of the following foods, or eat them as told by your dietitian. Vegetables Spinach. Rhubarb. Beets. Canned vegetables. Pickles. Olives. Baked potatoes with skin. Grains Wheat bran. Baked goods. Salted crackers. Cereals high in sugar. Meats and other proteins Nuts. Nut butters. Large portions of meat, poultry, or fish. Salted, precooked, or cured meats, such as sausages, meat loaves, and hot dogs. Dairy Cheeses. Beverages Regular soft drinks. Regular vegetable juice. Seasonings and condiments Seasoning blends with salt. Salad dressings. Soy sauce. Ketchup. Barbecue sauce. Other foods Canned soups. Canned pasta sauce. Casseroles. Pizza. Lasagna. Frozen meals. Potato chips. Sammarinese fries. The items listed above may not be a complete list of foods and beverages you should limit. Contact a dietitian for more information. What foods should I avoid? Talk to your dietitian about specific foods you should avoid based on the type of kidney stones you have and your overall health. Fruits Grapefruit. The item listed above may not be a complete list of foods and beverages you should avoid. Contact a dietitian for more information. Summary Kidney stones are deposits of minerals and salts that form inside your kidneys. You can lower your risk of kidney stones by making changes to your diet. The most important thing you can do is drink enough fluid. Drink enough fluid to keep your urine pale yellow. Talk to your dietitian about how much calcium you should have each day, and eat less salt and animal protein as told by your dietitian. This information is not intended to replace advice given to you by your health care provider. Make sure you discuss any questions you have with your health care provider. Document Revised: 10/19/2022 Document Reviewed: 10/19/2022 Elsevier Patient Education 2022 [place]. Follow Up Care 08/01/2022 14:52:39 With:TESSIE PENNINGTON PA-C, URL Address: [address] [place] [phone] When: Unknown [facility] 11-24-2022 Hospital Discharg e instructions Patient Education 11/24/2022 10:57:30 Hematuria, Adult Hematuria, Adult Hematuria is blood in the urine. Blood may be visible in the urine, or it may be identified with a test. This condition can be caused by infections of the bladder, urethra, kidney, or prostate. Other possible causes include: Kidney stones. Cancer of the urinary tract. Too much calcium in the urine. Conditions that are passed from parent to child (inherited conditions). Exercise that requires a lot of energy. Infections can usually be treated with medicine, and a kidney stone usually will pass through your urine. If neither of these is the cause of your hematuria, more tests may be needed to identify the cause of your symptoms. It is very important to tell your health care provider about any blood in your urine, even if it is painless or the blood stops without treatment. Blood in the urine, when it happens and then stops and then happens again, can be a symptom of a very serious condition, including cancer. There is no pain in the initial stages of many urinary cancers. Follow these instructions at home: Medicines Take nnam-rgd-tcceogy and prescription medicines only as told by your health care provider. If you were prescribed an antibiotic medicine, take it as told by your health care provider. Do not stop taking the antibiotic even if you start to feel better. Eating and drinking Drink enough fluid to keep your urine pale yellow. It is recommended that you drink 3 4 quarts (2.8 3.8 L) a day. If you have been diagnosed with an infection, drinking cranberry juice in addition to large amounts of water is recommended. Avoid caffeine, tea, and carbonated beverages. These tend to irritate the bladder. Avoid alcohol because it may irritate the prostate (in males). General instructions If you have been diagnosed with a kidney stone, follow your health care provider's instructions about straining your urine to catch the stone. Empty your bladder often. Avoid holding urine for long periods of time. If you are female: ?After a bowel movement, wipe from front to back and use each piece of toilet paper only once. ?Empty your bladder before and after sex. Pay attention to any changes in your symptoms. Tell your health care provider about any changes or any new symptoms. It is up to you to get the results of any tests. Ask your health care provider, or the department that is doing the test, when your results will be ready. Keep all follow-up visits. This is important. Contact a health care provider if: You develop back pain. You have a fever or chills. You have nausea or vomiting. Your symptoms do not improve after 3 days. Your symptoms get worse. Get help right away if: You develop severe vomiting and are unable to take medicine without vomiting. You develop severe pain in your back or abdomen even though you are taking medicine. You pass a large amount of blood in your urine. You pass blood clots in your urine. You feel very weak or like you might faint. You faint. Summary Hematuria is blood in the urine. It has many possible causes. It is very important that you tell your health care provider about any blood in your urine, even if it is painless or the blood stops without treatment. Take ctpr-mju-metabue and prescription medicines only as told by your health care provider. Drink enough fluid to keep your urine pale yellow. This information is not intended to replace advice given to you by your health care provider. Make sure you discuss any questions you have with your health care provider. Document Revised: 03/09/2021 Document Reviewed: 03/09/2021 [employer] Patient Education 2022 [place]. Follow Up Care 11/24/2022 10:44:09 With:Shawn FERNANDEZ, POWER SHOVEL ENGINEER-[employer] ICER, Jimmy Clarke Address: [address] [place] [phone] When: only if needed [facility] 10-13-2022 Hospital Discharg e instructions Patient Education 10/13/2022 12:49:16 Urinary Tract Infection, Adult Urinary Tract Infection, Adult A urinary tract infection (UTI) is an infection of any part of the urinary tract. The urinary tract includes the kidneys, ureters, bladder, and urethra. These organs make, store, and get rid of urine in the body. Your health care provider may use other names to describe the infection. An upper UTI affects the ureters and kidneys (pyelonephritis). A lower UTI affects the bladder (cystitis) and urethra (urethritis). What are the causes? Most urinary tract infections are caused by bacteria in your genital area, around the entrance to your urinary tract (urethra). These bacteria grow and cause inflammation of your urinary tract. What increases the risk? You are more likely to develop this condition if: You have a urinary catheter that stays in place (indwelling). You are not able to control when you urinate or have a bowel movement (you have incontinence). You are female and you: ?Use a spermicide or diaphragm for control. ?Have low estrogen levels. ?Are . You have certain genes that increase your risk (genetics). You are sexually active. You take antibiotic medicines. You have a condition that causes your flow of urine to slow down, such as: ?An enlarged prostate, if you are male. ?Blockage in your urethra (stricture). ?A kidney stone. ?A nerve condition that affects your bladder control (neurogenic bladder). ?Not getting enough to drink, or not urinating often. You have certain medical conditions, such as: ?Diabetes. ?A weak disease-fighting system (immunesystem). ?Sickle cell disease. ?Gout. ?Spinal cord injury. What are the signs or symptoms? Symptoms of this condition include: Needing to urinate right away (urgently). Frequent urination or passing small amounts of urine frequently. Pain or burning with urination. Blood in the urine. Urine that smells bad or unusual. Trouble urinating. Cloudy urine. Vaginal discharge, if you are female. Pain in the abdomen or the lower back. You may also have: Vomiting or a decreased appetite. Confusion. Irritability or tiredness. A fever. Diarrhea. The first symptom in older adults may be confusion. In some cases, they may not have any symptoms until the infection has worsened. How is this diagnosed? This condition is diagnosed based on your medical history and a physical exam. You may also have other tests, including: Urine tests. Blood tests. Tests for sexually transmitted infections (STIs). If you have had more than one UTI, a cystoscopy or imaging studies may be done to determine the cause of the infections. How is this treated? Treatment for this condition includes: Antibiotic medicine. Hntr-ggt-bksgkvj medicines to treat discomfort. Drinking enough water to stay hydrated. If you have frequent infections or have other conditions such as a kidney stone, you may need to see a health care provider who specializes in the urinary tract (urologist). In rare cases, urinary tract infections can cause sepsis. Sepsis is a life-threatening condition that occurs when the body responds to an infection. Sepsis is treated in the hospital with IV antibiotics, fluids, and other medicines. Follow these instructions at home: Medicines Take knru-spi-rxstess and prescription medicines only as told by your health care provider. If you were prescribed an antibiotic medicine, take it as told by your health care provider. Do not stop using the antibiotic even if you start to feel better. General instructions Make sure you: ?Empty your bladder often and completely. Do not hold urine for long periods of time. ?Empty your bladder after sex. ?Wipe from front to back after a bowel movement if you are female. Use each tissue one time when you wipe. Drink enough fluid to keep your urine pale yellow. Keep all follow-up visits as told by your health care provider. This is important. Contact a health care provider if: Your symptoms do not get better after 1 2 days. Your symptoms go away and then return. Get help right away if you have: Severe pain in your back or your lower abdomen. A fever. Nausea or vomiting. Summary A urinary tract infection (UTI) is an infection of any part of the urinary tract, which includes the kidneys, ureters, bladder, and urethra. Most urinary tract infections are caused by bacteria in your genital area, around the entrance to your urinary tract (urethra). Treatment for this condition often includes antibiotic medicines. If you were prescribed an antibiotic medicine, take it as told by your health care provider. Do not stop using the antibiotic even if you start to feel better. Keep all follow-up visits as told by your health care provider. This is important. This information is not intended to replace advice given to you by your health care provider. Make sure you discuss any questions you have with your health care provider. Document Released: 04/18/2006 Document Revised: 06/26/2019 Document Reviewed: 01/16/2019 [employer] Patient Education 2019 [place]. Follow Up Care 10/11/2022 13:37:52 With:Shawn FERNANDEZ, POWER SHOVEL ENGINEER-[employer] ICER, Jimmy Clarke Address: [address] [place] [phone] When: only if needed [facility] 06-27-2022 Hospital Discharg e instructions Patient Education 06/27/2022 10:08:30 Calcium Content in Foods Calcium Content in Foods Calcium is the most abundant mineral in your body. Most of your body's calcium supply is stored in your bones and teeth. Calcium helps many parts of the body function normally, including: Blood and blood vessels. Nerves. Hormones. Muscles. Bones and teeth. When your calcium stores are low, you may be at risk for low bone mass, bone loss, and broken bones (fractures). When you get enough calcium, it helps to support strong bones and teeth throughout your life. Calcium is especially important for: Children during growth spurts. Girls during adolescence. Women who are or . Women after their menstrual cycle stops (postmenopause). Women whose menstrual cycle has stopped due to anorexia nervosa or regular intense exercise. People who cannot eat or digest dairy products. Vegans. What are tips for getting more calcium? General information Try to get most of your calcium from food. Eat foods that are high in calcium. Some people may benefit from taking calcium supplements. Check with your health care provider or diet and nutrition services aide (dietitian) before starting any calcium supplements. Calcium supplements may interact with certain medicines. Too much calcium may cause other health problems, like constipation and kidney stones. For the body to absorb calcium, it needs vitamin D. Sources of vitamin D include: ?Skin exposure to direct sunlight. ?Foods, such as egg yolks, liver, saltwater fish, and fortified milk. ?Vitamin D supplements. Check with your health care provider or dietitian before starting any vitamin D supplements. What foods are high in calcium? High-calcium foods are those that contain more than 100 milligrams (mg) of calcium per serving. Fruits Fortified orange or other fruit juice, 300 mg per 8 oz serving. Vegetables Matheus greens, 360 mg per 8 oz serving. Kale, 180 mg per 8 oz serving. Bok stanislav, 160 mg per 8 oz serving. Grains Fortified hxgcw-ny-cai cereals, 100 1,000 mg per 8 oz serving. Fortified frozen waffles, 200 mg in two waffles. Meats and other proteins Sardines, canned with bones, 325 mg per 3 oz serving. [place], canned with bones, 180 mg per 3 oz serving. Canned shrimp, 125 mg per 3 oz serving. Baked beans, 160 mg per 4 oz serving. Dairy Yogurt, plain, low-fat, 310 mg per 6 oz serving. Milk, 300 mg per 8 oz serving. German cheese, 195 mg per 1 oz serving. Cheddar cheese, 205 mg per 1 oz serving. Cottage cheese 2%, 105 mg per 4 oz serving. Fortified soy, rice, or almond milk, 300 mg per 8 oz serving. The items listed above may not be a complete list of foods high in calcium. Actual amounts of calcium may be different depending on processing. Contact a dietitian for more information. What foods are lower in calcium? Foods lower in calcium are those that contain 50 mg of calcium or less per serving. Fruits Apple, about 6 mg in one apple. Banana, about 12 mg in one banana. Vegetables Lettuce, 19 mg per 2 oz serving. Tomato, about 11 mg in one tomato. Grains Rice, 4 mg per 6 oz serving. Boiled potatoes, 14 mg per 8 oz serving. White bread, 6 mg in one slice. Meats and other proteins Egg, 27 mg per 2 oz serving. Red meat, 7 mg per 4 oz serving. Chicken, 17 mg per 4 oz serving. Fish, cod or trout, 20 mg per 4 oz serving. The items listed above may not be a complete list of foods lower in calcium. Actual amounts of calcium may be different depending on processing. Contact a dietitian for more information. Summary Calcium is an important mineral in the body because it affects many functions. Getting enough calcium helps support strong bones and teeth throughout your life. Try to get most of your calcium from food. Calcium supplements may interact with certain medicines. Check with your health care provider before starting any calcium supplements. This information is not intended to replace advice given to you by your health care provider. Make sure you discuss any questions you have with your health care provider. Document Released: 02/20/2005 Document Revised: 07/02/2018 Document Reviewed: 07/02/2018 [employer] Patient Education 2020 [place]. 06/27/2022 10:08:28 Basics of Medicine Management Basics of Medicine Management Taking your medicines correctly is an important part of managing or preventing medical problems. Make sure you know what disease or condition your medicine is treating, and how and when to take it. If you do not take your medicine correctly, it may not work well and may cause unpleasant side effects, including serious health problems. What should I do when I am taking medicines? Read all the labels and inserts that come with your medicines. Review the information often. Talk with your pharmacist if you get a refill and notice a change in the size, color, or shape of your medicines. Know the potential side effects for each medicine that you take. Try to get all your medicines from the same pharmacy. The pharmacist will have all your information and will understand how your medicines will affect each other (interact). Tell your health care provider about all your medicines, including ojyj-ojs-ighvcxh medicines, vitamins, and herbal or dietary supplements. He or she will make sure that nothing will interact with any of your prescribed medicines. How can I take my medicines safely? Take medicines only as told by your health care provider. ?Do not take more of your medicine than instructed. ?Do not take anyone else's medicines. ?Do not share your medicines with others. ?Do not stop taking your medicines unless your health care provider tells you to do so. ?You may need to avoid alcohol or certain foods or liquids when taking certain medicines. Follow your health care provider's instructions. Do not split, mash, or chew your medicines unless your health care provider tells you to do so. Tell your health care provider if you have trouble swallowing your medicines. For liquid medicine, use the dosing container that was provided. How should I organize my medicines? Know your medicines Know what each of your medicines looks like. This includes size, color, and shape. Tell your health care provider if you are having trouble recognizing all the medicines that you are taking. If you cannot tell your medicines apart because they look similar, keep them in original bottles. If you cannot read the labels on the bottles, tell your pharmacist to put your medicines in containers with large print. Review your medicines and your schedule with family members, a friend, or a caregiver. Use a pill organizer Use a tool to organize your medicine schedule. Tools include a weekly pillbox, a written chart, a notebook, or a calendar. Your tool should help you remember the following things about each medicine: ?The name of the medicine. ?The amount (dose) to take. ?The schedule. This is the day and time the medicine should be taken. ?The appearance. This includes color, shape, size, and stamp. ?How to take your medicines. This includes instructions to take them with food, without food, with fluids, or with other medicines. Create reminders for taking your medicines. Use sticky notes, or alarms on your watch, mobile device, or phone calendar. You may choose to use a more advanced management system. These systems have storage, alarms, and visual and audio prompts. Some medicines can be taken on an as-needed basis. These include medicines for nausea or pain. If you take an as-needed medicine, write down the name and dose, as well as the date and time that you took it. How should I plan for travel? Take your pillbox, medicines, and organization system with you when traveling. Have your medicines refilled before you travel. This will ensure that you do not run out of your medicines while you are away from home. Always carry an updated list of your medicines with you. If there is an emergency, a union representative can quickly see what medicines you are taking. Do not pack your medicines in checked luggage in case your luggage is lost or delayed. If any of your medicines is considered a controlled substance, make sure you bring a letter from your health care provider with you. How should I store and discard my medicines? For safe storage: Store medicines in a cool, dry area away from light, or as directed by your health care provider. Do not store medicines in the bathroom. Heat and humidity will affect them. Do not store your medicines with other chemicals, or with medicines for pets or other household members. Keep medicines away from children and pets. Do not leave them on counters or bedside tables. Store them in high cabinets or on high shelves. For safe disposal: Check expiration dates regularly. Do not take medicines. Discard medicines that are older than the expiration date. Learn a safe way to dispose of your medicines. You may: ?Use a local government, hospital, or pharmacy jimtmaie-dhaq-yrbd program. ?Mix the medicines with inedible substances, put them in a sealed bag or empty container, and throw them in the trash. What should I remember? Tell your health care provider if you: ?Experience side effects. ?Have new symptoms. ?Have other concerns about taking your medicines. Review your medicines regularly with your health care provider. Other medicines, diet, medical conditions, weight changes, and daily habits can all affect how medicines work. Ask if you need to continue taking each medicine, and discuss how well each one is working. Refill your medicines early to avoid running out of them. In case of an accidental overdose, call your local Poison Control Center at or visit your local emergency department immediately. This is important. Summary Taking your medicines correctly is an important part of managing or preventing medical problems. You need to make sure that you understand what you are taking a medicine for, as well as how and when you need to take it. Know your medicines and use a pill organizer to help you take your medicines correctly. In case of an accidental overdose, call your local Poison Control Center at or visit your local emergency department immediately. This is important. This information is not intended to replace advice given to you by your health care provider. Make sure you discuss any questions you have with your health care provider. Document Released: 10/24/2011 Document Revised: 07/04/2018 Document Reviewed: 07/04/2018 [employer] Patient Education 2020 [place]. 06/27/2022 10:08:25 BMI for Adults BMI for Adults Body mass index (BMI) is a number that is calculated from a person's weight and height. BMI may help to estimate how much of a person's weight is composed of fat. BMI can help identify those who may be at higher risk for certain medical problems. How is BMI used with adults? BMI is used as a screening tool to identify possible weight problems. It is used to check whether a person is obese, overweight, healthy weight, or underweight. How is BMI calculated? BMI measures your weight and compares it to your height. This can be done either in [place] or metric measurements. Note that charts are available to help you find your BMI quickly and easily without having to do these calculations yourself. To calculate your BMI in [place] measurements, your health care provider will: 1.Measure your weight in pounds (lb). 2.Multiply the number of pounds by 703. For example, for a person who weighs 180 lb, multiply that number by 703, which equals 126,540. 3.Measure your height in inches (in). Then multiply that number by itself to get a measurement called inches squared. For example, for a person who is 70 in tall, the inches squared measurement is 70 in x 70 in, which equals 4900 inches squared. 4.Divide the total from Step 2 (number of lb x 703) by the total from Step 3 (inches squared): 126,540 4900 = 25.8. This is your BMI. To calculate your BMI in metric measurements, your health care provider will: 1.Measure your weight in kilograms (kg). 2.Measure your height in meters (m). Then multiply that number by itself to get a measurement called meters squared. For example, for a person who is 1.75 m tall, the meters squared measurement is 1.75 m x 1.75 m, which is equal to 3.1 meters squared. 3.Divide the number of kilograms (your weight) by the meters squared number. In this example: 70 3.1 = 22.6. This is your BMI. How is BMI interpreted? To interpret your results, your health care provider will use BMI charts to identify whether you are underweight, normal weight, overweight, or obese. The following guidelines will be used: Underweight: BMI less than 18.5. Normal weight: BMI between 18.5 and 24.9. Overweight: BMI between 25 and 29.9. Obese: BMI of 30 and above. Please note: Weight includes both fat and muscle, so someone with a muscular build, such as an athlete, may have a BMI that is higher than 24.9. In cases like these, BMI is not an accurate measure of body fat. To determine if excess body fat is the cause of a BMI of 25 or higher, further assessments may need to be done by a health care provider. BMI is usually interpreted in the same way for men and women. Why is BMI a useful tool? BMI is useful in two ways: Identifying a weight problem that may be related to a medical condition, or that may increase the risk for medical problems. Promoting lifestyle and diet changes in order to reach a healthy weight. Summary Body mass index (BMI) is a number that is calculated from a person's weight and height. BMI may help to estimate how much of a person's weight is composed of fat. BMI can help identify those who may be at higher risk for certain medical problems. BMI can be measured using Nepalese measurements or metric measurements. To interpret your results, your health care provider will use BMI charts to identify whether you are underweight, normal weight, overweight, or obese. This information is not intended to replace advice given to you by your health care provider. Make sure you discuss any questions you have with your health care provider. Document Released: 03/20/2005 Document Revised: 06/21/2018 Document Reviewed: 05/22/2018 [employer] Patient Education 2019 [place]. [facility] [place] 01-18-2022 Hospital Discharg e instructions Patient Education 01/18/2022 10:25:40 Heart Disease Prevention Heart Disease Prevention Heart disease is the leading cause of in the world. Coronary artery disease is the most common cause of heart disease. This condition results when cholesterol and other substances (plaque) build up inside the villarreal of the blood vessels that supply your heart muscle (arteries). This buildup in arteries is called atherosclerosis. You can take actions to lower your risk of heart disease. How can heart disease affect me? Heart disease can cause many unpleasant symptoms and complications, such as: Chest pain (angina). Reduced or blocked blood flow to your heart. This can cause: ?Irregular heartbeats (arrhythmias). ?Heart attack. ?Heart failure. What can increase my risk? The following factors may make you more likely to develop this condition: High blood pressure (hypertension). High cholesterol. Smoking. A diet high in saturated fats or trans fats. Lack of physical activity. Obesity. Drinking too much alcohol. Diabetes. Having a family history of heart disease. What actions can I take to prevent heart disease? Nutrition Eat a heart-healthy eating plan as told by your health care provider. Examples include the DASH (Dietary Approaches to Stop Hypertension) eating plan or the Mediterranean diet. Generally, it is recommended that you: ?Eat less salt (sodium). Ask your health care provider how much sodium is safe for you. Most people should have less than 2,300 mg each day. ?Limit unhealthy fats, such as saturated and trans fats, in your diet. You can do this by eating low-fat dairy products, eating less red meat, and avoiding processed foods. ?Eat healthy fats (omega-3 fatty acids). These are found in fish, such as mackerel or salmon. ?Eat more fruits and vegetables. You should try to fill one-half of your plate with fruits and vegetables at each meal. ?Eat more whole grains. ?Avoid foods and drinks that have added sugars. Lifestyle Get regular exercise. This is one of the most important things you can do for your health. Generally, it is recommended that you: ?Exercise for at least 30 minutes on most days of the week (150 minutes each week). The exercise should increase your heart rate and make you sweat (aerobic exercise). ?Add strength exercises on at least 2 days each week. Do not use any products that contain nicotine or tobacco, such as cigarettes and e-cigarettes. These can damage your heart and blood vessels. If you need help quitting, ask your health care provider. Alcohol use Do not drink alcohol if: ?Your health care provider tells you not to drink. ?You are , may be , or are planning to become . If you drink alcohol, limit how much you have: ?0 1 drink a day for women. ?0 2 drinks a day for men. Be aware of how much alcohol is in your drink. In the [place] one drink equals one typical bottle of beer (12 oz), one-half glass of wine (5 oz), or one shot of hard liquor (1 oz). Medicines Take ozei-vsj-mlbrpll and prescription medicines only as told by your health care provider. Ask your health care provider whether you should take an aspirin every day. Taking aspirin may help reduce your risk of heart disease and stroke. Depending on your risk factors, your health care provider may prescribe medicines to lower your risk of heart disease or to control related conditions. You may take medicine to: ?Lower cholesterol. ?Control blood pressure. ?Control diabetes. General information Keep your blood pressure under control, as recommended by your health care provider. For most healthy people, the upper number of your blood pressure (systolic) should be no higher than 120, and the lower number (diastolic) no higher than 80. Treatment may be needed if your blood pressure is higher than 130/80. Have your blood pressure checked at least every two years. Your health care provider may check your blood pressure more often if you have high blood pressure. After age 20, have your cholesterol checked every 4 6 years. If you have risk factors for heart disease, you may need to have it checked more frequently. Treatment may be needed if your cholesterol is high. Have your body mass index (BMI) checked every year. Your health care provider can calculate your BMI from your height and weight. Work with your health care provider to lose weight, if needed, or to maintain a healthy weight. Where to find more information: Centers for Disease Control and Prevention: www.cdc.gov/heartdisease [place] [employer]: www.heart.org ?Take a free online heart disease risk quiz to better understand your personal risk factors. Summary Heart disease is the leading cause of in the world. Heart disease can cause chest pain, abnormal heart rhythms, heart attack, and heart failure. High blood pressure, high cholesterol, and smoking are the main risk factors for heart disease, although other factors also contribute. You can take actions to lower your chances of developing heart disease. Work with your health care provider to reduce your risk by following a heart-healthy diet, being physically active, and controlling your weight, blood pressure, and cholesterol level. This information is not intended to replace advice given to you by your health care provider. Make sure you discuss any questions you have with your health care provider. Document Released: 02/20/2005 Document Revised: 07/24/2018 Document Reviewed: 07/24/2018 [employer] Patient Education 2020 [place]. Follow Up Care 06/29/2021 10:03:43 With:Td FU Address: [address] [place] [id number]- When:Within 1 Year(s) [facility] 12-20-2021 Hospital Discharg e instructions Patient Education 12/20/2021 10:01:58 Kidney Stones, Rfnm-al-Zbjw Kidney Stones Kidney stones are rock-like masses that form inside of the kidneys. Kidneys are organs that make pee (urine). A kidney stone may move into other parts of the urinary tract, including: The tubes that connect the kidneys to the bladder (ureters). The bladder. The tube that carries urine out of the body (urethra). Kidney stones can cause very bad pain and can block the flow of pee. The stone usually leaves your body (passes) through your pee. You may need to have a doctor take out the stone. What are the causes? Kidney stones may be caused by: A condition in which certain glands make too much parathyroid hormone (primary hyperparathyroidism). A buildup of a type of crystals in the bladder made of a chemical called uric acid. The body makes uric acid when you eat certain foods. Narrowing (stricture) of one or both of the ureters. A kidney blockage that you were born with. Past surgery on the kidney or the ureters, such as gastric bypass surgery. What increases the risk? You are more likely to develop this condition if: You have had a kidney stone in the past. You have a family history of kidney stones. You do not drink enough water. You eat a diet that is high in protein, salt (sodium), or sugar. You are overweight or very overweight (obese). What are the signs or symptoms? Symptoms of a kidney stone may include: Pain in the side of the belly, right below the ribs (flank pain). Pain usually spreads (radiates) to the groin. Needing to pee often or right away (urgently). Pain when going pee (urinating). Blood in your pee (hematuria). Feeling like you may vomit (nauseous). Vomiting. Fever and chills. How is this treated? Treatment depends on the size, location, and makeup of the kidney stones. The stones will often pass out of the body through peeing. You may need to: Drink more fluid to help pass the stone. In some cases, you may be given fluids through an IV tube put into one of your veins at the hospital. Take medicine for pain. Make changes in your diet to help keep kidney stones from coming back. Sometimes, medical procedures are needed to remove a kidney stone. This may involve: A procedure to break up kidney stones using a beam of light (laser) or shock waves. Surgery to remove the kidney stones. Follow these instructions at home: Medicines Take qcgk-gve-amobjnz and prescription medicines only as told by your doctor. Ask your doctor if the medicine prescribed to you requires you to avoid driving or using heavy machinery. Eating and drinking Drink enough fluid to keep your pee pale yellow. You may be told to drink at least 8 10 glasses of water each day. This will help you pass the stone. If told by your doctor, change your diet. This may include: ?Limiting how much salt you eat. ?Eating more fruits and vegetables. ?Limiting how much meat, poultry, fish, and eggs you eat. Follow instructions from your doctor about eating or drinking restrictions. General instructions Collect pee samples as told by your doctor. You may need to collect a pee sample: ?24 hours after a stone comes out. ?8 12 weeks after a stone comes out, and every 6 12 months after that. Strain your pee every time you pee (urinate), for as long as told. Use the strainer that your doctor recommends. Do not throw out the stone. Keep it so that it can be tested by your doctor. Keep all follow-up visits as told by your doctor. This is important. You may need follow-up tests. How is this prevented? To prevent another kidney stone: Drink enough fluid to keep your pee pale yellow. This is the best way to prevent kidney stones. Eat healthy foods. Avoid certain foods as told by your doctor. You may be told to eat less protein. Stay at a healthy weight. Where to find more information National Kidney Foundation (NKF): www.kidney.org Urology Care Foundation (UCF): www.urologyhealth.org Contact a doctor if: You have pain that gets worse or does not get better with medicine. Get help right away if: You have a fever or chills. You get very bad pain. You get new pain in your belly (abdomen). You pass out (faint). You cannot pee. Summary Kidney stones are rock-like masses that form inside of the kidneys. Kidney stones can cause very bad pain and can block the flow of pee. The stones will often pass out of the body through peeing. Drink enough fluid to keep your pee pale yellow. This information is not intended to replace advice given to you by your health care provider. Make sure you discuss any questions you have with your health care provider. Document Released: 12/25/2008 Document Revised: 11/25/2019 Document Reviewed: 11/25/2019 [employer] Patient Education 2020 [place]. Follow Up Care 11/28/2021 09:02:22 With:Yusuf Handy MD, Isidoro Del Angel, URO Address: [facility] [address] [place] [id number]- When:06/22/2022 Comments:w/kandis [facility] 11-24-2021 Hospital Discharg e instructions Patient Education 11/24/2021 11:50:45 Oqsj-Duou-wq Utereroscopy,Lithotripsy, Stone Extraction, Stent Placement (Custom) [facility] [place], [place] Post-operative Instructions for Ureteroscopy, Laser Lithotripsy, Stone Extraction and Stent Placement There are no incisions or dressings to be concerned with, as the procedure was performed inside the urinary system. For 24 hours after surgery: No driving or operating machinery Do not make important decisions Do not consume alcohol, sleeping pills Stent Placement You may have a stent which spans the distance between your bladder and your kidney, allowing urine to pass through. It prevents blockage from swelling, kidney stones in ureter (tube connecting the kidney to the bladder), or scars. The presence of the stent may cause: Back or side pain, especially with urination Frequent or urgent urination Bladder pressure or pain Blood in urine You may pass stone debris or small blood clots, which is expected. Drinking plenty of water to dilute the urine may help. If there is a thread coming out of urinary channel, be careful not to accidently pull on this, as it is attached to the stent. The stent will most likely be removed in the office during a short procedure in which a scope is placed into the bladder, the stent is grasped and removed. At other times the stent may need to stay longer, either in preparation for other procedures or for other reasons. If it is to remain intermediate, however, changes of the stent are required (about every 3-4 months). Diet You may resume your normal diet, but you may want to start slowly and avoid spicy food, caffeine, carbonated beverages and alcohol, especially if you have a stent. Your diet and fluid intake may make irritation from the stent worse. Activity You may resume your normal activities, although you should take it easy on the day of the procedure. Minimizing activity may decrease the back discomfort and irritation from the stent, if present. Medications You may resume your home medications unless instructed otherwise. Hold aspirin, ibuprofen, Coumadin (warfarin) and other blood thinners until your office visit (we will discuss when to resume these medications) Take your prescribed medications as directed, including your antibiotics. You may also be given a prescription for pain medicine or medicines to help with the bladder irritation from stent, if present. Things to watch for which would require an Emergency Room Visit (or call 911) (This is not a complete list) Fever over 101.5 degrees, with or without chills Severe bleeding Severe drug reactions with itching, hives, rash, or severe flank pain Tenderness or swelling or the calves, chest pain, or shortness of breath Please call the office to arrange for your post-operative appointment (with XRAY) [phone] 11/24/2021 11:38:09 Post Op Patient Instructions - FT (CUSTOM) Follow Up Care 10/27/2021 12:44:20 With:TESSIE PENNINGTON Address: [facility] [address]uz[address] [place] [address] Business (1) When:2 to 4 weeks Comments:KUB x-ray with next visit. [facility] 10-17-2021 Hospital Discharg e instructions Follow Up Care 10/17/2021 08:41:01 With:Yusuf Handy MD, Isidoro Del Angel, URO Address: [facility] [address], [place] [phone]- [phone] When: Unknown [facility] Evaluation + Plan note Future Appointments Appointment Date:12/28/2021 10:00:00 AM Scheduled Provider:Radha SANTIAGO CNP Location:[facility] Appointment Type:FM Open Future Scheduled TestsCBC w/ Auto Diff 10/27/20 [facility] Evaluation + Plan note Future Appointments Appointment Date:12/28/2021 10:00:00 AM Scheduled Provider:Radha SANTIAGO CNP Location:[facility] Appointment Type: Open Diagnostic Tests PendingCalculi Analysis Urinary 11/24/21 [facility] Evaluation + Plan note Future Appointments Appointment Date:12/28/2021 10:00:00 AM Scheduled Provider:Radha SANTIAGO CNP Location:[facility] Appointment Type:FM Open Appointment Date:07/04/2022 09:15:00 AM Scheduled Provider:Isidoro Goldberg Jr., MD Location:[facility] Appointment Type:URO Office Visit [facility] Evaluation + Plan note Future Appointments Appointment Date:07/04/2022 09:15:00 AM Scheduled Provider:Isidoro Goldberg Jr., MD Location:[facility] Appointment Type:URO Office Visit Future Scheduled TestsLipid Panel 01/18/22 [facility] [place] Evaluation + Plan note Future Appointments Appointment Date:08/01/2022 02:00:00 PM Scheduled Provider:TESSIE PENNINGTON PA-C Location:[facility] Appointment Type:URO Office Visit Appointment Date:01/16/2023 10:20:00 AM Scheduled Provider:JEMAL Smiley Tammy L. Location:[facility] Appointment Type:FM Open Appointment Date:06/26/2023 09:30:00 AM Scheduled Provider: Location:[facility] Appointment Type:FM Medicare Wellness Subsequent [facility] Evaluation + Plan note Future Appointments Appointment Date:01/16/2023 10:20:00 AM Scheduled Provider:JEMAL Smiley Tammy L. [facility] Type:FM Open Appointment Date:06/26/2023 09:30:00 AM Scheduled Provider: [facility] App[facility] Type:FM Medicare Wellness Subsequent Appointment Date:08/07/2023 01:00:00 PM Scheduled Provider:TESSIE PENNINGTON PA-C [facility] Type:URO Office Visit Diagnostic Tests PendingUrine Culture 08/01/22 [facility] Evaluation + Plan note Future Appointments Appointment Date:01/16/2023 10:20:00 AM Scheduled Provider:JEMAL Smiley Tammy L. [facility] Appointment Type:FM Open Appointment Date:06/26/2023 09:30:00 AM Scheduled Provider: Location:[facility] Appointment Type:FM Medicare Wellness Subsequent Appointment Date:08/07/2023 01:00:00 PM Scheduled Provider:TESSIE PENNINGTON PA-C [facility] App[facility] Type:URO Office Visit Diagnostic Tests PendingUrine Culture 10/13/22 [facility] Evaluation + Plan note Future Appointments Appointment Date:01/16/2023 10:20:00 AM Scheduled Provider:JEMAL Smiley Tammy L. Location:[facility] Appointment Type:FM Open Appointment Date:06/26/2023 09:30:00 AM Scheduled Provider: Location:[facility] Appointment Type:FM Medicare Wellness Subsequent Appointment Date:08/07/2023 01:00:00 PM Scheduled Provider:TESSIE PENNINGTON PA-C [facility] Appoint[facility] Type:URO Office Visit [facility] Evaluation + Plan note Future Appointments Appointment Date:01/16/2023 11:00:00 AM Scheduled Provider:JEMAL Smiley Tammy L. Location:[facility] Appointment Type:FM Open Appointment Date:06/26/2023 09:30:00 AM Scheduled Provider: Location:[facility] Appointment Type:FM Medicare Wellness Subsequent Appointment Date:08/07/2023 01:00:00 PM Scheduled Provider:TESSIE PENNINGTON PA-C Location:[facility] Appointment Type:URO Office Visit [facility] Evaluation + Plan note Future Appointments Appointment Date:06/26/2024 08:00:00 AM Scheduled Provider: Location:[facility] Appointment Type:FM Medicare Wellness Subsequent [facility] Evaluation + Plan note Future Appointments Appointment Date:06/26/2024 08:00:00 AM Scheduled Provider: Location:[facility] Appointment Type:FM Medicare Wellness Subsequent Diagnostic Tests PendingUrine Culture 09/18/23 [facility] Evaluation + Plan note Future Appointments Appointment Date:06/26/2024 08:00:00 AM Scheduled Provider: [facility] App[facility] Type: Medicare Wellness Subsequent Diagnostic Tests PendingUrine Culture 10/08/23 [facility] Evaluation + Plan note Future Appointments Appointment Date:06/26/2024 08:00:00 AM Scheduled Provider: Location:[facility] Appointment Type: Medicare Wellness Subsequent Diagnostic Tests PendingUrine Culture 10/23/23Urine Cytology ([facility]) 10/23/23 [facility] Evaluation note No Assessments Infor mation Available [facility] Evaluation note Diagnosis Kidney stone Calculus of kidney documented in this encounter [employer] Phone: [email or web address] note* Diagnosis Calculus of kidney documented in this encounter [employer] Phone: evaluation note* Diagnosis Asymptomatic microscopic hematuria Flank pain Abdominal pain, unspecified site documented in this encounter [employer] Phone: [email or web address] note* Diagnosis Asymptomatic microscopic hematuria Female stress incontinence Kidney stone Calculus of kidney documented in this encounter [employer] Phone: [email or web address] note* Diagnosis Kidney stone Calculus of kidney Asymptomatic microscopic hematuria Stress incontinence, female Female stress incontinence documented in this encounter [employer] Phone: evaluation note* Diagnosis Kidney stones Calculus of kidney documented in this encounter [employer] Phone: [email or web address] note* Diagnosis Encounter for screening mammogram for malignant neoplasm of breast Other screening mammogram documented in this encounter [employer] Phone: evaluation note* Diagnosis Kidney stone Calculus of kidney documented in this encounter [employer] Phone: Hospital course Narrative No data available for this section [facility] [place] [facility] Discharge instructions No data available for this section [facility] No data available for this section [facility] [place] Summary Purpose Family History No Family History Records Found Relationship Condition Age at Onset Recorded Date/T marianne brother Parkinson's disease Unknown father Malignant neoplasm of pancreas Unknown Not Specified Malignant neoplasm of breast Unknown Advance Directives No Advanced Directives Records FoundDocuments on File Type Date Recorded 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 ACP-Advance Directive ACP-Power of Cost Recorder Documents on File Type Date Recorded 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 ACP-Advance Directive ACP-Power of Cost Recorder Advance Directive Response Recorded Date/ Time Advance Directives No October 27 3:51pm Reason for Referral Status Reason Specialty Diagnoses / Procedures Referred By Contact Referred To Contact Pending Review Radiology Diagnoses Other disorders of bone development and growth, multiple sites Bone disorder Encounter for screening for osteoporosis Procedures DEXA BONE DENSITY 2 SITES Radha Santiago APRN - CNP [address] [place] [address] Status Reason Specialty Diagnoses / Procedures Referred By Contact Referred To Contact Authorized Radiology Diagnoses Breast cancer screening by mammogram Procedures BARRETT DAVID DIGITAL SCREEN BILATERAL Radha Santiago APRN - CNP [address] [place] [address] Status Reason Specialty Diagnoses / Procedures Referre d By Contact Referred To Contact Open Radiology Diagnoses Abnormal findings on diagnostic imaging of abdomen Procedures CT ABDOMEN PELVIS WO CONTRAST Additional Contrast? None Radha Santiago APRN - CNP [address] [place] [address] Specialty Diagnoses / Procedures Referred By Contac t Referred To Contact Radiology Diagnoses Encounter for screening mammogram for malignant neoplasm of breast Procedures BARRETT DAVID DIGITAL SCREEN BILATERAL Td Meehan PA [address] [place] [address] Referral ID Status Reason Start Date Expiration Date Visits Re quested Visits Authorized [id number] Closed 07/07/2022 07/07/2023 1 1 Assessments Diagnosis Other disorders of bone development and growth, multiple sites Bone disorder Disorder of bone and cartilage, unspecified Encounter for screening for osteoporosis Special screening for osteoporosis Diagnosis Breast cancer screening by mammogram Diagnosis Abnormal spinal diagnostic imaging Nonspecific (abnormal) findings on radiological and other examination of musculoskeletal system Diagnosis Abnormal findings on diagnostic imaging of abdomen Nonspecific (abnormal) findings on radiological and other examination of abdominal area, including retroperitoneum Diagnosis Kidney stone Calculus of kidney Chief Complaint and Reason for Visit Chief Complaint Kidney Stone Chief Complaint Kidney Stone Kidney Stone Additional Source Comments INFORMATION SOURCE (unrecogn ized section and content) DATE CREATED AUTHOR 01/16/2018 [facility] DATE CREATED AUTHOR AUTHOR'S ORGANIZ ATION 09/16/2021 [facility] DATE CREATED AUTHOR AUTHOR'S ORGANIZ ATION 11/16/2023 Silvana Wilson [facility] DATE CREATED AUTHOR AUTHOR'S ORGANIZ ATION 12/26/2023 [facility] Reason for Visit (unrecogniz ed section and content) Status Reason Specialty Diagnoses / Procedures Referred By Contact Referred To Contact Pending Review Radiology Diagnoses Other disorders of bone development and growth, multiple sites Disorder of bone, unspecified Encounter for screening for osteoporosis Procedures HC DEXA AXIAL SKELETON Radha Santiago APRN - CNP [address] [place] [address] [facility] Dexa [address] [place] [address] Status Reason Specialty Diagnoses / Procedures Referred By Contact Referred To Contact Pending Review Radiology Diagnoses Encounter for screening mammogram for malignant neoplasm of breast Procedures HC MAMMOGRAM DIGITAL SCREEN BILAT Radha Santiago APRN - CNP [address] [place] [address] [facility] Mamm[facility] [address] [place] [address] Status Reason Specialty Diagnoses / Procedures Referre d By Contact Referred To Contact Closed Radiology Diagnoses Abnormal findings on diagnostic imaging of other abdominal regions, including retroperitoneum Procedures HC CT ABDOMEN PELVIS WO CONTRAST HC CT ABD/PELVIS W/O CONTRAST [address] CT ABD PELV WO Radha Santiago APRN - CNP [address] [place] [address] Scan [address] [place] [address] Specialty Diagnoses / Procedures Referred By Contac t Referred To Contact Radiology Diagnoses Kidney stone Asymptomatic microscopic hematuria Stress incontinence, female Procedures CT ABDOMEN PELVIS W WO CONTRAST Additional Contrast? None CT ABDOMEN PELVIS W IV CONTRAST Additional Contrast? 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 Relationship Specialty Start Date End Date Radha Santiago APRN - TOP ICER [address] [place] [address] PCP - General Family Medicine 06/18/20 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 Relationship Specialty Start Date End Date Radha Santiago POWER SHOVEL ENGINEER - TOP ICER [address] [place] [address] PCP - General Family Medicine 06/18/20 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 Relationship Specialty Start Date End Date Radha Santiago POWER SHOVEL ENGINEER - TOP ICER [address] [place] [address] PCP - General Family Medicine 06/18/20 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 Relationship Specialty Start Date End Date Radha Santiago POWER SHOVEL ENGINEER - TOP ICER [address] [place] [address] PCP - General Family Medicine 06/18/20 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 Relationship Specialty Start Date End Date Radha Santiago POWER SHOVEL ENGINEER - TOP ICER [address] [place] [address] PCP - General Family Medicine 06/18/20 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 Relationship Specialty Start Date End Date Radha Santiago APRN - TOP ICER [address] [place] [address] PCP - General Family Medicine 06/18/20 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 Relationship Specialty Start Date End Date Radha Santiago APRN - TOP ICER [address] [place] [address] PCP - General Family Medicine 06/18/20 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 Relationship Specialty Start Date End Date Jimmy Lawton POWER SHOVEL ENGINEER - TOP ICER [address] [place] [address] PCP - General Family Nurse Practitioner 07/07/22 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 Relationship Specialty Start Date End Date Jimmy Lawton APRN - TOP ICER [address] [place] [address] PCP - General Family Nurse Practitioner 07/07/22 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 Relationship Specialty Start Date End Date Jimmy Lawton POWER SHOVEL ENGINEER - TOP ICER [address] [place] [address] PCP - General Family Nurse Practitioner 07/07/22 FOR RECORDS PERTAINING TO PATIENTS WHO ARE OR HAVE BEEN ENROLLED IN A CHEMICAL DEPENDENCY/SUBSTANCEABUSE PROGRAM, SOME INFORMATION MAY BE OMITTED. This clinical summary was aggregated from multiple sources. Caution should be exercised in using it in the provision of clinical care. This summary normalizes information from multiple sources, and as a consequence, information in this document may materially change the coding, format and clinical context of patient data. In addition, data may be omitted in some cases. CLINICAL DECISIONS SHOULD BE BASED ON THE PRIMARY CLINICAL RECORDS. [facility] [employer] provides no warranty or guarantee of the accuracy or completeness of information in this document.
[2024-01-10 07:09] LABS: Potassium 4.1 mmol/L (3.5-5.1)
[2024-01-10] MEDS: SCOPOLAMINE 1 MG/3 DAYS TRANSDERM PATCH 1 PATCH TD (07:26)
[2024-01-10] MEDS: LACTATED RINGER'S SOLUTION 1,000 ML 50 ML IV ×2 (07:27→08:54)
[2024-01-10] MEDS: CEFAZOLIN SODIUM/DEXTROSE,ISO 1 GM/50 ML IV.SOLN IV (08:01)
[2024-01-10] MEDS: IOHEXOL 240 MG/ML - 10 ML VIAL INJ (08:23)
--- NOTE | 2024-01-10 09:40 | PM.URSON ---
Urology Surgery Operative Note Operative Note Procedure Date: 01/10/24 Time Out Performed: yes Pre-op Diagnosis: Right UPJ calculus and right renal pelvis filling defect Post-op Diagnosis: same as pre-op Procedures performed: 1. Cystoscopy. 2. Right retrograde pyelogram. 3. Right ureteroscopy. 4. Right pyeloscopy. 5. Thulium laser lithotripsy of right renal calculus. 6. Biopsies of right renal pelvis mass. 7. Placement of 6 [place] variable length right ureteral stent 8. Right renal wash for cytology. Anesthesia: General-LMA Primary Surgeon: Jose A Miguel Complications: None Estimated blood loss (mL): 20 Findings: 1. Irregular lobular mass on posterior wall of renal pelvis. 2. Large hard right renal calculus. Specimens: Renal pelvis mass biopsiesAnd renal wash for cytologyAnd bladder urine sample for culture and sensitivity Drains: 6 Citizen [place] variable length right ureteral stent Indications for Procedures: This lady has had gross hematuriaWhich led to a CT scan that showed a 6 mm right UPJ calculus causing obstruction along with a filling defect in the right renal pelvis. She has been unable to pass this stone. She now presents for cystoscopy retrograde pyelogram ureteroscopy pyeloscopy laser lithotripsy possible stent and possible biopsies. She has signed an informed consent for these procedures after risks were explained. Detailed description of Procedure: The patient was brought to the operating room and placed on the operating room table in the supine position. SCDs were placed on the lower extremities and turned on and functioning during the entire case. Timeout was done by all parties in the room. We all agreed upon the patient's identification and the planned procedures for this patient. Genn. anesthesia was then administered. The patient was then repositioned into the modified dorsal lithotomy position. All pressure points were satisfactorily padded. Genitalia were sterilely prepped and draped in usual fashion.I started by passing a 22 [place] Olympus cystoscope per urethra and into the bladder. Careful panendoscopy in the bladder revealed cloudy debris throughout the bladder. A large aspirate was taken and sent for culture and sensitiviWhile using fluoroscopy I could clearly see a sizable stone up in the right kidney area. I then used a 8 [place] cone-tip catheter and did a right retrograde pyelogram. This revealed irregularity at the renal pelvis ureter area. I then passed a Glidewire through the scope and guided up into the kidney. The Scope was then removed. I then passed 10/12 [place] ureteral access sheath over the wire and up the ureter to the L5 level. The stylette and wire were then removed. I then passed a flexible ureteroscope through the access sheath and then into the ureter. I then ascended up the ureter to the UPJ region. There was some bulky irregular Neoplasm appearing tissue posteriorly in the renal pelvis right adjacent to the UPJ. I then did a renal wash and this was sent for cytology.I elected to take care of the stone first and we found the stone in the midpole calyx. I then used a 270 ? laser fiber and passed this through the scope and made contact with the stone. I then used the thulium laser at 10 W and the dusting mode and completely dusted the stone.Minimal bleeding was started. I then brought the scope back to the area of the neoplasm and passed a flexible ureteroscopic grasping forceps and took multiple biopsies of this area. They were sent for permanent sections. After 4 biopsies visibility became Poor and the procedure had to be terminated. The biopsy forceps was removed. I then passed a Glidewire through the scope into the renal pelvis and then remove the scope and access sheath. The cystoscope was backloaded over the wire and passed into the bladder and I then slid a 6 [place] variable length stent over the wire up to the kidney. The wire was removed and there were good curls in the kidney and in the bladder. The bladder was drained of its contents and the scope was removed. She was then transferred to a [facility] bed and wheeled to PACU in stable condition.
[2024-01-10] MEDS: SOLIFENACIN SUCCINATE 10 MG TABLET PO (10:02)
== END 2024-01-10 11:15 | disposition home or self-care (01) ==
PROVIDERS: Anesthesiology; Visit Provider Urology
PROC: (CPT 52354; principal; 2024-01-10 08:00)
DX: N13.2 Hydronephrosis with renal and ureteral calculous obstruction (principal); N28.89 Other specified disorders of kidney and ureter; E78.5 Hyperlipidemia, unspecified; I34.0 Nonrheumatic mitral (valve) insufficiency; Z87.442 Personal history of urinary calculi; Z79.82 Long term (current) use of aspirin; Z79.899 Other long term (current) drug therapy
CPT/HCPCS: 52354; 52356; 36415; 74420; 84132; 87086; 88112; 88305; 88342; 99999; J0690; J1100; J1885; J2250; J2405; J2704; J3010; Q9966

== ENCOUNTER 2024-01-29 14:28 | Outpatient (OUT) | payer MEDICARE, SELFPAY | END 2024-01-29 14:29 | disposition home or self-care (01) | LOC: PST 14:28 | PROVIDERS: Visit Provider Urology | DX: Z01.818 Encounter for other preprocedural examination (principal); R31.9 Hematuria, unspecified; N20.0 Calculus of kidney; R93.429 Abnormal radiologic findings on diagnostic imaging of unspecified kidney; N28.89 Other specified disorders of kidney and ureter ==

== ENCOUNTER 2024-02-07 09:07 | Day surgery (SDC) | payer MEDICARE, SELFPAY ==
[2024-02-07] VITALS (12 sets, daily range): BP systolic 118–133; BP diastolic 68–93; PULSE 56–77; TEMP 36.1–36.2; O2SAT 94–99; BMI 23.7; BMI 29.5
--- NOTE | 2024-02-07 | FL_ITS ---
[address] [address] Patient Name: RADHA ELLIS MRN: [id number] date: 1955 Sex: F Assigned Patient Location: [facility] Current Patient Location: Accession/Order Number: [id number] Exam Date: 02/07/2024 11:20 Report Date: 02/11/2024 08:47 At the request of: SATISH GRAMAJO Procedure: FL fluoroscopy <1hr NON-READ EXAM: FL fluoroscopy <1hr NON-READ HISTORY: TECHNIQUE: FINDINGS: Please see Operative Report. Electronically authenticated by: RADIOLOGIST NO Date: 02/11/2024 08:47
--- OUTSIDE RECORDS SUMMARY | 2024-02-07 09:28 | XMS_ITS | CCD ---
Author Organization [facility] Care Team Providers Care Appeals Referee Name Role Phone DONNAMILLER, RADHA Unavailable Unavailable DONNAMILLER, RADHA Unavailable Unavailable JOSIANE SHAH Unavailable Unavailable Grace Zayas Primary Care Provider [phone] Bk [facility] Primary Care Provider Isidoro Goldberg Attending Provider Bk [facility] Primary Care Provider Isidoro Goldberg Jr Attending Provider [phone] Jack [facility] Primary Care Provider Donnamiller ASSOCIATE PROFESSOR OF SOCIOLOGY - STORAGE SOLUTIONS ARCHITECT, [facility] Primary Care Pro vider Donnamiller ASSOCIATE PROFESSOR OF SOCIOLOGY - STORAGE SOLUTIONS ARCHITECT, [facility] Primary Care Pro vider Radha SANTIAGO A Primary Care Physician [phone] Jimmy Lawton Primary Care Physician Shawn ASSOCIATE PROFESSOR OF SOCIOLOGY - STORAGE SOLUTIONS ARCHITECTJimmy Primary Care Provider Jimmy Lawton Primary Care Physician SHAWN, JIMMY Primary Care Unavailable SHAWN, JIMMY Referring Unavailable CELY MCKENNA Referring Unavailable SHAWN, JIMMY Primary Care Unavailable SHAWN, JIMMY Primary Care Unavailable KINA VALENTIN Referring Unavailable SHAWN, JIMMY Primary Care Unavailable TESSIE PENNINGTON Referring Unavailable SHAWN, JIMMY Primary Care Unavailable TESSIE PENNINGTON Referring Unavailable Donjennifer, WOOD FORM BUILDER-C [facility] Primary Care Provider MD Jose A Gramajo Attending Provider [phone] Jimmy Lawton Admitting Unavailable Jimmy Lawton Attending Unavailable LEEANNE PENNINGTON Admitting Unavailab nieves PENNINGTON, LEEANNE White Attending Unavailab nieves JIMMIELEEANNE VELAZQUEZ Admitting Unavailab nieves JIMMIE, LEEANNE White Attending Unavailab nieves OrKina zarate Admitting Unavailable OrKina zarate Attending Unavailable Jose A GRAMAJO Attending Unavailable Jose A GRAMAJO Attending Unavailable Jimmy Lawton Attending Unavailable Jimmy Lawton Attending Unavailable Jimmy Lawton Attending Unavailable LEEANNE PENNINGTON Attending Unavailab Jose A Guerrero Attending Unavailable OrzechKina Attending Unavailable Jose A GRAMAJO Attending Unavailable Jose A GRAMAJO Attending Unavailable LEEANNE PENNINGTON Attending Unavailab Radha Santoyo Primary Care Unavailable Jose A Gramajo Attending Unavailable Jose A Gramajo Admitting Unavailable Unavailable Unavailable Unavailable Allergies Allergy Classification Reported Allergen(s) Allergy Type Date of Onset Reaction(s) Facility (2 sources) Acyclovir; Translations: [acyclovir] Drug Allergy Nausea (finding) [facility] Work Phone: (11 sources) Sulfamethoxazole / Trimethoprim; Translations: [sulfamethoxazole-tr imethoprim] Drug Allergy Nausea and vomiting (disorder) [facility] [place] Medications Current Medications Medication Drug Class(es) Dates Sig (Normalized) Sig (Original) acetaminophen 325 mg / oxyCODONE hydrochloride 5 mg oral tablet (1 source) Opioid Agonist Start: 11-13-2020 take 1 tablet by mouth every six hours Oxycodone-Acetami nophen (Percocet) 5-325 mg tablet Active 1 TAB PO Q6H 20 November 13, 2020 aspirin 81 mg delayed release oral tablet (20 sources) Platelet Aggregation Inhibitor, Nonsteroidal Anti-inflammatory Drug [...] tablet (20 sources) HMG-CoA Reductase Inhibitor Start: 02-01-2020 take 1 tablet by mouth once daily atorvastatin 20 mg Tab 20 mg = 1 tab(s), Oral, Daily, # 90 tab(s), Refills(s) 3, Pharmacy: [facility], 165, cm, 10/23/23 16:02:00 EDT, Height/Length Dosing, 70.3, kg, 10/23/23 16:02:00 EDT, Weight Dosing Start Date: 10/30/23 Status: Ordered Calcium (19 sources) Phosphate Binder, Calcium Start: 11-22-2009 take 1 tablet by mouth twice daily Calcium 600 D Tab 1 tab(s), Oral, BID, Refill(s) 0, Prophylaxis Start Date: 11/22/09 Status: Ordered Start: 11-22-2009 Calcium 600 D Tab Oral, BID, 0 Start Date: 11/22/09 Status: Ordered calcium carbonate 1250 mg / cholecalciferol 0.01 mg oral tablet (3 sources) Vitamin D Start: 11-02-2020 Calcium Carbon ate-Vitamin D3 (Calcium 500 + D) 500 mg(1,250mg) -400 unit Tablet Active 1 TAB PO Twice daily November 02, 2020 9:37am Start: 11-02-2020 Calcium Carbon ate-Vitamin D3 (Calcium 500 + D) 500 mg(1,250mg) -400 unit Tablet Active 1 TAB PO Twice daily November 02, 2020 9:37am cephalexin 500 mg oral capsule (3 sources) Cephalosporin Antibacterial Start: 11-24-2022 End: 12-01-2022 take 1 capsule by mouth every twelve hours cephalexin 500 mg Cap 500 mg = 1 cap(s), Oral, q12hr, X 7 day(s), # 14 cap(s), Refills(s) 0, Pharmacy: [facility], 165, cm, 11/24/22 11:49:00 EDT, Height/Length Dosing, 72.7, kg, 11/24/22 11:49:00 EDT, Weight Dosing Start Date: 11/24/22 Stop Date: 12/01/22 Status: Ordered Start: 11-13-2020 End: 11-27-2021 take 1 capsule by mouth every twelve hours Keflex 500 mg Cap 500 mg = 1 cap(s), Oral, q12hr, X 3 day(s), # 6 cap(s), Refills(s) 0, Pharmacy: [facility], 165, cm, 11/14/21 12:54:00 EDT, Height/Length Dosing, 71.7, kg, 11/14/21 12:54:00 EDT, Weight Dosing Start Date: 11/24/21 Stop Date: 11/27/21 Status: Ordered Fish Oils (19 sources) Start: 03-11-2019 take 1000 mg by mout h once daily Fish Oil 1,000 mg, Oral, Daily, Refill(s) 0, Prophylaxis Start Date: 03/11/19 Status: Ordered Start: 03-11-2019 Fish Oil Refil l(s) 0 Start Date: 03/11/19 Status: Ordered hydroCHLOROthiazide 25 mg oral tablet (19 sources) Thiazide Diuretic Start: 09-18-2023 take 1 tablet by mouth once daily hydrochlorothiazide 25 mg Tab 25 mg = 1 tab(s), Oral, Daily, # 90 tab(s), Refills(s) 5, Pharmacy: [facility], 165, cm, 09/18/23 9:01:00 EST, Height/Length Dosing, 70.2, kg, 09/18/23 9:01:00 EST, Weight Dosing Start Date: 09/18/23 Status: Ordered Start: 11-03-2022 take 1 tablet by carlos enrique th once daily hydrochlorothiazide 25 mg Tab 25 mg = 1 tab(s), Oral, Daily, # 90 tab(s), Refills(s) 3, Pharmacy: [facility], 165, cm, 10/13/22 9:27:00 EDT, Height/Length Dosing, 69, kg, 10/13/22 9:27:00 EDT, Weight Dosing Start Date: 11/03/22 Status: Ordered Start: 10-25-2021 take 1 tablet by carlos enrique th once daily hydrochlorothiazide 25 mg oral tablet 25 mg = 1 tab(s), Oral, Daily, # 90 tab(s), Refills(s) 3, Pharmacy: [facility], 165, cm, 10/25/21 11:57:00 EDT, Height/Length [...] spasm, # 20 tab(s), Refills(s) 0, Pharmacy: [facility], 165, cm, 11/14/21 12:54:00 EDT, Height/Length Dosing, 71.7, kg, 11/14/21 12:54:00 EDT, Weight Dosing Start Date: 11/24/21 Status: Ordered Start: 08-16-2021 take 1 tablet under the tongue twice daily Levsin 0.125 mg SL Tab 0.125 mg = 1 tab(s), SubLingual, BID, # 20 tab(s), Refills(s) 0, Pharmacy: [facility], 165, cm, 08/16/21 12:06:00 EST, Height/Length Dosing, 75, kg, 08/16/21 12:06:00 EST, Weight Dosing Start Date: 08/16/21 Status: Ordered ketorolac tromethamine 10 mg oral tablet (11 sources) Nonsteroidal Anti-inflammatory Drug, Cyclooxygenase Inhibitor Start: 08-16-2021 ketorolac 10 mg Tab 10 mg = 1 tab(s), Oral, q6hr, PRN Pain 8-10, # 20 tab(s), Refills(s) 0, Pharmacy: [facility], 165, cm, 11/14/21 12:54:00 EDT, Height/Length Dosing, 71.7, kg, 11/14/21 12:54:00 EDT, Weight Dosing Start Date: 11/24/21 Status: Ordered [place] 8-Iwe-Xcl-Fish Oil (Fish Oil) 1,000 mg (120 mg-180 mg) Capsule (3 sources) Start: 11-02-2020 take 1 capsule by mouth twice daily [place] 0-Rpw-Ome-Fish Oil (Fish Oil) 1,000 mg (120 mg-180 mg) Capsule Active 1 CAP PO Twice daily November 02, 2020 9:37am Start: 11-02-2020 take 1 capsule by [facility] twice daily [place] 9-Kkz-Doi-Fish Oil (Fish Oil) 1,000 mg (120 mg-180 mg) Capsule Active 1 CAP PO Twice daily November 02, 2020 12:00am solifenacin succinate 10 mg oral tablet (1 source) Cholinergic Muscarinic Antagonist Start: 01-18-2024 solifenacin 10 mg Tab Refills(s) 0 Start Date: 01/18/24 Status: Ordered sulfamethoxazole 800 mg / trimethoprim 160 mg oral tablet (2 sources) Dihydrofolate Reductase Inhibitor Antibacterial, Sulfonamide Antimicrobial Start: 10-13-2022 End: 10-20-2022 Bactrim D.S. 800 mg-160 mg Tab 1 tab(s), Oral, BID for 7 day(s), 14 tab(s), Refill(s) 0, [facility], 165, cm, 10/13/22 9:27:00 EDT, Height/Length [...] day(s), # 30 cap(s), Refills(s) 0, Pharmacy: [facility], 165, cm, 10/23/23 16:02:00 EDT, Height/Length Dosing, 70.3, kg, 10/23/23 16:02:00 EDT, Weight Dosing Start Date: 11/19/23 Stop Date: 12/19/23 Status: Ordered Start: 08-16-2021 take 1 capsule by [facility] once daily tamsulosin 0.4 mg Cap 0.4 mg = 1 cap(s), Oral, Daily, # 20 cap(s), Refills(s) 0, Pharmacy: [facility], 165, cm, 08/16/21 12:06:00 EST, Height/Length [...] procedure, # 2 tab(s), Refills(s) 0, Pharmacy: [facility], 165, cm, 10/23/23 16:02:00 EDT, Height/Length [...] hematuria] Onset: 10-25-2021 Episodic Heart valve disorders (19 sources) Mitral valve regurgitation 10-27-2020 Chronic Menopausal disorders (1 source) Other primary ovarian failure; Translations: [Other primary ovarian failure] Onset: 09-06-2023 Chronic Nausea and vomiting (9 sources) Nausea 08-28-2023 Episodic Other aftercare (1 source) Long-term current use of drug therapy; Translations: [Other terminologist (current) drug therapy] Onset: 06-27-2022 Episodic Other bone disease and musculoskeletal deformities (1 source) Disorder of bone development; Translations: [Other disorders of bone development and growth, multiple sites] Chronic Other bone disease and musculoskeletal deformities (1 source) Disorder of bone; Translations: [Bone disorder] Episodic Other circulatory disease (1 source) Iatrogenic hypotension; Translations: [Other hypotension] 07-04-2023 Episodic Other connective tissue disease (7 sources) Cramp in lower limb 06-29-2021 Episodic Other diseases of kidney and ureters (3 sources) 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 Other diseases of kidney and ureters (3 sources) Urinary tract obstruction; Translations: [Hydronephrosis with renal and ureteral calculous obstruction] Onset: 11-24-2021 Episodic Other gastrointestinal disorders (19 sources) Occult blood in stools 10-27-2020 Episodic [...] conditions (not mental disorders or infectious disease) (10 sources) Imaging of abdomen abnormal; Translations: [Platelet count below reference range] Onset: 06-27-2022 10-27-2020 Episodic Other skin disorders (19 sources) Actinic keratosis 05-06-2020 Episodic Residual codes; unclassified (19 sources) Family history of breast cancer 04-28-2020 Episodic Residual codes; unclassified (1 source) History of drug therapy; Translations: [Personal history of other drug therapy] Onset: 06-27-2022 Episodic Residual codes; unclassified (2 sources) Body mass index 20-24 - normal; Translations: [Body mass index (BMI) 24.0-24.9, adult] Onset: 06-27-2022 Episodic Spondylosis; intervertebral disc disorders; other back problems (13 sources) Backache; Translations: [Dorsalgia, unspecified] Onset: 10-12-2022 10-12-2022 Episodic Unclassified (1 source) Unknown / UNK(Unknown) Onset: 02-02-2017 Unclassified (14 sources) Patient encounter status; Translations: [Encounter for screening for osteoporosis] 06-27-2022 Unclassified (1 source) Finding of spinal region; Translations: [Abnormal spinal diagnostic imaging] Unclassified (19 sources) Asymptomatic microscopic hematuria 11-08-2020 Unclassified (10 sources) Colon cancer screening declined 06-29-2021 Unclassified (19 sources) Long-term current use of aspirin 10-27-2020 Unclassified (19 sources) Seborrheic keratosis 04-28-2020 Unclassified (14 sources) Body mass index 20-24 - normal 06-27-2022 Unclassified (15 sources) Drug therapy finding 06-27-2022 Unclassified (1 source) Obstructive hydronephrosis 01-18-2024 Urinary tract infections (12 sources) Hematuria co-occurrent and due to cystitis; Translations: [Cystitis, unspecified with hematuria] Onset: 10-13-2022 Episodic Past or Other Problems Problem Classification Problem Date Documented Da te Episodic/Chronic Unclassified (1 source) Z12.31^Enc Onset: 02-02-2017 Unclassified (15 sources) History of vaccination 06-27-2022 Results Test Name Value Interpretation Reference Range Facil ity Ambulatory Visit Summaryon 0 01-18-2024 Ambulatory Visit Summary Ambulatory Visit Summary TEMITOPE TREJO :1955 Visit Date:01/18/2024 Ambulatory Visit Instructions Your Diagnosis Kidney filling defect Ureteral stone with hydronephrosis Kidney stone Gross hematuria Your Care Team Attending Physician - AVILA HOOPER, Jose A Padron Primary Care Physician - Shanw MSN, ASSOCIATE PROFESSOR OF SOCIOLOGY-STORAGE SOLUTIONS ARCHITECT, Jimmy Clarke This Is Your Medications List hydrochlorothiazide (hydrochlorothiazid e 25 mg Tab) Contact prescribing physician if questions or concerns aspirin (aspirin 81 mg Oral EC Tab) atorvastatin (atorvastatin 20 mg Tab) calcium-vitamin D (Calcium 600 D Tab) omega-3 polyunsaturated fatty acids (Fish Oil) solifenacin (solifenacin 10 mg Tab) Procedures Performed Cystoscopic laser lithotripsy of ureteric calculus (01/10/2024), Specimen from renal pelvis obtained by biopsy (01/10/2024), Cataract (07/31/2023), Cystoscopy (11/24/2021), PCNL - Percutaneous nephrolithotomy (11/10/2020), ECSWL x 2, L rotator cuff repair, tubal ligation. Discharge Vitals Temperature (Temporal Artery) 37 ?C Heart Rate (Peripheral) 76 Respiratory Rate 16 Blood Pressure 135/88 Height 165 cm Height 65 in Weight 154 kg Weight 338.8 lb BMI 56.57 What to do next Scheduled Follow-Up Appointments 2023 8:00 AM EST Where: [facility] Urology Office/Clinic Noteon 01-18-2024 Urology Office/Clinic Note Urology Office/Clinic Note Chief Complaint kidney stone, ureteral stone with hydronephrosis HPI Staff S/P Holmium Laser/Rt Stent Placement & Rt Renal Pelvis Mass 01/10/24 NEG C&S 01/10/24 Pt is here today to review pathology report Dysuria: no Incomplete bladder emptying: no Hematuria: pt states the last blood she saw was Sunday and it was slightly pink Frequency: no Urgency: no Nocturia: no Stream: good strong Leaking: no Post void dripping: no Wearing pads/ Depends: no Urge incontinence: no Stress incontinence: no Incontinence without Sensory Awareness: no Abdominal pain: no Flank pain: pt is having low back pain that started just 2 days ago. Sexual complaints: no History of Present Illness Tests reviewed: reviewed UA, path, renal washings. I have reviewed the previous health record information and history for this patient from Dr. Gramajo. I have reviewed and verified the staff HPI to be accurate for this encounter. There have been no associated fever, chills, flank pain, or blood in the urine. Denies any urinary infections since last encounter. Review of Systems PHQ Score Initial [...] & Measurements T: 37 ?C(Temporal Artery) HR: 76(Peripheral) RR: 16 BP: 135/88 HT: 65 in HT: 165 cm WT: 154 kg WT: 338.8 lb BMI: 56.57 General Appearance: alert , no acute distress, well nourished, well developed female. Genitourinary: pain near S1. Assessment/Plan Reports of lower back pain. Upon exam, pt is tender near S1. Advised pt to meet with a massage therapist. 1. Kidney filling defect (R93.429: Abnormal radiologic findings on diagnostic imaging of unspecified kidney) Right renal pelvis. Cysto, R RPG, R urs, laser of R renal calculus, biopsies of R renal pelvis mass, R stent 01/10/24 which revealed irregularity at the renal pelvis ureter area. Irregular lobular mass on posterior wall of renal pelvis. After taking 4 biopsies visibility became poor and the procedure had to be terminated. Renal washings no obvious high-grade urothelial carcinoma. Many neutrophils, consistent with urinary tract inflammation or infection. Results reviewed with pt. UA today shows large blood and small leuks. Still has stent in place. Due to biopsies being negative and only obtaining 4 specimens during recent case, repeating a bx is strongly encouraged due to the risk of filling defect and mass being cancer. Pt elects to proceed. If repeat bx is negative, will likely proceed with MRI of kidneys. -Will schedule cysto, R RPG, R urs, biopsies of R renal pelvis mass, poss removal or exchange of R stent. Risks and Benefits were discussed with the patient. These include bleeding, infection, pain, and need for additional procedures. Pre-op consent reviewed with and obtained from patient. Order General anesthesia. 2. Ureteral stone with hydronephrosis (N13.2: Hydronephrosis with renal and ureteral calculous obstruction) CTU 11/15/23 Silvana Wilson - 6 mm obstructing stone at R UPJ with filling defect and mild R hydro. S/p cysto, R RPG, R urs, laser of R renal calculus, biopsies of R renal pelvis mass, R stent, and R renal wash for cytology 01/10/24. Path foci of severe chronic inflammation with some admixed crystals in 2 small fragments. Mild reactive urothelial hyperplasia without significant atypia in other fragments. Still has stent in place. 3. Kidney stone (N20.0: Calculus of kidney) S/p R PCNL 2020 and stone extraction November 2021. KUB 07/28/22 - 6mm stone over the inferior pole right kidney which is unchanged from prior imaging. KUB 09/06/23 - stable 6 mm stone over the lower pole right kidney unchanged. No new stones. Taking HCTZ 25 mg qd. -See #1. 4. Gross hematuria (R31.0: Gross hematuria) Micro UA - >30 RBC, UCX w/ mixed skin contaminants Pt called w/ gross hematuria mid September 2023. Micro UA 10/08/23 - > 30 RBC, UCX w/ mixed skin contaminants. No other urinary sxs at that time. See #1. Follow-up With When Contact Information AVILA HOOPER, Jose A Padron, URL [facility] [place] [address]- Additional Instructions: Will schedule cysto, R RPG, R urs, biopsies of R renal pelvis mass, poss removal or exchange of R stent Patient Education Ureteroscopy Cystoscopy I, Hortensia Richardson, personally scribed for Dr. Gramajo on 01/18/2024 11:10:16. . Documentation recorded by the (more content not included)... Normal [facility] Comment on above: Result Comment: Elec tronically Signed By: Jose A GRAMAJO MD\.br\Date and Time Signed: 01/18/24 11:13 EDT\.br\Electronically Co-Signed By: Hortensia Richardson.br\Date and Time Co-Signed: 01/18/24 11:10 EDT Pathology Noteon 01-15-2024 Pathology Note [id number] AE#1.00TIFF Normal [facility] Pathology Note [id number] 0#1.00TIFF Normal [facility] Lab Reportson 01-14-2024 Lab Reports [id number] 3B#1.00TIFF Normal [facility] Ramakrishna 01-10-2024 L Specimen: [id number] Received: 01/10/24 Status: ANSON Req Num: [id number] Spec Type: Surgical Subm Dr: Jose A Gramajo MD Tissues: A Kidney - Biopsy (RT RENAL PELVIS BIOPSIES) Procedures: HE/5, Gross/Micro L4, AE1-AE3 Age/ Patient Sex Location Account Attending Physician KingTemitope 68/F [facility] [id number] Jose A Gramajo MD SPEC NUM: [id number] RECD: 01/10/24 STATUS: ANSON BISHOP NUM: [id number] VICENTE: 01/10/[address]: Jose A Gramajo MD ENTERED: 01/10/[address] [facility] [address]: Zo Schroeder SPEC TYPE: Surgical DEPT: [facility] ORDERED: HE/5, Gross/Micro L4, AE1-AE3 ORDERED: HE/5, Gross/Micro L4, AE1-AE3 Supplemental Report Addendum 1 Entered: 01/22/24-1015 Supplemental for findings of consultation report from [facility]: FINAL DIAGNOSIS -Atypical epithelial cells suspicious for malignancy associated with prominent inflammation and crystalline material consistent with calcium oxalate Addendum Signed (signature on file) Bassem Szymanski MD 01/22/24 1015 Pathological Diagnosis Right renal pelvis biopsies: -Foci of severe chronic inflammation with some admixed crystals in 2 small fragments -Mild reactive urothelial hyperplasia without significant atypia in the other fragments -AE1/3 immunostain with appropriate control showing occasional tiny crushed epithelial clusters within inflammatory infiltrate, not easily applicable for further morphological assessment Specimen: [id number] Received: 01/10/24 Status: ANSON Davdia Num: [id number] Spec Type: Surgical Subm Dr: Jose A Gramajo MD Tissues: A Kidney - Biopsy (RT RENAL PELVIS BIOPSIES) Procedures: HE/5, Gross/Micro L4, AE1-AE3 Patient: Temitope Trejo [id number] (Continued) Specimen: [id number] Received: 01/10/24 (Continued) Pathological Diagnosis (Continued) Signed (signatur e on file) Bassem Szymanski MD 01/14/24 1147 Specimen: [id number] Received: 01/10/24 Status: ANSON Bishop Num: [id number] Spec Type: Surgical Subm Dr: Jose A Gramajo MD Tissues: A Kidney - Biopsy (RT RENAL PELVIS BIOPSIES) Procedures: HE/5, Gross/Micro L4, AE1-AE3 Patient: Temitope Trejo [id number] (Continued) Specimen: [id number] Received: 01/10/24 (Continued) Pathological Diagnosis (Continued) Note: -Overall findings may suggest right ureteral renal calculi with the associated acute and chronic inflammation, and reactive urothelial hyperplasia, including possibility of nephrogenic metaplasia -Because of the history of pelvic mass, and the noted infiltration of small epithelial clusters in initial histological assessment, the case will also require additional consultation review with final findings in supplemental to follow Clinical Information Right ureteral kidney stone, blood and urine Gross Description Received in formalin labeled with the patient's name, date of and right renal pelvis biopsies are multiple minute almanza tissue fragments measuring in aggregate 0.4 x 0.1 x 0.1 cm, entirely submitted in A1. CPT Codes 95161, 22838 Specimen: [id number] Received: 01/10/249955 Status: ANSON Seovita Num: [id number] Spec Type: Surgical Subm Dr: Jose A Gramajo MD Tissues: A Kidney - Biopsy (RT RENAL PELVIS BIOPSIES) Procedures: HE/Juanita, Gross/Micro L4, AE1-AE3 Patient: Temitope Trejo [id number] (Continued) Signed (signatur e on file) Bassem Szymanski MD 01/14/24 1149 [facility] L Specimen: Received: 01/10/24 Status: ANSON Bishop Num: [id number] Spec Type: Cytology Subm Dr: Jose A Gramajo MD Tissues: A WASHING (RENAL WASHING) Procedures: HE/2, Gross/Micro L4, Cyto Prepstain, PAPSTN Age/ Patient Sex Location Account Attending Physician Temitope Trejo 68/F [facility] [id number] Jose A Gramajo MD SPEC NUM: [id number] RECD: 01/10/24 STATUS: ANSON BISHOP NUM: [id number] VICENTE: 01/10/[address]: Jose A Gramajo MD ENTERED: 01/10/[address] [facility] [address]: Zo Schroeder SPEC TYPE: Cytology DEPT: [facility] ENTERED BY: [id number] RECV BY: [id number] ORDERED: HE/2, Gross/Micro L4, Cyto Prepstain, PAPSTN ORDERED: HE/2, Gross/Micro L4, Cyto Prepstain, PAPSTN Supplemental Report Addendum 1 Entered: 01/22/24-1011 Supplemental for findings of consultation report from [facility]: FINAL DIAGNOSIS: -Atypical urothelial cells in a background of marked acute inflammation (see comment) Addendum Signed (signature on file) Bassem Szymanski MD 01/22/24 1011 Pathological Diagnosis Renal wash fluid, cytology: -No obvious high-grade urothelial carcinoma -Many neutrophils, consistent with urinary tract inflammation or infection -Occasional small pinkish urothelial clusters with occasionally admixed inflammatory cells, showing small nucleoli and probably high N:C ratio without easily notable cytological detail for definitive assessment, otherwise also may occur in association with urinary tract inflammation, infection, irritation, stone, instrumentation, or low-grade urothelial Specimen: [id number] Received: 01/10/24 Status: ANSON Bishop Num: [id number] Spec Type: Cytology Subm Dr: Jose A Gramajo MD Tissues: A WASHING (RENAL WASHING) Procedures: HE/2, Gross/Micro L4, Cyto Prepstain, PAPSTN Patient: Temitope Trejo [id number] (Continued) Specimen: [id number] Received: 01/10/24 (Continued) Pathological Diagnosis (Continued) Signed (signatur e on file) Bassem Szymanski MD 01/14/24 1133 Specimen: [id number] Received: 01/10/24 Status: ANSON Bishop Num: [id number] Spec Type: Cytology Subm Dr: Jose A Gramajo MD Tissues: A WASHING (RENAL WASHING) Procedures: HE/2, Gross/Micro L4, Cyto Prepstain, PAPSTN Patient: Temitope Trejo [id number] (Continued) Specimen: [id number] Received: 01/10/24 (Continued) Pathological Diagnosis (Continued) neoplasm -Cell block section also showing similar findings, including occasional minute strips or clusters of reactive urothelial epithelial cells Clinical Information Pelvic mass biopsies, urine culture, right stent placement, laser Gross Description Received is 10 ml pink cloudy unfixed fluid for cytology said to have been obtained as renal wash. ThinPrep and cell block preparations are prepared for microscopic examination.(CC/nh) CPT Codes 87495, 89886 Specimen: [id number] Received: 01/10/24-1410 Status: ANSON Bishop Num: [id number] Spec Type: Cytology Subm Dr: Jose A Gramajo MD Tissues: A WASHING (RENAL WASHING) Procedures: HE/2, Gross/Micro L4, Cyto Prepstain, PAPSTN Patient: NeilTemitope [id number] (Continued) Signed (signatur e on file) Bassem Szymanski MD 01/14/24 1133 Normal [facility] Lab Reportson 01-10-2024 Lab Reports [id number] D#1.00TIFF Normal [facility] Operative Reporton Operative Report [id number] E#1.00TIFF Normal [facility] ECG 12-Leadon 12-25-2023 ECG 12-Lead [id number] 2#1.00TIFF [facility] ECG 12-Lead [id number] 4E#1.00TIFF [facility] Lab Reportson 12-25-2023 Lab Reports [id number] 93#1.00TIFF [facility] Lab Reports [id number] 50#1.00TIFF [facility] Consent for Procedure/Surger yon 12-05-2023 Consent for Procedure/Surgery [id number] B#1.00TIFF [facility] Consent for Procedure/Surger yon 11-27-2023 Consent for Procedure/Surgery [id number] 26#1.00TIFF [facility] Ambulatory Visit Summaryon 0 11-26-2023 Ambulatory Visit Summary TEMITOPE TREJO :1955 Visit Date:11/26/2023 Ambulatory Visit Instructions Your Diagnosis Ureteral stone with hydronephrosis Kidney stone Gross hematuria Your Care Team Attending Physician - AVILA HOOPER, Jose A Padron Primary Care Physician - Shawn MSN, ASSOCIATE PROFESSOR OF SOCIOLOGY-STORAGE SOLUTIONS ARCHITECT, Jimmy Del Angel. This Is Your Medications List Contact prescribing [...] Follow-Up Appointments Sunday 3:30 PM EDT Where: [facility] 2023 8:00 AM EST Where: [facility] Katie Normal [facility] Patient Educationon 11-26-19 Patient Education Nephrology Laser Therapy for Kidney [...] these instructions at home: Medicines ? Take hmfg-kcz-gndqfcv and prescription medicines only as told by [...] or treat constipation, such as: ? Take nwjp-lfx-wjaydyf or prescription medicines. ? Eat foods that [...] provider. Document Revised: 11/15/2022 Document Reviewed: 03/13/2022 gdgt Patient Education ? 2022 Birthday Slam. Laser Therapy for Kidney Stones Laser therapy [...] including vitamins, herbs, eye drops, creams, and pgpd-bno-seooyvq medicines. ? Any problems you or family [...] st (more content not included)... Normal [facility] Urology Office/Clinic Noteon 11-26-2023 Urology Office/Clinic Note [...] E&M of Est. Patient High 40-54 Min 38608 Urology Procedure Order 2. Kidney stone (N20.0: [...] E&M of Est. Patient High 40-54 Min 71479 Urnls Dip Stick Auto w/o Microscopy POC 85799 3. Gross hematuria (R31.0: Gross hematuria) Micro UA - >30 RBC, UCX w/ mixed skin contaminants Pt called w/ gross hematuria mid September. Micro UA 10/08/23 - > 30 RBC, UCX w/ mixed skin contaminants. No other urinary sxs at that time. No recent stone episode. -See #1. Ordered: E&M of Est. Patient High 40-54 Min 45886 4. Kidney filling defect (R93.429: Abnormal radiologic findings on diagnostic imaging of unspecified kidney) R renal pelvis. will possibly do a biopsy at ureteroscopy Follow-up With When Contact Information Jose A GRAMAJO MD, URL [facility] [address], [place] [address] [phone] Additional Instructions: sched cysto/ R ureteroscopy/laser litho w/ poss stent Patient Education Laser Therapy for Kidney Stones, Care After Laser Therapy for Kidney Stones I, Vanessa Nolen, personally scribed for Dr. Gramajo on 11/26/2023 12:34:13. . Documentation recorded by the scribe, Vanessa Nolen, accurately reflects the services(s) I performed and decisions made by me. Authenticated by Dr. Gramajo on 11/26/2023 12 (more content not included)... Normal [facility] Comment on above: Result Comment: Elec tronically Signed By: Jose A GRAMAJO MD\.br\Date and Time Signed: 11/26/23 12:40 EDT\.br\Electronically Co-Signed By: Vanessa Nolen\.br\Date and Time Co-Signed: 11/26/23 12:34 EDT RAD - CT Reporton 11-20-2023 RAD - CT Report [id number] 2B#1.00TIFF Normal [facility] BUN + Creatinineon 4 Creatinine [Mass/Vol] 0.7 mg/dL Normal 0.5-0.9 [facility] Comment on above: Performed By: #### B UNCRT #### [facility] [address] [place] [place] [address] Customer Service Representative Teacher: Fede Perdue MD GFR/1.73 sq M.predicted among non-blacks MDRD (S/P/Bld) [Vol rate/Area] mL/min/{1.73_m2} Normal >60 [facility] Comment on above: Result Comment: These results [...] secretion. Performed By: #### B UNCRT #### [facility] [address] [place] [address] Customer Service Representative Teacher: Fede Perdue MD Urea nitrogen [Mass/Vol] 24 mg/dL High 8- [facility] Comment on above: Performed By: #### B UNCRT #### [facility] [address] [place] [address] Customer Service Representative Teacher: Fede Perdue MD CT UROGRAMon 11-15-2023 CT [...] Gomes Jr., MD 11/15/23 Final result Normal [facility] C Urineon 10-26-2023 Bacteria identified Cx Nom (U) Microbiology PROCEDURE: Urine Culture [R1] SOURCE: U CleanCatch BODY SITE: COLLECTED DATE/TIME: 10/23/2023 16:24 EDT RECEIVED DATE/TIME: 10/24/2023 13:41 EDT START DATE/TIME: 10/24/2023 13:41 EDT FREE TEXT SOURCE: Orelliot ASSOCIATE PROFESSOR OF SOCIOLOGY, PROJECT MANAGEMENT IT SPECIALIST-C, [employer]rell[employer] ASSOCIATE PROFESSOR OF SOCIOLOGY, PROJECT MANAGEMENT IT SPECIALIST-C, Kina X Kina X FINAL REPORTS Final Report [] Verified Date/Time: 10/26/2023 11:09 EDT 3,000 cfu/ml Mixed skin contaminants Performing Locations R1: This test was performed at: [facility], [address] [place] [address], [address]- , [place], Normal [facility] Comment on above: Performed By: #### 2 [id number] ####[facility] [address] [place] [address] Urine Cytology ([facility])on 0 10-26-2023 Microscopic exam Cytology (U) [Interp] Diagnosis Info Invalid Interpretation Code [facility] Comment on above: Result Comment: A:Ur ine,Urine:Voided Interpretation - MicroScopic Description - Adequacy - Gross Description Site ID:A color Yellow fixative Alcohol Specimen designated Urine received in alcohol preservative and labeled with the patient?s name, consists of 80ml clear yellow fluid. Electronically signed by : on: 10/26/2023 13:03:49 Performed By: #### 1 [id number] ####[facility] [address] [place] [address] Ambulatory Visit Summaryon 0 10-23-2023 Ambulatory Visit Summary TEMITOPE TREJO :1955 Visit Date:10/23/2023 Ambulatory Visit Instructions Your Diagnosis Gross hematuria Kidney stone Tests Performed CT Urogram -- Results Pending -- Please visit your patient portal for your results or contact your primary care physician. Your Care Team Attending Physician - Magdaleno ANTHONY, BUDC, Kina Subramanian Primary Care Physician - Shawn FERNANDEZ, GABRIELLE-ROBBY, Jimmy Clarke This Is Your Medications List [...] Follow-Up Appointments 2023 8:00 AM EST Where: [facility] Katie [facility] Patient Educationon 10-23-19 24 Patient Education [...] Spinach (cooked), rhubarb, beets, sweet potatoes, and Malagasy chard. ? Peanuts. ? Potato chips, sri lankan fries, and baked potatoes with skin on. ? Nuts and nut products. ? Chocolate. ? If you regularly take a diuretic medicine, make sure to eat at least 1 or 2 servings of fruits or vegetables that are high in potassium each day. These include: ? Avocado. ? Banana. ? [place], prune, carrot, or tomato juice. ? Baked [...] fish oil, or vitamin B6. ? Take acch-eiq-jihkrvy and prescription medicines only as told by your health care provider. These include supplements. What foods sh (more content not included)... Normal [facility] Urine Cytology ([facility])on 0 10-23-2023 Method of Extraction Voided Normal [facility] Comment on above: Performed By: #### 1 [id number] ####[facility] [address] [facility] [place] [address] Number of Jars 1 Invalid Interpretation Code [facility] Comment on above: Performed By: #### 1 [id number] ####[facility] [address] [facility] [place] [address] Specimen Urine Normal [facility] Comment on above: Performed By: #### 1 [id number] ####[facility] [address] [facility] [place] [address] Type of Service Technical Only Normal [facility] Comment on above: Performed By: #### 1 [id number] ####[facility] [address] [facility] [place] [address] Urology Office/Clinic Noteon 10-23-2023 Urology Office/Clinic Note [...] (w stone extraction) Last Abdominal Image 11/24/21 ([facility]) No FISH/Cytology on record Dysuria: denies Incomplete [...] with voice recognition artificial intelligence software, specifically [employer], [employer] and or [employer]. Substitutions may have occurred due to the [...] AVILA HOOPER, Jose A Padron, URL [address] [place] [address]- Additional Instructions: pending cysto Patient Education Dietary Guidelines to Help Prevent Kidney Stones Kidney Stones, Inhi-zl-Ogpt Hematuria, Adult Problem List/Past Medical History Ongoing [...] hurt by d (more content not included)... Normal [facility] Comment on above: Result Comment: Elec tronically Signed By: SHAUN Valentin APRN, Kina Subramanian\.golden\Date and Time Signed: 10/23/23 16:25 EDT C [...] Locations R1: This test was performed at: [facility], [address] [place] [address], [address]- , , [facility] Comment on above: Performed By: #### 2 [id number] ####[facility] [address] [place] [address] Ambulatory Visit Summaryon 0 10-08-2023 Ambulatory Visit Summary TEMITOPE TREJO :1955 Visit Date:10/08/2023 Ambulatory Visit Instructions Your Diagnosis Hematuria Your Care Team Attending Physician - TESSIE PENNINGTON PA-C Primary Care Physician - Shawn MSN, ASSOCIATE PROFESSOR OF SOCIOLOGY-STORAGE SOLUTIONS ARCHITECT, Jimmy Del Angel. This Is Your Medications List aspirin (aspirin [...] Follow-Up Appointments 2023 8:00 AM EST Where: [facility] Katie [facility] Lab Reportson 10-08-2023 Lab Reports [id number] B0#1.00TIFF [facility] URINALYSISOrdered By: Debbie Doherty on 10-08-2023 [...] AM) Normal Negative [facility] UA Auto SS [place].plasma/Lit hium.RBC (Bld) [Mass ratio] >30 /HPF Invalid Interpretation Code 0-3/HPF [facility] UA Auto SS Nitrite Ql (U) Negative (10/08/23 10:52 AM) Normal Negative [facility] UA Auto SS pH (U) 5.5 *NA* (10/08/23 10:52 AM) Invalid Interpretation Code 5.0 - 9.0 [facility] UA Auto SS Protein (U) [Mass/Vol] Trace *ABN* (10/08/23 10:52 AM) Invalid Interpretation Code Negative [facility] UA Auto SS Specific gravity (U) [Rel density] 1.020 *NA* (10/08/23 10:52 AM) Invalid Interpretation Code 1.005 - 1.030 [facility] UA Auto SS Urobilinogen Qn (U) 0.3689856 {Orin'U}/dL Normal 0.0 - 1.0 EU/dL [facility] UA Auto SS WBC Auto Ql (U) 2+ *ABN* (10/08/23 10:52 AM) Invalid Interpretation Code Negative [facility] UA Auto SS WBC LM.HPF (Urine sed) [#/Area] 16-25 /HPF Invalid Interpretation Code 0-5/HPF [facility] UA Auto SS URINALYSISOrdered By: Brittny Babb on 10-08-2023 UA Spec Desc Clean Catch (10/08/23 10:52 AM) Normal [facility] UA Auto SS Urinalysison 10-08-2023 Bacteria LM Ql (Urine sed) 1+ /HPF Abnormal Trace [facility] Comment on above: Performed By: #### 1 [id number] ####[facility] [address] [place] [address] Bilirubin Ql (U) Negative Normal Negative [facility] Comment on above: Performed By: #### 1 [id number] ####[facility] [address] [place] [address] Clarity (U) SL CLOUDY Invalid Interpretation Code [facility] Comment on above: Performed By: #### 1 [id number] ####[address] [address] Color (U) YELLOW Normal Yellow [facility] Comment on above: Performed By: #### 1 [id number] ####[address] [address] Epithelial cells.squamous LM.HPF (Urine sed) [#/Area] 0-2 Normal 0-2 [facility] Comment on above: Performed By: #### 1 [id number] ####[facility] [address] [place] [address] Glucose Test strip (U) [Mass/Vol] Negative Normal Negative [facility] Comment on above: Performed By: #### 1 [id number] ####[address] [address] Hemoglobin Ql (U) 3+ Abnormal Negative [facility] Comment on above: Performed By: #### 1 [id number] ####[facility] [address] [place] [address] Ketones (U) [Mass/Vol] Negative Normal Negative [facility] Comment on above: Performed By: #### 1 [id number] ####[address] [address] [place].plasma/Lit hium.RBC (Bld) [Mass ratio] >30 Abnormal 0-3 [facility] Comment on above: Performed By: #### 1 [id number] ####[address] [place] [address] Nitrite Ql (U) Negative Normal Negative [facility] Comment on above: Performed By: #### 1 [id number] ####[address] [address] pH (U) 5.5 [pH] Invalid Interpretation Code 5.0-9.0 [facility] Comment on above: Performed By: #### 1 [id number] ####[address] [address] Protein (U) [Mass/Vol] TRACE Abnormal Negative [facility] Comment on above: Performed By: #### 1 [id number] ####[address] [address] Specific gravity (U) [Rel density] 1.020 Invalid Interpretation Code 1.005-1.030 [facility] Comment on above: Performed By: #### 1 [id number] ####[address] [address] Urobilinogen Qn (U) 0.2 {Orin'U}/dL Normal 0.0-1.0 [facility] Comment on above: Performed By: #### 1 [id number] ####[address] [address] WBC Auto Ql (U) 2+ Abnormal Negative [facility] Comment on above: Performed By: #### 1 [id number] ####[address] [address] WBC LM.HPF (Urine sed) [#/Area] 16-25 Abnormal 0-5 [facility] Comment on above: Performed By: #### 1 [id number] ####[address] [address] Type of Urine collection method Clean Catch Normal [facility] Comment on above: Performed By: #### 1 [id number] ####[address] [address] Dexa Scanson 10-03-2023 Dexa Scans [id number] 77#1.00TIFF [facility] C Urineon 09-20-2023 Bacteria identified Cx [...] Locations R1: This test was performed at: [facility], [address] [place] [address], [facility] , , [facility] Comment on above: Performed By: #### 2 [id number] ####[facility] [address] [place] [address] Screenson 09-20-2023 Screens [id number] 364#1.00TIFF [facility] Patient Educationon 09-18-19 24 Patient Education [...] Spinach (cooked), rhubarb, beets, sweet potatoes, and Malagasy chard. ? Peanuts. ? Potato chips, sri lankan fries, and baked potatoes with skin on. ? Nuts and nut products. ? Chocolate. ? If you regularly take a diuretic medicine, make sure to eat at least 1 or 2 servings of fruits or vegetables that are high in potassium each day. These include: ? Avocado. ? Banana. ? [place], prune, carrot, or tomato juice. ? Baked [...] fish oil, or vitamin B6. ? Take sonf-ezy-adifewe and prescription medicines only as told by your health care provider. These include supplements. What foods sh (more content not included)... Normal [facility] URINALYSISOrdered By: Theodora Gardner on 09-18-2023 Bacteria [...] AM) Normal Negative [facility] UA Auto SS [place].plasma/Lit hium.RBC (Bld) [Mass ratio] >30 /HPF Invalid Interpretation Code 0-3/HPF [facility] UA Auto SS Mucus Ql [...] Interpretation Code Negative [facility] UA Auto SS Specific gravity (U) [Rel density] 1.025 *NA* (09/18/23 9:27 AM) Invalid Interpretation Code 1.005 - 1.030 [facility] UA Auto SS UA Spec Desc Clean Catch (09/18/23 9:27 AM) Normal [facility] UA Auto SS Urobilinogen Qn (U) 0.9935453 {Orin'U}/dL Normal 0.0 - 1.0 EU/dL [facility] UA Auto SS WBC Auto Ql (U) 1+ *ABN* (09/18/23 9:27 AM) Invalid Interpretation Code Negative [facility] UA Auto SS WBC LM.HPF (Urine sed) [#/Area] /[HPF] Invalid Interpretation Code 0-5/HPF [facility] UA Auto SS Urinalysison 09-18-2023 Bacteria LM Ql (Urine sed) TRACE Normal Trace [facility] Comment on above: Performed By: #### 1 [id number] ####[facility] [address] [place] [address] Bilirubin Ql (U) Negative Normal Negative [facility] Comment on above: Performed By: #### 1 [id number] ####[address] [address] Clarity (U) SL CLOUDY Invalid Interpretation Code [facility] Comment on above: Performed By: #### 1 [id number] ####[address] [address] Color (U) YELLOW Normal Yellow [facility] Comment on above: Performed By: #### 1 [id number] ####[address] [address] Epithelial cells.squamous LM.HPF (Urine sed) [#/Area] 0-2 Normal 0-2 [facility] Comment on above: Performed By: #### 1 [id number] ####[facility] [address] [place] [address] Glucose Test strip (U) [Mass/Vol] Negative Normal Negative [facility] Comment on above: Performed By: #### 1 [id number] ####[address] [address] Hemoglobin Ql (U) 3+ Abnormal Negative [facility] Comment on above: Performed By: #### 1 [id number] ####[address] [address] Ketones (U) [Mass/Vol] Negative Normal Negative [facility] Comment on above: Performed By: #### 1 [id number] ####[address] [address] [place].plasma/Lit hium.RBC (Bld) [Mass ratio] >30 Abnormal 0-3 [facility] Comment on above: Performed By: #### 1 [id number] ####[facility] [address] [place] [address] Mucus Ql (Urine sed) 1+ Normal [facility] Comment on above: Performed By: #### 1 [id number] ####[facility] [address] [place] [address] Nitrite Ql (U) Negative Normal Negative [facility] Comment on above: Performed By: #### 1 [id number] ####[address] [address] pH (U) 6.0 [pH] Invalid Interpretation Code 5.0-9.0 [facility] Comment on above: Performed By: #### 1 [id number] ####[address] [address] Protein (U) [Mass/Vol] 1+ Abnormal Negative [facility] Comment on above: Performed By: #### 1 [id number] ####[address] [address] Specific gravity (U) [Rel density] 1.025 Invalid Interpretation Code 1.005-1.030 [facility] Comment on above: Performed By: #### 1 [id number] ####[address] [address] Type of Urine collection method Clean Catch Normal [facility] Comment on above: Performed By: #### 1 [id number] ####[address] [address] Urobilinogen Qn (U) 0.2 {Orin'U}/dL Normal 0.0-1.0 [facility] Comment on above: Performed By: #### 1 [id number] ####[address] [address] WBC Auto Ql (U) 1+ Abnormal Negative [facility] Comment on above: Performed By: #### 1 [id number] ####[facility] [address] [place] [address] WBC LM.HPF (Urine sed) [#/Area] /[HPF] Abnormal 0-5 [facility] Comment on above: Performed By: #### 1 [id number] ####[facility] [address] [place] [address] Urology Office/Clinic Noteon 09-18-2023 Urology Office/Clinic Note [...] Contact Information JIMMIE FALLON, TESSIE White, URL [address] [facility] [place] [address] Additional Instructions: 18 months with KUB Patient Education Dietary Guidelines to Help Prevent Kidney Stones Documentation recorded by the pete Richardson accurately reflects the services(s) I performed and decisions made by me. Authenticated by Tessie Pennington PA-C on 09/18/2023 10:05:00. Hortensia Salazar, personally scribed for Tessie Pennington PA-C on [...] Status Comments influe (more content not included)... Normal [facility] Comment on above: Result Comment: Elec tronically Signed By: TESSIE PENNINGTON PA-C.br\Date and Time Signed: 09/18/23 10:05 EST\.br\Electronically Co-Signed By: Hortensia Richardsonbr\Date and Time Co-Signed: 09/18/23 09:29 EST Patient Correspondenceon Patient Correspondence [id number] 76#1.00TIFF Normal [facility] DEXA BONE DENSITY 2 SITESon 09-07-2023 DEXA [...] Checo Montano MD 09/07/23 Final result Normal [facility] Dexa Scanson 09-07-2023 Dexa Scans [id number] E2#1.00TIFF Normal [facility] RAD - MISCon 09-07-2023 RAD - MISC [id number] 0E#1.00TIFF Normal [facility] XR ABDOMEN (KUB) (SINGLE AP VIEW)on 09-07-2023 [...] Cristóbal Sepulveda DO 09/07/23 Final result Normal [facility] Ambulatory Visit Summaryon 0 08-28-2023 Ambulatory Visit [...] Team Attending Physician - Shawn FERNANDEZ, Jimmy JOAQUIN Primary Care Physician - Shawn [...] TESSIE PENNINGTON PA-C Where: [facility] [address] [address]- \.br\ Medications\.br\ What How Much When Instructions\.br\ New ondansetron (Zofran 4 mg Tab) 1 Tablets By Mouth Every 8 hours as needed for Nausea/Vomiting Pickup at [facility]\.br\ Unchanged aspirin (aspirin 81 mg Oral [...] if questions or concerns \.br\ Pharmacy Information\.br\ [facility]: [address] [place], [place] [id number] [phone]\.br\ Allergies\.br\ Bactrim DS (Nausea and vomiting)\.br\ Problems\.br\ [...] for choosing us for your care.\.br\ \.br\ [facility] Ambulatory Visit Summary TEMITOPE TREJO :1955 Visit [...] Care Team Attending Physician - Shawn MSN, ASSOCIATE PROFESSOR OF SOCIOLOGY-STORAGE SOLUTIONS ARCHITECTJimmy Primary Care Physician - Shawn MSN, ASSOCIATE PROFESSOR OF SOCIOLOGY-STORAGE SOLUTIONS ARCHITECTJimmy. This Is Your Medications List ondansetron (Zofran [...] FALLON, TESSIE White Where: [facility] [address] [place] [address]- \.br\ Medications\.br\ What How Much When Instructions\.br\ New ondansetron (Zofran 4 mg Tab) 1 Tablets By Mouth Every 8 hours as needed for Nausea/Vomiting Pickup at [facility]\.br\ Unchanged aspirin (aspirin 81 mg Oral [...] if questions or concerns \.br\ Pharmacy Information\.br\ [facility]: [address], [place] [id number] [phone]\.br\ Allergies\.br\ Bactrim DS (Nausea and vomiting)\.br\ Problems\.br\ [...] for choosing us for your care.\.br\ \.br\ [facility] CBC w/ Auto Diffon 4 Basophil Absolute 0.0 E9/L Normal 0.0-0.2 [facility] Comment on above: Performed By: #### 1 [id number], 4528979, 5614545, 0012940 ####[facility] [address] [place] [address] Basophils/100 WBC (Bld) 0.4 % Normal 0.0-2.0 [facility] Comment on above: Performed By: #### 1 7993432, 3143207, 1419901, 8277637 ####[address] [address] Eos Absolute 0.1 E9/L Normal 0.0-0.5 [facility] Comment on above: Performed By: #### 1 4453261, 1080549, 7370877, 0953977 ####[address] [address] Eosinophils/100 WBC (Bld) 1.0 % Normal 0.0-8.0 [facility] Comment on above: Performed By: #### 1 0265532, 2105091, 6202042, 7579522 ####[address] [address] Erythrocyte distribution width (RBC) [Ratio] 14.1 % Normal 10.9-14.2 [facility] Comment on above: Performed By: #### 1 3040063, 6378886, 5641682, 6338390 ####[address] [address] Hematocrit (Bld) [Volume fraction] 47.0 % High 34.0-46.0 [facility] Comment on above: Performed By: #### 1 8806281, 4975950, 5782413, 6843115 ####[address] [address] Hemoglobin (Bld) [Mass/Vol] 15.8 g/dL Normal 12.0-16.0 [facility] Comment on above: Performed By: #### 1 5557253, 4535952, 6697538, 1124334 ####[address] [address] Lymph Absolute 1.7 E9/L Normal 1.0-4.0 [facility] Comment on above: Performed By: #### 1 9407653, 5712655, 1266340, 5170364 ####[address] [address] Lymphocytes/100 WBC (Bld) 27.1 % Normal 14.0-50.0 [facility] Comment on above: Performed By: #### 1 6171790, 6432448, 4356496, 5523409 ####[address] [address] MCH (RBC) [Entitic mass] 28.3 pg Normal 27.0-34.0 [facility] Comment on above: Performed By: #### 1 6299492, 6182009, 6499260, 7615633 ####[address] [address] MCHC (RBC) [Mass/Vol] 33.5 g/dL Normal 31.4-36.0 [facility] Comment on above: Performed By: #### 1 8147968, 3733677, 1726368, 1668880 ####[address] [address] MCV (RBC) [Entitic vol] 84.6 fL Normal 80.0-100.0 [facility] Comment on above: Performed By: #### 1 2117499, 7946349, 8503633, 1894925 ####[address] [address] Gaines Absolute 0.4 E9/L Normal 0.2-1.0 [facility] Comment on above: Performed By: #### 1 2410257, 6398065, 7474315, 6852401 ####[address] [address] Monocytes/100 WBC (Bld) 6.7 % Normal 4.0-14.0 [facility] Comment on above: Performed By: #### 1 9984139, 7077782, 4151405, 7701143 ####[facility] [address] [place] [address] Neutro Absolute 4.1 E9/L Normal 2.0-7.[address] [facility] Comment on above: Performed By: #### 1 3170769, 8132116, 2740937, 6440577 ####[facility] [address] [place] [address] Neutro Auto 64.8 % Normal 36.0-75.0 [facility] Comment on above: Performed By: #### 1 3200702, 2242902, 4387665, 7408845 ####[address] [address] Platelet 186.0 E9/L Normal 150.0-500.0 [facility] Comment on above: Performed By: #### 1 2150149, 5367235, 4363951, 0268676 ####[address] [address] Platelet mean volume (Bld) [Entitic vol] 11.4 fL High 6.4-10.8 [facility] Comment on above: Performed By: #### 1 1118418, 2908386, 6573358, 3828775 ####[facility] [address] [place] [address] RBC 5.6 E12/L Normal 4.3-5.9 [facility] Comment on above: Performed By: #### 1 7834256, 9459606, 2726842, 6694782 ####[facility] [address] [place] [address] WBC 6.4 E9/L Normal 4.0-11.0 [facility] Comment on above: Performed By: #### 1 4376848, 2003312, 8882346, 6522914 ####[facility] [address] [place] [address] CMPon 08-28-2023 Albumin [Mass/Vol] 4.5 g/dL Normal 3.3-5.0 [facility] Comment on above: Performed By: #### 1 2960515, 7152087, 0655271, 3323036 ####[address] [place] [address] Albumin/Globulin [Mass ratio] 1.5 {ratio} Normal 1.1-2.2 [facility] Comment on above: Performed By: #### 1 5386794, 3842427, 4859328, 2303735 ####[address] [address] Alk Phos 79 Int._Unit/L Normal 21-98 [facility] Comment on above: Performed By: #### 1 8908230, 1977792, 9899612, 2569051 ####[address] [address] ALT 37 Int._Unit/L Normal 6-46 [facility] Comment on above: Performed By: #### 1 5631250, 7344450, 8087556, 7765641 ####[address] [address] Anion gap [Moles/Vol] 11 mmol/L Normal 6-16 [facility] Comment on above: Performed By: #### 1 4105339, 3329633, 0571420, 0691653 ####[address] [address] AST 27 Int._Unit/L Normal 5-43 [facility] Comment on above: Performed By: #### 1 4666451, 6164667, 8431491, 2695074 ####[address] [address] Bili Total 1.0 mg/dL Normal 0.0-1.1 [facility] Comment on above: Performed By: #### 1 9044686, 1215264, 7527411, 1225546 ####[address] [place] [address] BUN/Creat Ratio 27 No Units High 10-20 [facility] Comment on above: Performed By: #### 1 3282387, 7800004, 3878246, 3017745 ####[facility] [address] [place] [address] Calcium [Mass/Vol] 10.8 mg/dL Normal 8.9-11.1 [facility] Comment on above: Performed By: #### 1 9095440, 9317219, 3903768, 8988798 ####[address] [place] [address] Chloride [Moles/Vol] 102 mmol/L Normal 101-111 [facility] Comment on above: Performed By: #### 1 6341884, 9430290, 6134029, 3836640 ####[address] [address] CO2 [Moles/Vol] 31 mmol/L Normal 21-[address] [facility] Comment on above: Performed By: #### 1 8342532, 8873269, 2275468, 1469856 ####[address] [place] [address] Creatinine [Mass/Vol] 0.9 mg/dL Normal 0.5-1.3 [facility] Comment on above: Performed By: #### 1 1924978, 8608259, 3491869, 4772685 ####[facility] [address] [place] [address] Globulin (S) [Mass/Vol] 3.1 g/dL Normal 1.4-4.0 [facility] Comment on above: Performed By: #### 1 3139970, 4782494, 9146264, 4008608 ####[address] [place] [address] Glucose [Mass/Vol] 95 mg/dL Normal 55-199 [facility] Comment on above: Performed By: #### 1 9668333, 0200326, 1692888, 0971225 ####[facility] [address] [place] [address] Potassium [Moles/Vol] 3.5 mmol/L Normal 3.5-5.3 [facility] Comment on above: Performed By: #### 1 2778376, 2275953, 4313235, 3591773 ####[facility] [address] [place] [address] Protein [Mass/Vol] 7.6 g/dL Normal 6.0-7.8 [facility] Comment on above: Performed By: #### 1 1165457, 8159954, 8359861, 5850311 ####[facility] [address] [place] [address] Sodium [Moles/Vol] 140 mmol/L Normal 135-145 [facility] Comment on above: Performed By: #### 1 8477956, 7988786, 0835261, 9549979 ####[facility] [address] [place] [address] Urea nitrogen [Mass/Vol] 24 mg/dL High 5-21 [facility] Comment on above: Performed By: #### 1 2479069, 3745798, 0416165, 8747332 ####[facility] [address] [place] [address] Family Medicine Office/Clini c Noteon 08-28-2023 Family Medicine [...] Diff Comprehensive Metabolic Panel Lab Specimen Collect 78196 Lipid Panel 3. Hematuria (R31.9: Hematuria, unspecified) [...] Diff Comprehensive Metabolic Panel Lab Specimen Collect 14049 Lipid Panel 4. Nausea (R11.0: Nausea) She [...] anything should change. Ordered: Lab Specimen Collect 34310 5. BMI 23.0-23.9, adult (Z68.23: Body mass index [BMI] 23.0-23.9, adult) Maintain a healthy weight through proper nutrition and exercise. Ordered: Lab Specimen Collect 75251 6. Lipid screening (Z13.220: Encounter for screening for lipoid disorders) Ordere (more content not included)... Normal [facility] Comment on above: Result Comment: Elec tronically Signed By: Shawn FERNANDEZ, ASSOCIATE PROFESSOR OF SOCIOLOGY- Jimmy BUSTAMANTE\.br\Date and Time Signed: 08/28/23 17:48 EST\.br\Electronically Co-Signed By: Rosalinda Perkins.br\Date and Time Co-Signed: 08/28/23 13:11 EST Formson 08-28-2023 Forms [id number] FB#1.00TIFF Normal [facility] Lipid Panelon 08-28-2023 Cholesterol [Mass/Vol] 183 mg/dL Normal 120-200 [facility] Comment on above: Performed By: #### 1 0169092, 6796963, 4166437, 5863327 ####[facility] [address] [place] [address] Cholesterol in HDL [Mass/Vol] 51 mg/dL Invalid Interpretation Code [facility] Comment on above: Result Comment: '>= 60 LOW RISK' '<= 40 HIGH RISK' Performed By: #### 1 5737610, 4300353, 0977439, 6215299 ####[facility] [address] [place] [address] Cholesterol in LDL [Mass/Vol] 114 mg/dL Normal <=129 [facility] Comment on above: Performed By: #### 1 0047378, 8362308, 4189257, 7858559 ####[facility] [address] [place] [address] Cholesterol in VLDL [Mass/Vol] 28 mg/dL Normal 7-40 [facility] Comment on above: Performed By: #### 1 4629257, 3280773, 8733702, 4705678 ####[facility] [address] [place] [address] Triglyceride [Mass/Vol] 140 mg/dL Normal <=149 [facility] Comment on above: Performed By: #### 1 2562998, 7404149, 4405336, 0201688 ####[facility] [address] [place] [address] Patient Educationon 08-28-19 24 Patient Education Nutrition [...] health care provider. General instructions ? Take oeoh-apl-cxcnfny and prescription medicines only as told by your health care provider. ? Keep all follow-up visits. This is important. Where to find more information ? [place] [employer]: www.heart.org ? National Heart, Lung, and Blood [place]: www.nhlbi.nih.gov Contact a health care provider if: ? You have trouble achieving or maintaining a healthy (more content not included)... Normal [facility] eGFRon 08-28-2023 eGFR 69 mL/min/1.73 m2 Normal >=59 [facility] Comment on above: Order Comment: Order added by Discern Expert. Performed By: #### 1 2048319, 8004084, 6043208, 5167984 ####[facility] [address] [place] [address] Outside Mammographyon 2023 Outside Mammography [id number] E2#1.00TIFF Normal [facility] BARRETT DAVID DIGITAL SCREEN BILA IBISALon 07-17-2023 BARRETT DAVID DIGITAL SCREEN BILATERAL HISTORY: [...] Gomes Jr., MD 07/17/23 Final result Normal [facility] Family Medicine Office/Clini c Noteon 07-08-2023 Family [...] of clutter to prevent tripping and/or falling. [place] Advance Directives reviewed. Documents remain at home, [...] PCP visit. Labs to be completed with [facility]. No concerns with bowel/ bladder. Cologuard last [...] directed. 3. On statin therapy (Z79.899: Other longterm (current) drug therapy) Patient currently taking statin [...] or l (more content not included)... Normal [facility] Comment on above: Result Comment: Elec tronically [...] physician. Your Care Team Attending Physician - JEMAL Smiley Tammy L. Primary Care Physician - JEMAL Smiley Tammy [...] EST With: Shawn FERNANDEZ, Jimmy JOAQUIN [facility] Invalid Interpretation Code [address] [place] [id number]- \.br\ 2023 8:00 AM EST \.br\ [facility]:\.br\ [facility] Ambulatory Visit Summary TEMITOPE TREJO :1955 Visit [...] physician. Your Care Team Attending Physician - JEMAL Smiley Tammy L. Primary Care Physician - JEMAL Smiley Tammy [...] Appointments Sunday 9:00 AM EST With: Shawn MSN, ASSOCIATE PROFESSOR OF SOCIOLOGY-[employer] ARCHITECT, Jimmy Clarke Where: [facility] Invalid Interpretation Code [address] [place] [address]- \.br\ 2023 8:00 AM EST \.br\ With:\.br\ Where: [facility] Consent for Flu Vaccineon Consent for Flu Vaccine [id number] DF#1.00TIFF Normal [facility] Patient Educationon 06-26-20 23 Patient Education Nutrition BMI for Adults What [...] numbers. This can be done either in Cymro (U.S[place] or metric measurements. Note that charts and online BMI calculators are available to help you find your BMI quickly and easily without having to do these calculations yourself. To calculate your BMI in Cymro ([place] measurements: 1. Measure your weight in [...] for Disease Control and Prevention: www.cdc.gov ? [place] [employer]: www.heart.org ? National Heart, Lung, and Blood [place]: www.nhlbi.nih.gov Summary ? Body mass index (BMI) is a number that is calculated from a person's weight and height. ? BMI may help estimate how much of a person's weight is composed of fat. BMI can help identify those who may be at higher risk for certain medical problems. ? BMI can be measured using Cymro measurements or metric measurements. ? BMI charts are used to identify whether you are underweight, normal weight, overweight, or obese. This information is not intended to replace advice given to you by your health care provider. Make sure you discuss any questions you have with your health care provider. Document Revised: 03/31/2020 Document Reviewed: 02/06/2020 gdgt Patient Education ? 2022 Birthday [employer]. Dyslipidemia Dyslipidemia is an imbalance of waxy, [...] fatty subs (more content not included)... Normal [facility] Screenson 06-26-2023 Screens [id number] 46#1.00TIFF [facility] Lab Reportson 03-12-2023 Lab Reports [id number] BE#[id number]:127 [facility] URINALYSISOrdered By: Darian call on 08-01-2022 Bacteria LM Ql (Urine sed) 1+ /HPF Invalid Interpretation Code Trace/HPF [facility] UA Auto SS Bilirubin Ql (U) Negative (08/01/22 2:50 PM) Normal Negative [facility] UA Auto SS Clarity (U) Clear (08/01/22 2:50 PM) Normal Clear [facility] UA Auto SS Color (U) Yellow (08/01/22 2:50 PM) Normal Yellow [facility] UA Auto SS Crystals LM Ql (Urine sed) Present (08/01/22 2:50 PM) Normal [facility] UA Auto SS Epithelial cells.squamous LM.HPF (Urine sed) [#/Area] 3-4 /HPF Normal 0-2/HPF [facility] UA Auto SS Glucose Test strip (U) [Mass/Vol] Negative (08/01/22 2:50 PM) Normal Negative [facility] UA Auto SS Hemoglobin Ql (U) Trace *ABN* (08/01/22 2:50 PM) Invalid Interpretation Code Negative [facility] UA Auto SS Ketones (U) [Mass/Vol] Trace *NA* (08/01/22 2:50 PM) Invalid Interpretation Code Negative [facility] UA Auto SS [place].plasma/Lit hium.RBC (Bld) [Mass ratio] 0-3 /HPF Normal [...] [facility] UA Auto SS Urobilinogen Qn (U) 0.2810740 {Orin'U}/dL Normal 0.0 - 1.0 EU/dL [facility] UA Auto SS WBC Auto Ql (U) Trace *ABN* (08/01/22 2:50 PM) Invalid Interpretation Code Negative [facility] UA Auto SS WBC LM.HPF (Urine sed) [#/Area] 16-25 /HPF Invalid Interpretation Code 0-5/HPF [facility] UA Auto SS XR ABDOMEN (KUB) (SINGLE AP VIEW)on 07-28-2022 FINDINGS/IMPRESSION : 1. 6 mm stone over the inferior pole right kidney unchanged. 2. No new stones. [facility] EXAM: XR ABDOMEN (KUB) (SINGLE AP VIEW) HISTORY: Kidney stone COMPARISON: KUB 12/16/2021 [facility] Esteban Gomes Jr., MD - 07/28/2022 EXAM: XR ABDOMEN (KUB) (SINGLE AP VIEW) HISTORY: Kidney stone COMPARISON: KUB 12/16/2021 IMPRESSION: FINDINGS/IMPRESSION : 1. 6 mm stone over the inferior pole right kidney unchanged. 2. No new stones. [employer] Phone: Radiology Study observation (narrative) [employer] Phone: XR ABDOMEN (KUB) (SINGLE AP VIEW)Ordered By: Esteban Gomes on 07-28-2022 [employer] Phone: CHEMISTRYOrdered By: SYSTEM SYSTEM on 06-27-2022 [...] the region of right renal pelvis/UPJ, unchanged. [facility] EXAM: XR ABDOMEN (KUB) (SINGLE AP VIEW) HISTORY: N20.0. 66-year-old female. Follow up kidney stones. COMPARISON: CT abdomen and pelvis 10/13/2021, KUB 09/23/2021. TECHNIQUE: KUB, 2 views. FINDINGS: Prior distal right ureteral stones are no longer seen. A 6 mm stone in the region of the right renal pelvis/right UPJ, unchanged. [facility] Esteban Gomes Jr., MD - 12/16/2021 [...] the region of right renal pelvis/UPJ, unchanged. [employer] Phone: Radiology Study observation (narrative) [employer] Phone: XR ABDOMEN (KUB) (SINGLE AP VIEW)Ordered By: Esteban Gomes on 12-16-2021 [employer] Phone: CT ABDOMEN PELVIS W WO CONTR AST Additional Contrast? Noneon 10-13-2021 2 nonobstructing obstructing distal right ureteral calculi. 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 [facility] EXAMINATION: CT ABDOMEN PELVIS W WO [...] without aneurysm. Bladder contour normal. Normal-sized uterus. [facility] Esteban Gomes Jr., MD - 10/13/2021 [...] ureter best seen on the coronal images. [employer] Phone: Radiology Study observation (narrative) [employer] Phone: CT ABDOMEN PELVIS W WO CONTR AST Additional Contrast? NoneOrdered By: Esteban Gomes on 10-13-2021 [employer] Phone: XR ABDOMEN (KUB) (SINGLE AP VIEW)on 09-23-2021 The two right-sided suspected distal ureteral stones are unchanged and a stone previously in the right kidney may be at the right ureteropelvic junction. [facility] EXAM: XR ABDOMEN (KUB) (SINGLE AP VIEW) HISTORY: R31.21. 65-year-old female, follow-up stones. COMPARISON: KUB 08/11/2021. TECHNIQUE: KUB, two images. FINDINGS: 6 mm stone that was previously in the superior pole right kidney could now be at the right ureteropelvic junction. The previously suspected two 5 mm stones in the distal right ureter are unchanged. [facility] Esteban Gomes Jr., MD - 09/23/2021 EXAM: XR ABDOMEN [...] may be at the right ureteropelvic junction. [employer] Phone: Radiology Study observation (narrative) [employer] Phone: XR ABDOMEN (KUB) (SINGLE AP VIEW)Ordered By: Esteban Gomes on 09-23-2021 [employer] Phone: XR ABDOMEN (KUB) (SINGLE AP VIEW)on 08-11-2021 There are likely two 5 mm stones in the distal right ureter now. [facility] EXAM: XR ABDOMEN (KUB) (SINGLE AP [...] pole right kidney. No definite left-sided stones. PN Etseban Denise Jr., MD - 08/11/2021 EXAM: XR ABDOMEN [...] stones in the distal right ureter now. [employer] Phone: Radiology Study observation (narrative) [employer] Phone: XR ABDOMEN (KUB) (SINGLE AP VIEW)Ordered By: Esteban Gomes on 08-11-2021 [employer] Phone: XR ABDOMEN (KUB) (SINGLE AP VIEW)Ordered By: Isidoro Goldberg on 04-22-2021 Two 5 mm right renal calculi. Persistent likely 5 mm stone distal right ureter. [employer] Phone: EXAM: XR ABDOMEN (KUB) (SINGLE AP [...] at the level of the ischial spine. [employer] Phone: Junior, [facility] Incoming Radiant Results From [employer] - 04/22/2021 4:08 PM EDT EXAM: XR [...] likely 5 mm stone distal right ureter. [employer] Phone: [employer] Phone: XR ABDOMEN (KUB) (SINGLE AP VIEW)Ordered By: Isidoro Goldberg on 11-26-2020 2 possible residual stone fragments, 5 mm each over the superior one third right kidney and a possible 5 mm stone fragment at the level the right ischial spine. [employer] Phone: EXAM: XR ABDOMEN (KUB) (SINGLE AP [...] present. No left-sided stones. Bowel gas normal. [employer] Phone: Junior, pn Incoming Radiant Results From [employer] - 11/26/2020 6:42 PM EDT EXAM: XR [...] at the level the right ischial spine. [employer] Phone: COVID-19 Positive/Negativeon 11-08-2020 SARS-CoV-2 (COVID-19) N gene BRENDON+probe Ql (Resp) Negative Negative [facility] Comment on above: Reference: NegativeT esting for SARS-CoV-2 by RT-PCRThis test was developed and its performance characteristics determined by [employer] and validated at the [facility]. This test has not been FDA [...] (COVID-19) RNA BRENDON+probe Ql (Unsp spec) N/A [facility] Activated partial thrombopla stin time (aPTT) in platelet poor plasma by coagulation aon 11-02-2020 aPTT Coag (PPP) [Time] 36.3 s 25.1-36.5 [facility] Basophils Auto (Bld) [#/Vol] on 11-02-2020 Basophils (Bld) [#/Vol] 0.0 10*3/uL 0.0-0.2 [facility] Basophils/100 WBC Auto (Bld) on 11-02-2020 Basophils/100 WBC (Bld) 0.5 % [facility] Blood hemoglobin measurement (mass/volume)on 11-02-2020 Hemoglobin (Bld) [Mass/Vol] 15.0 g/dL 11.8-15.4 [facility] Blood leukocytes automated c ount (number/volume)on 11-02-2020 WBC (Bld) [#/Vol] 3.8 10*3/uL 4.5-11.0 [facility] Creatinine and Glomerular fi ltration rate.predicted panel (S/P/Bld)on 11-02-2020 Creatinine [Mass/Vol] 0.86 mg/dL 0.44-1.03 [facility] Eosinophils Auto (Bld) [#/Vo l]on 11-02-2020 Eosinophils (Bld) [#/Vol] 0.1 10*3/uL 0.0-0.45 [facility] Eosinophils/100 WBC Auto (Bl d)on 11-02-2020 Eosinophils/100 WBC (Bld) 2.0 % [facility] Erythrocyte distribution wid th Auto (RBC) [Ratio]on 11-02-2020 Erythrocyte distribution width (RBC) [Ratio] 13.5 % 11.9-15.3 [facility] GFR/1.73 sq M.predicted laxmi g non-blacks MDRD (S/P/Bld) [Vol rate/Area]on 11-02-2020 GFR/1.73 sq M predicted among non-blacks MDRD (S/P/Bld) [Vol rate/Area] > 60 mL/Min [facility] Hematocrit Auto (Bld) [Volum e fraction]on 11-02-2020 Hematocrit (Bld) [Volume fraction] 44.2 % 34.0-46.4 [facility] Hematologyon 11-02-2020 PT Coag (PPP) [Time] 11.2 s 9.0-12.9 [facility] Lymphocytes Auto (Bld) [#/Vo l]on 11-02-2020 Lymphocytes (Bld) [#/Vol] 1.5 10*3/uL 1.00-4.8 [facility] Lymphocytes/100 WBC Auto (Bl d)on 11-02-2020 Lymphocytes/100 WBC (Bld) 38.1 % [facility] MCH Auto (RBC) [Entitic mass ]on 11-02-2020 MCH (RBC) [Entitic mass] 28.9 pg 24.7-34.3 [facility] MCHC Auto (RBC) [Mass/Vol]on 11-02-2020 MCHC (RBC) [Mass/Vol] 33.9 g/dL 32.0-35.0 [facility] MCV Auto (RBC) [Entitic vol] on 11-02-2020 MCV (RBC) [Entitic vol] 85.4 fL 80-100 [facility] Monocytes Auto (Bld) [#/Vol] on 11-02-2020 Monocytes (Bld) [#/Vol] 0.3 10*3/uL 0.0-0.8 [facility] Monocytes/100 WBC Auto (Bld) on 11-02-2020 Monocytes/100 WBC (Bld) 8.6 % [facility] Neutrophils Auto (Bld) [#/Vo l]on 11-02-2020 Neutrophils (Bld) [#/Vol] 2.0 10*3/uL 1.8-7.7 [facility] [facility] Neutrophils/100 WBC Auto (Bl d)on 11-02-2020 Neutrophils/100 WBC (Bld) 50.8 % [facility] No Panel Informationon 11-02 Estimated GFR () > 60 mL/Min [facility] Comment on above: GFR estimated refere nce range: According to KDOQI guidelines, <60 ml/min/1.73m2 is sufficient to diagnose a patient with chronic kidney disease. Otheron 11-02-2020 GFR/1.73 sq M.predicted MDRD (S/P/Bld) [Vol rate/Area] > 60 mL/Min [facility] Comment on above: GFR estimated refere nce range: According to KDOQI guidelines, <60 ml/min/1.73m2 is sufficient to diagnose a patient with chronic kidney disease. Nucleated RBC/100 WBC (Bld) [Ratio] 0.3 % 0-0.5 [facility] Creatinine Clearance (Chem N/A [facility] Platelet mean volume Auto (B ld) [Entitic vol]on 11-02-2020 Platelet mean volume (Bld) [Entitic vol] 10.6 fL 6.3-10.7 [facility] Platelet poor plasma interna tional normalized ratio (INR) by coagulation assay (relaton 11-02-2020 INR Coag (PPP) [Relative time] 1.0 {INR} [facility] Comment on above: INR Therapeutic Rang [...] 11-02-2020 Platelets (Bld) [#/Vol] 150 10*3/uL 150-450 [facility] RBC Auto (Bld) [#/Vol]on RBC (Bld) [#/Vol] 5.17 10*6/uL 3.60-5.00 [facility] Serum or plasma calcium lisandro urement (mass/volume)on 11-02-2020 Calcium [Mass/Vol] 9.3 mg/dL 8.2-10.2 [facility] Serum or plasma chloride dany surement (moles/volume)on 11-02-2020 Chloride [Moles/Vol] 104 mmol/L 95-114 [facility] Serum or plasma glucose lisandro urement (mass/volume)on 11-02-2020 Glucose [Mass/Vol] 76 mg/dL 70-100 [facility] Comment on above: ADA recommended refe rence rangeRandom Glucose Reference Range is dependent on time and content of last meal. Glucose of more than 200 mg/dL in a nonstressed, ambulatory subject supports the diagnosis of Diabetes Mellitus. Serum or plasma potassium me asurement (moles/volume)on 11-02-2020 Potassium [Moles/Vol] 4.2 mmol/L 3.5-5.1 [facility] Serum or plasma sodium measu rement (moles/volume)on 11-02-2020 Sodium [Moles/Vol] 140 mmol/L 136-146 [facility] Serum or plasma total carbon dioxide measurement (moles/volume)on 11-02-2020 CO2 [Moles/Vol] 26.7 mmol/L 22.0-30.0 [facility] Serum or plasma urea nitroge n measurement (mass/volume)on 11-02-2020 Urea nitrogen [Mass/Vol] 18 mg/dL 9- [facility] XR ABDOMEN (KUB) (SINGLE AP VIEW)on 09-01-2020 1. Grossly stable right nephrolithiasis consisting of a large 3.5 cm stone within the renal pelvis. [employer] Phone: EXAMINATION: XR ABDOMEN (KUB) (SINGLE AP [...] abnormality. OTHER: Negative. No abnormal gaseous collections. [employer] Phone: Junior, pn Incoming Radiant Results From [employer] - 09/01/2020 1:37 PM EST EXAMINATION: XR [...] 3.5 cm stone within the renal pelvis. [employer] Work Phone: CT ABDOMEN PELVIS WO CONTRAS T [...] no follow-up. 4. Very small hiatal hernia. [employer] [place], [place] EXAMINATION: CT ABDOMEN AND PELVIS WO CONTRAST [...] otherwise. Abdominal wall intact. Soft tissues normal. [employer] [place], [place] Junior, [employer] Incoming Radiant Results From [employer] - 06/24/2020 9:00 AM EST EXAMINATION: CT [...] no follow-up. 4. Very small hiatal hernia. [place], [place] XR ABDOMEN (KUB) (SINGLE AP VIEW)on 05-31-2020 Large calcification over the right upper quadrant abdomen has a rectangular shape, not typical for either a renal stone or gallstone, but it is in the location that would suggest one or the other. It would take a CT scan to further localize its position, if clinically desired. [place] EXAM: XR ABDOMEN (KUB) (SINGLE AP [...] 2014. The bowel gas pattern is nonobstructive. [place] [employer], [employer] Incoming Radiant Results From [employer] - 05/31/2020 5:53 PM EST EXAM: XR [...] further localize its position, if clinically desired. [facility] DAVID DIGITAL SCREEN SONIA Herzoggermán 05-27-2020 BI-RADS 1 - Negative, no evidence of malignancy. Normal interval followup in 12 months. OVERALL ASSESSMENT- NEGATIVE A letter of notification will be sent to the patient regarding the results. [place], [place] HISTORY: Screening. Family history breast carcinoma. [...] skin lesions and linear markers represent scars.) [place], [place] [employer], [employer] Incoming Radiant Results From [employer]/Pacs - 05/27/2020 10:31 AM EST HISTORY: Screening. [...] sent to the patient regarding the results. [place] DEXA BONE DENSITY 2 SITESon 05-26-2020 [...] increased in retrospect in size from 2014 [facility] [employer] DXA scans. Consider KUB for further evaluation, if there are no outside films available for comparison. [place] EXAM: DEXA BONE DENSITY 2 SITES HISTORY: M89.29 64-year-old female, screen for osteoporosis. COMPARISON: [facility] Andres, DXA scans 01/18/2012, [place] DXA scan 07/10/2014. TECHNIQUE: DXA scan lumbar spine and bilateral hips, [facility] scanner 66735. This was the same scanner utilized in 2014. FINDINGS: There is a prominent round density which has increased in size over the region of the right kidney/right upper quadrant since 2013 [email or web address] [place] [email or web address] Andres, DXA scans in retrospect of unknown origin. Consider a KUB for further evaluation. This would be an expected region for gallstones or kidney stones. There are no prior films of this area for comparison. The bone mineral density L1 through L4 measures 1.112 g/sq cm with a T-score -0.6 which is normal. This does show a 5% decrease from 2013 but remains within normal limits. The bone mineral density of the hips is normal at 0.989 g/sq cm with a T-score of -0.1 and this shows an insignificant 1.1% decrease. [employer] [place], [employer] Incoming Radiant Results From [employer] - 05/26/2020 6:23 PM EST EXAM: DEXA BONE DENSITY 2 SITES HISTORY: M89.29 64-year-old female, screen for osteoporosis. COMPARISON: [employer] Andres, DXA scans 01/18/2012, [place] DXA scan 07/10/2014. TECHNIQUE: DXA scan lumbar spine and bilateral hips, [employer] scanner 24924. This was the same scanner utilized in 2013. FINDINGS: There is a prominent round density which has increased in size over the region of the right kidney/right upper quadrant since 2013 [email or web address] Andres, DXA scans in retrospect of unknown origin. Consider a KUB for further evaluation. This would be an expected region for gallstones or kidney stones. There are no prior films of this area for comparison. The bone mineral density L1 through L4 measures 1.112 g/sq cm with a T-score -0.6 which is normal. This does show a 5% decrease from 2013 but remains within normal limits. The bone [...] increased in retrospect in size from 2014 [place] and [employer] DXA scans. Consider KUB for further evaluation, if there are no outside films available for comparison. [employer] DX Screening Mammogramon DX Screening Mammogram Patient Name: Mohinder TREJO : [id number]: [id number] Date: [id number] nt #: [id number] Class: OPhysician: CALL, DOCTOR ONFamily Physician: CALL, [...] Juno Martinez 02/02/2017 12:31[facility] [place] [address] [email or web address] [address] [email or web address] [facility] Vital Signs Date Time Vital Sign Value Performing Clinician Mino marvin 01-18-2024 10:16-0400 Blood Pressure Location Jose A GRAMAJO [facility] 01-18-2024 10:16-0400 Body temperature 98.6 [degF] Jose A GRAMAJO [facility] 01-18-2024 10:16-0400 Diastolic blood pressure 88 mm[Hg] Jose A GRAMAJO [facility] 01-18-2024 10:16-0400 Heart rate 76 /min Jose A GRAMAJO [facility] 01-18-2024 10:16-0400 Respiratory rate 16 /min Jose A GRAMAJO [facility] 01-18-2024 10:16-0400 Systolic blood pressure 135 mm[Hg] Jose A GRAMAJO [facility] 11-26-2023 11:33-0400 Blood Pressure Location Jose A GRAMAJO [facility] 11-26-2023 11:33-0400 Body temperature 98.6 [degF] Jose A GRAMAJO [facility] 11-26-2023 11:33-0400 Diastolic blood pressure 83 mm[Hg] Jose A GRAMAJO [facility] 11-26-2023 11:33-0400 Heart rate 67 /min Jose A GRAMAJO [facility] 11-26-2023 11:33-0400 Respiratory rate 16 /min Jose A GRAMAJO [facility] 11-26-2023 11:33-0400 Systolic blood pressure 122 mm[Hg] Jose A GRAMAJO [facility] 10-23-2023 15:58-0400 Blood Pressure Location Kina Orzech [facility] 10-23-2023 15:58-0400 Body temperature 98.42 [degF] Kina Orzech [facility] 10-23-2023 15:58-0400 Diastolic blood pressure 76 mm[Hg] Kina Orzech [facility] 10-23-2023 15:58-0400 Heart rate 72 /min Kina Orzech [facility] 10-23-2023 15:58-0400 Respiratory rate 16 /min Kina Orzech [facility] 10-23-2023 15:58-0400 Systolic blood pressure 126 mm[Hg] Kina Orzech [facility] 09-18-2023 08:59-0500 Blood Pressure Location TESSIE JIMMIE [facility] 09-18-2023 08:59-0500 Diastolic blood pressure 88 mm[Hg] TESSIE JIMMIE [facility] 09-18-2023 08:59-0500 Heart rate 77 /min TESSIE JIMMIE [facility] 09-18-2023 08:59-0500 Respiratory rate 16 /min TESSIE JIMMIE [facility] 09-18-2023 08:59-0500 Systolic blood pressure 134 mm[Hg] TESSIE JIMMIE [facility] 11-24-2022 11:46-0400 Blood Pressure Location Jimmy Lawton [facility] 11-24-2022 11:46-0400 Diastolic blood pressure 80 mm[Hg] Jimmy Lawton [facility] 11-24-2022 11:46-0400 Heart rate 76 /min Jimmy Shawn [facility] 11-24-2022 11:46-0400 Respiratory rate 18 /min Jimmy Shawn [facility] 11-24-2022 11:46-0400 SaO2% (BldA) [Mass fraction] 97 % Jimmy Shawn [facility] 11-24-2022 11:46-0400 Systolic blood pressure 138 mm[Hg] Jimmy Shawn [facility] 10-13-2022 09:33-0400 Blood Pressure Location Jimmy Shawn [facility] 10-13-2022 09:33-0400 Body temperature 97.34 [degF] Jimmy Shawn [facility] 10-13-2022 09:33-0400 Diastolic blood pressure 82 mm[Hg] Jimmy Shawn [facility] 10-13-2022 09:33-0400 Heart rate 74 /min Jimmy Shawn [facility] 10-13-2022 09:33-0400 Respiratory rate 18 /min Jimmy Shawn [facility] 10-13-2022 09:33-0400 SaO2% (BldA) [Mass fraction] 97 % Jimmy Shawn [facility] 10-13-2022 09:33-0400 Systolic blood pressure 128 mm[Hg] Jimmy Shawn [facility] 06-27-2022 09:40-0500 Body temperature 98.42 [degF] Radha DONNAMILLER [facility] 06-27-2022 09:40-0500 Diastolic blood pressure 63 mm[Hg] Radha DONNAMILLER [facility] 06-27-2022 09:40-0500 Heart rate 75 /min Radha DONNAMILLER [facility] 06-27-2022 09:40-0500 SaO2% (BldA) [Mass fraction] 97 % Radha DONNAMILLER [facility] 06-27-2022 09:40-0500 Systolic blood pressure 128 mm[Hg] Radha DONNAMILLER [facility] 01-18-2022 10:02-0400 Blood Pressure Location Td MEEHAN [facility] [place] 01-18-2022 10:02-0400 Body temperature 97.7 [degF] Td MEEHAN [facility] 01-18-2022 10:02-0400 Diastolic blood pressure 78 mm[Hg] Td MEEHAN [facility] 01-18-2022 10:02-0400 Heart rate 69 /min Td MEEHAN [facility] [place] 01-18-2022 10:02-0400 SaO2% (BldA) [Mass fraction] 98 % Td MEEHAN [facility] [place] 06-29-2022 10:02-0400 Systolic blood pressure 140 mm[Hg] Td SIENNA [facility] [place] 12-20-2021 09:37-0400 Blood Pressure Location Isidoro Goldberg Jr. [facility] 12-20-2021 09:37-0400 Diastolic blood pressure 82 mm[Hg] Isidoro Goldberg Jr. [facility] 12-20-2021 09:37-0400 Heart rate 68 /min Isidoro Goldberg Jr. [facility] 12-20-2021 09:37-0400 Systolic blood pressure 142 mm[Hg] Isidroo Goldberg Jr. [facility] 11-24-2021 12:59-0400 Blood Pressure Location Isidoro Goldberg Jr. [facility] 11-24-2021 12:59-0400 BP/Pulse Patient Position Isidoro Goldberg Jr. [facility] 11-24-2021 12:59-0400 Diastolic blood pressure 67 mm[Hg] Isidoro Goldberg Jr. [facility] 11-24-2021 12:59-0400 Heart rate 73 /min Isidoro Goldberg Jr. [facility] 11-24-2021 12:59-0400 Mean blood pressure 81 mm[Hg] Isidoro Goldberg Jr. [facility] 11-24-2021 12:59-0400 Respiratory rate 18 /min Isidoro Goldberg Jr. [facility] 11-24-2021 12:59-0400 SaO2% (BldA) [Mass fraction] 97 % Isidoro Goldberg Jr. [facility] 11-24-2021 12:59-0400 Systolic blood pressure 108 mm[Hg] Isidoro Goldberg Jr. [facility] 11-24-2021 12:01-0400 Blood Pressure Location Isidoro Goldberg Jr. [facility] 11-24-2021 12:01-0400 BP/Pulse Patient Position Isidoro Goldberg Jr. [facility] 11-24-2021 12:01-0400 Diastolic blood pressure 75 mm[Hg] Isidoro Goldberg Jr. [facility] 11-24-2021 12:01-0400 Heart rate 74 /min Isidoro Goldberg Jr. [facility] 11-24-2021 12:01-0400 Mean blood pressure 91 mm[Hg] Isidoro Goldberg Jr. [facility] 11-24-2021 12:01-0400 Respiratory rate 16 /min Isidoro Goldberg Jr. [facility] 11-24-2021 12:01-0400 SaO2% (BldA) [Mass fraction] 98 % Isidoro Goldberg Jr. [facility] 11-24-2021 12:01-0400 Systolic blood pressure 124 mm[Hg] Isidoro Goldberg Jr. [facility] 11-24-2021 11:55-0400 Blood Pressure Location Isidoro Goldberg Jr. [facility] 11-24-2021 11:55-0400 Body temperature 96.98 [degF] Isidoro Goldberg Jr. [facility] 11-24-2021 11:55-0400 Diastolic blood pressure 68 mm[Hg] Isidoro Goldberg Jr. [facility] 11-24-2021 11:55-0400 Heart rate 71 /min Isidoro Goldberg Jr. [facility] 11-24-2021 11:55-0400 Respiratory rate 16 /min Isidoro Goldberg Jr. [facility] 11-24-2021 11:55-0400 SaO2% (BldA) [Mass fraction] 98 % Isidoro Goldberg Jr. [facility] 11-24-2021 11:55-0400 Systolic blood pressure 115 mm[Hg] Isidoro Goldberg Jr. [facility] 11-24-2021 11:45-0400 Respiratory rate 15 /min Isidoro Goldberg Jr. [facility] 11-24-2021 11:40-0400 Respiratory rate 14 /min Isidoro Goldberg Jr. [facility] 11-24-2021 11:30-0400 Body temperature 97.16 [degF] Isidoro Goldberg Jr. [facility] 11-24-2021 11:25-0400 Respiratory rate 16 /min Isidoro Goldberg Jr. [facility] 11-24-2021 10:23-0400 Mean blood pressure 110 mm[Hg] Isidoro Goldberg Jr. [facility] 11-24-2021 10:22-0400 Body temperature 97.52 [degF] Isidoro Goldberg Jr. [facility] 11-24-2021 10:22-0400 Heart rate 72 /min Isidoro Goldberg Jr. [facility] 10-25-2021 11:43-0400 Blood Pressure Location Isidoro Goldberg Jr. [facility] 10-25-2021 11:43-0400 Diastolic blood pressure 93 mm[Hg] Isidoro Goldberg Jr. [facility] 10-25-2021 11:43-0400 Heart rate 71 /min Isidoro Goldberg Jr. [facility] 10-25-2021 11:43-0400 Respiratory rate 16 /min Isidoro Goldberg Jr. [facility] 10-25-2021 11:43-0400 Systolic blood pressure 131 mm[Hg] Isidoro Goldberg Jr. [facility] Encounters Encounter Date Encounter Type Care Provider Facility Start: 06-26-2024 ambulatory Jimmy Martinez y:JACKSON Wilson Start: 02-22-2024 ambulatory Jose A Craig ty:[facility] [place] Start: 02-07-2024 ambulatory Jose A Craig ty:[id number] Start: 01-18-2024 End: 01-18-2024 ambulatory Jose A GRAMAJO Facility:[facility] [place] Start: 01-18-2024 End: 01-18-2024 Patient encounter procedure Jose A GRAMAJO [facility] Start: 01-10-2024 End: 01-10-2024 ambulatory [employer] Radha Santiago Work Phone: [facility] Work Phone: Start: 01-10-2024 End: 01-10-2024 Departed Referred [employer] Radha Santiago Work Phone: [facility] Start: 01-10-2024 End: 01-10-2024 ambulatory Jose A GRAMAJO Facility::[id number] Start: 11-26-2023 End: 11-26-2023 ambulatory Jose A GRAMAJO Facility:[facility] [place] Start: 11-26-2023 End: 11-26-2023 Patient encounter procedure Jose A GRAMAJO [facility] Start: 11-15-2023 ambulatory [facility] Start: 10-31-2023 End: 11-28-2023 Pre-admission assessment Jose A R GRAMAJO [facility] Start: 10-23-2023 End: 10-23-2023 ambulatory Kina X Orzech Facility:[facility] Start: 10-23-2023 End: 10-23-2023 Lab Drop off Kina X Orzech [facility] Start: 10-23-2023 End: 10-23-2023 ambulatory Kina X Orzech Facility:[facility] Start: 10-23-2023 End: 10-23-2023 Patient encounter procedure Kina X Orzech [facility] Start: 10-08-2023 End: 10-08-2023 Lab Drop off TESSIE PENNINGTON [facility] Start: 10-08-2023 End: 10-08-2023 ambulatory LEEANNE PENNINGTON Facility:[facility] Start: 10-08-2023 End: 10-08-2023 Patient encounter procedure TESSIE PENNINGTON [facility] Start: 09-18-2023 End: 09-18-2023 Lab Drop off TESSIE ROMEORY [facility] Start: 09-18-2023 End: 09-18-2023 ambulatory PA-C TESSIE PENNINGTON Facility:[facility] Start: 09-18-2023 End: 09-18-2023 Patient encounter procedure TESSIE PENNINGTON [facility] Start: 09-06-2023 End: 09-09-2023 ambulatory [facility] Start: 08-28-2023 End: 08-28-2023 ambulatory Jimmy Lawton Facility:[facility] Start: 07-12-2023 End: 07-15-2023 ambulatory [facility]CK[facility] Start: 06-26-2023 End: 06-26-2023 ambulatory Jimmy Lawton Facility:[facility] Start: 11-24-2022 End: 11-24-2022 Patient encounter procedure [facility] Start: 10-13-2022 End: 10-13-2022 Lab Drop off Jimmy L. Shawn [facility] Start: 10-13-2022 End: 10-13-2022 Patient encounter procedure Jimmy L. Shawn [facility] Start: 08-01-2022 End: 08-01-2022 Lab Drop off TESSIE PENNINGTON [facility] Start: 07-28-2022 End: 07-30-2022 Subsequent hospital visit by physician [facility] Additional Xray At [facility] Radiology Comment on above: Kidney stone Start: 07-07-2022 End: 07-09-2022 Subsequent hospital visit by physician [facility] Mammography Room [facility] Mammography Comment on above: Encounter for screen ing mammogram for malignant neoplasm of breast Start: 06-27-2022 End: 06-27-2022 Lab Drop off Td MEEHAN [facility] Start: 06-27-2022 End: 06-27-2022 [facility] Start: 06-27-2022 End: 06-27-2022 Well adult monitoring check done Radha SANTIAGO [facility] Start: 01-18-2022 End: 01-18-2022 Patient encounter procedure Td MEEHAN [facility] Start: 12-20-2021 End: 12-20-2021 Patient encounter procedure Isidoro Goldberg Jr. [facility] Start: 12-16-2021 End: 12-18-2021 Subsequent hospital visit by physician Patricia Additional Xray At [facility] Radiology Comment on above: Kidney stones Start: 11-24-2021 End: 11-24-2021 Admission to same day surgery center Isidoro Goldberg Jr. [facility] Start: 11-19-2021 Message Jurgen dunlap MD Work Phone: [facility] Wells DO Work Phone: Start: 10-25-2021 End: 10-25-2021 Patient encounter procedure Isidoro Goldberg Jr. [facility] Start: 10-13-2021 End: 10-15-2021 Subsequent hospital visit by physician [facility] Cat Scan Room [facility] [place] CT Scan Comment on above: Kidney stone; Asymptomatic microscopic hematuria; Stress incontinence, female Start: 09-23-2021 End: 09-25-2021 Subsequent hospital visit by physician [facility] Additional Xray At [facility] Comment on above: Asymptomatic microsc opic hematuria; Female stress incontinence; Kidney stone Start: 08-11-2021 End: 08-13-2021 Subsequent hospital visit by physician [facility] Additional Xray At [facility] Comment on above: Asymptomatic microsc opic hematuria; Flank pain Start: 04-22-2021 End: 04-24-2021 Subsequent hospital visit by physician [facility] Additional Xray At [facility] Comment on above: Calculus of kidney Start: 11-26-2020 End: 11-28-2020 Subsequent hospital visit by physician [facility] Additional Xray At [facility] Comment on above: Kidney stone Start: 11-08-2020 End: 11-08-2020 Patient encounter procedure Isidoro Goldberg Jr Work Phone: -Pre-Surgical Testing Start: 11-02-2020 End: 11-02-2020 Patient encounter procedure Isidoro Goldberg -Pre-Surgical Testing Start: 09-01-2020 End: 09-03-2020 Subsequent hospital visit by physician Patricia [facility] Comment on above: Kidney stone Start: 06-23-2020 End: 06-25-2020 Subsequent hospital visit by physician Patricia Cat Scan Room [facility] Scan Comment on above: Abnormal findings on diagnostic imaging of abdomen Start: 05-31-2020 End: 06-02-2020 Subsequent hospital visit by physician Allan Dig Rad 1 [facility] Radiology Comment on above: Abnormal spinal diag nostic imaging Start: 05-26-2020 End: 05-28-2020 Subsequent hospital visit by physician Allan Dexa Room At [facility] Dexa Scan Comment on above: 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, multiple sites; Bone disorder; Encounter for screening for osteoporosis Breast cancer screen ing by mammogram Start: 02-02-2017 End: 02-03-2017 Ambulatory RADHACHATA SANTIAGO [facility] Procedures Date Procedure Procedure Detail Performing Clinician Start: 01-10-2024 Cystoscopic laser lithotripsy of ureteric calculus Jose A GRAMAJO Start: 01-10-2024 Specimen from renal pelvis obtained by biopsy (specimen) Jose A GRAMAJO Start: 07-31-2023 Cataract (disorder) YINKA PENNINGTON Comment [...] 11-02-2020 Diagnostic radiograp hy of abdomen Isidoro Goldberg Start: 09-01-2020 Radiologic exam abdo men 1 view Isidoro Goldberg Work Phone: Start: 06-23-2020 Ct abdomen & pelvis w/o contrast material [facility] Work Phone: Start: 05-31-2020 Radiologic exam abdo men 1 view Radha Hooksgisela Work Phone: Start: 05-26-2020 Screening mammograph y bi 2-view breast inc cad Radha Gilesamish Work Phone: Start: 05-26-2020 Dxa bone density juli dy 1/> sites axial skel Radha Hooksgisela Work Phone: [facility] x 2 Isidoro Martinez L rotator cuff repair Isidoro Goldberg Jr. Other bilateral liga tion and division of fallopian tubes Isidoro Goldberg Jr. Plan of Treatment Date Care Activity Detail Author Start: 07-07-2024 Screening for malign ant neoplasm of breast Breast cancer screen [facility] Start: 07-06-2023 Screening for malign ant neoplasm of breast Breast cancer screen [facility] Start: 05-26-2022 Screening for malign ant neoplasm of breast Breast cancer screen [place], [place] Start: 03-23-2022 Influenza vaccination Flu vacc ine (Season Ended) [facility] Start: 03-23-2021 Influenza vaccination [facility] Start: 05-02-2020 Annual Wellness Visi t (AWV) Annual Wellness Visit (AWV) [facility] Start: 03-23-2020 Influenza vaccination Flu vaccine (# 1) [place] Start: 11-19-2019 Pneumococcal 65+ yea rs Vaccine (1 - PCV) Pneumococcal 65+ years Vaccine (1 - PCV) [facility] Start: 11-19-2019 Pneumococcal 65+ yea rs Vaccine (1 of 1 - PPSV23) Pneumococcal 65+ years Vaccine (1 of 1 - PPSV23) [facility] Start: 2004 Screening for malign ant neoplasm of colon Colon cancer screen colonoscopy [place], [place] Start: 2004 Shingles Vaccine (1 of 2) Shingles Vaccine (1 of 2) [facility] Start: 11-19-1999 Screening for malign ant neoplasm of colon [facility] Start: 11-19-1975 Screening for malign ant neoplasm of cervix Cervical cancer screen [place], [place] Start: 1973 DTaP/Tdap/Td vaccine (1 - Tdap) DTaP/Tdap/Td vaccine (1 - Tdap) [facility] Start: 1972 Hepatitis C screening Hepatitis C [facility] Start: 1970 COVID-19 Vaccine (1 of 2) COVID-19 Vaccine (1 of 2) [facility] Work Phone: Start: 1970 COVID-19 Vaccine (1) COVID-19 Vaccin e (1) [facility] Work Phone: Start: 1969 HIV screening HIV screen [place], [place] Start: 1966 Depression Screen Depression Screen [facility] Start: 1964 Lipid panel [facility] Start: 1954 Annual Wellness Visi t (AWV) Annual Wellness Visit (AWV) [facility] Start: 1954 Hepatitis C screening Hepatitis C sc [facility] End: 07-07-2022 BARRETT DAVID DIGITAL SCREEN BILATERAL [facility] Work Phone: Comment on above: 1 Occurrences starti ng 07/07/2022 until 07/07/2022 Immunizations Immunization Date Immunization Notes Care Provider Hetal martinez 06-26-2023 influenza, high dose seasonal, preservative-free TESSIESHERRI PENNINGTON [facility] [place] 05-23-2022 influenza virus vaccine, unspecified formulation TESSIESHERRI PENNINGTON [facility] 05-23-2022 SARS-CoV-2 (COVID-19 ) mRNAMUL.ORD![id number] TESSIESHERRI PENNINGTON [facility] 11-11-2021 SARS-CoV-2 mRNA (vvooglqyjco-fkrg-mend ose) vaccine TESSIESHERRI PENNINGTON [facility] 04-22-2021 SARS-CoV-2 (COVID-19 ) Ad26 vaccine, recombinant Isidoro Goldberg Jr. [facility] 10-15-2020 SARS-CoV-2 (COVID-19 ) mRNA BNT-162b2 vax Isidoro Goldberg Jr. [facility] 10-05-2020 SARS-CoV-2 (COVID-19 ) mRNA BNT-162b2 vax TESSIE PENNINGTON [facility] 09-24-2020 SARS-CoV-2 (COVID-19 ) mRNA BNT-162b2 vax Isidoro Goldberg Jr. [facility] NEGATED: Highlighted row has not occurred!06-27-2022 pneumococcal polysaccharide vaccine, 23 valent Radha DONNAMILLER [facility] [place] NEGATED: Highlighted row has not occurred!06-27-2022 pneumococcal conjugate vaccine, 13 valent Radha DONNAMILLER [facility] [place] NEGATED: Highlighted row has not occurred!08-31-2020 influenza virus vaccine, unspecified formulation Isidoro Goldberg Jr. [facility] Payers Date Payer Category Payer Self-pay 2019 Medicare [id number] 1954 Unknown [id number] 2.16.8 [id number] 1954 Unknown [id number] 2.16.8 40.1.941982.3.579.2.174 1954 Unknown [id number] 2.16.8 40.1.424747.3.579.2.174 1954 Unknown [id number] 2.16.8 40.1.939771.3.579.2.174 1954 Unknown [id number] 2.16.8 40.1.315620.3.579.2.174 1954 Unknown [id number] 2.16.8 40.1.454478.3.579.2.72 1954 Unknown [id number] 2.16.8 40.1.430401.3.579.2.727 1954 Unknown [id number] 2.16.8 40.1.024748.3.579.2.72 1954 Unknown [id number] 2.16.8 40.1.972780.3.579.2.727 1954 Unknown [id number] 2.16.8 40.1.843244.3.579.2.72 1954 Unknown [id number] 2.16.8 40.1.947236.3.579.2.727 1954 Unknown [id number] 2.16.8 40.1.715758.3.579.2.727 1954 Unknown [id number] 2.16.8 40.1.160280.3.579.2.727 1954 Unknown [id number] 2.16.8 40.1.210749.3.579.2.72 1954 Unknown [id number] 2.16.8 40.1.846551.3.579.2.727 1954 Unknown [id number] 2.16.8 40.1.223137.3.579.2.72 1954 Unknown [id number] 2.16.8 40.1.141689.3.579.2.727 1954 Unknown [id number] 2.16.8 40.1.386811.3.579.2.727 1954 Unknown [id number] 2.16.8 40.1.275150.3.579.2.727 Unknown [id number] 2.16.8 40.1.694231.3.579.2.531 Social History Date Type Detail Facility Start: 02-02-2020 End: 01-18-2024 Tobacco smoking status NHIS Never smoker [place], [place] Comment on above: Denies use. Start: 02-02-2020 Tobacco use and exposure Former user [place], [place] Start: 1955 Sex Assigned At Not on file M [place], [place] Start: 1955 Sex Assigned At Female F [facility] Tobacco smoking status Never [facility] Comment on above: Denies use. Sex Assigned At Female [facility] Goals Date Patient Goal Desired Activity /State Functional Status Date Assessment Result Facility 01-18-2024 Functional Status N/A [facility] 11-26-2023 Functional Status N/A [facility] 10-23-2023 Functional Status N/A [facility] 09-18-2023 Functional Status N/A [facility] 11-24-2022 Functional Status N/A [facility] 10-13-2022 Functional Status N/A [facility] 06-27-2022 Functional Status N/A [facility] 01-18-2022 Functional Status N/A [facility] Clinical Notes 10-17-2021 to 01-18-2024 LaboratoryLaboratory Note Date & Type Note Facility 01-18-2024 Hospital Discharg e instructions Patient Education 01/18/2024 11:09:28 Ureteroscopy Ureteroscopy Ureteroscopy is a procedure to check for and treat problems inside part of the urinary tract. In this procedure, a long rigid or flexible tube with a lens and light at the end (ureteroscope) is used to look at the inside of the kidneys and the ureters. The ureters are the tubes that carry urine from the kidneys to the bladder. The ureteroscope is inserted into one or both of the ureters. You may need this procedure if you have frequent urinary tract infections (UTIs), blood in your urine, or a stone in one or both of your ureters. A ureteroscopy can be done: To find the cause of urine blockage in a ureter and to evaluate other abnormalities inside the ureters or kidneys. To remove stones. To remove or treat growths of tissue (polyps), abnormal tissue, and some types of tumors. To remove a tissue sample and check it for disease under a microscope (biopsy). Tell a health care provider about: Any allergies you have. All medicines you are taking, including vitamins, herbs, eye drops, creams, and itah-uhv-twmddmi medicines. Any problems you or family members have had with anesthetic medicines. Any bleeding problems you have. Any surgeries you have had. Any medical conditions you have. Whether you are or may be . What are the risks? Your health care provider will talk with you about risks. These may include: Abdominal pain or a burning feeling or pain while urinating. Abnormal bleeding. A UTI. Allergic reactions to medicines. Scarring that narrows the ureter (stricture) or swelling. Creating a hole (perforation) in the ureter. Damage to other structures or organs, such as the part of your body that drains urine from your bladder (urethra), your bladder, or your uterus. What happens before the procedure? When to stop eating and drinking 8 hours before your procedure ?Stop eating most foods. Do not eat meat, fried foods, or fatty foods. ?Eat only light foods, such as toast or crackers. ?All liquids are okay except energy drinks and alcohol. 6 hours before your procedure ?Stop eating. ?Drink only clear liquids, such as water, clear fruit juice, black coffee, plain tea, and sports drinks. ?Do not drink energy drinks or alcohol. 2 hours before your procedure ?Stop drinking all liquids. ?You may be allowed to take medicines with small sips of water. Medicines Ask your health care provider about: Changing or stopping your regular medicines. These include any diabetes medicines or blood thinners you take. Taking medicines such as aspirin and ibuprofen. These medicines can thin your blood. Do not take these medicines unless your health care provider tells you to. Taking qswh-jed-qltewha medicines, vitamins, herbs, and supplements. General instructions Do not use any products that contain nicotine or tobacco for at least 4 weeks before the procedure. These products include cigarettes, chewing tobacco, and vaping devices, such as e-cigarettes. If you need help quitting, ask your health care provider. If you will be going home right after the procedure, plan to have a responsible adult: ?Take you home from the hospital or clinic. You will not be allowed to drive. ?Care for you for the time you are told. Ask your health care provider what steps will be taken to help prevent infection. These may include: ?Washing skin with a soap that kills germs. ?Receiving antibiotic medicine. Tests You may have an exam or testing. ?You may have a urine sample taken to check for infection. What happens during the procedure? An IV will be inserted into one of your veins. You may be given: ?A sedative. This helps you relax. ?Anesthesia. This will: ?Numb certain areas of your body. ?Make you fall asleep for surgery. Your urethra will be cleaned with a germ-killing solution. The ureteroscope will be passed through your urethra into your bladder. A salt-water solution will be sent through the ureteroscope to fill your bladder. This will help the health care provider see the openings of your ureters more clearly. The ureteroscope will be passed into your ureter. ?If a growth is found, a biopsy may be done. ?If a stone is found, it may be removed through the ureteroscope, or the stone may be broken up using a laser, shock waves, or electrical energy. ?In some cases, if the ureter is too small, a tube may be inserted that keeps the ureter open (ureteral stent). The stent may be left in place for 1 or 2 weeks, and then the ureteroscopy procedure will be done again. The scope will be removed, and your bladder will be emptied. The procedure may vary among health care providers and hospitals. What happens after the procedure? Your blood pressure, heart rate, breathing rate, and blood oxygen level will be monitored until you leave the hospital or clinic. It is up to you to get the results of your procedure. Ask your health care provider, or the department that is doing the procedure, when your results will be ready. Summary Ureteroscopy is a procedure used to look at the inside of the kidneys and the ureters. You may need this procedure if you have frequent urinary tract infections (UTIs), blood in your urine, or a stone in one or both of your ureters. Follow instructions from your health care provider about eating and drinking. In some cases, if the ureter is too small, a tube may be inserted that keeps the ureter open (ureteral stent). The stent may be left in place for 1 or 2 weeks to keep the ureter open, and then the ureteroscopy procedure will be done again. This information is not intended to replace advice given to you by your health care provider. Make sure you discuss any questions you have with your health care provider. Document Revised: 11/03/2022 Document Reviewed: 11/03/2022 gdgt Patient Education 2022 [employer]. 01/18/2024 11:09:26 Cystoscopy Cystoscopy Cystoscopy is a procedure that is used to help diagnose and sometimes treat conditions that affect the lower urinary tract. The lower urinary tract includes the bladder and the urethra. The urethra is the tube that drains urine from the bladder. Cystoscopy is done using a thin, tube-shaped instrument with a light and camera at the end (cystoscope). The cystoscope may be hard or flexible, depending on the goal of the procedure. The cystoscope is inserted through the urethra, into the bladder. Cystoscopy may be recommended if you have: Urinary tract infections that keep coming back. Blood in the urine (hematuria). An inability to control when you urinate (urinary incontinence) or an overactive bladder. Unusual cells found in a urine sample. A blockage in the urethra, such as a urinary stone. Painful urination. An abnormality in the bladder found during an intravenous pyelogram (IVP) or CT scan. Cystoscopy may also be done to remove a sample of tissue to be examined under a microscope (biopsy). Tell a health care provider about: Any allergies you have. All medicines you are taking, including vitamins, herbs, eye drops, creams, and ubuc-vni-oqahyda medicines. Any problems you or family members have had with anesthetic medicines. Any blood disorders you have. Any surgeries you have had. Any medical conditions you have. Whether you are or may be . What are the risks? Generally, this is a safe procedure. However, problems may occur, including: Infection. Bleeding. Allergic reactions to medicines. Damage to other structures or organs. What happens before the procedure? Medicines Ask your health care provider about: Changing or stopping your regular medicines. This is especially important if you are taking diabetes medicines or blood thinners. Taking medicines such as aspirin and ibuprofen. These medicines can thin your blood. Do not take these medicines unless your health care provider tells you to take them. Taking xqeq-nfj-ddofupj medicines, vitamins, herbs, and supplements. Tests You may have an exam or testing, such as: X-rays of the bladder, urethra, or kidneys. CT scan of the abdomen or pelvis. Urine tests to check for signs of infection. General instructions Follow instructions from your health care provider about eating or drinking restrictions. Ask your health care provider what steps will be taken to help prevent infection. These steps may include: ?Washing skin with a germ-killing soap. ?Taking antibiotic medicine. Plan to have a responsible adult take you home from the hospital or clinic. What happens during the procedure? You will be given one or more of the following: ?A medicine to help you relax (sedative). ?A medicine to numb the area (local anesthetic). The area around the opening of your urethra will be cleaned. The cystoscope will be passed through your urethra into your bladder. Germ-free (sterile) fluid will flow through the cystoscope to fill your bladder. The fluid will stretch your bladder so that your health care provider can clearly examine your bladder villarreal. Your doctor will look at the urethra and bladder. Your doctor may take a biopsy or remove stones. The cystoscope will be removed, and your bladder will be emptied. The procedure may vary among health care providers and hospitals. What can I expect after the procedure? After the procedure, it is common to have: Some soreness or pain in your abdomen and urethra. Urinary symptoms. These include: ?Mild pain or burning when you urinate. Pain should stop within a few minutes after you urinate. This may last for up to 1 week. ?A small amount of blood in your urine for several days. ?Feeling like you need to urinate but producing only a small amount of urine. Follow these instructions at home: Medicines Take lmpq-lpw-kbgxkog and prescription medicines only as told by your health care provider. If you were prescribed an antibiotic medicine, take it as told by your health care provider. Do not stop taking the antibiotic even if you start to feel better. General instructions Return to your normal activities as told by your health care provider. Ask your health care provider what activities are safe for you. If you were given a sedative during the procedure, it can affect you for several hours. Do not drive or operate machinery until your health care provider says that it is safe. Watch for any blood in your urine. If the amount of blood in your urine increases, call your health care provider. Follow instructions from your health care provider about eating or drinking restrictions. If a tissue sample was removed for testing (biopsy) during your procedure, it is up to you to get your test results. Ask your health care provider, or the department that is doing the test, when your results will be ready. Drink enough fluid to keep your urine pale yellow. Keep all follow-up visits. This is important. Contact a health care provider if: You have pain that gets worse or does not get better with medicine, especially pain when you urinate. You have trouble urinating. You have more blood in your urine. Get help right away if: You have blood clots in your urine. You have abdominal pain. You have a fever or chills. You are unable to urinate. Summary Cystoscopy is a procedure that is used to help diagnose and sometimes treat conditions that affect the lower urinary tract. Cystoscopy is done using a thin, tube-shaped instrument with a light and camera at the end. After the procedure, it is common to have some soreness or pain in your abdomen and urethra. Watch for any blood in your urine. If the amount of blood in your urine increases, call your health care provider. If you were prescribed an antibiotic medicine, take it as told by your health care provider. Do not stop taking the antibiotic even if you start to feel better. This information is not intended to replace advice given to you by your health care provider. Make sure you discuss any questions you have with your health care provider. Document Revised: 03/22/2022 Document Reviewed: 02/18/2021 gdgt Patient Education 2022 [employer]. Follow Up Care 01/15/2024 09:54:43 With:AVILA HOOPER, Jose A Padron, URL Address: [address] [place] [id number] When: Unknown [facility] [place] 01-18-2024 Note Patient Education Urology Ureteroscopy Ureteroscopy is a procedure to check for and treat problems inside part of the urinary tract. In this procedure, a long rigid or flexible tube with a lens and light at the end (ureteroscope) is used to look at the inside of the kidneys and the ureters. The ureters are the tubes that carry urine from the kidneys to the bladder. The ureteroscope is inserted into one or both of the ureters. You may need this procedure if you have frequent urinary tract infections (UTIs), blood in your urine, or a stone in one or both of your ureters. A ureteroscopy can be done: ? To find the cause of urine blockage in a ureter and to evaluate other abnormalities inside the ureters or kidneys. ? To remove stones. ? To remove or treat growths of tissue (polyps), abnormal tissue, and some types of tumors. ? To remove a tissue sample and check it for disease under a microscope (biopsy). Tell a health care provider about: ? Any allergies you have. ? All medicines you are taking, including vitamins, herbs, eye drops, creams, and iwws-mtx-koyhmdf medicines. ? Any problems you or family members have had with anesthetic medicines. ? Any bleeding problems you have. ? Any surgeries you have had. ? Any medical conditions you have. ? Whether you are or may be . What are the risks? Your health care provider will talk with you about risks. These may include: ? Abdominal pain or a burning feeling or pain while urinating. ? Abnormal bleeding. ? A UTI. ? Allergic reactions to medicines. ? Scarring that narrows the ureter (stricture) or swelling. ? Creating a hole (perforation) in the ureter. ? Damage to other structures or organs, such as the part of your body that drains urine from your bladder (urethra), your bladder, or your uterus. What happens before the procedure? When to stop eating and drinking ? 8 hours before your procedure ? Stop eating most foods. Do not eat meat, fried foods, or fatty foods. ? Eat only light foods, such as toast or crackers. ? All liquids are okay except energy drinks and alcohol. ? 6 hours before your procedure ? Stop eating. ? Drink only clear liquids, such as water, clear fruit juice, black coffee, plain tea, and sports drinks. ? Do not drink energy drinks or alcohol. ? 2 hours before your procedure ? Stop drinking all liquids. ? You may be allowed to take medicines with small sips of water. Medicines Ask your health care provider about: ? Changing or stopping your regular medicines. These include any diabetes medicines or blood thinners you take. ? Taking medicines such as aspirin and ibuprofen. These medicines can thin your blood. Do not take these medicines unless your health care provider tells you to. ? Taking vvep-ojr-vhdqsnp medicines, vitamins, herbs, and supplements. General instructions ? Do not use any products that contain nicotine or tobacco for at least 4 weeks before the procedure. These products include cigarettes, chewing tobacco, and vaping devices, such as e-cigarettes. If you need help quitting, ask your health care provider. ? If you will be going home right after the procedure, plan to have a responsible adult: ? Take you home from the hospital or clinic. You will not be allowed to drive. ? Care for you for the time you are told. ? Ask your health care provider what steps will be taken to help prevent infection. These may include: ? Washing skin with a soap that kills germs. ? Receiving antibiotic medicine. Tests ? You may have an exam or testing. ? You may have a urine sample taken to check for infection. What happens during the procedure? ? An IV will be inserted into one of your veins. ? You may be given: ? A sedative. This helps you relax. ? Anesthesia. This will: ? Numb certain areas of your body. ? Make you fall asleep for surgery. ? Your urethra will be cleaned with a germ-killing solution. ? The ureteroscope will be passed through your urethra into your bladder. ? A salt-water solution will be sent through the ureteroscope to fill your bladder. This will help the health care provider see the openings of your ureters more clearly. ? The ureteroscope will be passed into your ureter. ? If a growth is found, a biopsy may be done. ? If a stone is found, it may be removed through the ureteroscope, or the stone may be broken up using a laser, shock waves, or electrical energy. ? In some cases, if the ureter is too small, a tube may be inserted that keeps the ureter open (ureteral stent). The stent may be left in place for 1 or 2 weeks, and then the ureteroscopy procedure will be done again. ? The scope will be removed, and your bladder will be emptied. The procedure may vary among health care providers and hospitals. What happens after the procedure? ? Your blood pressure, heart rate, breathing rate, and blood oxygen l (more content not included)... [facility] 11-26-2023 Hospital Discharg e instructions Patient Education [...] Follow these instructions at home: Medicines Take cbus-khh-qpdnyno and prescription medicines only as told by [...] prevent or treat constipation, such as: ?Take pkjd-fth-vikjvzz or prescription medicines. ?Eat foods that are [...] provider. Document Revised: 11/15/2022 Document Reviewed: 03/13/2022 gdgt Patient Education 2022 [employer]. 11/26/2023 12:32:55 Laser Therapy for Kidney Stones [...] including vitamins, herbs, eye drops, creams, and uvbr-xrj-gqrdavt medicines. Any problems you or family members [...] provider tells you to take them. ?Taking flsd-fxp-kxtkjxy medicines, vitamins, herbs, and supplements. Eating and [...] provider. Document Revised: 11/15/2022 Document Reviewed: 03/13/2022 gdgt Patient Education 2022 [employer]. Follow Up Care 11/26/2023 08:21:13 With:AVILA HOOPER, Jose A Padron, URL Address: [facility] [address], [place] [address]- [phone] When: Unknown [facility] [place] 10-23-2023 Hospital Discharg e instructions Patient Education [...] include: ?8 oz (237 mL) of milk, qxdnvyy-fdxkyoraqdko-trcae milk, and calcium-fortifiedfruit juice. Calcium-fortified means that [...] ?Spinach (cooked), rhubarb, beets, sweet potatoes, and Malagasy chard. ?Peanuts. ?Potato chips, sri lankan fries, and baked potatoes with skin on. ?Nuts and nut products. ?Chocolate. If you regularly take a diuretic medicine, make sure to eat at least 1 or 2 servings of fruits or vegetables that are high in potassium each day. These include: ?Avocado. ?Banana. ?[place], prune, carrot, or tomato juice. ?Baked potato. [...] magnesium, fish oil, or vitamin B6. Take xnqj-mav-qfkbecp and prescription medicines only as told by [...] Casseroles. Pizza. Lasagna. Frozen meals. Potato chips. Yoruba fries. The items listed above may not [...] provider. Document Revised: 10/19/2022 Document Reviewed: 10/19/2022 gdgt Patient Education 2022 Birthday Slam. 10/23/2023 16:25:07 Kidney Stones, Zyua-el-Pvus Kidney Stones Kidney stones are rock-like masses [...] Follow these instructions at home: Medicines Take bfii-ted-jflmuno and prescription medicines only as told by [...] Kidney Foundation (NKF): www.kidney.org Urology Care Foundation (F): www.urologyhealth.org Contact a doctor if: You have [...] provider. Document Revised: 03/13/2022 Document Reviewed: 03/13/2022 gdgt Patient Education 2022 Birthday Slam. 10/23/2023 16:25:06 Hematuria, Adult Hematuria, Adult Hematuria [...] Follow these instructions at home: Medicines Take zlou-oot-ktcspao and prescription medicines only as told by [...] or the blood stops without treatment. Take xwjr-trn-wvegrvi and prescription medicines only as told by your health care provider. Drink enough fluid to keep your urine pale yellow. This information is not intended to replace advice given to you by your health care provider. Make sure you discuss any questions you have with your health care provider. Document Revised: 03/09/2021 Document Reviewed: 03/09/2021 gdgt Patient Education 2022 Birthday Slam. Follow Up Care 10/11/2023 10:11:04 With:AVILA HOOPER, Jose A Padron, URL Address: [address] [place] [phone]- When: Unknown Comments:pending cysto [facility] [place] 09-18-2023 Hospital Discharg e instructions Patient Education [...] include: ?8 oz (237 mL) of milk, gsodqwi-apbutawwuajo-dkfbi milk, and calcium-fortifiedfruit juice. Calcium-fortified means that [...] ?Spinach (cooked), rhubarb, beets, sweet potatoes, and Malagasy chard. ?Peanuts. ?Potato chips, sri lankan fries, and baked potatoes with skin on. ?Nuts and nut products. ?Chocolate. If you regularly take a diuretic medicine, make sure to eat at least 1 or 2 servings of fruits or vegetables that are high in potassium each day. These include: ?Avocado. ?Banana. ?[place], prune, carrot, or tomato juice. ?Baked potato. [...] magnesium, fish oil, or vitamin B6. Take jtpm-bwy-qxcpccq and prescription medicines only as told by [...] Casseroles. Pizza. Lasagna. Frozen meals. Potato chips. Yoruba fries. The items listed above may not [...] provider. Document Revised: 10/19/2022 Document Reviewed: 10/19/2022 gdgt Patient Education 2022 Birthday Slam. Follow Up Care 08/01/2022 14:52:39 With:TESSIE PENNINGTON PA-C, URL Address: [address] [facility] [place] [address] When: Unknown [facility] [employer] 11-24-2022 Hospital Discharg e instructions Patient Education [...] Follow these instructions at home: Medicines Take nnkx-suw-xccwvrf and prescription medicines only as told by [...] or the blood stops without treatment. Take pyur-ycd-ivipmon and prescription medicines only as told by your health care provider. Drink enough fluid to keep your urine pale yellow. This information is not intended to replace advice given to you by your health care provider. Make sure you discuss any questions you have with your health care provider. Document Revised: 03/09/2021 Document Reviewed: 03/09/2021 gdgt Patient Education 2022 Birthday Slam. Follow Up Care 11/24/2022 10:44:09 With:Shawn FERNANDEZ, ASSOCIATE PROFESSOR OF SOCIOLOGY-Jimmy BUSTAMANTE Address: [address] [place] [phone] When: only if needed [facility] [place] 10-13-2022 Hospital Discharg [...] Treatment for this condition includes: Antibiotic medicine. Usmn-luz-ylapzen medicines to treat discomfort. Drinking enough water [...] Follow these instructions at home: Medicines Take axua-dwl-iqnqutz and prescription medicines only as told by [...] 04/18/2006 Document Revised: 06/26/2019 Document Reviewed: 01/16/2019 gdgt Patient Education 2020 Birthday Slam. Follow Up Care 10/11/2022 13:37:52 With:Shawn FERNANDEZ, ASSOCIATE PROFESSOR OF SOCIOLOGY-STORAGE SOLUTIONS ARCHITECT, Jimmy Clarke Address: [address] [place] [phone] When: only if needed [facility] [place] 06-27-2022 Hospital Discharg e instructions Patient Education [...] health care provider or diet and nutrition counselor (dietitian) before starting any calcium supplements. Calcium [...] mg per 8 oz serving. Grains Fortified glgmp-aj-feb cereals, 100 1,000 mg per 8 oz serving. Fortified frozen waffles, 200 mg in two waffles. Meats and other proteins Sardines, canned with bones, 325 mg per 3 oz serving. [place], canned with bones, 180 mg per 3 oz serving. Canned shrimp, 125 mg per 3 oz serving. Baked beans, 160 mg per 4 oz serving. Dairy Yogurt, plain, low-fat, 310 mg per 6 oz serving. Milk, 300 mg per 8 oz serving. Marshallese cheese, 195 mg per 1 oz serving. [...] 02/20/2005 Document Revised: 07/02/2018 Document Reviewed: 07/02/2018 gdgt Patient Education 2020 Birthday Slam. 06/27/2022 10:08:28 Basics of Medicine Management Basics [...] care provider about all your medicines, including urxz-brf-cklgqmg medicines, vitamins, and herbal or dietary supplements. [...] you. If there is an emergency, a tipple operator can quickly see what medicines you are [...] ?Use a local government, hospital, or pharmacy kgfmzmzu-ahbb-bdmo program. ?Mix the medicines with inedible substances, [...] 10/24/2011 Document Revised: 07/04/2018 Document Reviewed: 07/04/2018 gdgt Patient Education 2020 [employer]gt [employer]. 06/27/2022 10:08:25 BMI for Adults BMI for [...] height. This can be done either in Cymro (U.S.) or metric measurements. Note that charts are available to help you find your BMI quickly and easily without having to do these calculations yourself. To calculate your BMI in Cymro (U.S[place] measurements, your health care provider will: [...] medical problems. BMI can be measured using Cymro measurements or metric measurements. To interpret your [...] 03/20/2005 Document Revised: 06/21/2018 Document Reviewed: 05/22/2018 gdgt Patient Education 2019 Birthday Slam. [facility] [place] 01-18-2022 Hospital Discharg [...] of hard liquor (1 oz). Medicines Take cjpb-zkx-arxoqhe and prescription medicines only as told by [...] Centers for Disease Control and Prevention: www.cdc.gov/heartdisease [place] Heart Association: www.heart.org ?Take a free online [...] 02/20/2005 Document Revised: 07/24/2018 Document Reviewed: 07/24/2018 [employer] Patient Education 2020 [employer]dgt Inc. Follow Up Care 06/29/2021 10:03:43 With:Td FU Address: [address] [place] [phone]- When:Within 1 Year(s) [facility] [place] 12-20-2021 Hospital Discharg e instructions Patient Education 12/20/2021 10:01:58 Kidney Stones, Obkl-cc-Ndns Kidney Stones Kidney stones are rock-like masses [...] Follow these instructions at home: Medicines Take ephs-icx-rvllnvm and prescription medicines only as told by [...] 12/25/2008 Document Revised: 11/25/2019 Document Reviewed: 11/25/2019 [employer] Patient Education 2019 Birthday Slam. Follow Up Care 11/28/2021 09:02:22 With:Yusuf Handy MD, Isidoro Del Angel URO Address: [facility] [address], [place] [address]- When:06/22/2022 Comments:w/kandis [facility] 11-24-2021 Hospital Discharg e instructions Patient Education 11/24/2021 11:50:45 Ogdp-Ewzc-xs Utereroscopy,Lithotripsy, Stone Extraction, Stent Placement (Custom) [facility] [place], [place] Post-operative Instructions for Ureteroscopy, Laser Lithotripsy, [...] other reasons. If it is to remain longterm, however, changes of the stent are required [...] arrange for your post-operative appointment (with XRAY) [phone] 11/24/2021 11:38:09 Post Op Patient Instructions - FT (CUSTOM) Follow Up Care 10/27/2021 12:44:20 With:TESSIE PENNINGTON Address: [address] [place], [place] [address] [address] [facility] (1) When:2 to 4 weeks Comments:KUB x-ray with next visit. [facility] 10-17-2021 Hospital Discharg e instructions Follow Up Care 10/17/2021 08:41:01 With:Yusuf Handy MD, Isidoro Del Angel URO Address: [facility] [address] [place] [phone] When: Unknown [facility] Evaluation + Plan note Future Appointments Appointment Date:12/28/2021 10:00:00 AM Scheduled Provider:Radha SANTIAGO CNP Location:[facility] [place] Appointment Type: Open Future Scheduled TestsCBC w/ Auto Diff 10/27/20 [facility] Evaluation + Plan note Future Appointments Appointment Date:12/28/2021 10:00:00 AM Scheduled Provider:Radha SANTIAGO CNP [facility] Appointment Type:FM Open Diagnostic Tests PendingCalculi Analysis Urinary 11/24/21 [facility] Evaluation + Plan note Future Appointments Appointment Date:12/28/2021 10:00:00 AM Scheduled Provider:Radha SANTIAGO CNP [facility] Appointment Type:FM Open Appointment Date:07/04/2022 09:15:00 AM Scheduled Provider:Isidoro Goldberg Jr., MD Location:[facility] Appointment Type:URO Office Visit [facility] Evaluation + Plan note Future Appointments Appointment Date:07/04/2022 09:15:00 AM Scheduled Provider:Isidoro Goldberg Jr., MD Location:[facility] Appointment Type:URO Office Visit Future Scheduled TestsLipid Panel 01/18/22 [facility] [place] Evaluation + Plan note Future Appointments Appointment Date:08/01/2022 02:00:00 PM Scheduled Provider:TESSIE PENNINGTON PA-C Location:[facility] Appointment Type:URO Office Visit Appointment Date:01/16/2023 10:20:00 AM Scheduled Provider:JEMAL Smiley Tammy L. [facility] Appointment Type:FM Open Appointment Date:06/26/2023 09:30:00 AM Scheduled Provider: [facility] Appointment Type:FM Medicare Wellness Subsequent [facility] Evaluation + Plan note Future Appointments Appointment Date:01/16/2023 10:20:00 AM Scheduled Provider:JEMAL Smiley Tammy L. [facility] Appointment Type:FM Open Appointment Date:06/26/2023 09:30:00 AM Scheduled Provider: [facility] Appointment Type:FM Medicare Wellness Subsequent Appointment Date:08/07/2023 01:00:00 PM Scheduled Provider:TESSIE PENNINGTON PA-C [facility] Appoint[facility] Type:URO Office Visit Diagnostic Tests PendingUrine Culture 08/01/22 [facility] Evaluation + Plan note Future Appointments Appointment Date:01/16/2023 10:20:00 AM Scheduled Provider:JEMAL Smiley Tammy L. [facility] Appointment Type:FM Open Appointment Date:06/26/2023 09:30:00 AM Scheduled Provider: [facility] Appointment Type:FM Medicare Wellness Subsequent Appointment Date:08/07/2023 01:00:00 PM Scheduled Provider:TESSIE PENNINGTON PA-C [facility] App[facility] Type:URO Office Visit Diagnostic Tests PendingUrine Culture 10/13/22 [facility] Evaluation + Plan note Future Appointments Appointment Date:01/16/2023 10:20:00 AM Scheduled Provider:JEMAL Smiley Tammy L. Location:[facility] Appointment Type:FM Open Appointment Date:06/26/2023 09:30:00 AM Scheduled Provider: [facility] Appointment Type:FM Medicare Wellness Subsequent Appointment Date:08/07/2023 01:00:00 PM Scheduled Provider:TESSIE PENNINGTON PA-C [facility] Appointment Type:URO Office Visit [facility] [place] Evaluation + Plan note Future Appointments Appointment Date:01/16/2023 11:00:00 AM Scheduled Provider:JEMAL Smiley Tammy L. [facility] Appointment Type:FM Open Appointment Date:06/26/2023 09:30:00 AM Scheduled Provider: [facility] Appointment Type:FM Medicare Wellness Subsequent Appointment Date:08/07/2023 01:00:00 PM Scheduled Provider:TESSIE PENNINGTON PA-C [facility] Appoint[facility] Type:URO Office Visit [facility] [place] Evaluation + Plan note Future Appointments Appointment Date:06/26/2024 08:00:00 AM Scheduled Provider: [facility] Appointment Type:FM Medicare Wellness Subsequent [facility] Evaluation + Plan note Future Appointments Appointment Date:06/26/2024 08:00:00 AM Scheduled Provider: Location:[facility] [place] Appointment Type: Medicare Wellness Subsequent Diagnostic Tests PendingUrine Culture 09/18/23 [facility] Evaluation + Plan note Future Appointments Appointment Date:06/26/2024 08:00:00 AM Scheduled Provider: Location:[facility] [place] Appointment Type: Medicare Wellness Subsequent Diagnostic Tests PendingUrine Culture 10/08/23 [facility] Evaluation + Plan note Future Appointments Appointment Date:06/26/2024 08:00:00 AM Scheduled Provider: Location:[facility] [place] Appointment Type: Medicare Wellness Subsequent Diagnostic Tests PendingUrine Culture 10/23/23Urine Cytology ([facility]) 10/23/23 [facility] Evaluation + Plan note Future Appointments Appointment Date:02/22/2024 09:15:00 AM Scheduled Provider:Jose A GRAMAJO MD Location:[facility] Appointment Type:URO Office Visit Appointment Date:06/26/2024 08:00:00 AM Scheduled Provider: Location:[facility] [place] Appointment Type: Medicare Wellness Subsequent [facility] Evaluation note No Assessments Infor mation Available [facility] Evaluation note Diagnosis Kidney stone Calculus of kidney documented in this encounter [employer] Phone: evaluation note* Diagnosis Calculus of kidney documented in this encounter [facility] Phone: evaluation note* Diagnosis Asymptomatic microscopic hematuria Flank pain Abdominal pain, unspecified site documented in this encounter [employer] Phone: evaluation note* Diagnosis Asymptomatic microscopic hematuria Female stress incontinence Kidney stone Calculus of kidney documented in this encounter [employer] Phone: evaluation note* Diagnosis Kidney stone Calculus of kidney Asymptomatic microscopic hematuria Stress incontinence, female Female stress incontinence documented in this encounter [employer] Phone: evaluation note* Diagnosis Kidney stones Calculus of kidney documented in this encounter [facility] [employer] Work Phone: [email or web address] note* Diagnosis Encounter for screening mammogram for malignant neoplasm of breast Other screening mammogram documented in this encounter [facility] [employer] Work Phone: [email or web address] note* Diagnosis Kidney stone Calculus of kidney documented in this encounter [facility] [employer] Work Phone: [email or web address] noteNo assessment information available [facility] Work Phone: Hospital course Narrative No data available for this section [facility] Discharge instructions No data available for this section [facility] No data available for this section [facility] [place] Summary Purpose Family History No Family History Records Found Relationship Condition Age at Onset Recorded Date/T marianne brother Parkinson's disease Unknown father Malignant neoplasm of pancreas Unknown Not Specified Malignant neoplasm of breast Unknown Advance Directives No Advanced Directives Records FoundDocuments on File Type Date 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 ACP-Advance Directive ACP-Power of Culture Media Laboratory Assistant Documents on File Type Date 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 ACP-Advance Directive ACP-Power of Culture [employer] Laboratory Assistant Advance Directive Response Recorded Date/ Time Advance Directives No October 27 3:51pm Advance Directive Response Recorded Date/ Time Advance Directives No January 09 12:22pm Reason for Referral Status Reason Specialty Diagnoses / Procedures Referred By Contact Referred To Contact Pending Review Radiology Diagnoses Other disorders of bone development and growth, multiple sites Bone disorder Encounter for screening for osteoporosis Procedures DEXA BONE DENSITY 2 SITES Radha Santiago APRN - CNP [address] [place] [address] Status Reason Specialty Diagnoses / Procedures Referred By Contact Referred To Contact Authorized Radiology Diagnoses Breast cancer screening by mammogram Procedures BARRETT DAVID DIGITAL SCREEN BILATERAL Radha Santiago APRN - STORAGE SOLUTIONS ARCHITECT [address] [place] [address] Status Reason Specialty Diagnoses / Procedures Referre d By Contact Referred To Contact Open Radiology Diagnoses Abnormal findings on diagnostic imaging of abdomen Procedures CT ABDOMEN PELVIS WO CONTRAST Additional Contrast? None Radha Santiago APRN - CNP [address] [place] [address] Specialty Diagnoses / Procedures Referred By Abdiaziz t Referred To Contact Radiology Diagnoses Encounter for screening mammogram for malignant neoplasm of breast Procedures BARRETT DAVID DIGITAL SCREEN BILATERAL Td Meehan PA [address] [place] [address] Referral ID Status Reason Start Date Expiration Date Visits Re quested Visits Authorized [id number] Closed 07/07/2022 07/07/2023 1 1 Assessments Diagnosis [...] Stone Chief Complaint Kidney Stone Kidney Stone Chief Complaint Unknown Additional Source Comments INFORMATION SOURCE (unrecogn ized section and content) DATE CREATED AUTHOR 01/16/2018 [facility] DATE CREATED AUTHOR AUTHOR'S ORGANIZ ATION 11/16/2023 Silvana Katie [facility] DATE CREATED AUTHOR AUTHOR'S ORGANIZ ATION 01/19/2024 [facility] DATE CREATED AUTHOR AUTHOR'S ORGANIZ ATION 01/23/2024 [facility] Reason for Visit (unrecogniz ed section and content) Status Reason Specialty Diagnoses / Procedures Referred By Contact Referred To Contact Pending Review Radiology Diagnoses Other disorders of bone development and growth, multiple sites Disorder of bone, unspecified Encounter for screening for osteoporosis Procedures HC DEXA AXIAL SKELETON Radha Santiago APRN - CNP [address] [place] [address] [facility] [address] [place] [address] Status Reason Specialty Diagnoses / Procedures Referred By Contact Referred To Contact Pending Review Radiology Diagnoses Encounter for screening mammogram for malignant neoplasm of breast Procedures HC MAMMOGRAM DIGITAL SCREEN BILAT Radha Santiago APRN - CNP [address] [place] [address] [facility] [address] [place] [address] Status Reason Specialty Diagnoses / Procedures Referre d By Contact Referred To Contact Closed Radiology Diagnoses Abnormal findings on diagnostic imaging of other abdominal regions, including retroperitoneum Procedures HC CT ABDOMEN PELVIS WO CONTRAST HC CT ABD/PELVIS W/O CONTRAST [address] CT ABD PELV WO Radha Santiago APRN - CNP [address] [place] [address] [place] [address] Specialty Diagnoses / Procedures Referred By Abdiaziz soni Referred To Contact Radiology Diagnoses Kidney stone Asymptomatic microscopic hematuria Stress incontinence, female Procedures CT ABDOMEN PELVIS W WO CONTRAST Additional Contrast? None CT ABDOMEN PELVIS W IV CONTRAST Additional Contrast? None Isidoro Goldberg Referral ID Status Reason Start Date Expiration Date Visits Re quested Visits Authorized [id number] Closed 10/13/2021 11/27/2021 1 1 Specialty Diagnoses / Procedures Referred By Abdiaziz t Referred To Contact Radiology Diagnoses Encounter for screening mammogram for malignant neoplasm of breast Procedures BARRETT DAVID DIGITAL SCREEN BILATERAL Td Meehan PA [address] [place] [address] Referral ID Status Reason Start Date Expiration Date Visits Re quested Visits Authorized [id number] Closed 07/07/2022 07/07/2023 1 1 Care Teams (unrecognized sec tion and content) Appeals Referee Relationship Specialty Start Date End Date Radha Santiago APRN - CNP [address] [place] [address] PCP - General Family Medicine 06/18/20 Appeals Referee Relationship Specialty Start Date End Date Radha Santiago APRN - CNP [address] [place] [address] PCP - General Family Medicine 06/18/20 Appeals Referee Relationship Specialty Start Date End Date Radha Santiago APRN - STORAGE SOLUTIONS ARCHITECT [address] [place] [address] PCP - General Family Medicine 06/18/20 Appeals Referee Relationship Specialty Start Date End Date Radha Santiago APRN - STORAGE SOLUTIONS ARCHITECT [address] [place] [address] PCP - General Family Medicine 06/18/20 Appeals Referee Relationship Specialty Start Date End Date Radha Santiago APRN - STORAGE SOLUTIONS ARCHITECT [address] [place] [address] PCP - General Family Medicine 06/18/20 Appeals Referee Relationship Specialty Start Date End Date Radha Santiago APRN - STORAGE SOLUTIONS ARCHITECT [address] [place] [id number] PCP - General Family Medicine 06/18/20 Appeals Referee Relationship Specialty Start Date End Date Radha Santiago APRN - STORAGE SOLUTIONS ARCHITECT [address] [place] [address] PCP - General Family Medicine 06/18/20 Appeals Referee Relationship Specialty Start Date End Date Jimmy Lawton ASSOCIATE PROFESSOR OF SOCIOLOGY - STORAGE SOLUTIONS ARCHITECT [address] [facility] [place] [address] PCP - General Family Nurse Practitioner 07/07/22 Appeals Referee Relationship Specialty Start Date End Date Jimmy Lawton ASSOCIATE PROFESSOR OF SOCIOLOGY - STORAGE SOLUTIONS ARCHITECT [address] [facility] [place] [address] PCP - General Family Nurse Practitioner 07/07/22 Appeals Referee Relationship Specialty Start Date End Date Jimmy Lawton ASSOCIATE PROFESSOR OF SOCIOLOGY - STORAGE SOLUTIONS ARCHITECT [address] [place] [address] PCP - General Family Nurse Practitioner 07/07/22 Team Status: Active Member Role Status Dates JOMAR Anthony Primary Care Provider Warren white Team Status: Inactive Member Role Status Dates JOMAR Anthony Primary Care Provider Warren white Start: January 10, 2024 End: January 10, 2024 Jose A Gramajo MD Attending Provider Active St art: January 10, 2024 End: January 10, 2024 Goals (unrecognized section and content) Goals may be documented in a n alternate section FOR RECORDS PERTAINING TO PATIENTS WHO ARE [...] BE BASED ON THE PRIMARY CLINICAL RECORDS. [facility]. provides no warranty or guarantee of the accuracy or completeness of information in this document.
[2024-02-07] MEDS: LACTATED RINGER'S SOLUTION 1,000 ML 50 ML IV ×2 (09:38→11:50)
[2024-02-07] MEDS: SCOPOLAMINE 1 MG/3 DAYS TRANSDERM PATCH 1 PATCH TD (10:18)
[2024-02-07] MEDS: CEFAZOLIN SODIUM/DEXTROSE,ISO 2 GM/50 ML PIGGYBACK IV (10:51)
--- NOTE | 2024-02-07 12:33 | PM.URSON ---
Urology Surgery Operative Note Operative Note Procedure Date: 02/07/24 Time Out Performed: yes Pre-op Diagnosis: Right renal pelvis mass Post-op Diagnosis: same as pre-op Procedures performed: 1. Cystoscopy. 2. Right stent changed to 6 Wallisian variable length. 3. Right ureteroscopy. 4. Right pyeloscopy. 5. Multiple right renal pelvis mass biopsies. 6. Right renal wash for cytology Anesthesia: General-LMA Primary Surgeon: Jose A Miguel Complications: None Estimated blood loss (mL): 20 Findings: Right renal pelvis mass Specimens: 1. Right renal wash for cytology. 2. Right renal pelvis mass biopsies Drains: 6 Wallisian variable length right ureteral stent Indications for Procedures: This lady has a right renal pelvis mass and she had a right renal stone. She underwent ureteroscopic laser lithotripsy and biopsy of the mass. Only a couple biopsies could be taken because there was poor visibility due to bleeding after the laser lithotripsy. She now presents for repeat ureteroscopy and biopsy of this mass. She has signed an informed consent for these procedures after risks were explained. Detailed description of Procedure: The patient was brought to the operating room and placed on the operating room table in the supine position. SCDs were placed on the lower extremities and turned on and functioning during the entire case. Timeout was done by all parties in the room. We all agreed upon the patient's identification and the planned procedures for this patient. Genn. anesthesia was then administered. The patient was then repositioned into the modified dorsal lithotomy position. All pressure points were satisfactorily padded. Genitalia were sterilely prepped and draped in usual fashion. I started by passing a 22 Wallisian Olympus cystoscope per urethra and into the bladder. The stent was identified. It was not encrusted. I then passed a flexible grasping forceps through the scope and grasped the stent. The stent and was brought out the urethral meatus. I then slid a Glidewire through the stent into the kidney and remove the old stent. A 10/12 ureteral access sheath was passed over the wire and up the right ureter to the L5 position. The wire and stylette were then removed. I then passed a flexible ureteroscope through the access sheath and into the ureter. I was able to a send up to the UPJ. There was a bit of tortuosity there but I was able to get into the renal pelvis. I then could see the area of abnormality. I passed a Piranha biopsy forceps and began taking biopsies of the area. It was located medially and posteriorly at the renal pelvis right near the UPJ. There were some fronds visible. I was able to get multiple biopsies albeit each 1 was tiny. These were all sent in formalin for permanent sections. Eventually, there was some bleeding which made visibility essentially impossible. The procedure had to be terminated then. I then passed a Glidewire through the scope and removed the scope. The access sheath was then removed. The cystoscope was backloaded over the wire and passed into the bladder. I then slid a new 6 Wallisian variable length ureteral stent over the wire up into the kidney. The wire was removed and there were good curls in the kidney and in the bladder. The bladder was drained of its contents and the scope was then removed. She was then transferred to a [facility] bed and wheeled to PACU in stable condition.
[2024-02-07] MEDS: SOLIFENACIN SUCCINATE 10 MG TABLET PO (12:58)
--- NOTE | 2024-02-07 14:49 | PC.NURSE ---
PATIENT URINATED A LARGE AMOUNT OF RED TINGED URINE DENIES PAIN AT DISCHARGE
== END 2024-02-07 14:50 | disposition home or self-care (01) ==
PROVIDERS: Visit Provider Urology
PROC: (CPT 52332; principal; 2024-02-07 10:15)
DX: N28.89 Other specified disorders of kidney and ureter (principal); R31.9 Hematuria, unspecified; N20.0 Calculus of kidney; R93.429 Abnormal radiologic findings on diagnostic imaging of unspecified kidney; E78.5 Hyperlipidemia, unspecified; I34.0 Nonrheumatic mitral (valve) insufficiency
CPT/HCPCS: 52332; 52354; 76000; 88112; 99999; J0690; J1100; J1885; J2250; J2371; J2405; J2704; J3010